=== PATIENT | male | born 1965 | race Caucasian/White ===

== ENCOUNTER 2017-01-30 16:25 | Inpatient (IN) | payer OTHER ==
[~2017-01-30] VITALS: Ht 175.3 cm; Wt 102.5 kg
[2017-01-30] MEDS ORDERED: IV NORMAL SALINE 1000ML BAG 1,000 ML IV SCH (16:44)
--- NOTE | 2017-01-30 16:51 | PHYS DOC ---
Adult General Chief Complaint Chief Complaint: FLANK PAIN HPI HPI Patient is a 52 year old [place] with the complaint of left flank and left-sided abdominal pain. He has a history of kidney stones in the past and this feels to him like a kidney stone. It's been bothering him intermittently for about 3 weeks, worse over the past day or 2. He's also noticed some difficulty with his urine stream. He's had kidney stones in the past, states he's had both a stent and lithotripsy in the past more than 5 years ago. He's had chills but no fever. No vomiting in the last 2 days. He has noticed a red discoloration to his urine. He has a history of diabetes for more than 10 years, he takes metformin daily and also 2 shots of insulin per day. Negative hypertension. Medical history also positive for "stress and depression", he takes Lipitor, lately he has been taking ibuprofen and tramadol for the pain. Review of Systems Review of Systems Constitutional: Denies fever, has had chills Eyes: Denies change in visual acuity, redness, or eye pain [] HENT: Denies nasal congestion or sore throat [] Respiratory: Denies cough or shortness of breath [] Cardiovascular: Denies chest pain GI: As in history of present illness : As in history of present illness Musculoskeletal: Denies back pain or joint pain [] Integument: Denies rash or skin lesions [] Neurologic: Denies headache, focal weakness or sensory changes [] Current Medications Current Medications Current Medications Medications (Trade) Dose Ordered Sig/Wili Start Time Stop Time Status Last Admin Dose Admin Sodium Chloride (Iv Sodium Chloride 0.9% 1000ml Bag) 1,000 ml @ 1,000 mls/hr Q1H 01/30/17 16:44 01/30/17 17:43 DC 01/30/17 17:05 1,000 MLS/HR Allergies Allergies Allergies Coded Allergies Type Severity Reaction Last Updated Verified cranberry Allergy Unknown 01/30/17 Yes Uncoded Allergies Type Severity Reaction Last Updated Verified hay Allergy Unknown 01/30/17 Physical Exam Physical Exam Constitutional: Well developed, well nourished, no acute distress, non-toxic appearance. Alert, talkative, mentating normally. HENT: Normocephalic, atraumatic, bilateral external ears normal, nose normal. [] Eyes: conjunctiva normal, no discharge. [] Neck: Normal range of motion, no stridor. [] Cardiovascular:Heart rate regular rhythm, no murmur [] Lungs & Thorax: Bilateral breath sounds clear to auscultation [] Abdomen: Bowel sounds normal, no bruit, soft, no mass, no pulsatile mass, nontender to palpation, nondistended. Skin: Warm, dry, no erythema, no rash. [] Back: No tenderness, no CVA tenderness. [] Extremities: No tenderness, no cyanosis, no clubbing, ROM intact, no edema. [] Neurologic: Alert and oriented X 3, normal motor function, normal sensory function, no focal deficits noted. [] Current Patient Data Vital Signs Vital Signs Date Time Temp Pulse Resp B/P Pulse Ox O2 Delivery O2 Flow Rate FiO2 01/30/17 17:00 70 18 123/79 98 Room Air 01/30/17 16:40 98.4 98.4 Lab Values Laboratory Tests Test 01/30/17 16:50 01/30/17 16:52 Glucose (Fingerstick) 136mg/dL (70-99) H White Blood Count 5.7x10^3/uL (4.0-11.0) Red Blood Count 4.17x10^6/uL (4.30-5.70) L Hemoglobin 13.0g/dL (13.0-17.5) Hematocrit 39.3% (39.0-53.0) Mean Corpuscular Volume 94fL (79-100) Mean Corpuscular Hemoglobin 31pg (25-35) Mean Corpuscular Hemoglobin Concent 33g/dL (31-37) Red Cell Distribution Width 14.6% (11.5-14.5) H Platelet Count 215x10^3/uL (140-400) Neutrophils (%) (Auto) 55% (31-73) Lymphocytes (%) (Auto) 29% (24-48) Monocytes (%) (Auto) 10% (0-9) H Eosinophils (%) (Auto) 5% (0-3) H Basophils (%) (Auto) 1% (0-3) Neutrophils # (Auto) 3.2x10^3uL (1.8-7.7) Lymphocytes # (Auto) 1.6x10^3/uL (1.0-4.8) Monocytes # (Auto) 0.6x10^3/uL (0.0-1.1) Eosinophils # (Auto) 0.3x10^3/uL (0.0-0.7) Basophils # (Auto) 0.1x10^3/uL (0.0-0.2) Urine Collection Type Unknown Urine Color Yellow Urine Clarity Clear Urine pH 6.0 Urine Specific [place] 1.020 Urine Protein Negativemg/dL (NEG-TRACE) Urine Glucose (UA) Negativemg/dL (NEG) Urine Ketones (Stick) Negativemg/dL (NEG) Urine Blood Small (NEG) Urine Nitrite Negative (NEG) Urine Bilirubin Negative (NEG) Urine Urobilinogen Dipstick 1.0mg/dL (0.2 mg/dL) Urine Leukocyte Esterase Small (NEG) Urine RBC 0/HPF (0-2) Urine WBC 11-20/HPF (0-4) Urine Squamous Epithelial Cells Few/LPF Urine Bacteria Few/HPF (0-FEW) Urine Mucus Slight/LPF Urine Sperm Present/HPF Sodium Level 142mmol/L (136-145) Potassium Level 4.6mmol/L (3.5-5.1) Chloride Level 106mmol/L (98-107) Carbon Dioxide Level 29mmol/L (21-32) Anion Gap 7 (6-14) Blood Urea Nitrogen 23mg/dL (8-26) Creatinine 1.7mg/dL (0.7-1.3) H Estimated GFR (Cockcroft-Gault) 42.2 BUN/Creatinine Ratio 14 (6-20) Glucose Level 133mg/dL (70-99) H Calcium Level 9.3mg/dL (8.5-10.1) Total Bilirubin 0.4mg/dL (0.2-1.0) Aspartate Amino Transferase (AST) 21U/L (15-37) Alanine Aminotransferase (ALT) 29U/L (16-63) Alkaline Phosphatase 64U/L (46-116) Total Protein 7.0g/dL (6.4-8.2) Albumin 3.8g/dL (3.4-5.0) Albumin/Globulin Ratio 1.2 (1.0-1.7) Laboratory Tests 01/30/17 16:52 Laboratory Tests 01/30/17 16:52 EKG EKG [] Radiology/Procedures Radiology/Procedures CT scan of the abdomen and pelvis read by the radiologist. There are obstructing stones in the right ureter. There does not appear to be an obstructing stone or ureteral stone on the left. [] Course & Med Decision Making Course & Med Decision Making Pertinent Labs and Imaging studies reviewed. (See chart for details) 52-year-old male with a history of kidney stones in the past presents with left flank pain intermittently for 3 weeks which reminds him of kidney stone pain. I discussed with the patient that we will get labs, CT scan, give him some IV fluids, he is agreeable to that plan. On presentation, he is in no distress whatsoever. He didn't feel that he is a little shaky and told him we will check his blood sugar. Dr. Turk, urology, came by to see the patient in the ED. CT scan showed 2 large kidney stones obstructing the right ureter area per Dr. Turk, also concern that these have been there a long time with some chronic changes on the CT. No ureteral stone was noted on the left, no hydro-on the left. Dr. Turk wants to admit the patient and plan to take him for stent tomorrow. Also his urinalysis is equivocal for UTI, he recommended a dose of Rocephin which I did start. Discussed the case with Dr. Martinez, hospitalist, who will admit the patient. I wrote bridge orders with a consult to Dr. Turk. The patient will be nothing by mouth after midnight for procedure tomorrow. [] Dragon Disclaimer Dragon Disclaimer This electronic medical record was generated, in whole or in part, using a voice recognition dictation system. Departure Departure Impression: Primary Impression: Renal colic Additional Impression: Hydronephrosis with urinary obstruction due to ureteral calculus Admitting Physician: Regina Martinez Condition: STABLE Problem Qualifiers JOSÉ MIGUEL KAN MD January 30, 2017 16:51
[2017-01-30 17:04] LABS: BASO # 0.1 x10^3/uL (0.0-0.2); BASO % 1 % (0-3); BILIRUBIN,URINE NEGATIVE (NEG); EOS % 5 % (0-3); GLUCOSE,URINE NEGATIVE (NEG); HEMATOCRIT 39.3 % (39.0-53.0); LYMPH # 1.6 x10^3/uL (1.0-4.8); LYMPH % 29 % (24-48); MEAN CORPUSCULAR HEMOGLOBIN 31 pg (25-35); MEAN CORPUSCULAR HGB CONC 33 g/dL (31-37); MEAN CORPUSCULAR VOLUME 94 fL (79-100); MONO % 10 % (0-9); NEUT % 55 % (31-73); NITRITE,URINE NEGATIVE (NEG); PLATELET COUNT 215 x10^3/uL (140-400); PROTEIN,URINE NEGATIVE (NEG-TRACE); RED BLOOD COUNT 4.17 x10^6/uL (4.30-5.70); RED CELL DISTRIBUTION WIDTH 14.6 % (11.5-14.5); WHITE BLOOD COUNT 5.7 x10^3/uL (4.0-11.0)
[2017-01-30 17:14] LABS: BACTERIA,URINE FEW /HPF (0-FEW); CALCIUM 9.3 mg/dL (8.5-10.1); CREATININE 1.7 mg/dL (0.7-1.3); GFR 42.2; POTASSIUM 4.6 mmol/L (3.5-5.1); RBC,URINE 0 /HPF (0-2); SPERM,URINE PRESENT /HPF; SQUAMOUS EPITHELIAL CELL,UR FEW /LPF
[2017-01-30 17:20] LABS: ALBUMIN 3.8 g/dL (3.4-5.0); ALBUMIN/GLOBULIN RATIO 1.2 (1.0-1.7); TOTAL BILIRUBIN 0.4 mg/dL (0.2-1.0)
--- NOTE | 2017-01-30 17:21 | PDOC ---
PROGRESS NOTES Subjective Subjective Left flank and abd pain Objective Objective Vital Signs Date Time Temp Pulse Resp B/P Pulse Ox O2 Delivery O2 Flow Rate FiO2 01/30/17 16:40 98.4 72 16 147/82 98 Room Air 98.4 Physical Exam Physical Exam Tender left flank and abd Plan Plan of Care Pt. with long history of stone disease CT abd and pelvis Proceed accordingly Comment Review of Relevant I have reviewed the following items patti (where applicable) has been applied. Labs Laboratory Tests Test 01/30/17 16:50 01/30/17 16:52 Glucose (Fingerstick) 136mg/dL (70-99) White Blood Count 5.7x10^3/uL (4.0-11.0) Red Blood Count 4.17x10^6/uL (4.30-5.70) Hemoglobin 13.0g/dL (13.0-17.5) Hematocrit 39.3% (39.0-53.0) Mean Corpuscular Volume 94fL (79-100) Mean Corpuscular Hemoglobin 31pg (25-35) Mean Corpuscular Hemoglobin Concent 33g/dL (31-37) Red Cell Distribution Width 14.6% (11.5-14.5) Platelet Count 215x10^3/uL (140-400) Neutrophils (%) (Auto) 55% (31-73) Lymphocytes (%) (Auto) 29% (24-48) Monocytes (%) (Auto) 10% (0-9) Eosinophils (%) (Auto) 5% (0-3) Basophils (%) (Auto) 1% (0-3) Neutrophils # (Auto) 3.2x10^3uL (1.8-7.7) Lymphocytes # (Auto) 1.6x10^3/uL (1.0-4.8) Monocytes # (Auto) 0.6x10^3/uL (0.0-1.1) Eosinophils # (Auto) 0.3x10^3/uL (0.0-0.7) Basophils # (Auto) 0.1x10^3/uL (0.0-0.2) Urine Collection Type Unknown Urine Color Yellow Urine Clarity Clear Urine pH 6.0 Urine Specific [place] 1.020 Urine Protein Negativemg/dL (NEG-TRACE) Urine Glucose (UA) Negativemg/dL (NEG) Urine Ketones (Stick) Negativemg/dL (NEG) Urine Blood Small (NEG) Urine Nitrite Negative (NEG) Urine Bilirubin Negative (NEG) Urine Urobilinogen Dipstick 1.0mg/dL (0.2 mg/dL) Urine Leukocyte Esterase Small (NEG) Urine RBC 0/HPF (0-2) Urine WBC 11-20/HPF (0-4) Urine Squamous Epithelial Cells Few/LPF Urine Bacteria Few/HPF (0-FEW) Urine Mucus Slight/LPF Urine Sperm Present/HPF Sodium Level 142mmol/L (136-145) Potassium Level 4.6mmol/L (3.5-5.1) Chloride Level 106mmol/L (98-107) Carbon Dioxide Level 29mmol/L (21-32) Anion Gap 7 (6-14) Blood Urea Nitrogen 23mg/dL (8-26) Creatinine 1.7mg/dL (0.7-1.3) Estimated GFR (Cockcroft-Gault) 42.2 BUN/Creatinine Ratio 14 (6-20) Glucose Level 133mg/dL (70-99) Calcium Level 9.3mg/dL (8.5-10.1) Laboratory Tests Test 01/30/17 16:50 01/30/17 16:52 Glucose (Fingerstick) 136mg/dL (70-99) White Blood Count 5.7x10^3/uL (4.0-11.0) Red Blood Count 4.17x10^6/uL (4.30-5.70) Hemoglobin 13.0g/dL (13.0-17.5) Hematocrit 39.3% (39.0-53.0) Mean Corpuscular Volume 94fL (79-100) Mean Corpuscular Hemoglobin 31pg (25-35) Mean Corpuscular Hemoglobin Concent 33g/dL (31-37) Red Cell Distribution Width 14.6% (11.5-14.5) Platelet Count 215x10^3/uL (140-400) Neutrophils (%) (Auto) 55% (31-73) Lymphocytes (%) (Auto) 29% (24-48) Monocytes (%) (Auto) 10% (0-9) Eosinophils (%) (Auto) 5% (0-3) Basophils (%) (Auto) 1% (0-3) Neutrophils # (Auto) 3.2x10^3uL (1.8-7.7) Lymphocytes # (Auto) 1.6x10^3/uL (1.0-4.8) Monocytes # (Auto) 0.6x10^3/uL (0.0-1.1) Eosinophils # (Auto) 0.3x10^3/uL (0.0-0.7) Basophils # (Auto) 0.1x10^3/uL (0.0-0.2) Urine Collection Type Unknown Urine Color Yellow Urine Clarity Clear Urine pH 6.0 Urine Specific [place] 1.020 Urine Protein Negativemg/dL (NEG-TRACE) Urine Glucose (UA) Negativemg/dL (NEG) Urine Ketones (Stick) Negativemg/dL (NEG) Urine Blood Small (NEG) Urine Nitrite Negative (NEG) Urine Bilirubin Negative (NEG) Urine Urobilinogen Dipstick 1.0mg/dL (0.2 mg/dL) Urine Leukocyte Esterase Small (NEG) Urine RBC 0/HPF (0-2) Urine WBC 11-20/HPF (0-4) Urine Squamous Epithelial Cells Few/LPF Urine Bacteria Few/HPF (0-FEW) Urine Mucus Slight/LPF Urine Sperm Present/HPF Sodium Level 142mmol/L (136-145) Potassium Level 4.6mmol/L (3.5-5.1) Chloride Level 106mmol/L (98-107) Carbon Dioxide Level 29mmol/L (21-32) Anion Gap 7 (6-14) Blood Urea Nitrogen 23mg/dL (8-26) Creatinine 1.7mg/dL (0.7-1.3) Estimated GFR (Cockcroft-Gault) 42.2 BUN/Creatinine Ratio 14 (6-20) Glucose Level 133mg/dL (70-99) Calcium Level 9.3mg/dL (8.5-10.1) Medications Current Medications Sodium Chloride (Iv Sodium Chloride 0.9% 1000ml Bag) 1,000 ml @ 1,000 mls/hr Q1H IV Last administered on 01/30/17t 17:05; Start 01/30/17 at 16:44; Stop at 17:43 Vitals/I & O Vital Sign - Last 24 Hours 01/30/17 16:40 Temp 98.4 98.4 Pulse 72 Resp 16 B/P 147/82 Pulse Ox 98 O2 Delivery Room Air MARIFER FLORENCE MD January 30, 2017 17:21
--- NOTE | 2017-01-30 18:17 | RAD ---
PROCEDURE CT study of the abdomen and pelvis without contrast HISTORY Worsening severe left flank pain for 2 weeks. TECHNIQUE Noncontrast helical CT scanning of the abdomen and pelvis was performed. Without contrast, the sensitivity to detect organ pathology and GI tract pathology is decreased. One or more of the following individualized dose reduction techniques were utilized for this study: 1. Automated exposure control 2. Adjustment of the mA and/or kV according to patient size 3. Use of iterative reconstruction technique COMPARISON None. FINDINGS The liver and spleen and pancreas are homogeneous in appearance on the noncontrast study. The gallbladder is surgically absent. No extrahepatic biliary ductal dilatation is seen. No adrenal mass is seen. There is severe hydronephrosis and proximal right hydroureter due to 2 stones within the right ureter. The more proximal stone is smaller in size measuring 5 millimeters and is located 6.5 centimeters distal to the UPJ. The larger stone is located another 2.5 centimeters distally within the mid right ureter and measures 16 millimeters in size. Nonobstructing stones of the left kidney are seen. Cyst of the right kidney is seen. No focal aneurysmal dilatation of the abdominal aorta is seen. No enlarged abdominal or pelvic lymphadenopathy is seen. Urinary bladder wall is smooth. There is indentation of the floor the urinary bladder due to enlarged prostate gland which measures 6 centimeters in greatest transverse dimension. The appendix is normal. No obstructive bowel pattern is seen. A small hiatal hernia is present. No free air or free fluid or mesenteric inflammatory change is seen. No lung base consolidation is seen. No osteolytic process is seen. IMPRESSION Severe hydronephrosis and hydroureter due to 2 right ureteral stones. Electronically signed by: Tanner Quiroz MD (January 30, 2017 18:14:20)
[2017-01-30 19:06] VITALS: BP 113/79
[2017-01-30] MEDS: fentaNYL PF VIAL 100 MCG/2 ML VIAL IV PRN ×2 (19:06→19:59)
[2017-01-30] MEDS ORDERED: ONDANSETRON PF 4 MG/2 ML VIAL. IV PRN (19:30)
[2017-01-30] MEDS: IV NORMAL SALINE 1000ML BAG 1,000 ML IV SCH (19:58)
[2017-01-30] MEDS ORDERED: diphenhydrAMINE HCL 25 MG CAPSULE PO PRN (20:15)
[2017-01-30] MEDS: HYDROcodone/APAP 5/325MG 1 TAB TABLET PO PRN (20:28)
--- NOTE | 2017-01-30 21:02 | PDOC1 ---
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 He has a long prior history of kidney stones. He reports maybe 14, but is unsure of what type, Pain in the left flank, was 9/10, now 6/10 after pain meds pain has been there for weeks, worse over last 2 days Past Medical History Cardiovascular: No pertinent hx Pulmonary: No pertinent hx GI: No pertinent hx Psych: Depression Musculoskeletal: low back pain Renal/: Other (stone) Endocrine: Diabetes Past Surgical History Past Surgical History: Other (lithotrypsy) Family History Family History: No Significant Social History Smoke: No ALCOHOL: none Drugs: None Current Problem List Problem List Problems Medical Problems: (1) Hydronephrosis with urinary obstruction due to ureteral calculus Status: Acute (2) Renal colic Status: Acute Problems: Current Medications Current Medications Current Medications Sodium Chloride 1,000 ml @ 1,000 mls/hr Q1H IV Last administered on 01/30/17 17:05; Start 01/30/17 at 16:44; Stop 01/30/17 at 17:43; Status DC Ceftriaxone Sodium (Rocephin 1gm Ivpb For Omni) 50 ml @ 100 mls/hr 1X ONCE IV Last administered on 01/30/17 19:03; Start 01/30/17 at 18:45; Stop 01/30/17 at 19:14; Status DC Fentanyl Citrate (Fentanyl 2ml Vial) 50 mcg PRN Q15MIN PRN IV PAIN GREATER THAN 3/10 Last administered on 01/30/17 19:59; Start 01/30/17 at 18:45; Stop 01/31 at 18:44 Ondansetron HCl (Zofran) 4 mg PRN Q8HRS PRN IV NAUSEA/VOMITING; Start 01/30/17 at 19:30; Stop 01/31/17 at 19:29 Fentanyl Citrate 50 mcg 50 mcg PRN Q2HR PRN IV PAIN; Start 01/30/17 at 19:30; Stop 01/31/17 at 19:29 Sodium Chloride (Iv Sodium Chloride 0.9% 1000ml Bag) 1,000 ml @ 100 mls/hr Q10H IV Last administered on 01/30/17 19:58; Start 01/30/17 at 19:26; Stop at 19:25 Zolpidem Tartrate (Ambien) 5 mg PRN QHS PRN PO INSOMNIA; Start 01/30/17 at 20:15 Diphenhydramine HCl (Benadryl) 25 mg PRN Q6HRS PRN PO ITCHING; Start 01/30/17 at 20:15 Acetaminophen/ Hydrocodone Bitart (Lortab 5/325) 1 tab PRN Q4HRS PRN PO PAIN Last administered on 01/30/17 20:28; Start 01/30/17 at 20:15 Allergies Allergies: Coded Allergies: cranberry (Verified Allergy, Unknown, 01/30/17) Uncoded Allergies: hay (Allergy, Unknown, 01/30/17) ROS General: No: Appetite, Chills, Fatigue, Malaise, Night Sweats, Other PSYCHOLOGICAL ROS: YES: Depression (better with meds), Sleep disturbances, No: Anxiety, Behavioral Disorder, Concentration difficultie, Decreased libido , Disorientation, Hallucinations, Hostility, Irritablity, Mood Swings, Obsessive thoughts, Other HEENT: No: Epistaxis, Heacaches, Hearing change, Nasal congestion, Nasal discharge, Oral lesions, Other, Sinus pain, Sneezing, Snoring, Sore Throat, Tinnitus, Vertigo, Visual Changes, Vocal changes Respiratory: No: Cough, Hemoptysis, Orthopnea, Other, Pleuritic Pain, SOB with excertion, Shortness of breath, Sputum Changes, Stridor, Tachypnea, Wheezing Cardiovascular: No Chest Pain, No Edema, No Lt Headedness, No Orthopnea, No Other, No Palpitations, No Paroxysmal Noc. Dyspnea Gastrointestinal: Yes Nausea, No Abdominal Pain, No Constipation, No Diarrhea, No Hematochezia, No Melena, No Other, No Vomiting Genitourinary: YES Flank Pain, YES Other, YES Pain, No , No , No , No , No , No , No , No Discharge, No Dysuria, No Frequency, No Hematuria, No Incontinence, No Retention, No Urgency Musculoskeletal: No Gait Disturbance, No Joint Stiffness, No Joint Swelling, No Muscle Pain, No Muscular Weakness, No Other, No Pain In:, No Swelling In: Neurological: No Behavorial Changes, No Bowel/Bladder ControlChng, No Confusion , No Dizziness, No Gait Disturbance, No Headaches, No Impaired Coord/balance, No Memory Loss, No Numbness/Tingling, No Other, No Seizures, No Speech Problems , No Tremors, No Visual Changes, No Weakness Skin: Yes Dry Skin Physical Exam General: Alert, mild distress HEENT: Atraumatic, PERRLA, EOMI Lungs: Clear to auscultation, Normal air movement Heart: RRR, no gallops, no murmurs Abdomen: Normal bowel sounds, Soft (tender left, ) Rectal Exam: not examined Extremities: No clubbing, No edema, Normal pulses Skin: No rashes, No significant lesion Neuro: Normal speech, Sensation intact Psych/Mental Status: Mental status NL, Mood NL Vitals Vitals Vital Signs Date Time Temp Pulse Resp B/P Pulse Ox O2 Delivery O2 Flow Rate FiO2 01/30/17 20:28 Room Air 01/30/17 19:06 98.2 70 20 113/79 98 98.2 Labs Labs Laboratory Tests Test 01/30/17 16:50 01/30/17 16:52 Glucose (Fingerstick) 136mg/dL (70-99) White Blood Count 5.7x10^3/uL (4.0-11.0) Red Blood Count 4.17x10^6/uL (4.30-5.70) Hemoglobin 13.0g/dL (13.0-17.5) Hematocrit 39.3% (39.0-53.0) Mean Corpuscular Volume 94fL (79-100) Mean Corpuscular Hemoglobin 31pg (25-35) Mean Corpuscular Hemoglobin Concent 33g/dL (31-37) Red Cell Distribution Width 14.6% (11.5-14.5) Platelet Count 215x10^3/uL (140-400) Neutrophils (%) (Auto) 55% (31-73) Lymphocytes (%) (Auto) 29% (24-48) Monocytes (%) (Auto) 10% (0-9) Eosinophils (%) (Auto) 5% (0-3) Basophils (%) (Auto) 1% (0-3) Neutrophils # (Auto) 3.2x10^3uL (1.8-7.7) Lymphocytes # (Auto) 1.6x10^3/uL (1.0-4.8) Monocytes # (Auto) 0.6x10^3/uL (0.0-1.1) Eosinophils # (Auto) 0.3x10^3/uL (0.0-0.7) Basophils # (Auto) 0.1x10^3/uL (0.0-0.2) Urine Collection Type Unknown Urine Color Yellow Urine Clarity Clear Urine pH 6.0 Urine Specific [place] 1.020 Urine Protein Negativemg/dL (NEG-TRACE) Urine Glucose (UA) Negativemg/dL (NEG) Urine Ketones (Stick) Negativemg/dL (NEG) Urine Blood Small (NEG) Urine Nitrite Negative (NEG) Urine Bilirubin Negative (NEG) Urine Urobilinogen Dipstick 1.0mg/dL (0.2 mg/dL) Urine Leukocyte Esterase Small (NEG) Urine RBC 0/HPF (0-2) Urine WBC 11-20/HPF (0-4) Urine Squamous Epithelial Cells Few/LPF Urine Bacteria Few/HPF (0-FEW) Urine Mucus Slight/LPF Urine Sperm Present/HPF Sodium Level 142mmol/L (136-145) Potassium Level 4.6mmol/L (3.5-5.1) Chloride Level 106mmol/L (98-107) Carbon Dioxide Level 29mmol/L (21-32) Anion Gap 7 (6-14) Blood Urea Nitrogen 23mg/dL (8-26) Creatinine 1.7mg/dL (0.7-1.3) Estimated GFR (Cockcroft-Gault) 42.2 BUN/Creatinine Ratio 14 (6-20) Glucose Level 133mg/dL (70-99) Calcium Level 9.3mg/dL (8.5-10.1) Total Bilirubin 0.4mg/dL (0.2-1.0) Aspartate Amino Transf (AST/SGOT) 21U/L (15-37) Alanine Aminotransferase (ALT/SGPT) 29U/L (16-63) Alkaline Phosphatase 64U/L (46-116) Total Protein 7.0g/dL (6.4-8.2) Albumin 3.8g/dL (3.4-5.0) Albumin/Globulin Ratio 1.2 (1.0-1.7) Laboratory Tests Test 01/30/17 16:50 01/30/17 16:52 Glucose (Fingerstick) 136mg/dL (70-99) White Blood Count 5.7x10^3/uL (4.0-11.0) Red Blood Count 4.17x10^6/uL (4.30-5.70) Hemoglobin 13.0g/dL (13.0-17.5) Hematocrit 39.3% (39.0-53.0) Mean Corpuscular Volume 94fL (79-100) Mean Corpuscular Hemoglobin 31pg (25-35) Mean Corpuscular Hemoglobin Concent 33g/dL (31-37) Red Cell Distribution Width 14.6% (11.5-14.5) Platelet Count 215x10^3/uL (140-400) Neutrophils (%) (Auto) 55% (31-73) Lymphocytes (%) (Auto) 29% (24-48) Monocytes (%) (Auto) 10% (0-9) Eosinophils (%) (Auto) 5% (0-3) Basophils (%) (Auto) 1% (0-3) Neutrophils # (Auto) 3.2x10^3uL (1.8-7.7) Lymphocytes # (Auto) 1.6x10^3/uL (1.0-4.8) Monocytes # (Auto) 0.6x10^3/uL (0.0-1.1) Eosinophils # (Auto) 0.3x10^3/uL (0.0-0.7) Basophils # (Auto) 0.1x10^3/uL (0.0-0.2) Urine Collection Type Unknown Urine Color Yellow Urine Clarity Clear Urine pH 6.0 Urine Specific [place] 1.020 Urine Protein Negativemg/dL (NEG-TRACE) Urine Glucose (UA) Negativemg/dL (NEG) Urine Ketones (Stick) Negativemg/dL (NEG) Urine Blood Small (NEG) Urine Nitrite Negative (NEG) Urine Bilirubin Negative (NEG) Urine Urobilinogen Dipstick 1.0mg/dL (0.2 mg/dL) Urine Leukocyte Esterase Small (NEG) Urine RBC 0/HPF (0-2) Urine WBC 11-20/HPF (0-4) Urine Squamous Epithelial Cells Few/LPF Urine Bacteria Few/HPF (0-FEW) Urine Mucus Slight/LPF Urine Sperm Present/HPF Sodium Level 142mmol/L (136-145) Potassium Level 4.6mmol/L (3.5-5.1) Chloride Level 106mmol/L (98-107) Carbon Dioxide Level 29mmol/L (21-32) Anion Gap 7 (6-14) Blood Urea Nitrogen 23mg/dL (8-26) Creatinine 1.7mg/dL (0.7-1.3) Estimated GFR (Cockcroft-Gault) 42.2 BUN/Creatinine Ratio 14 (6-20) Glucose Level 133mg/dL (70-99) Calcium Level 9.3mg/dL (8.5-10.1) Total Bilirubin 0.4mg/dL (0.2-1.0) Aspartate Amino Transf (AST/SGOT) 21U/L (15-37) Alanine Aminotransferase (ALT/SGPT) 29U/L (16-63) Alkaline Phosphatase 64U/L (46-116) Total Protein 7.0g/dL (6.4-8.2) Albumin 3.8g/dL (3.4-5.0) Albumin/Globulin Ratio 1.2 (1.0-1.7) VTE Prophylaxis Ordered VTE Prophylaxis Devices: Yes VTE Pharmacological Prophylaxi: No Assessment/Plan Assessment/Plan Renal colic, w/ hydronephrosis, obstructing stone hydroureter flank pain, percocet and fentanyl PRN obesity DM2, hold metformin for renal fxn acute renal failure, obstructive uropathy DURGA HARMON MD January 30, 2017 21:02
[2017-01-30] MEDS ORDERED: DEXTROSE 50% 25 GM / 50ML DISP.SYRIN. IV PRN (21:45)
[2017-01-30] MEDS: DOCUSATE SODIUM 100 MG CAPSULE. PO SCH (21:52)
[2017-01-30] MEDS: ZOLPIDEM 5 MG TABLET. PO PRN (21:52)
[2017-01-30] MEDS: INSULIN DETEMIR 300 UNITS/3 ML INSULN.PEN. SQ SCH (21:57)
[2017-01-30 23:30] VITALS: BP 100/78
[2017-01-31] VITALS (12 sets, daily range): BP systolic 109–140; BP diastolic 67–92
--- NOTE | 2017-01-31 01:55 | CONS ---
DATE OF CONSULTATION: 01/30/2017 The patient is currently in the ER, but may be admitted, possibly this will be the consult. CHIEF COMPLAINT: Left flank and abdominal pain. HISTORY OF PRESENT ILLNESS: The patient is a very pleasant 52-year-old white male with long history of stone disease, who has had about a [id number] of left flank and abdominal pain, also seen some possible red urine. PAST MEDICAL HISTORY: Significant for multiple stones. He has had passed multiple stones on his own, then had multiple operations and lithotripsies in the past in [place] and at . The patient also has a history of diabetes in the past. He has had prior cholecystectomy. MEDICATIONS: Metformin and medicine for depression. ALLERGIES: The patient has no known drug allergies, just allergy to ____ AND HAY. REVIEW OF SYSTEMS: Left flank and abdominal pain. Last lithotripsy was about 7 years ago, he states. PHYSICAL EXAMINATION: ABDOMEN: The patient with some tenderness in the left flank and left side of the abdomen. No right-sided abdominal tenderness right now, but he has had some on occasion. GENITOURINARY: Testes are descended bilaterally. Phallus within normal limits. RECTAL: Good sphincter tone. Prostate smooth, nontender, without nodules, overall size 15 grams. LABORATORY DATA: Urine shows 0 red cells, 11-20 white cells and few bacteria. Creatinine is 1.7, potassium 4.6. White count is 5.7, platelet count 215,000. The patient takes a baby aspirin a day also. The patient is currently afebrile 98.4, blood pressure is 147/82, pulse is 72. ASSESSMENT: Left flank and abdominal pain and a long history of renal stone disease. PLAN: The patient is going to be getting a CT abdomen and pelvis without contrast and then we will proceed accordingly. I certainly appreciate being allowed to participate in this patient's care. MARIFER FLORENCE MD DR: NICOLE/valerie JOB#: [id number] / [id number]
[2017-01-31] MEDS: IV NORMAL SALINE 1000ML BAG 1,000 ML IV SCH ×2 (05:26→15:26)
[2017-01-31] MEDS: fentaNYL PF VIAL 100 MCG/2 ML VIAL IV PRN ×2 (06:05→09:23)
[2017-01-31] MEDS: POLYETHYLENE GLYCOL 3350 17 GM PACKET. PO SCH (07:41)
[2017-01-31] MEDS: DOCUSATE SODIUM 100 MG CAPSULE. PO SCH (07:41)
[2017-01-31 07:48] LABS: ALBUMIN 3.1 g/dL (3.4-5.0); ALBUMIN/GLOBULIN RATIO 1.1 (1.0-1.7); CREATININE 1.6 mg/dL (0.7-1.3); GFR 45.3; POTASSIUM 4.1 mmol/L (3.5-5.1); TOTAL BILIRUBIN 0.2 mg/dL (0.2-1.0); TOTAL PROTEIN 5.9 g/dL (6.4-8.2)
[2017-01-31] MEDS: INSULIN ASPART 300 UNITS/3 ML INSULN.PEN SQ SCH ×3 (08:00→17:00)
[2017-01-31 08:06] LABS: BASO # 0.1 x10^3/uL (0.0-0.2); BASO % 1 % (0-3); EOS % 6 % (0-3); HEMATOCRIT 35.3 % (39.0-53.0); HEMOGLOBIN 11.8 g/dL (13.0-17.5); LYMPH # 1.9 x10^3/uL (1.0-4.8); LYMPH % 36 % (24-48); MEAN CORPUSCULAR HEMOGLOBIN 32 pg (25-35); MEAN CORPUSCULAR HGB CONC 34 g/dL (31-37); MEAN CORPUSCULAR VOLUME 94 fL (79-100); MONO % 10 % (0-9); NEUT % 47 % (31-73); PLATELET COUNT 183 x10^3/uL (140-400); RED BLOOD COUNT 3.75 x10^6/uL (4.30-5.70); RED CELL DISTRIBUTION WIDTH 14.2 % (11.5-14.5); WHITE BLOOD COUNT 5.2 x10^3/uL (4.0-11.0)
--- NOTE | 2017-01-31 09:05 | PDOC ---
PROGRESS NOTES Subjective Subjective Pt. with bilateral flank and abd pain Objective Objective Vital Signs Date Time Temp Pulse Resp B/P (MAP) Pulse Ox O2 Delivery O2 Flow Rate FiO2 01/31/17 07:15 97.6 60 18 120/79 (93) 97 Room Air 97.6 Intake and Output 01/31/17 07:00 Intake Total 1300 ml Balance 1300 ml Intake Oral 300 ml IV Total 1000 ml # Voids 3 Physical Exam Physical Exam Large obstruction right ureteral stone Plan Plan of Care I discussed with the pt. his situation and we discussed the options, alternatives, benefits, risks, and possible complications of watchful waiting vs. intervention with cystoscopy, bilateral retrograde pyelograms with possible bilateral ureteral stent placement. Pt. understands and wishes to proceed with operation. Will proceed accordingly. Problems Medical Problems: (1) Hydronephrosis with urinary obstruction due to ureteral calculus Status: Acute (2) Renal colic Status: Acute Comment Review of Relevant I have reviewed the following items patti (where applicable) has been applied. Labs Laboratory Tests Test 01/30/17 16:50 01/30/17 16:52 01/30/17 20:59 01/31/17 03:35 Glucose (Fingerstick) 136 mg/dL (70-99) 163 mg/dL (70-99) White Blood Count 5.7 x10^3/uL (4.0-11.0) 5.2 x10^3/uL (4.0-11.0) Red Blood Count 4.17 x10^6/uL (4.30-5.70) 3.75 x10^6/uL (4.30-5.70) Hemoglobin 13.0 g/dL (13.0-17.5) 11.8 g/dL (13.0-17.5) Hematocrit 39.3 % (39.0-53.0) 35.3 % (39.0-53.0) Mean Corpuscular Volume 94 fL (79-100) 94 fL (79-100) Mean Corpuscular Hemoglobin 31 pg (25-35) 32 pg (25-35) Mean Corpuscular Hemoglobin Concent 33 g/dL (31-37) 34 g/dL (31-37) Red Cell Distribution Width 14.6 % (11.5-14.5) 14.2 % (11.5-14.5) Platelet Count 215 x10^3/uL (140-400) 183 x10^3/uL (140-400) Neutrophils (%) (Auto) 55 % (31-73) 47 % (31-73) Lymphocytes (%) (Auto) 29 % (24-48) 36 % (24-48) Monocytes (%) (Auto) 10 % (0-9) 10 % (0-9) Eosinophils (%) (Auto) 5 % (0-3) 6 % (0-3) Basophils (%) (Auto) 1 % (0-3) 1 % (0-3) Neutrophils # (Auto) 3.2 x10^3uL (1.8-7.7) 2.5 x10^3uL (1.8-7.7) Lymphocytes # (Auto) 1.6 x10^3/uL (1.0-4.8) 1.9 x10^3/uL (1.0-4.8) Monocytes # (Auto) 0.6 x10^3/uL (0.0-1.1) 0.5 x10^3/uL (0.0-1.1) Eosinophils # (Auto) 0.3 x10^3/uL (0.0-0.7) 0.3 x10^3/uL (0.0-0.7) Basophils # (Auto) 0.1 x10^3/uL (0.0-0.2) 0.1 x10^3/uL (0.0-0.2) Urine Collection Type Unknown Urine Color Yellow Urine Clarity Clear Urine pH 6.0 Urine Specific [place] 1.020 Urine Protein Negative mg/dL (NEG-TRACE) Urine Glucose (UA) Negative mg/dL (NEG) Urine Ketones (Stick) Negative mg/dL (NEG) Urine Blood Small (NEG) Urine Nitrite Negative (NEG) Urine Bilirubin Negative (NEG) Urine Urobilinogen Dipstick 1.0 mg/dL (0.2 mg/dL) Urine Leukocyte Esterase Small (NEG) Urine RBC 0 /HPF (0-2) Urine WBC 11-20 /HPF (0-4) Urine Squamous Epithelial Cells Few /LPF Urine Bacteria Few /HPF (0-FEW) Urine Mucus Slight /LPF Urine Sperm Present /HPF Sodium Level 142 mmol/L (136-145) 142 mmol/L (136-145) Potassium Level 4.6 mmol/L (3.5-5.1) 4.1 mmol/L (3.5-5.1) Chloride Level 106 mmol/L (98-107) 109 mmol/L (98-107) Carbon Dioxide Level 29 mmol/L (21-32) 23 mmol/L (21-32) Anion Gap 7 (6-14) 10 (6-14) Blood Urea Nitrogen 23 mg/dL (8-26) 19 mg/dL (8-26) Creatinine 1.7 mg/dL (0.7-1.3) 1.6 mg/dL (0.7-1.3) Estimated GFR (Cockcroft-Gault) 42.2 45.3 BUN/Creatinine Ratio 14 (6-20) 12 (6-20) Glucose Level 133 mg/dL (70-99) 127 mg/dL (70-99) Calcium Level 9.3 mg/dL (8.5-10.1) 8.0 mg/dL (8.5-10.1) Total Bilirubin 0.4 mg/dL (0.2-1.0) 0.2 mg/dL (0.2-1.0) Aspartate Amino Transf (AST/SGOT) 21 U/L (15-37) 18 U/L (15-37) Alanine Aminotransferase (ALT/SGPT) 29 U/L (16-63) 26 U/L (16-63) Alkaline Phosphatase 64 U/L (46-116) 55 U/L (46-116) Total Protein 7.0 g/dL (6.4-8.2) 5.9 g/dL (6.4-8.2) Albumin 3.8 g/dL (3.4-5.0) 3.1 g/dL (3.4-5.0) Albumin/Globulin Ratio 1.2 (1.0-1.7) 1.1 (1.0-1.7) Test 01/31/17 07:56 Glucose (Fingerstick) 95 mg/dL (70-99) Laboratory Tests Test 01/30/17 16:50 01/30/17 16:52 01/30/17 20:59 01/31/17 03:35 Glucose (Fingerstick) 136 mg/dL (70-99) 163 mg/dL (70-99) White Blood Count 5.7 x10^3/uL (4.0-11.0) 5.2 x10^3/uL (4.0-11.0) Red Blood Count 4.17 x10^6/uL (4.30-5.70) 3.75 x10^6/uL (4.30-5.70) Hemoglobin 13.0 g/dL (13.0-17.5) 11.8 g/dL (13.0-17.5) Hematocrit 39.3 % (39.0-53.0) 35.3 % (39.0-53.0) Mean Corpuscular Volume 94 fL (79-100) 94 fL (79-100) Mean Corpuscular Hemoglobin 31 pg (25-35) 32 pg (25-35) Mean Corpuscular Hemoglobin Concent 33 g/dL (31-37) 34 g/dL (31-37) Red Cell Distribution Width 14.6 % (11.5-14.5) 14.2 % (11.5-14.5) Platelet Count 215 x10^3/uL (140-400) 183 x10^3/uL (140-400) Neutrophils (%) (Auto) 55 % (31-73) 47 % (31-73) Lymphocytes (%) (Auto) 29 % (24-48) 36 % (24-48) Monocytes (%) (Auto) 10 % (0-9) 10 % (0-9) Eosinophils (%) (Auto) 5 % (0-3) 6 % (0-3) Basophils (%) (Auto) 1 % (0-3) 1 % (0-3) Neutrophils # (Auto) 3.2 x10^3uL (1.8-7.7) 2.5 x10^3uL (1.8-7.7) Lymphocytes # (Auto) 1.6 x10^3/uL (1.0-4.8) 1.9 x10^3/uL (1.0-4.8) Monocytes # (Auto) 0.6 x10^3/uL (0.0-1.1) 0.5 x10^3/uL (0.0-1.1) Eosinophils # (Auto) 0.3 x10^3/uL (0.0-0.7) 0.3 x10^3/uL (0.0-0.7) Basophils # (Auto) 0.1 x10^3/uL (0.0-0.2) 0.1 x10^3/uL (0.0-0.2) Urine Collection Type Unknown Urine Color Yellow Urine Clarity Clear Urine pH 6.0 Urine Specific [place] 1.020 Urine Protein Negative mg/dL (NEG-TRACE) Urine Glucose (UA) Negative mg/dL (NEG) Urine Ketones (Stick) Negative mg/dL (NEG) Urine Blood Small (NEG) Urine Nitrite Negative (NEG) Urine Bilirubin Negative (NEG) Urine Urobilinogen Dipstick 1.0 mg/dL (0.2 mg/dL) Urine Leukocyte Esterase Small (NEG) Urine RBC 0 /HPF (0-2) Urine WBC 11-20 /HPF (0-4) Urine Squamous Epithelial Cells Few /LPF Urine Bacteria Few /HPF (0-FEW) Urine Mucus Slight /LPF Urine Sperm Present /HPF Sodium Level 142 mmol/L (136-145) 142 mmol/L (136-145) Potassium Level 4.6 mmol/L (3.5-5.1) 4.1 mmol/L (3.5-5.1) Chloride Level 106 mmol/L (98-107) 109 mmol/L (98-107) Carbon Dioxide Level 29 mmol/L (21-32) 23 mmol/L (21-32) Anion Gap 7 (6-14) 10 (6-14) Blood Urea Nitrogen 23 mg/dL (8-26) 19 mg/dL (8-26) Creatinine 1.7 mg/dL (0.7-1.3) 1.6 mg/dL (0.7-1.3) Estimated GFR (Cockcroft-Gault) 42.2 45.3 BUN/Creatinine Ratio 14 (6-20) 12 (6-20) Glucose Level 133 mg/dL (70-99) 127 mg/dL (70-99) Calcium Level 9.3 mg/dL (8.5-10.1) 8.0 mg/dL (8.5-10.1) Total Bilirubin 0.4 mg/dL (0.2-1.0) 0.2 mg/dL (0.2-1.0) Aspartate Amino Transf (AST/SGOT) 21 U/L (15-37) 18 U/L (15-37) Alanine Aminotransferase (ALT/SGPT) 29 U/L (16-63) 26 U/L (16-63) Alkaline Phosphatase 64 U/L (46-116) 55 U/L (46-116) Total Protein 7.0 g/dL (6.4-8.2) 5.9 g/dL (6.4-8.2) Albumin 3.8 g/dL (3.4-5.0) 3.1 g/dL (3.4-5.0) Albumin/Globulin Ratio 1.2 (1.0-1.7) 1.1 (1.0-1.7) Test 01/31/17 07:56 Glucose (Fingerstick) 95 mg/dL (70-99) Medications Current Medications Sodium Chloride 1,000 ml @ 1,000 mls/hr Q1H IV Last administered on 01/30/17 17:05; Start 01/30/17 at 16:44; Stop 01/30/17 at 17:43; Status DC Ceftriaxone Sodium 50 ml @ 100 mls/hr 1X ONCE IV Last administered on 19:03; Start 01/30/17 at 18:45; Stop 01/30/17 at 19:14; Status DC Fentanyl Citrate (Fentanyl 2ml Vial) 50 mcg PRN Q15MIN PRN IV PAIN GREATER THAN 3/10 Last administered on 01/30/17 19:59; Start 01/30/17 at 18:45; Stop 01/31 at 18:44 Ondansetron HCl (Zofran) 4 mg PRN Q8HRS PRN IV NAUSEA/VOMITING; Start 01/30/17 at 19:30; Stop 01/31/17 at 19:29 Fentanyl Citrate (Fentanyl 2ml Vial) 50 mcg PRN Q2HR PRN IV PAIN; Start at 19:30; Stop 01/31/17 at 19:29 Sodium Chloride 1,000 ml @ 100 mls/hr Q10H IV Last administered on 01/31/17 05 :26; Start 01/30/17 at 19:26; Stop 01/31/17 at 19:25 Zolpidem Tartrate (Ambien) 5 mg PRN QHS PRN PO INSOMNIA Last administered on 21:52; Start 01/30/17 at 20:15 Diphenhydramine HCl (Benadryl) 25 mg PRN Q6HRS PRN PO ITCHING; Start 01/30/17 at 20:15 Acetaminophen/ Hydrocodone Bitart (Lortab 5/325) 1 tab PRN Q4HRS PRN PO PAIN Last administered on 01/30/17 20:28; Start 01/30/17 at 20:15 Docusate Sodium (Colace) 100 mg DAILY PO Last administered on 01/30/17 21:52; Start 01/30/17 at 21:30 Polyethylene Glycol (miraLAX PACKET) 17 gm DAILY PO ; Start 01/31/17 at 09:00 Insulin Aspart (Novolog) 0-9 UNITS TIDWMEALS SQ ; Start 01/31/17 at 08:00 Dextrose (Dextrose 50%-Water Syringe) 12.5 gm PRN Q15MIN PRN IV SEE COMMENTS; Start 01/30/17 at 21:45 Ceftriaxone Sodium 1 gm/ Sodium Chloride 50 ml @ 100 mls/hr Q24H IV ; Start 01/30/17 at 22:00 Insulin Detemir (Levemir) 8 units QHS SQ Last administered on 01/30/17 21:57; Start 01/30/17 at 21:45 Vitals/I & O Vital Sign - Last 24 Hours 01/30/17 01/30/17 01/30/17 01/30/17 16:40 17:00 19:00 19:06 Temp 98.4 98.4 Pulse 72 70 72 Resp 16 18 16 20 B/P (MAP) 147/82 (103) 123/79 (94) 139/81 (100) Pulse Ox 98 98 98 97 O2 Delivery Room Air Room Air Room Air Room Air 01/30/17 01/30/17 01/30/17 01/31/17 19:06 20:28 23:30 02:48 Temp 98.2 97.7 97.8 98.2 97.7 97.8 Pulse 70 101 66 Resp 20 18 18 B/P (MAP) 113/79 (90) 100/78 (85) 109/67 (81) Pulse Ox 98 95 97 O2 Delivery Room Air Room Air Room Air Room Air 01/31/17 01/31/17 01/31/17 05:00 06:30 07:15 Temp 97.6 97.6 Pulse 60 Resp 18 B/P (MAP) 120/79 (93) Pulse Ox 97 O2 Delivery Room Air Room Air Room Air Intake and Output 01/30/17 01/30/17 01/31/17 15:00 23:00 07:00 Intake Total 1300 ml Balance 1300 ml MARIFER FLORENCE MD January 31, 2017 09:05
[2017-01-31] MEDS ORDERED: IV RINGERS,LACTATED 1000ML 1,000 ML IV SCH (11:10)
[2017-01-31] MEDS ORDERED: HYDROmorphone 2 MG/ML VIAL IV PRN (11:15)
[2017-01-31] MEDS ORDERED: LIDOCAINE 1% 1 ML SYRINGE. ID PRN (11:15)
[2017-01-31] MEDS ORDERED: ONDANSETRON PF 4 MG/2 ML VIAL. IV PRN (11:15)
[2017-01-31] MEDS ORDERED: MORPHINE SULFATE 2 MG/ML DISP.SYRIN. IV PRN (11:15)
[2017-01-31] MEDS ORDERED: fentaNYL PF VIAL 100 MCG/2 ML VIAL IV PRN ×2 (11:15)
[2017-01-31] MEDS ORDERED: PROCHLORPERAZINE 10 MG/2 ML VIAL. IV PRN (11:15)
--- NOTE | 2017-01-31 11:15 | PDOC ---
PROGRESS NOTES Chief Complaint Chief Complaint Renal colic, w/ right hydronephrosis, 2 right obstructing stone hydroureter obesity DM2 acute renal failure, obstructive uropathy from Custodial plan: fu with dr. Turk, will get cystoscopy today with right side ureteral stent on ceftriaxone ivf pain control no home meds seen on jyoti brian dc in 1-2ds History of Present Illness History of Present Illness left side flank pain, with no stone on CT right side mild flank pain with 2 stones obstructing cr high some nausea Vitals Vitals Vital Signs Date Time Temp Pulse Resp B/P (MAP) Pulse Ox O2 Delivery O2 Flow Rate FiO2 01/31/17 09:55 97 Room Air 01/31/17 07:15 97.6 60 18 120/79 (93) 97.6 Physical Exam General: Alert, mild distress Abdomen: Normal bowel sounds, Soft (tender left, ) Extremities: No clubbing, No edema, Normal pulses Skin: No rashes, No significant lesion Labs LABS Laboratory Tests Test 01/30/17 16:50 01/30/17 16:52 01/30/17 20:59 01/31/17 03:35 Glucose (Fingerstick) 136 mg/dL (70-99) 163 mg/dL (70-99) White Blood Count 5.7 x10^3/uL (4.0-11.0) 5.2 x10^3/uL (4.0-11.0) Red Blood Count 4.17 x10^6/uL (4.30-5.70) 3.75 x10^6/uL (4.30-5.70) Hemoglobin 13.0 g/dL (13.0-17.5) 11.8 g/dL (13.0-17.5) Hematocrit 39.3 % (39.0-53.0) 35.3 % (39.0-53.0) Mean Corpuscular Volume 94 fL (79-100) 94 fL (79-100) Mean Corpuscular Hemoglobin 31 pg (25-35) 32 pg (25-35) Mean Corpuscular Hemoglobin Concent 33 g/dL (31-37) 34 g/dL (31-37) Red Cell Distribution Width 14.6 % (11.5-14.5) 14.2 % (11.5-14.5) Platelet Count 215 x10^3/uL (140-400) 183 x10^3/uL (140-400) Neutrophils (%) (Auto) 55 % (31-73) 47 % (31-73) Lymphocytes (%) (Auto) 29 % (24-48) 36 % (24-48) Monocytes (%) (Auto) 10 % (0-9) 10 % (0-9) Eosinophils (%) (Auto) 5 % (0-3) 6 % (0-3) Basophils (%) (Auto) 1 % (0-3) 1 % (0-3) Neutrophils # (Auto) 3.2 x10^3uL (1.8-7.7) 2.5 x10^3uL (1.8-7.7) Lymphocytes # (Auto) 1.6 x10^3/uL (1.0-4.8) 1.9 x10^3/uL (1.0-4.8) Monocytes # (Auto) 0.6 x10^3/uL (0.0-1.1) 0.5 x10^3/uL (0.0-1.1) Eosinophils # (Auto) 0.3 x10^3/uL (0.0-0.7) 0.3 x10^3/uL (0.0-0.7) Basophils # (Auto) 0.1 x10^3/uL (0.0-0.2) 0.1 x10^3/uL (0.0-0.2) Urine Collection Type Unknown Urine Color Yellow Urine Clarity Clear Urine pH 6.0 Urine Specific [place] 1.020 Urine Protein Negative mg/dL (NEG-TRACE) Urine Glucose (UA) Negative mg/dL (NEG) Urine Ketones (Stick) Negative mg/dL (NEG) Urine Blood Small (NEG) Urine Nitrite Negative (NEG) Urine Bilirubin Negative (NEG) Urine Urobilinogen Dipstick 1.0 mg/dL (0.2 mg/dL) Urine Leukocyte Esterase Small (NEG) Urine RBC 0 /HPF (0-2) Urine WBC 11-20 /HPF (0-4) Urine Squamous Epithelial Cells Few /LPF Urine Bacteria Few /HPF (0-FEW) Urine Mucus Slight /LPF Urine Sperm Present /HPF Sodium Level 142 mmol/L (136-145) 142 mmol/L (136-145) Potassium Level 4.6 mmol/L (3.5-5.1) 4.1 mmol/L (3.5-5.1) Chloride Level 106 mmol/L (98-107) 109 mmol/L (98-107) Carbon Dioxide Level 29 mmol/L (21-32) 23 mmol/L (21-32) Anion Gap 7 (6-14) 10 (6-14) Blood Urea Nitrogen 23 mg/dL (8-26) 19 mg/dL (8-26) Creatinine 1.7 mg/dL (0.7-1.3) 1.6 mg/dL (0.7-1.3) Estimated GFR (Cockcroft-Gault) 42.2 45.3 BUN/Creatinine Ratio 14 (6-20) 12 (6-20) Glucose Level 133 mg/dL (70-99) 127 mg/dL (70-99) Calcium Level 9.3 mg/dL (8.5-10.1) 8.0 mg/dL (8.5-10.1) Total Bilirubin 0.4 mg/dL (0.2-1.0) 0.2 mg/dL (0.2-1.0) Aspartate Amino Transf (AST/SGOT) 21 U/L (15-37) 18 U/L (15-37) Alanine Aminotransferase (ALT/SGPT) 29 U/L (16-63) 26 U/L (16-63) Alkaline Phosphatase 64 U/L (46-116) 55 U/L (46-116) Total Protein 7.0 g/dL (6.4-8.2) 5.9 g/dL (6.4-8.2) Albumin 3.8 g/dL (3.4-5.0) 3.1 g/dL (3.4-5.0) Albumin/Globulin Ratio 1.2 (1.0-1.7) 1.1 (1.0-1.7) Test 01/31/17 07:56 Glucose (Fingerstick) 95 mg/dL (70-99) Review of Systems Review of Systems no fever, chills, sob or chest pain Assessment and Plan Assessmemt and Plan Problems Medical Problems: (1) Hydronephrosis with urinary obstruction due to ureteral calculus Status: Acute (2) Renal colic Status: Acute Problems: Comment Review of Relevant I have reviewed the following items patti (where applicable) has been applied. Labs Laboratory Tests Test 01/30/17 16:50 01/30/17 16:52 01/30/17 20:59 01/31/17 03:35 Glucose (Fingerstick) 136 mg/dL (70-99) 163 mg/dL (70-99) White Blood Count 5.7 x10^3/uL (4.0-11.0) 5.2 x10^3/uL (4.0-11.0) Red Blood Count 4.17 x10^6/uL (4.30-5.70) 3.75 x10^6/uL (4.30-5.70) Hemoglobin 13.0 g/dL (13.0-17.5) 11.8 g/dL (13.0-17.5) Hematocrit 39.3 % (39.0-53.0) 35.3 % (39.0-53.0) Mean Corpuscular Volume 94 fL (79-100) 94 fL (79-100) Mean Corpuscular Hemoglobin 31 pg (25-35) 32 pg (25-35) Mean Corpuscular Hemoglobin Concent 33 g/dL (31-37) 34 g/dL (31-37) Red Cell Distribution Width 14.6 % (11.5-14.5) 14.2 % (11.5-14.5) Platelet Count 215 x10^3/uL (140-400) 183 x10^3/uL (140-400) Neutrophils (%) (Auto) 55 % (31-73) 47 % (31-73) Lymphocytes (%) (Auto) 29 % (24-48) 36 % (24-48) Monocytes (%) (Auto) 10 % (0-9) 10 % (0-9) Eosinophils (%) (Auto) 5 % (0-3) 6 % (0-3) Basophils (%) (Auto) 1 % (0-3) 1 % (0-3) Neutrophils # (Auto) 3.2 x10^3uL (1.8-7.7) 2.5 x10^3uL (1.8-7.7) Lymphocytes # (Auto) 1.6 x10^3/uL (1.0-4.8) 1.9 x10^3/uL (1.0-4.8) Monocytes # (Auto) 0.6 x10^3/uL (0.0-1.1) 0.5 x10^3/uL (0.0-1.1) Eosinophils # (Auto) 0.3 x10^3/uL (0.0-0.7) 0.3 x10^3/uL (0.0-0.7) Basophils # (Auto) 0.1 x10^3/uL (0.0-0.2) 0.1 x10^3/uL (0.0-0.2) Urine Collection Type Unknown Urine Color Yellow Urine Clarity Clear Urine pH 6.0 Urine Specific [place] 1.020 Urine Protein Negative mg/dL (NEG-TRACE) Urine Glucose (UA) Negative mg/dL (NEG) Urine Ketones (Stick) Negative mg/dL (NEG) Urine Blood Small (NEG) Urine Nitrite Negative (NEG) Urine Bilirubin Negative (NEG) Urine Urobilinogen Dipstick 1.0 mg/dL (0.2 mg/dL) Urine Leukocyte Esterase Small (NEG) Urine RBC 0 /HPF (0-2) Urine WBC 11-20 /HPF (0-4) Urine Squamous Epithelial Cells Few /LPF Urine Bacteria Few /HPF (0-FEW) Urine Mucus Slight /LPF Urine Sperm Present /HPF Sodium Level 142 mmol/L (136-145) 142 mmol/L (136-145) Potassium Level 4.6 mmol/L (3.5-5.1) 4.1 mmol/L (3.5-5.1) Chloride Level 106 mmol/L (98-107) 109 mmol/L (98-107) Carbon Dioxide Level 29 mmol/L (21-32) 23 mmol/L (21-32) Anion Gap 7 (6-14) 10 (6-14) Blood Urea Nitrogen 23 mg/dL (8-26) 19 mg/dL (8-26) Creatinine 1.7 mg/dL (0.7-1.3) 1.6 mg/dL (0.7-1.3) Estimated GFR (Cockcroft-Gault) 42.2 45.3 BUN/Creatinine Ratio 14 (6-20) 12 (6-20) Glucose Level 133 mg/dL (70-99) 127 mg/dL (70-99) Calcium Level 9.3 mg/dL (8.5-10.1) 8.0 mg/dL (8.5-10.1) Total Bilirubin 0.4 mg/dL (0.2-1.0) 0.2 mg/dL (0.2-1.0) Aspartate Amino Transf (AST/SGOT) 21 U/L (15-37) 18 U/L (15-37) Alanine Aminotransferase (ALT/SGPT) 29 U/L (16-63) 26 U/L (16-63) Alkaline Phosphatase 64 U/L (46-116) 55 U/L (46-116) Total Protein 7.0 g/dL (6.4-8.2) 5.9 g/dL (6.4-8.2) Albumin 3.8 g/dL (3.4-5.0) 3.1 g/dL (3.4-5.0) Albumin/Globulin Ratio 1.2 (1.0-1.7) 1.1 (1.0-1.7) Test 01/31/17 07:56 Glucose (Fingerstick) 95 mg/dL (70-99) Laboratory Tests Test 01/30/17 16:50 01/30/17 16:52 01/30/17 20:59 01/31/17 03:35 Glucose (Fingerstick) 136 mg/dL (70-99) 163 mg/dL (70-99) White Blood Count 5.7 x10^3/uL (4.0-11.0) 5.2 x10^3/uL (4.0-11.0) Red Blood Count 4.17 x10^6/uL (4.30-5.70) 3.75 x10^6/uL (4.30-5.70) Hemoglobin 13.0 g/dL (13.0-17.5) 11.8 g/dL (13.0-17.5) Hematocrit 39.3 % (39.0-53.0) 35.3 % (39.0-53.0) Mean Corpuscular Volume 94 fL (79-100) 94 fL (79-100) Mean Corpuscular Hemoglobin 31 pg (25-35) 32 pg (25-35) Mean Corpuscular Hemoglobin Concent 33 g/dL (31-37) 34 g/dL (31-37) Red Cell Distribution Width 14.6 % (11.5-14.5) 14.2 % (11.5-14.5) Platelet Count 215 x10^3/uL (140-400) 183 x10^3/uL (140-400) Neutrophils (%) (Auto) 55 % (31-73) 47 % (31-73) Lymphocytes (%) (Auto) 29 % (24-48) 36 % (24-48) Monocytes (%) (Auto) 10 % (0-9) 10 % (0-9) Eosinophils (%) (Auto) 5 % (0-3) 6 % (0-3) Basophils (%) (Auto) 1 % (0-3) 1 % (0-3) Neutrophils # (Auto) 3.2 x10^3uL (1.8-7.7) 2.5 x10^3uL (1.8-7.7) Lymphocytes # (Auto) 1.6 x10^3/uL (1.0-4.8) 1.9 x10^3/uL (1.0-4.8) Monocytes # (Auto) 0.6 x10^3/uL (0.0-1.1) 0.5 x10^3/uL (0.0-1.1) Eosinophils # (Auto) 0.3 x10^3/uL (0.0-0.7) 0.3 x10^3/uL (0.0-0.7) Basophils # (Auto) 0.1 x10^3/uL (0.0-0.2) 0.1 x10^3/uL (0.0-0.2) Urine Collection Type Unknown Urine Color Yellow Urine Clarity Clear Urine pH 6.0 Urine Specific [place] 1.020 Urine Protein Negative mg/dL (NEG-TRACE) Urine Glucose (UA) Negative mg/dL (NEG) Urine Ketones (Stick) Negative mg/dL (NEG) Urine Blood Small (NEG) Urine Nitrite Negative (NEG) Urine Bilirubin Negative (NEG) Urine Urobilinogen Dipstick 1.0 mg/dL (0.2 mg/dL) Urine Leukocyte Esterase Small (NEG) Urine RBC 0 /HPF (0-2) Urine WBC 11-20 /HPF (0-4) Urine Squamous Epithelial Cells Few /LPF Urine Bacteria Few /HPF (0-FEW) Urine Mucus Slight /LPF Urine Sperm Present /HPF Sodium Level 142 mmol/L (136-145) 142 mmol/L (136-145) Potassium Level 4.6 mmol/L (3.5-5.1) 4.1 mmol/L (3.5-5.1) Chloride Level 106 mmol/L (98-107) 109 mmol/L (98-107) Carbon Dioxide Level 29 mmol/L (21-32) 23 mmol/L (21-32) Anion Gap 7 (6-14) 10 (6-14) Blood Urea Nitrogen 23 mg/dL (8-26) 19 mg/dL (8-26) Creatinine 1.7 mg/dL (0.7-1.3) 1.6 mg/dL (0.7-1.3) Estimated GFR (Cockcroft-Gault) 42.2 45.3 BUN/Creatinine Ratio 14 (6-20) 12 (6-20) Glucose Level 133 mg/dL (70-99) 127 mg/dL (70-99) Calcium Level 9.3 mg/dL (8.5-10.1) 8.0 mg/dL (8.5-10.1) Total Bilirubin 0.4 mg/dL (0.2-1.0) 0.2 mg/dL (0.2-1.0) Aspartate Amino Transf (AST/SGOT) 21 U/L (15-37) 18 U/L (15-37) Alanine Aminotransferase (ALT/SGPT) 29 U/L (16-63) 26 U/L (16-63) Alkaline Phosphatase 64 U/L (46-116) 55 U/L (46-116) Total Protein 7.0 g/dL (6.4-8.2) 5.9 g/dL (6.4-8.2) Albumin 3.8 g/dL (3.4-5.0) 3.1 g/dL (3.4-5.0) Albumin/Globulin Ratio 1.2 (1.0-1.7) 1.1 (1.0-1.7) Test 01/31/17 07:56 Glucose (Fingerstick) 95 mg/dL (70-99) Medications Current Medications Sodium Chloride 1,000 ml @ 1,000 mls/hr Q1H IV Last administered on 01/30/17 17:05; Start 01/30/17 at 16:44; Stop 01/30/17 at 17:43; Status DC Ceftriaxone Sodium 50 ml @ 100 mls/hr 1X ONCE IV Last administered on 19:03; Start 01/30/17 at 18:45; Stop 01/30/17 at 19:14; Status DC Fentanyl Citrate (Fentanyl 2ml Vial) 50 mcg PRN Q15MIN PRN IV PAIN GREATER THAN 3/10 Last administered on 01/30/17 19:59; Start 01/30/17 at 18:45; Stop 01/31 at 18:44 Ondansetron HCl (Zofran) 4 mg PRN Q8HRS PRN IV NAUSEA/VOMITING Last administered on 01/31/17 06:15; Start 01/30/17 at 19:30; Stop 01/31/17 at 19:29 Fentanyl Citrate (Fentanyl 2ml Vial) 50 mcg PRN Q2HR PRN IV PAIN Last administered on 01/31/17 06:05; Start 01/30/17 at 19:30; Stop 01/31/17 at 19:29 Sodium Chloride 1,000 ml @ 100 mls/hr Q10H IV Last administered on 01/31/17 05 :26; Start 01/30/17 at 19:26; Stop 01/31/17 at 19:25 Zolpidem Tartrate (Ambien) 5 mg PRN QHS PRN PO INSOMNIA Last administered on 21:52; Start 01/30/17 at 20:15 Diphenhydramine HCl (Benadryl) 25 mg PRN Q6HRS PRN PO ITCHING; Start 01/30/17 at 20:15 Acetaminophen/ Hydrocodone Bitart (Lortab 5/325) 1 tab PRN Q4HRS PRN PO PAIN Last administered on 01/30/17 20:28; Start 01/30/17 at 20:15 Docusate Sodium (Colace) 100 mg DAILY PO Last administered on 01/30/17 21:52; Start 01/30/17 at 21:30 Polyethylene Glycol (miraLAX PACKET) 17 gm DAILY PO ; Start 01/31/17 at 09:00 Insulin Aspart (Novolog) 0-9 UNITS TIDWMEALS SQ ; Start 01/31/17 at 08:00 Dextrose (Dextrose 50%-Water Syringe) 12.5 gm PRN Q15MIN PRN IV SEE COMMENTS; Start 01/30/17 at 21:45 Ceftriaxone Sodium 1 gm/ Sodium Chloride 50 ml @ 100 mls/hr Q24H IV ; Start 01/30/17 at 22:00 Insulin Detemir (Levemir) 8 units QHS SQ Last administered on 01/30/17t 21:57; Start 01/30/17 at 21:45 Vitals/I & O Vital Sign - Last 24 Hours 01/30/17 01/30/17 01/30/17 01/30/17 16:40 17:00 19:00 19:06 Temp 98.4 98.4 Pulse 72 70 72 Resp 16 18 16 20 B/P (MAP) 147/82 (103) 123/79 (94) 139/81 (100) Pulse Ox 98 98 98 97 O2 Delivery Room Air Room Air Room Air Room Air 01/30/17 01/30/17 01/30/17 01/31/17 19:06 20:28 23:30 02:48 Temp 98.2 97.7 97.8 98.2 97.7 97.8 Pulse 70 101 66 Resp 20 18 18 B/P (MAP) 113/79 (90) 100/78 (85) 109/67 (81) Pulse Ox 98 95 97 O2 Delivery Room Air Room Air Room Air Room Air 01/31/17 01/31/17 01/31/17 01/31/17 05:00 06:30 07:15 08:20 Temp 97.6 97.6 Pulse 60 Resp 18 B/P (MAP) 120/79 (93) Pulse Ox 97 O2 Delivery Room Air Room Air Room Air Room Air 01/31/17 01/31/17 09:23 09:55 Pulse Ox 97 O2 Delivery Room Air Room Air Intake and Output 01/30/17 01/30/17 01/31/17 15:00 23:00 07:00 Intake Total 1300 ml Balance 1300 ml JAY HUMPHREY MD January 31, 2017 11:15
[2017-01-31] MEDS ORDERED: LIDOCAINE 2% JELLY 6ML IN APPLICATOR. ONE (15:10)
[2017-01-31] MEDS ORDERED: IOHEXOL 300 MG/ML 50 ML VIAL. ONE (15:10)
[2017-01-31] MEDS ORDERED: FAMOTIDINE 20 MG/2 ML VIAL ONE (15:17)
[2017-01-31] MEDS ORDERED: DEXAMETHASONE SOD PHOS 20 MG/5 ML VIAL. ONE (15:17)
[2017-01-31] MEDS ORDERED: ONDANSETRON PF 4 MG/2 ML VIAL. ONE (15:18)
[2017-01-31] MEDS ORDERED: fentaNYL PF VIAL 100 MCG/2 ML VIAL ONE (15:18)
[2017-01-31] MEDS ORDERED: PROPOFOL 20 ML IV ONE (15:18)
[2017-01-31] MEDS ORDERED: MIDAZOLAM HCL/PF 2 MG/2 ML VIAL. ONE (15:18)
[2017-01-31] MEDS ORDERED: ePHEDrine PF IN SALINE 50 MG/5 ML DISP.SYRIN IV ONE (17:09)
--- NOTE | 2017-01-31 17:34 | PDOC4 ---
Operative Note Operative Note pre-op dx-right uretral stone with hydronephrosis procedure-cystoscopy, bilateral retrograde pyelograms, right ureteral stent placement surgeon-justin gabriels-general Pt. to PACU in stable condition Pt. will require right uretroscopy with laser lithotripsy and stent change in 2- 3 weeks under general anesthesia MARIFER FLORENCE MD January 31, 2017 17:34
--- NOTE | 2017-01-31 19:24 | OP ---
DATE OF SURGERY: 01/31/2017 OPERATION: Cystoscopy, bilateral retrograde pyelograms, right ureteral stent placement. SURGEON: Marifer Turk MD. ANESTHESIA: General. PREOPERATIVE DIAGNOSIS: Large right mid ureteral stone. INDICATIONS: The patient is a very pleasant 52-year-old white male with history of left flank pain, who was evaluated and found to have no ureteral stones on the left side; however, he had a 16 mm stone in the mid right ureter with marked hydroureteronephrosis above the level of stone and a smaller stone above the main large stone. The patient also has some nonobstructing stone in the left kidney. I discussed with the patient the options, alternatives, benefits, risks and possible complications of cystoscopy, bilateral retrograde pyelograms and possible bilateral ureteral stent placement. The patient understands this and does wish to proceed with the operation. DESCRIPTION OF PROCEDURE: After obtaining informed consent, the patient was taken to operating room. After an excellent general anesthetic, the patient was placed in a dorsolithotomy position. Groin was prepped and draped in sterile fashion. The patient was preloaded with IV antibiotics. Panendoscopy and cystoscopy were then performed with the 30 and 70 degree lenses and the 21-Vietnamese cystoscope sheath. 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 External sphincter appeared intact. Prostatic urethra showed some moderate bilobar enlargement. Bladder was entered and inspected. Both ureteral orifices were identified and found to be grossly patent. The patient noted to have some small ____ stone sediment in the bladder which was irrigated out. The patient noted to have some mild trabeculation. No bladder tumors were identified. Following this, fluoroscopy showed the radiopacity in the area of the right mid ureter consistent with the patient's stone. The stone was actually in the distal portion of the right proximal ureter. A right retrograde pyelogram was performed. Mid and distal ureter appeared within normal limits and then there was the obvious large filling defect consistent with the patient's large stone with dilation of the ureter and renal pelvis and calices above that level. Following this, floppy-tipped ZIPwire was passed up the right ureteral orifice up the right ureter passed the stone to the right kidney and following this, a 4.8 x 28 double-J stent was then passed up the ZIPwire, placing one curl in the left kidney upper pole harsh and the other curl in the bladder and the ZIPwire removed. Stent position was checked by fluoroscopy and direct vision, found to be in good position appeared to be good hydronephrotic drip after initial placement of the ZIPwire and the Pollack catheter. Following this, left retrograde pyelogram was performed. The patient was noted to have some areas of relative narrowing in the mid distal and proximal ureter from prior stones and prior stone manipulations however, no filling defects were identified in the left ureter and the renal pelvis and calices were not dilated and the left collecting system drained out promptly under real time fluoroscopy. Therefore, no stent was placed. Following this, the procedure was terminated. Bladder was then drained, cystoscope withdrawn from the patient. The patient tolerated the procedure very well, was taken to recovery room in stable condition. Plan will be to have the patient return in approximately 2-3 weeks for a followup right ureteroscopy and possible holmium laser lithotripsy and right ureteral stent change. MARIFER TURK MD DR: NICOLE/valerie JOB#: [id number] / [id number]
[2017-01-31] MEDS: HYDROcodone/APAP 5/325MG 1 TAB TABLET PO PRN (20:34)
[2017-01-31] MEDS: NYSTATIN/TRIAMCIN TOPICAL CREAM 15GM TUBE. TP PRN (20:38)
[2017-01-31] MEDS: INSULIN DETEMIR 300 UNITS/3 ML INSULN.PEN. SQ SCH (20:38)
[2017-02-01] MEDS: HYDROcodone/APAP 5/325MG 1 TAB TABLET PO PRN ×5 (00:21→21:32)
[2017-02-01 03:25] VITALS: BP 120/69
[2017-02-01 04:13] LABS: BASO % 1 % (0-3); EOS % 0 % (0-3); HEMATOCRIT 37.9 % (39.0-53.0); HEMOGLOBIN 12.5 g/dL (13.0-17.5); LYMPH # 0.5 x10^3/uL (1.0-4.8); LYMPH % 8 % (24-48); MEAN CORPUSCULAR HEMOGLOBIN 31 pg (25-35); MEAN CORPUSCULAR HGB CONC 33 g/dL (31-37); MEAN CORPUSCULAR VOLUME 93 fL (79-100); MONO % 4 % (0-9); NEUT % 88 % (31-73); PLATELET COUNT 212 x10^3/uL (140-400); RED BLOOD COUNT 4.07 x10^6/uL (4.30-5.70); RED CELL DISTRIBUTION WIDTH 14.6 % (11.5-14.5); WHITE BLOOD COUNT 6.9 x10^3/uL (4.0-11.0)
[2017-02-01 04:17] LABS: CALCIUM 8.5 mg/dL (8.5-10.1); CREATININE 1.9 mg/dL (0.7-1.3); GFR 37.1; POTASSIUM 4.7 mmol/L (3.5-5.1)
[2017-02-01] MEDS: DOCUSATE SODIUM 100 MG CAPSULE. PO SCH (06:18)
[2017-02-01] MEDS: POLYETHYLENE GLYCOL 3350 17 GM PACKET. PO SCH (06:18)
[2017-02-01 07:00] VITALS: BP 116/68
[2017-02-01] MEDS: INSULIN ASPART 300 UNITS/3 ML INSULN.PEN SQ SCH ×3 (08:24→17:44)
--- NOTE | 2017-02-01 08:55 | PDOC ---
PROGRESS NOTES Subjective Subjective Pt. feeling good Objective Objective Vital Signs Date Time Temp Pulse Resp B/P (MAP) Pulse Ox O2 Delivery O2 Flow Rate FiO2 02/01/17 07:43 Room Air 02/01/17 07:00 97.9 70 18 116/68 (84) 93 97.9 01/31/17 17:30 10 Intake and Output 02/01/17 07:00 Intake Total 920 ml Output Total 1250 ml Balance -330 ml Intake Oral 240 ml IV Total 680 ml Output Urine Total 1250 ml # Voids 1 Physical Exam Physical Exam right ureteral stent in place Plan Plan of Care renal scan today nephrology consult plan for right ureteroscopy and laser lithotripsy on February 20 as outpt. under general anes. Problems Medical Problems: (1) Hydronephrosis with urinary obstruction due to ureteral calculus Status: Acute (2) Renal colic Status: Acute Comment Review of Relevant I have reviewed the following items patti (where applicable) has been applied. Labs Laboratory Tests Test 01/30/17 16:50 01/30/17 16:52 01/30/17 20:59 01/31/17 03:35 Glucose (Fingerstick) 136 mg/dL (70-99) 163 mg/dL (70-99) White Blood Count 5.7 x10^3/uL (4.0-11.0) 5.2 x10^3/uL (4.0-11.0) Red Blood Count 4.17 x10^6/uL (4.30-5.70) 3.75 x10^6/uL (4.30-5.70) Hemoglobin 13.0 g/dL (13.0-17.5) 11.8 g/dL (13.0-17.5) Hematocrit 39.3 % (39.0-53.0) 35.3 % (39.0-53.0) Mean Corpuscular Volume 94 fL (79-100) 94 fL (79-100) Mean Corpuscular Hemoglobin 31 pg (25-35) 32 pg (25-35) Mean Corpuscular Hemoglobin Concent 33 g/dL (31-37) 34 g/dL (31-37) Red Cell Distribution Width 14.6 % (11.5-14.5) 14.2 % (11.5-14.5) Platelet Count 215 x10^3/uL (140-400) 183 x10^3/uL (140-400) Neutrophils (%) (Auto) 55 % (31-73) 47 % (31-73) Lymphocytes (%) (Auto) 29 % (24-48) 36 % (24-48) Monocytes (%) (Auto) 10 % (0-9) 10 % (0-9) Eosinophils (%) (Auto) 5 % (0-3) 6 % (0-3) Basophils (%) (Auto) 1 % (0-3) 1 % (0-3) Neutrophils # (Auto) 3.2 x10^3uL (1.8-7.7) 2.5 x10^3uL (1.8-7.7) Lymphocytes # (Auto) 1.6 x10^3/uL (1.0-4.8) 1.9 x10^3/uL (1.0-4.8) Monocytes # (Auto) 0.6 x10^3/uL (0.0-1.1) 0.5 x10^3/uL (0.0-1.1) Eosinophils # (Auto) 0.3 x10^3/uL (0.0-0.7) 0.3 x10^3/uL (0.0-0.7) Basophils # (Auto) 0.1 x10^3/uL (0.0-0.2) 0.1 x10^3/uL (0.0-0.2) Urine Collection Type Unknown Urine Color Yellow Urine Clarity Clear Urine pH 6.0 Urine Specific [place] 1.020 Urine Protein Negative mg/dL (NEG-TRACE) Urine Glucose (UA) Negative mg/dL (NEG) Urine Ketones (Stick) Negative mg/dL (NEG) Urine Blood Small (NEG) Urine Nitrite Negative (NEG) Urine Bilirubin Negative (NEG) Urine Urobilinogen Dipstick 1.0 mg/dL (0.2 mg/dL) Urine Leukocyte Esterase Small (NEG) Urine RBC 0 /HPF (0-2) Urine WBC 11-20 /HPF (0-4) Urine Squamous Epithelial Cells Few /LPF Urine Bacteria Few /HPF (0-FEW) Urine Mucus Slight /LPF Urine Sperm Present /HPF Sodium Level 142 mmol/L (136-145) 142 mmol/L (136-145) Potassium Level 4.6 mmol/L (3.5-5.1) 4.1 mmol/L (3.5-5.1) Chloride Level 106 mmol/L (98-107) 109 mmol/L (98-107) Carbon Dioxide Level 29 mmol/L (21-32) 23 mmol/L (21-32) Anion Gap 7 (6-14) 10 (6-14) Blood Urea Nitrogen 23 mg/dL (8-26) 19 mg/dL (8-26) Creatinine 1.7 mg/dL (0.7-1.3) 1.6 mg/dL (0.7-1.3) Estimated GFR (Cockcroft-Gault) 42.2 45.3 BUN/Creatinine Ratio 14 (6-20) 12 (6-20) Glucose Level 133 mg/dL (70-99) 127 mg/dL (70-99) Calcium Level 9.3 mg/dL (8.5-10.1) 8.0 mg/dL (8.5-10.1) Total Bilirubin 0.4 mg/dL (0.2-1.0) 0.2 mg/dL (0.2-1.0) Aspartate Amino Transf (AST/SGOT) 21 U/L (15-37) 18 U/L (15-37) Alanine Aminotransferase (ALT/SGPT) 29 U/L (16-63) 26 U/L (16-63) Alkaline Phosphatase 64 U/L (46-116) 55 U/L (46-116) Total Protein 7.0 g/dL (6.4-8.2) 5.9 g/dL (6.4-8.2) Albumin 3.8 g/dL (3.4-5.0) 3.1 g/dL (3.4-5.0) Albumin/Globulin Ratio 1.2 (1.0-1.7) 1.1 (1.0-1.7) Test 01/31/17 07:56 01/31/17 11:08 01/31/17 15:44 01/31/17 17:34 Glucose (Fingerstick) 95 mg/dL (70-99) 95 mg/dL (70-99) 93 mg/dL (70-99) 96 mg/dL (70-99) Test 01/31/17 20:34 01/31/17 20:58 02/01/17 03:09 02/01/17 07:19 Glucose (Fingerstick) 285 mg/dL (70-99) 252 mg/dL (70-99) 260 mg/dL (70-99) White Blood Count 6.9 x10^3/uL (4.0-11.0) Red Blood Count 4.07 x10^6/uL (4.30-5.70) Hemoglobin 12.5 g/dL (13.0-17.5) Hematocrit 37.9 % (39.0-53.0) Mean Corpuscular Volume 93 fL (79-100) Mean Corpuscular Hemoglobin 31 pg (25-35) Mean Corpuscular Hemoglobin Concent 33 g/dL (31-37) Red Cell Distribution Width 14.6 % (11.5-14.5) Platelet Count 212 x10^3/uL (140-400) Neutrophils (%) (Auto) 88 % (31-73) Lymphocytes (%) (Auto) 8 % (24-48) Monocytes (%) (Auto) 4 % (0-9) Eosinophils (%) (Auto) 0 % (0-3) Basophils (%) (Auto) 1 % (0-3) Neutrophils # (Auto) 6.0 x10^3uL (1.8-7.7) Lymphocytes # (Auto) 0.5 x10^3/uL (1.0-4.8) Monocytes # (Auto) 0.3 x10^3/uL (0.0-1.1) Eosinophils # (Auto) 0.0 x10^3/uL (0.0-0.7) Basophils # (Auto) 0.0 x10^3/uL (0.0-0.2) Sodium Level 140 mmol/L (136-145) Potassium Level 4.7 mmol/L (3.5-5.1) Chloride Level 105 mmol/L (98-107) Carbon Dioxide Level 24 mmol/L (21-32) Anion Gap 11 (6-14) Blood Urea Nitrogen 16 mg/dL (8-26) Creatinine 1.9 mg/dL (0.7-1.3) Estimated GFR (Cockcroft-Gault) 37.1 Glucose Level 308 mg/dL (70-99) Calcium Level 8.5 mg/dL (8.5-10.1) Laboratory Tests Test 01/31/17 11:08 01/31/17 15:44 01/31/17 17:34 01/31/17 20:34 Glucose (Fingerstick) 95 mg/dL (70-99) 93 mg/dL (70-99) 96 mg/dL (70-99) 285 mg/dL (70-99) Test 01/31/17 20:58 02/01/17 03:09 02/01/17 07:19 Glucose (Fingerstick) 252 mg/dL (70-99) 260 mg/dL (70-99) White Blood Count 6.9 x10^3/uL (4.0-11.0) Red Blood Count 4.07 x10^6/uL (4.30-5.70) Hemoglobin 12.5 g/dL (13.0-17.5) Hematocrit 37.9 % (39.0-53.0) Mean Corpuscular Volume 93 fL (79-100) Mean Corpuscular Hemoglobin 31 pg (25-35) Mean Corpuscular Hemoglobin Concent 33 g/dL (31-37) Red Cell Distribution Width 14.6 % (11.5-14.5) Platelet Count 212 x10^3/uL (140-400) Neutrophils (%) (Auto) 88 % (31-73) Lymphocytes (%) (Auto) 8 % (24-48) Monocytes (%) (Auto) 4 % (0-9) Eosinophils (%) (Auto) 0 % (0-3) Basophils (%) (Auto) 1 % (0-3) Neutrophils # (Auto) 6.0 x10^3uL (1.8-7.7) Lymphocytes # (Auto) 0.5 x10^3/uL (1.0-4.8) Monocytes # (Auto) 0.3 x10^3/uL (0.0-1.1) Eosinophils # (Auto) 0.0 x10^3/uL (0.0-0.7) Basophils # (Auto) 0.0 x10^3/uL (0.0-0.2) Sodium Level 140 mmol/L (136-145) Potassium Level 4.7 mmol/L (3.5-5.1) Chloride Level 105 mmol/L (98-107) Carbon Dioxide Level 24 mmol/L (21-32) Anion Gap 11 (6-14) Blood Urea Nitrogen 16 mg/dL (8-26) Creatinine 1.9 mg/dL (0.7-1.3) Estimated GFR (Cockcroft-Gault) 37.1 Glucose Level 308 mg/dL (70-99) Calcium Level 8.5 mg/dL (8.5-10.1) Medications Current Medications Sodium Chloride 1,000 ml @ 1,000 mls/hr Q1H IV Last administered on 01/30/17 17:05; Start 01/30/17 at 16:44; Stop 01/30/17 at 17:43; Status DC Ceftriaxone Sodium 50 ml @ 100 mls/hr 1X ONCE IV Last administered on 19:03; Start 01/30/17 at 18:45; Stop 01/30/17 at 19:14; Status DC Fentanyl Citrate (Fentanyl 2ml Vial) 50 mcg PRN Q15MIN PRN IV PAIN GREATER THAN 3/10 Last administered on 01/30/17 19:59; Start 01/30/17 at 18:45; Stop 01/31 at 18:44; Status DC Ondansetron HCl (Zofran) 4 mg PRN Q8HRS PRN IV NAUSEA/VOMITING Last administered on 01/31/17 06:15; Start 01/30/17 at 19:30; Stop 01/31/17 at 19:29; Status DC Fentanyl Citrate (Fentanyl 2ml Vial) 50 mcg PRN Q2HR PRN IV PAIN Last administered on 01/31/17 06:05; Start 01/30/17 at 19:30; Stop 01/31/17 at 19:29; Status DC Sodium Chloride 1,000 ml @ 100 mls/hr Q10H IV Last administered on 01/31/17 05 :26; Start 01/30/17 at 19:26; Stop 01/31/17 at 19:25; Status DC Zolpidem Tartrate (Ambien) 5 mg PRN QHS PRN PO INSOMNIA Last administered on 21:52; Start 01/30/17 at 20:15 Diphenhydramine HCl (Benadryl) 25 mg PRN Q6HRS PRN PO ITCHING; Start 01/30/17 at 20:15 Acetaminophen/ Hydrocodone Bitart (Lortab 5/325) 1 tab PRN Q4HRS PRN PO PAIN Last administered on 02/01/17 06:19; Start 01/30/17 at 20:15 Docusate Sodium (Colace) 100 mg DAILY PO Last administered on 02/01/17 06:18; Start 01/30/17 at 21:30 Polyethylene Glycol (miraLAX PACKET) 17 gm DAILY PO Last administered on 06:18; Start 01/31/17 at 09:00 Insulin Aspart (Novolog) 0-9 UNITS TIDWMEALS SQ Last administered on 02/01/17 08:24; Start 01/31/17 at 08:00 Dextrose (Dextrose 50%-Water Syringe) 12.5 gm PRN Q15MIN PRN IV SEE COMMENTS; Start 01/30/17 at 21:45 Ceftriaxone Sodium 1 gm/ Sodium Chloride 50 ml @ 100 mls/hr Q24H IV Last administered on 01/31/17 16:42; Start 01/30/17 at 22:00 Insulin Detemir (Levemir) 8 units QHS SQ Last administered on 01/31/17 20:38; Start 01/30/17 at 21:45 Ondansetron HCl (Zofran) 4 mg PRN Q6HRS PRN IV NAUSEA/VOMITING; Start 01/31/17 at 11:15; Stop 01/31/17 at 18:00; Status DC Fentanyl Citrate (Fentanyl 2ml Vial) 25 mcg PRN Q5MIN PRN IV MILD PAIN; Start 01/31/17 at 11:15; Stop 01/31/17 at 18:00; Status DC Fentanyl Citrate (Fentanyl 2ml Vial) 50 mcg PRN Q5MIN PRN IV MODERATE PAIN; Start 01/31/17 at 11:15; Stop 01/31/17 at 18:00; Status DC Morphine Sulfate 1 mg PRN Q10MIN PRN IV SEVERE PAIN; Start 01/31/17 at 11:15; Stop 02/01/17 at 11:14 Lidocaine HCl 2 ml PRN 1X PRN ID PRIOR TO IV START; Start 01/31/17 at 11:15; Stop 01/31/17 at 18:00; Status DC Hydromorphone HCl (Dilaudid) 0.5 mg PRN Q10MIN PRN IV SEV PAIN, Second choice; Start 01/31/17 at 11:15; Stop 01/31/17 at 18:00; Status DC Prochlorperazine Edisylate (Compazine) 5 mg PACU PRN PRN IV NAUSEA, MRX1; Start 01/31/17 at 11:15; Stop 01/31/17 at 18:00; Status DC Lidocaine HCl (Glydo (Lidocaine) Jelly) 6 jessi STK-MED ONCE .ROUTE Last administered on 01/31/17 17:17; Start 01/31/17 at 15:10; Stop 01/31/17 at 15:11; Status DC Iohexol (Omnipaque 300 Mg/ml) 50 ml STK-MED ONCE .ROUTE Last administered on 17:04; Start 01/31/17 at 15:10; Stop 01/31/17 at 15:11; Status DC Lidocaine HCl (Glydo (Lidocaine) Jelly) 6 jessi STK-MED ONCE .ROUTE Last administered on 01/31/17 17:17; Start 01/31/17 at 15:10; Stop 01/31/17 at 15:11; Status DC Famotidine (Pepcid) 20 mg STK-MED ONCE .ROUTE ; Start 01/31/17 at 15:17; Stop 01/31/17 at 15:18; Status DC Dexamethasone Sodium Phosphate (Decadron) 20 mg STK-MED ONCE .ROUTE ; Start 01/31 at 15:17; Stop 01/31/17 at 15:18; Status DC Propofol 20 ml @ As Directed STK-MED ONCE IV ; Start 01/31/17 at 15:18; Stop 01/31 at 15:19; Status DC Ondansetron HCl (Zofran) 4 mg STK-MED ONCE .ROUTE ; Start 01/31/17 at 15:18; Stop 01/31/17 at 15:19; Status DC Midazolam HCl (Versed) 2 mg STK-MED ONCE .ROUTE ; Start 01/31/17 at 15:18; Stop 01/31/17 at 15:19; Status DC Fentanyl Citrate (Fentanyl 2ml Vial) 100 mcg STK-MED ONCE .ROUTE ; Start at 15:18; Stop 01/31/17 at 15:19; Status DC Ceftriaxone Sodium 50 ml @ As Directed STK-MED ONCE IV ; Start 01/31/17 at 16:37 ; Stop 01/31/17 at 16:38; Status DC Ephedrine Sulfate 50 mg STK-MED ONCE IV ; Start 01/31/17 at 17:09; Stop 01/31/17 at 17:10; Status DC Nystatin/ Triamcinolone Acetonide (Mycolog Ii) 1 jessi BID PRN TP ITCHING Last administered on 01/31/17t 20:38; Start 01/31/17 at 20:30 Vitals/I & O Vital Sign - Last 24 Hours 01/31/17 01/31/17 01/31/17 01/31/17 09:23 09:55 11:15 15:04 Temp 97.7 98.6 97.7 98.6 Pulse 66 68 Resp 18 20 B/P (MAP) 116/73 (87) 140/83 (102) Pulse Ox 97 96 97 O2 Delivery Room Air Room Air Room Air Room Air 01/31/17 01/31/17 01/31/17 01/31/17 15:29 17:30 17:30 17:45 Temp 97.4 100.0 97.4 100.0 Pulse 65 75 91 Resp 10 13 13 B/P (MAP) 145/78 137/67 115/63 Pulse Ox 98 100 96 O2 Delivery Room Air Mask Simple Mask Room Air O2 Flow Rate 10 10 01/31/17 01/31/17 01/31/17 01/31/17 18:00 18:30 18:45 19:00 Temp 98.6 97.0 98.6 97.0 Pulse 85 86 80 100 Resp 16 18 B/P (MAP) 109/56 130/84 (99) 135/80 (98) 127/92 (104) Pulse Ox 95 96 95 O2 Delivery Room Air Room Air Room Air 01/31/17 01/31/17 01/31/17 01/31/17 19:15 19:45 20:15 20:15 Pulse 89 96 98 B/P (MAP) 127/75 (92) 125/84 (98) 117/75 (89) Pulse Ox 96 95 96 O2 Delivery Room Air Room Air Room Air 01/31/17 01/31/17 01/31/17 02/01/17 20:34 21:15 22:15 00:21 Pulse 95 91 B/P (MAP) 127/70 (89) 118/78 (91) Pulse Ox 96 O2 Delivery Room Air Room Air Room Air 02/01/17 02/01/17 02/01/17 02/01/17 03:25 06:19 07:00 07:43 Temp 97.9 97.9 97.9 97.9 Pulse 79 70 Resp 18 18 B/P (MAP) 120/69 (86) 116/68 (84) Pulse Ox 91 93 O2 Delivery Room Air Room Air Room Air Room Air Intake and Output 01/31/17 01/31/17 02/01/17 15:00 23:00 07:00 Intake Total 920 ml Output Total 250 ml 1000 ml Balance 670 ml -1000 ml MARIFER FLORENCE MD February 01, 2017 08:55
[2017-02-01] MEDS ORDERED: DOCU-27 PO (09:07)
[2017-02-01] MEDS ORDERED: SULF1TAB24 PO (09:07)
[2017-02-01] MEDS ORDERED: TAMS0.4C97 PO (09:07)
[2017-02-01] MEDS ORDERED: ACET325T9 PO (09:07)
[2017-02-01] MEDS ORDERED: TRAM-29 PO (09:07)
[2017-02-01] MEDS ORDERED: PHENOL ORAL SPRAY 177ML BOTTLE. PO PRN (09:15)
[2017-02-01] MEDS ORDERED: MAGNESIUM HYDROXIDE 2,400 MG/30 ML ORAL.SUSP. PO ONE (09:30)
[2017-02-01] MEDS ORDERED: FUROSEMIDE 40 MG/4 ML VIAL. IVP ONE (10:30)
[2017-02-01 11:00] VITALS: BP 119/70
--- NOTE | 2017-02-01 11:32 | PDOC2 ---
CONSULT Date of Consult Date of Consult DATE: 02/01/17 TIME: 11:32 Reason for Consult Reason for Consult: GAGAN Referring Physician Referring Physician: Dr Turk Identification/Chief Complaint Chief Complaint rt flank pain with Kidney stones: s/ p cystoscopy, bilateral retrograde pyelograms, right ureteral stent placement Problems: Source Source: Chart review, Patient History of Present Illness Reason for Visit: as dictated Past Medical History Cardiovascular: No pertinent hx Pulmonary: No pertinent hx GI: No pertinent hx Psych: Depression Musculoskeletal: low back pain Renal/: Other (stone) Endocrine: Diabetes Past Surgical History Past Surgical History: Other (lithotrypsy) Family History Family History: No Significant Social History No ALCOHOL: none Drugs: None Current Problem List Problem List Problems Medical Problems: (1) Hydronephrosis with urinary obstruction due to ureteral calculus Status: Acute (2) Renal colic Status: Acute Current Medications Current Medications Current Medications Sodium Chloride 1,000 ml @ 1,000 mls/hr Q1H IV Last administered on 01/30/17 17:05; Admin Dose 1,000 MLS/HR; Start 01/30/17 at 16:44; Stop 01/30/17 at 17:43; Status DC Ceftriaxone Sodium 50 ml @ 100 mls/hr 1X ONCE IV Last administered on 19:03; Admin Dose 100 MLS/HR; Start 01/30/17 at 18:45; Stop 01/30/17 at 19:14 ; Status DC Fentanyl Citrate (Fentanyl 2ml Vial) 50 mcg PRN Q15MIN PRN IV PAIN GREATER THAN 3/10 Last administered on 01/30/17 19:59; Admin Dose 50 MCG; Start 01/30/17 at 18:45; Stop 01/31/17 at 18:44; Status DC Ondansetron HCl (Zofran) 4 mg PRN Q8HRS PRN IV NAUSEA/VOMITING Last administered on 01/31/17 06:15; Admin Dose 4 MG; Start 01/30/17 at 19:30; Stop at 19:29; Status DC Fentanyl Citrate (Fentanyl 2ml Vial) 50 mcg PRN Q2HR PRN IV PAIN Last administered on 01/31/17 06:05; Admin Dose 50 MCG; Start 01/30/17 at 19:30; Stop 01/31/17 at 19:29; Status DC Sodium Chloride 1,000 ml @ 100 mls/hr Q10H IV Last administered on 01/31/17 05 :26; Admin Dose 100 MLS/HR; Start 01/30/17 at 19:26; Stop 01/31/17 at 19:25; Status DC Zolpidem Tartrate (Ambien) 5 mg PRN QHS PRN PO INSOMNIA Last administered on 21:52; Admin Dose 5 MG; Start 01/30/17 at 20:15 Diphenhydramine HCl (Benadryl) 25 mg PRN Q6HRS PRN PO ITCHING; Start 01/30/17 at 20:15 Acetaminophen/ Hydrocodone Bitart (Lortab 5/325) 1 tab PRN Q4HRS PRN PO PAIN Last administered on 02/01/17 06:19; Admin Dose 1 TAB; Start 01/30/17 at 20:15 Docusate Sodium (Colace) 100 mg DAILY PO Last administered on 02/01/17 06:18; Admin Dose 100 MG; Start 01/30/17 at 21:30 Polyethylene Glycol (miraLAX PACKET) 17 gm DAILY PO Last administered on 06:18; Admin Dose 17 GM; Start 01/31/17 at 09:00 Insulin Aspart (Novolog) 0-9 UNITS TIDWMEALS SQ Last administered on 02/01/17 08:24; Admin Dose 7 UNITS; Start 01/31/17 at 08:00 Dextrose (Dextrose 50%-Water Syringe) 12.5 gm PRN Q15MIN PRN IV SEE COMMENTS; Start 01/30/17 at 21:45 Ceftriaxone Sodium 1 gm/ Sodium Chloride 50 ml @ 100 mls/hr Q24H IV Last administered on 01/31/17 16:42; Admin Dose 100 MLS/HR; Start 01/30/17 at 22:00 Insulin Detemir (Levemir) 8 units QHS SQ Last administered on 01/31/17 20:38; Admin Dose 8 UNITS; Start 01/30/17 at 21:45; Stop 02/01/17 at 08:54; Status DC Ondansetron HCl (Zofran) 4 mg PRN Q6HRS PRN IV NAUSEA/VOMITING; Start 01/31/17 at 11:15; Stop 01/31/17 at 18:00; Status DC Fentanyl Citrate (Fentanyl 2ml Vial) 25 mcg PRN Q5MIN PRN IV MILD PAIN; Start 01/31/17 at 11:15; Stop 01/31/17 at 18:00; Status DC Fentanyl Citrate (Fentanyl 2ml Vial) 50 mcg PRN Q5MIN PRN IV MODERATE PAIN; Start 01/31/17 at 11:15; Stop 01/31/17 at 18:00; Status DC Morphine Sulfate 1 mg PRN Q10MIN PRN IV SEVERE PAIN; Start 01/31/17 at 11:15; Stop 02/01/17 at 11:14; Status DC Lidocaine HCl 2 ml PRN 1X PRN ID PRIOR TO IV START; Start 01/31/17 at 11:15; Stop 01/31/17 at 18:00; Status DC Hydromorphone HCl (Dilaudid) 0.5 mg PRN Q10MIN PRN IV SEV PAIN, Second choice; Start 01/31/17 at 11:15; Stop 01/31/17 at 18:00; Status DC Prochlorperazine Edisylate (Compazine) 5 mg PACU PRN PRN IV NAUSEA, MRX1; Start 01/31/17 at 11:15; Stop 01/31/17 at 18:00; Status DC Lidocaine HCl (Glydo (Lidocaine) Jelly) 6 jessi STK-MED ONCE .ROUTE Last administered on 01/31/17 17:17; Admin Dose 6 JESSI; Start 01/31/17 at 15:10; Stop 01/31/17 at 15:11; Status DC Iohexol (Omnipaque 300 Mg/ml) 50 ml STK-MED ONCE .ROUTE Last administered on 17:04; Admin Dose 20 ML; Start 01/31/17 at 15:10; Stop 01/31/17 at 15:11; Status DC Lidocaine HCl (Glydo (Lidocaine) Jelly) 6 jessi STK-MED ONCE .ROUTE Last administered on 01/31/17 17:17; Admin Dose 6 JESSI; Start 01/31/17 at 15:10; Stop 01/31/17 at 15:11; Status DC Famotidine (Pepcid) 20 mg STK-MED ONCE .ROUTE ; Start 01/31/17 at 15:17; Stop 01/31/17 at 15:18; Status DC Dexamethasone Sodium Phosphate (Decadron) 20 mg STK-MED ONCE .ROUTE ; Start 01/31 at 15:17; Stop 01/31/17 at 15:18; Status DC Propofol 20 ml @ As Directed STK-MED ONCE IV ; Start 01/31/17 at 15:18; Stop 01/31 at 15:19; Status DC Ondansetron HCl (Zofran) 4 mg STK-MED ONCE .ROUTE ; Start 01/31/17 at 15:18; Stop 01/31/17 at 15:19; Status DC Midazolam HCl (Versed) 2 mg STK-MED ONCE .ROUTE ; Start 01/31/17 at 15:18; Stop 01/31/17 at 15:19; Status DC Fentanyl Citrate (Fentanyl 2ml Vial) 100 mcg STK-MED ONCE .ROUTE ; Start at 15:18; Stop 01/31/17 at 15:19; Status DC Ceftriaxone Sodium 50 ml @ As Directed STK-MED ONCE IV ; Start 01/31/17 at 16:37 ; Stop 01/31/17 at 16:38; Status DC Ephedrine Sulfate 50 mg STK-MED ONCE IV ; Start 01/31/17 at 17:09; Stop 01/31/17 at 17:10; Status DC Nystatin/ Triamcinolone Acetonide (Mycolog Ii) 1 jessi BID PRN TP ITCHING Last administered on 01/31/17t 20:38; Admin Dose 1 JESSI; Start 01/31/17 at 20:30 Insulin Detemir (Levemir) 12 units QHS SQ ; Start 02/01/17 at 21:00 Throat Lozenges (Chloraseptic) 1 spray PRN Q2HR PRN PO SORE THROAT; Start at 09:15 Magnesium Hydroxide (Milk Of Magnesia) 2,400 mg 1X ONCE PO ; Start 02/01/17 at 09:30; Stop 02/01/17 at 09:31; Status DC Furosemide (Lasix) 40 mg 1X ONCE IVP ; Start 02/01/17 at 10:30; Stop 02/01/17 at 10:31; Status DC Active Scripts Active Tylenol (Acetaminophen) 325 Mg Tablet 2 Tab PO QID PRN Ultram (Tramadol Hcl) 50 Mg Tablet 1 Tab PO Q6HRS PRN Flomax (Tamsulosin Hcl) 0.4 Mg Cap.er.24h 1 Cap PO DAILY Colace (Docusate Sodium) 100 Mg Capsule 100 Mg PO DAILY Allergies Allergies: Coded Allergies: cranberry (Verified Allergy, Unknown, 01/30/17) Uncoded Allergies: hay (Allergy, Unknown, 01/30/17) ROS Review of System as in HPI otherwise WNL Physical Exam Physical Exam General Appearance: Awake Alert Oriented x 3 In no Distress Eyes: VIsion Unchanged Conjunctiva Normal EN: No EN Drainage Mucous Memb. moist Neck: no JVD no JVP Supple no Thyromegaly CVS: S1 S2 ? Murmur No Gallop No Rub no Edema Resp: no Rales no Rhonchi no Acc. Muscle use GI: BS +ve NO Bruit Non Tender Non Distended - obese : min CVA tenderness; no Suprapubic Tenderness SKIN: no Rashes Breast Exam deferred Mu.Sk: Adequate ROM no Muscle Atrophy Heme: Unable to palpate Obvious LAD no Splenomegaly NEURO: Good Strength and Tone Cranial Nerves II - XII grossly intact Psych: no Depressed n Active hallucination Vital Signs Vital Signs Date Time Temp Pulse Resp B/P (MAP) Pulse Ox O2 Delivery O2 Flow Rate FiO2 02/01/17 11:00 97.7 66 18 119/70 (86) 93 Room Air 97.7 01/31/17 17:30 10 Assessment & Plan GAGAN - suspect due to Obst. Uropathy and NSAIDs (ATN cannot be ruled out) - now s/p cystoscopy, bilateral retrograde pyelograms, right ureteral stent placement reval in am. Hydronephrosis on CT - anticipate resolution after cystoscopy, bilateral retrograde pyelograms, right ureteral stent placement Vold peltion - IVF as ordered Nephrolithiasis - URO Plan noted HTN: Current BP meds reviewed. See orders for changes. Discussed Plan of Care; No NSAIDs at D/c Labs Labs Laboratory Tests Test 01/30/17 16:50 01/30/17 16:52 01/30/17 20:59 01/31/17 03:35 Glucose (Fingerstick) 136 mg/dL (70-99) 163 mg/dL (70-99) White Blood Count 5.7 x10^3/uL (4.0-11.0) 5.2 x10^3/uL (4.0-11.0) Red Blood Count 4.17 x10^6/uL (4.30-5.70) 3.75 x10^6/uL (4.30-5.70) Hemoglobin 13.0 g/dL (13.0-17.5) 11.8 g/dL (13.0-17.5) Hematocrit 39.3 % (39.0-53.0) 35.3 % (39.0-53.0) Mean Corpuscular Volume 94 fL (79-100) 94 fL (79-100) Mean Corpuscular Hemoglobin 31 pg (25-35) 32 pg (25-35) Mean Corpuscular Hemoglobin Concent 33 g/dL (31-37) 34 g/dL (31-37) Red Cell Distribution Width 14.6 % (11.5-14.5) 14.2 % (11.5-14.5) Platelet Count 215 x10^3/uL (140-400) 183 x10^3/uL (140-400) Neutrophils (%) (Auto) 55 % (31-73) 47 % (31-73) Lymphocytes (%) (Auto) 29 % (24-48) 36 % (24-48) Monocytes (%) (Auto) 10 % (0-9) 10 % (0-9) Eosinophils (%) (Auto) 5 % (0-3) 6 % (0-3) Basophils (%) (Auto) 1 % (0-3) 1 % (0-3) Neutrophils # (Auto) 3.2 x10^3uL (1.8-7.7) 2.5 x10^3uL (1.8-7.7) Lymphocytes # (Auto) 1.6 x10^3/uL (1.0-4.8) 1.9 x10^3/uL (1.0-4.8) Monocytes # (Auto) 0.6 x10^3/uL (0.0-1.1) 0.5 x10^3/uL (0.0-1.1) Eosinophils # (Auto) 0.3 x10^3/uL (0.0-0.7) 0.3 x10^3/uL (0.0-0.7) Basophils # (Auto) 0.1 x10^3/uL (0.0-0.2) 0.1 x10^3/uL (0.0-0.2) Urine Collection Type Unknown Urine Color Yellow Urine Clarity Clear Urine pH 6.0 Urine Specific [place] 1.020 Urine Protein Negative mg/dL (NEG-TRACE) Urine Glucose (UA) Negative mg/dL (NEG) Urine Ketones (Stick) Negative mg/dL (NEG) Urine Blood Small (NEG) Urine Nitrite Negative (NEG) Urine Bilirubin Negative (NEG) Urine Urobilinogen Dipstick 1.0 mg/dL (0.2 mg/dL) Urine Leukocyte Esterase Small (NEG) Urine RBC 0 /HPF (0-2) Urine WBC 11-20 /HPF (0-4) Urine Squamous Epithelial Cells Few /LPF Urine Bacteria Few /HPF (0-FEW) Urine Mucus Slight /LPF Urine Sperm Present /HPF Sodium Level 142 mmol/L (136-145) 142 mmol/L (136-145) Potassium Level 4.6 mmol/L (3.5-5.1) 4.1 mmol/L (3.5-5.1) Chloride Level 106 mmol/L (98-107) 109 mmol/L (98-107) Carbon Dioxide Level 29 mmol/L (21-32) 23 mmol/L (21-32) Anion Gap 7 (6-14) 10 (6-14) Blood Urea Nitrogen 23 mg/dL (8-26) 19 mg/dL (8-26) Creatinine 1.7 mg/dL (0.7-1.3) 1.6 mg/dL (0.7-1.3) Estimated GFR (Cockcroft-Gault) 42.2 45.3 BUN/Creatinine Ratio 14 (6-20) 12 (6-20) Glucose Level 133 mg/dL (70-99) 127 mg/dL (70-99) Calcium Level 9.3 mg/dL (8.5-10.1) 8.0 mg/dL (8.5-10.1) Total Bilirubin 0.4 mg/dL (0.2-1.0) 0.2 mg/dL (0.2-1.0) Aspartate Amino Transf (AST/SGOT) 21 U/L (15-37) 18 U/L (15-37) Alanine Aminotransferase (ALT/SGPT) 29 U/L (16-63) 26 U/L (16-63) Alkaline Phosphatase 64 U/L (46-116) 55 U/L (46-116) Total Protein 7.0 g/dL (6.4-8.2) 5.9 g/dL (6.4-8.2) Albumin 3.8 g/dL (3.4-5.0) 3.1 g/dL (3.4-5.0) Albumin/Globulin Ratio 1.2 (1.0-1.7) 1.1 (1.0-1.7) Test 01/31/17 07:56 01/31/17 11:08 01/31/17 15:44 01/31/17 17:34 Glucose (Fingerstick) 95 mg/dL (70-99) 95 mg/dL (70-99) 93 mg/dL (70-99) 96 mg/dL (70-99) Test 01/31/17 20:34 01/31/17 20:58 02/01/17 03:09 02/01/17 07:19 Glucose (Fingerstick) 285 mg/dL (70-99) 252 mg/dL (70-99) 260 mg/dL (70-99) White Blood Count 6.9 x10^3/uL (4.0-11.0) Red Blood Count 4.07 x10^6/uL (4.30-5.70) Hemoglobin 12.5 g/dL (13.0-17.5) Hematocrit 37.9 % (39.0-53.0) Mean Corpuscular Volume 93 fL (79-100) Mean Corpuscular Hemoglobin 31 pg (25-35) Mean Corpuscular Hemoglobin Concent 33 g/dL (31-37) Red Cell Distribution Width 14.6 % (11.5-14.5) Platelet Count 212 x10^3/uL (140-400) Neutrophils (%) (Auto) 88 % (31-73) Lymphocytes (%) (Auto) 8 % (24-48) Monocytes (%) (Auto) 4 % (0-9) Eosinophils (%) (Auto) 0 % (0-3) Basophils (%) (Auto) 1 % (0-3) Neutrophils # (Auto) 6.0 x10^3uL (1.8-7.7) Lymphocytes # (Auto) 0.5 x10^3/uL (1.0-4.8) Monocytes # (Auto) 0.3 x10^3/uL (0.0-1.1) Eosinophils # (Auto) 0.0 x10^3/uL (0.0-0.7) Basophils # (Auto) 0.0 x10^3/uL (0.0-0.2) Sodium Level 140 mmol/L (136-145) Potassium Level 4.7 mmol/L (3.5-5.1) Chloride Level 105 mmol/L (98-107) Carbon Dioxide Level 24 mmol/L (21-32) Anion Gap 11 (6-14) Blood Urea Nitrogen 16 mg/dL (8-26) Creatinine 1.9 mg/dL (0.7-1.3) Estimated GFR (Cockcroft-Gault) 37.1 Glucose Level 308 mg/dL (70-99) Calcium Level 8.5 mg/dL (8.5-10.1) Laboratory Tests Test 01/31/17 15:44 01/31/17 17:34 01/31/17 20:34 01/31/17 20:58 Glucose (Fingerstick) 93 mg/dL (70-99) 96 mg/dL (70-99) 285 mg/dL (70-99) 252 mg/dL (70-99) Test 02/01/17 03:09 02/01/17 07:19 White Blood Count 6.9 x10^3/uL (4.0-11.0) Red Blood Count 4.07 x10^6/uL (4.30-5.70) Hemoglobin 12.5 g/dL (13.0-17.5) Hematocrit 37.9 % (39.0-53.0) Mean Corpuscular Volume 93 fL (79-100) Mean Corpuscular Hemoglobin 31 pg (25-35) Mean Corpuscular Hemoglobin Concent 33 g/dL (31-37) Red Cell Distribution Width 14.6 % (11.5-14.5) Platelet Count 212 x10^3/uL (140-400) Neutrophils (%) (Auto) 88 % (31-73) Lymphocytes (%) (Auto) 8 % (24-48) Monocytes (%) (Auto) 4 % (0-9) Eosinophils (%) (Auto) 0 % (0-3) Basophils (%) (Auto) 1 % (0-3) Neutrophils # (Auto) 6.0 x10^3uL (1.8-7.7) Lymphocytes # (Auto) 0.5 x10^3/uL (1.0-4.8) Monocytes # (Auto) 0.3 x10^3/uL (0.0-1.1) Eosinophils # (Auto) 0.0 x10^3/uL (0.0-0.7) Basophils # (Auto) 0.0 x10^3/uL (0.0-0.2) Sodium Level 140 mmol/L (136-145) Potassium Level 4.7 mmol/L (3.5-5.1) Chloride Level 105 mmol/L (98-107) Carbon Dioxide Level 24 mmol/L (21-32) Anion Gap 11 (6-14) Blood Urea Nitrogen 16 mg/dL (8-26) Creatinine 1.9 mg/dL (0.7-1.3) Estimated GFR (Cockcroft-Gault) 37.1 Glucose Level 308 mg/dL (70-99) Calcium Level 8.5 mg/dL (8.5-10.1) Glucose (Fingerstick) 260 mg/dL (70-99) Images Images CT: Severe hydronephrosis and hydroureter due to 2 right ureteral stones. Nuc MEd scan: Imaging of the kidneys was performed following IV injection of 10 mCi of technetium 99 in MAG3. 40 mg of Lasix was also administered IV, 15 minutes into the study. The dynamic flow study demonstrates prompt perfusion of both kidneys. There is delayed uptake of activity in the right kidney compared to the left. There is increasing activity centrally in the right kidney throughout the exam compatible with proximal ureteral obstruction. The CT study from 01/30/2017 demonstrated an obstructing ureteral calculus with moderate associated hydronephrosis on the right. On the left there is prompt uptake of the radionuclide by the kidney with peak cortical activity occurring at 3 minutes. The time to half washout of activity from the left kidney is 16 minutes, which is mildly delayed. There is mild parenchymal retention on the left on the final images. IMPRESSION: 1. Right-sided ureteral obstruction and hydronephrosis. 2. Mild parenchymal retention of the left compatible with nonspecific medical renal disease. CARMEL ROSE MD February 01, 2017 11:32
[2017-02-01] MEDS: NYSTATIN/TRIAMCIN TOPICAL CREAM 15GM TUBE. TP PRN (12:15)
--- NOTE | 2017-02-01 12:56 | RAD ---
Radionuclide renal scan with Lasix, 02/01/2017: History: Elevated serum creatinine level, renal stones Imaging of the kidneys was performed following IV injection of 10 mCi of technetium 99 in MAG3. 40 mg of Lasix was also administered IV, 15 minutes into the study. The dynamic flow study demonstrates prompt perfusion of both kidneys. There is delayed uptake of activity in the right kidney compared to the left. There is increasing activity centrally in the right kidney throughout the exam compatible with proximal ureteral obstruction. The CT study from 01/30/2017 demonstrated an obstructing ureteral calculus with moderate associated hydronephrosis on the right. On the left there is prompt uptake of the radionuclide by the kidney with peak cortical activity occurring at 3 minutes. The time to half washout of activity from the left kidney is 16 minutes, which is mildly delayed. There is mild parenchymal retention on the left on the final images. IMPRESSION: 1. Right-sided ureteral obstruction and hydronephrosis. 2. Mild parenchymal retention of the left compatible with nonspecific medical renal disease.
[2017-02-01 15:00] VITALS: BP 128/86
--- NOTE | 2017-02-01 15:58 | PDOC ---
PROGRESS NOTES Chief Complaint Chief Complaint Renal colic, w/ right hydronephrosis, 2 right obstructing stone hydroureter obesity DM2 acute renal failure, obstructive uropathy from [facility] History of Present Illness History of Present Illness left side flank pain, with no stone on CT better, right side mild flank pain - HAD 2 stones obstructing cr high nausea improved fu with dr. Turk, s/p cystoscopy DC Vitals Vitals Vital Signs Date Time Temp Pulse Resp B/P (MAP) Pulse Ox O2 Delivery O2 Flow Rate FiO2 02/01/17 15:00 97.9 78 18 128/86 (100) 95 Room Air 97.9 01/31/17 17:30 10 Physical Exam General: Alert, Cooperative, No acute distress Abdomen: Normal bowel sounds, Soft (tender left, ) Extremities: No clubbing, No edema, Normal pulses Skin: No rashes, No significant lesion Labs LABS Laboratory Tests Test 01/31/17 17:34 01/31/17 20:34 01/31/17 20:58 02/01/17 03:09 Glucose (Fingerstick) 96 mg/dL (70-99) 285 mg/dL (70-99) 252 mg/dL (70-99) White Blood Count 6.9 x10^3/uL (4.0-11.0) Red Blood Count 4.07 x10^6/uL (4.30-5.70) Hemoglobin 12.5 g/dL (13.0-17.5) Hematocrit 37.9 % (39.0-53.0) Mean Corpuscular Volume 93 fL (79-100) Mean Corpuscular Hemoglobin 31 pg (25-35) Mean Corpuscular Hemoglobin Concent 33 g/dL (31-37) Red Cell Distribution Width 14.6 % (11.5-14.5) Platelet Count 212 x10^3/uL (140-400) Neutrophils (%) (Auto) 88 % (31-73) Lymphocytes (%) (Auto) 8 % (24-48) Monocytes (%) (Auto) 4 % (0-9) Eosinophils (%) (Auto) 0 % (0-3) Basophils (%) (Auto) 1 % (0-3) Neutrophils # (Auto) 6.0 x10^3uL (1.8-7.7) Lymphocytes # (Auto) 0.5 x10^3/uL (1.0-4.8) Monocytes # (Auto) 0.3 x10^3/uL (0.0-1.1) Eosinophils # (Auto) 0.0 x10^3/uL (0.0-0.7) Basophils # (Auto) 0.0 x10^3/uL (0.0-0.2) Sodium Level 140 mmol/L (136-145) Potassium Level 4.7 mmol/L (3.5-5.1) Chloride Level 105 mmol/L (98-107) Carbon Dioxide Level 24 mmol/L (21-32) Anion Gap 11 (6-14) Blood Urea Nitrogen 16 mg/dL (8-26) Creatinine 1.9 mg/dL (0.7-1.3) Estimated GFR (Cockcroft-Gault) 37.1 Glucose Level 308 mg/dL (70-99) Calcium Level 8.5 mg/dL (8.5-10.1) Test 02/01/17 07:19 02/01/17 12:06 Glucose (Fingerstick) 260 mg/dL (70-99) 203 mg/dL (70-99) Assessment and Plan Assessmemt and Plan Problems Medical Problems: (1) Hydronephrosis with urinary obstruction due to ureteral calculus Status: Acute (2) Renal colic Status: Acute Problems: Comment Review of Relevant I have reviewed the following items patti (where applicable) has been applied. Labs Laboratory Tests Test 01/30/17 16:50 01/30/17 16:52 01/30/17 20:59 01/31/17 03:35 Glucose (Fingerstick) 136 mg/dL (70-99) 163 mg/dL (70-99) White Blood Count 5.7 x10^3/uL (4.0-11.0) 5.2 x10^3/uL (4.0-11.0) Red Blood Count 4.17 x10^6/uL (4.30-5.70) 3.75 x10^6/uL (4.30-5.70) Hemoglobin 13.0 g/dL (13.0-17.5) 11.8 g/dL (13.0-17.5) Hematocrit 39.3 % (39.0-53.0) 35.3 % (39.0-53.0) Mean Corpuscular Volume 94 fL (79-100) 94 fL (79-100) Mean Corpuscular Hemoglobin 31 pg (25-35) 32 pg (25-35) Mean Corpuscular Hemoglobin Concent 33 g/dL (31-37) 34 g/dL (31-37) Red Cell Distribution Width 14.6 % (11.5-14.5) 14.2 % (11.5-14.5) Platelet Count 215 x10^3/uL (140-400) 183 x10^3/uL (140-400) Neutrophils (%) (Auto) 55 % (31-73) 47 % (31-73) Lymphocytes (%) (Auto) 29 % (24-48) 36 % (24-48) Monocytes (%) (Auto) 10 % (0-9) 10 % (0-9) Eosinophils (%) (Auto) 5 % (0-3) 6 % (0-3) Basophils (%) (Auto) 1 % (0-3) 1 % (0-3) Neutrophils # (Auto) 3.2 x10^3uL (1.8-7.7) 2.5 x10^3uL (1.8-7.7) Lymphocytes # (Auto) 1.6 x10^3/uL (1.0-4.8) 1.9 x10^3/uL (1.0-4.8) Monocytes # (Auto) 0.6 x10^3/uL (0.0-1.1) 0.5 x10^3/uL (0.0-1.1) Eosinophils # (Auto) 0.3 x10^3/uL (0.0-0.7) 0.3 x10^3/uL (0.0-0.7) Basophils # (Auto) 0.1 x10^3/uL (0.0-0.2) 0.1 x10^3/uL (0.0-0.2) Urine Collection Type Unknown Urine Color Yellow Urine Clarity Clear Urine pH 6.0 Urine Specific Mazon 1.020 Urine Protein Negative mg/dL (NEG-TRACE) Urine Glucose (UA) Negative mg/dL (NEG) Urine Ketones (Stick) Negative mg/dL (NEG) Urine Blood Small (NEG) Urine Nitrite Negative (NEG) Urine Bilirubin Negative (NEG) Urine Urobilinogen Dipstick 1.0 mg/dL (0.2 mg/dL) Urine Leukocyte Esterase Small (NEG) Urine RBC 0 /HPF (0-2) Urine WBC 11-20 /HPF (0-4) Urine Squamous Epithelial Cells Few /LPF Urine Bacteria Few /HPF (0-FEW) Urine Mucus Slight /LPF Urine Sperm Present /HPF Sodium Level 142 mmol/L (136-145) 142 mmol/L (136-145) Potassium Level 4.6 mmol/L (3.5-5.1) 4.1 mmol/L (3.5-5.1) Chloride Level 106 mmol/L (98-107) 109 mmol/L (98-107) Carbon Dioxide Level 29 mmol/L (21-32) 23 mmol/L (21-32) Anion Gap 7 (6-14) 10 (6-14) Blood Urea Nitrogen 23 mg/dL (8-26) 19 mg/dL (8-26) Creatinine 1.7 mg/dL (0.7-1.3) 1.6 mg/dL (0.7-1.3) Estimated GFR (Cockcroft-Gault) 42.2 45.3 BUN/Creatinine Ratio 14 (6-20) 12 (6-20) Glucose Level 133 mg/dL (70-99) 127 mg/dL (70-99) Calcium Level 9.3 mg/dL (8.5-10.1) 8.0 mg/dL (8.5-10.1) Total Bilirubin 0.4 mg/dL (0.2-1.0) 0.2 mg/dL (0.2-1.0) Aspartate Amino Transf (AST/SGOT) 21 U/L (15-37) 18 U/L (15-37) Alanine Aminotransferase (ALT/SGPT) 29 U/L (16-63) 26 U/L (16-63) Alkaline Phosphatase 64 U/L (46-116) 55 U/L (46-116) Total Protein 7.0 g/dL (6.4-8.2) 5.9 g/dL (6.4-8.2) Albumin 3.8 g/dL (3.4-5.0) 3.1 g/dL (3.4-5.0) Albumin/Globulin Ratio 1.2 (1.0-1.7) 1.1 (1.0-1.7) Test 01/31/17 07:56 01/31/17 11:08 01/31/17 15:44 01/31/17 17:34 Glucose (Fingerstick) 95 mg/dL (70-99) 95 mg/dL (70-99) 93 mg/dL (70-99) 96 mg/dL (70-99) Test 01/31/17 20:34 01/31/17 20:58 02/01/17 03:09 02/01/17 07:19 Glucose (Fingerstick) 285 mg/dL (70-99) 252 mg/dL (70-99) 260 mg/dL (70-99) White Blood Count 6.9 x10^3/uL (4.0-11.0) Red Blood Count 4.07 x10^6/uL (4.30-5.70) Hemoglobin 12.5 g/dL (13.0-17.5) Hematocrit 37.9 % (39.0-53.0) Mean Corpuscular Volume 93 fL (79-100) Mean Corpuscular Hemoglobin 31 pg (25-35) Mean Corpuscular Hemoglobin Concent 33 g/dL (31-37) Red Cell Distribution Width 14.6 % (11.5-14.5) Platelet Count 212 x10^3/uL (140-400) Neutrophils (%) (Auto) 88 % (31-73) Lymphocytes (%) (Auto) 8 % (24-48) Monocytes (%) (Auto) 4 % (0-9) Eosinophils (%) (Auto) 0 % (0-3) Basophils (%) (Auto) 1 % (0-3) Neutrophils # (Auto) 6.0 x10^3uL (1.8-7.7) Lymphocytes # (Auto) 0.5 x10^3/uL (1.0-4.8) Monocytes # (Auto) 0.3 x10^3/uL (0.0-1.1) Eosinophils # (Auto) 0.0 x10^3/uL (0.0-0.7) Basophils # (Auto) 0.0 x10^3/uL (0.0-0.2) Sodium Level 140 mmol/L (136-145) Potassium Level 4.7 mmol/L (3.5-5.1) Chloride Level 105 mmol/L (98-107) Carbon Dioxide Level 24 mmol/L (21-32) Anion Gap 11 (6-14) Blood Urea Nitrogen 16 mg/dL (8-26) Creatinine 1.9 mg/dL (0.7-1.3) Estimated GFR (Cockcroft-Gault) 37.1 Glucose Level 308 mg/dL (70-99) Calcium Level 8.5 mg/dL (8.5-10.1) Test 02/01/17 12:06 Glucose (Fingerstick) 203 mg/dL (70-99) Laboratory Tests Test 01/31/17 17:34 01/31/17 20:34 01/31/17 20:58 02/01/17 03:09 Glucose (Fingerstick) 96 mg/dL (70-99) 285 mg/dL (70-99) 252 mg/dL (70-99) White Blood Count 6.9 x10^3/uL (4.0-11.0) Red Blood Count 4.07 x10^6/uL (4.30-5.70) Hemoglobin 12.5 g/dL (13.0-17.5) Hematocrit 37.9 % (39.0-53.0) Mean Corpuscular Volume 93 fL (79-100) Mean Corpuscular Hemoglobin 31 pg (25-35) Mean Corpuscular Hemoglobin Concent 33 g/dL (31-37) Red Cell Distribution Width 14.6 % (11.5-14.5) Platelet Count 212 x10^3/uL (140-400) Neutrophils (%) (Auto) 88 % (31-73) Lymphocytes (%) (Auto) 8 % (24-48) Monocytes (%) (Auto) 4 % (0-9) Eosinophils (%) (Auto) 0 % (0-3) Basophils (%) (Auto) 1 % (0-3) Neutrophils # (Auto) 6.0 x10^3uL (1.8-7.7) Lymphocytes # (Auto) 0.5 x10^3/uL (1.0-4.8) Monocytes # (Auto) 0.3 x10^3/uL (0.0-1.1) Eosinophils # (Auto) 0.0 x10^3/uL (0.0-0.7) Basophils # (Auto) 0.0 x10^3/uL (0.0-0.2) Sodium Level 140 mmol/L (136-145) Potassium Level 4.7 mmol/L (3.5-5.1) Chloride Level 105 mmol/L (98-107) Carbon Dioxide Level 24 mmol/L (21-32) Anion Gap 11 (6-14) Blood Urea Nitrogen 16 mg/dL (8-26) Creatinine 1.9 mg/dL (0.7-1.3) Estimated GFR (Cockcroft-Gault) 37.1 Glucose Level 308 mg/dL (70-99) Calcium Level 8.5 mg/dL (8.5-10.1) Test 02/01/17 07:19 02/01/17 12:06 Glucose (Fingerstick) 260 mg/dL (70-99) 203 mg/dL (70-99) Medications Current Medications Sodium Chloride 1,000 ml @ 1,000 mls/hr Q1H IV Last administered on 01/30/17 17:05; Start 01/30/17 at 16:44; Stop 01/30/17 at 17:43; Status DC Ceftriaxone Sodium 50 ml @ 100 mls/hr 1X ONCE IV Last administered on 19:03; Start 01/30/17 at 18:45; Stop 01/30/17 at 19:14; Status DC Fentanyl Citrate (Fentanyl 2ml Vial) 50 mcg PRN Q15MIN PRN IV PAIN GREATER THAN 3/10 Last administered on 01/30/17 19:59; Start 01/30/17 at 18:45; Stop 01/31 at 18:44; Status DC Ondansetron HCl (Zofran) 4 mg PRN Q8HRS PRN IV NAUSEA/VOMITING Last administered on 01/31/17 06:15; Start 01/30/17 at 19:30; Stop 01/31/17 at 19:29; Status DC Fentanyl Citrate (Fentanyl 2ml Vial) 50 mcg PRN Q2HR PRN IV PAIN Last administered on 01/31/17 06:05; Start 01/30/17 at 19:30; Stop 01/31/17 at 19:29; Status DC Sodium Chloride 1,000 ml @ 100 mls/hr Q10H IV Last administered on 01/31/17 05 :26; Start 01/30/17 at 19:26; Stop 01/31/17 at 19:25; Status DC Zolpidem Tartrate (Ambien) 5 mg PRN QHS PRN PO INSOMNIA Last administered on 21:52; Start 01/30/17 at 20:15 Diphenhydramine HCl (Benadryl) 25 mg PRN Q6HRS PRN PO ITCHING; Start 01/30/17 at 20:15 Acetaminophen/ Hydrocodone Bitart (Lortab 5/325) 1 tab PRN Q4HRS PRN PO PAIN Last administered on 02/01/17 12:15; Start 01/30/17 at 20:15 Docusate Sodium (Colace) 100 mg DAILY PO Last administered on 02/01/17 06:18; Start 01/30/17 at 21:30 Polyethylene Glycol (miraLAX PACKET) 17 gm DAILY PO Last administered on 06:18; Start 01/31/17 at 09:00 Insulin Aspart (Novolog) 0-9 UNITS TIDWMEALS SQ Last administered on 02/01/17 12:35; Start 01/31/17 at 08:00 Dextrose (Dextrose 50%-Water Syringe) 12.5 gm PRN Q15MIN PRN IV SEE COMMENTS; Start 01/30/17 at 21:45 Ceftriaxone Sodium 1 gm/ Sodium Chloride 50 ml @ 100 mls/hr Q24H IV Last administered on 01/31/17 16:42; Start 01/30/17 at 22:00 Insulin Detemir (Levemir) 8 units QHS SQ Last administered on 01/31/17 20:38; Start 01/30/17 at 21:45; Stop 02/01/17 at 08:54; Status DC Ondansetron HCl (Zofran) 4 mg PRN Q6HRS PRN IV NAUSEA/VOMITING; Start 01/31/17 at 11:15; Stop 01/31/17 at 18:00; Status DC Fentanyl Citrate (Fentanyl 2ml Vial) 25 mcg PRN Q5MIN PRN IV MILD PAIN; Start 01/31/17 at 11:15; Stop 01/31/17 at 18:00; Status DC Fentanyl Citrate (Fentanyl 2ml Vial) 50 mcg PRN Q5MIN PRN IV MODERATE PAIN; Start 01/31/17 at 11:15; Stop 01/31/17 at 18:00; Status DC Morphine Sulfate 1 mg PRN Q10MIN PRN IV SEVERE PAIN; Start 01/31/17 at 11:15; Stop 02/01/17 at 11:14; Status DC Lidocaine HCl 2 ml PRN 1X PRN ID PRIOR TO IV START; Start 01/31/17 at 11:15; Stop 01/31/17 at 18:00; Status DC Hydromorphone HCl (Dilaudid) 0.5 mg PRN Q10MIN PRN IV SEV PAIN, Second choice; Start 01/31/17 at 11:15; Stop 01/31/17 at 18:00; Status DC Prochlorperazine Edisylate (Compazine) 5 mg PACU PRN PRN IV NAUSEA, MRX1; Start 01/31/17 at 11:15; Stop 01/31/17 at 18:00; Status DC Lidocaine HCl (Glydo (Lidocaine) Jelly) 6 jessi STK-MED ONCE .ROUTE Last administered on 01/31/17 17:17; Start 01/31/17 at 15:10; Stop 01/31/17 at 15:11; Status DC Iohexol (Omnipaque 300 Mg/ml) 50 ml STK-MED ONCE .ROUTE Last administered on 17:04; Start 01/31/17 at 15:10; Stop 01/31/17 at 15:11; Status DC Lidocaine HCl (Glydo (Lidocaine) Jelly) 6 jessi STK-MED ONCE .ROUTE Last administered on 01/31/17 17:17; Start 01/31/17 at 15:10; Stop 01/31/17 at 15:11; Status DC Famotidine (Pepcid) 20 mg STK-MED ONCE .ROUTE ; Start 01/31/17 at 15:17; Stop 01/31/17 at 15:18; Status DC Dexamethasone Sodium Phosphate (Decadron) 20 mg STK-MED ONCE .ROUTE ; Start 01/31 at 15:17; Stop 01/31/17 at 15:18; Status DC Propofol 20 ml @ As Directed STK-MED ONCE IV ; Start 01/31/17 at 15:18; Stop 01/31 at 15:19; Status DC Ondansetron HCl (Zofran) 4 mg STK-MED ONCE .ROUTE ; Start 01/31/17 at 15:18; Stop 01/31/17 at 15:19; Status DC Midazolam HCl (Versed) 2 mg STK-MED ONCE .ROUTE ; Start 01/31/17 at 15:18; Stop 01/31/17 at 15:19; Status DC Fentanyl Citrate (Fentanyl 2ml Vial) 100 mcg STK-MED ONCE .ROUTE ; Start at 15:18; Stop 01/31/17 at 15:19; Status DC Ceftriaxone Sodium 50 ml @ As Directed STK-MED ONCE IV ; Start 01/31/17 at 16:37 ; Stop 01/31/17 at 16:38; Status DC Ephedrine Sulfate 50 mg STK-MED ONCE IV ; Start 01/31/17 at 17:09; Stop 01/31/17 at 17:10; Status DC Nystatin/ Triamcinolone Acetonide (Mycolog Ii) 1 jessi BID PRN TP ITCHING Last administered on 02/01/17 12:15; Start 01/31/17 at 20:30 Insulin Detemir (Levemir) 12 units QHS SQ ; Start 02/01/17 at 21:00 Throat Lozenges (Chloraseptic) 1 spray PRN Q2HR PRN PO SORE THROAT Last administered on 02/01/17 12:16; Start 02/01/17 at 09:15 Magnesium Hydroxide (Milk Of Magnesia) 2,400 mg 1X ONCE PO Last administered on 02/01/17 12:14; Start 02/01/17 at 09:30; Stop 02/01/17 at 09:31; Status DC Furosemide (Lasix) 40 mg 1X ONCE IVP Last administered on 02/01/17 12:15; Start 02/01/17 at 10:30; Stop 02/01/17 at 10:31; Status DC Sodium Chloride 1,000 ml @ 100 mls/hr Q10H IV ; Start 02/01/17 at 14:00 Active Scripts Active Tylenol (Acetaminophen) 325 Mg Tablet 2 Tab PO QID PRN Ultram (Tramadol Hcl) 50 Mg Tablet 1 Tab PO Q6HRS PRN Flomax (Tamsulosin Hcl) 0.4 Mg Cap.er.24h 1 Cap PO DAILY Colace (Docusate Sodium) 100 Mg Capsule 100 Mg PO DAILY Vitals/I & O Vital Sign - Last 24 Hours 01/31/17 01/31/17 01/31/17 01/31/17 17:30 17:30 17:45 18:00 Temp 100.0 98.6 100.0 98.6 Pulse 75 91 85 Resp 13 13 16 B/P (MAP) 137/67 115/63 109/56 Pulse Ox 100 96 95 O2 Delivery Mask Simple Mask Room Air Room Air O2 Flow Rate 10 10 01/31/17 01/31/17 01/31/17 01/31/17 18:30 18:45 19:00 19:15 Temp 97.0 97.0 Pulse 86 80 100 89 Resp 18 B/P (MAP) 130/84 (99) 135/80 (98) 127/92 (104) 127/75 (92) Pulse Ox 96 95 96 O2 Delivery Room Air Room Air Room Air 01/31/17 01/31/17 01/31/17 01/31/17 19:45 20:15 20:15 20:34 Pulse 96 98 B/P (MAP) 125/84 (98) 117/75 (89) Pulse Ox 95 96 O2 Delivery Room Air Room Air Room Air 01/31/17 01/31/17 02/01/17 02/01/17 21:15 22:15 00:21 03:25 Temp 97.9 97.9 Pulse 95 91 79 Resp 18 B/P (MAP) 127/70 (89) 118/78 (91) 120/69 (86) Pulse Ox 96 91 O2 Delivery Room Air Room Air Room Air 02/01/17 02/01/17 02/01/17 02/01/17 06:19 07:00 08:15 11:00 Temp 97.9 97.7 97.9 97.7 Pulse 70 66 Resp 18 18 B/P (MAP) 116/68 (84) 119/70 (86) Pulse Ox 93 93 O2 Delivery Room Air Room Air Room Air Room Air 02/01/17 02/01/17 02/01/17 12:15 13:20 15:00 Temp 97.9 97.9 Pulse 78 Resp 18 B/P (MAP) 128/86 (100) Pulse Ox 93 95 O2 Delivery Room Air Room Air Room Air Intake and Output 01/31/17 01/31/17 02/01/17 15:00 23:00 07:00 Intake Total 920 ml Output Total 250 ml 1000 ml Balance 670 ml -1000 ml DURGA HARMON MD February 01, 2017 15:58
[2017-02-01] MEDS: IV NORMAL SALINE 1000ML BAG 1,000 ML IV SCH (17:36)
[2017-02-01 19:04] VITALS: BP 117/77
[2017-02-01] MEDS: ZOLPIDEM 5 MG TABLET. PO PRN (21:32)
[2017-02-01] MEDS: INSULIN DETEMIR 300 UNITS/3 ML INSULN.PEN. SQ SCH (21:36)
[2017-02-01 23:03] VITALS: BP 110/69
[2017-02-02 03:01] VITALS: BP 112/77
--- NOTE | 2017-02-02 04:15 | CONS ---
DATE OF CONSULTATION: PRIMARY PHYSICIAN: Dr. Martinez and Dr. Turk. REASON FOR CONSULTATION: Acute renal failure. HISTORY OF PRESENT ILLNESS: The patient is a 52-year-old inmate at [facility]. He presented to the ER complaining of left-sided flank pain; however, on the CT scan he was found to have right-sided kidney stones with obstruction. He has been taking ibuprofen 3 times a day for the last week or so. He is not aware of known underlying renal insufficiency. He is now status post ureteral stenting by Dr. Turk. He has undergone a renal scan, which shows a right-sided ureteral obstruction and hydronephrosis, mild parenchymal retention of the left compatible with nonspecific medical renal disease. For rest of details, see electronic records. CARMEL ROSE MD DR: JEFF/valerie JOB#: [id number] / [id number]
[2017-02-02 07:00] VITALS: BP 119/84
[2017-02-02] MEDS: INSULIN ASPART 300 UNITS/3 ML INSULN.PEN SQ SCH ×2 (08:00→11:40)
[2017-02-02] MEDS: DOCUSATE SODIUM 100 MG CAPSULE. PO SCH (08:32)
[2017-02-02] MEDS: HYDROcodone/APAP 5/325MG 1 TAB TABLET PO PRN (08:33)
[2017-02-02] MEDS: POLYETHYLENE GLYCOL 3350 17 GM PACKET. PO SCH (08:33)
[2017-02-02] MEDS: INSULIN DETEMIR 300 UNITS/3 ML INSULN.PEN. SQ SCH (08:39)
[2017-02-02] MEDS: IV NORMAL SALINE 1000ML BAG 1,000 ML IV SCH ×2 (10:00)
[2017-02-02 10:23] LABS: CALCIUM 8.2 mg/dL (8.5-10.1); CREATININE 1.7 mg/dL (0.7-1.3); GFR 42.2; POTASSIUM 4.3 mmol/L (3.5-5.1)
[2017-02-02 11:00] VITALS: BP 112/74
--- NOTE | 2017-02-02 11:19 | PDOC ---
SUBJECTIVE ROS GAGAN SOing better, not much flank pain, min hematuria OBJECTIVE Vital Signs Vital Signs Date Time Temp Pulse Resp B/P (MAP) Pulse Ox O2 Delivery O2 Flow Rate FiO2 02/02/17 09:36 16 Room Air 02/02/17 07:00 98.1 68 119/84 (96) 95 98.1 I & 0 Intake and Output 02/02/17 07:00 Intake Total 3936 ml Output Total 500 ml Balance 3436 ml Intake Oral 560 ml IV Total 3376 ml Output Urine Total 500 ml # Voids 13 PHYSICAL EXAM Physical Exam General Appearance: Awake Alert Oriented x 3 In no Distress Eyes: VIsion Unchanged Conjunctiva Normal EN: No EN Drainage Mucous Memb. moist Neck: no JVD no JVP Supple no Thyromegaly CVS: S1 S2 ? Murmur No Gallop No Rub no Edema Resp: no Rales no Rhonchi no Acc. Muscle use GI: BS +ve NO Bruit Non Tender Non Distended - obese : min CVA tenderness; no Suprapubic Tenderness Assessment & Plan GAGAN - suspect due to Obst. Uropathy and NSAIDs (ATN cannot be ruled out) - now s/p cystoscopy, bilateral retrograde pyelograms, right ureteral stent placement reval in am. Creat is betterw ith IVf and UO is good per RN Hydronephrosis on CT - anticipate resolution after cystoscopy, bilateral retrograde pyelograms, right ureteral stent placement Vold peltion - encourage PO Nephrolithiasis - URO Plan noted HTN: Current BP meds reviewed. See orders for changes. OK to Dc/ from renal standpoint - no NSAIDs at D/c COMMENT/RELEVANT DATA Meds Current Medications Medications (Trade) Dose Ordered Sig/Wili Start Time Stop Time Status Last Admin Dose Admin Acetaminophen/ Hydrocodone Bitart (Lortab 5/325) 1 tab PRN Q4HRS PRN 01/30/17 20:15 02/02/17 08:33 1 TAB Ceftriaxone Sodium 1 gm/ Sodium Chloride 50 ml @ 100 mls/hr Q24H 01/30/17 22:00 02/01/17 21:32 100 MLS/HR Ceftriaxone Sodium 50 ml @ As Directed STK-MED ONCE 01/31/17 16:37 01/31/17 16:38 DC Dexamethasone Sodium Phosphate (Decadron) 20 mg STK-MED ONCE 5/4/17 15:17 01/31/17 15:18 DC Dextrose (Dextrose 50%-Water Syringe) 12.5 gm PRN Q15MIN PRN 01/30/17 21:45 Diphenhydramine HCl (Benadryl) 25 mg PRN Q6HRS PRN 01/30/17 20:15 Docusate Sodium (Colace) 100 mg DAILY 01/30/17 21:30 02/02/17 08:32 100 MG Ephedrine Sulfate 50 mg STK-MED ONCE 01/31/17 17:09 01/31/17 17:10 DC Famotidine (Pepcid) 20 mg STK-MED ONCE 01/31/17 15:17 01/31/17 15:18 DC Fentanyl Citrate (Fentanyl 2ml Vial) 100 mcg STK-MED ONCE 01/31/17 15:18 01/31/17 15:19 DC Furosemide (Lasix) 40 mg 1X ONCE 02/01/17 10:30 02/01/17 10:31 DC 02/01/17 12:15 40 MG Hydromorphone HCl (Dilaudid) 0.5 mg PRN Q10MIN PRN 01/31/17 11:15 01/31/17 18:00 DC Insulin Aspart (Novolog) 0-9 UNITS TIDWMEALS 01/31/17 08:00 02/01/17 17:44 5 UNITS Insulin Detemir (Levemir) 12 units QHS 02/01/17 21:00 02/02/17 08:39 12 UNITS Iohexol (Omnipaque 300 Mg/ml) 50 ml STK-MED ONCE 01/31/17 15:10 01/31/17 15:11 DC 01/31/17 17:04 20 ML Lidocaine HCl (Glydo (Lidocaine) Jelly) 6 jessi STK-MED ONCE 01/31/17 15:10 01/31/17 15:11 DC 01/31/17 17:17 6 JESSI Magnesium Hydroxide (Milk Of Magnesia) 2,400 mg 1X ONCE 02/01/17 09:30 02/01/17 09:31 DC 02/01/17 12:14 2,400 MG Midazolam HCl (Versed) 2 mg STK-MED ONCE 01/31/17 15:18 01/31/17 15:19 DC Morphine Sulfate 1 mg PRN Q10MIN PRN 01/31/17 11:15 02/01/17 11:14 DC Nystatin/ Triamcinolone Acetonide (Mycolog Ii) 1 jessi BID PRN 01/31/17 20:30 02/01/17 12:15 1 JESSI Ondansetron HCl (Zofran) 4 mg STK-MED ONCE 01/31/17 15:18 01/31/17 15:19 DC Polyethylene Glycol (miraLAX PACKET) 17 gm DAILY 01/31/17 09:00 02/02/17 08:33 17 GM Prochlorperazine Edisylate (Compazine) 5 mg PACU PRN PRN 01/31/17 11:15 01/31/17 18:00 DC Propofol 20 ml @ As Directed STK-MED ONCE 01/31/17 15:18 01/31/17 15:19 DC Sodium Chloride 1,000 ml @ 100 mls/hr Q10H 02/01/17 14:00 02/02/17 00:00 100 MLS/HR Throat Lozenges (Chloraseptic) 1 spray PRN Q2HR PRN 02/01/17 09:15 02/01/17 12:16 1 SPRAY Zolpidem Tartrate (Ambien) 5 mg PRN QHS PRN 01/30/17 20:15 02/01/17 21:32 5 MG Lab Laboratory Tests Test 02/01/17 12:06 02/01/17 16:55 02/01/17 20:38 02/02/17 07:40 Glucose (Fingerstick) 203 mg/dL (70-99) 208 mg/dL (70-99) 248 mg/dL (70-99) 110 mg/dL (70-99) Test 02/02/17 09:30 Sodium Level 139 mmol/L (136-145) Potassium Level 4.3 mmol/L (3.5-5.1) Chloride Level 104 mmol/L (98-107) Carbon Dioxide Level 29 mmol/L (21-32) Anion Gap 6 (6-14) Blood Urea Nitrogen 21 mg/dL (8-26) Creatinine 1.7 mg/dL (0.7-1.3) Estimated GFR (Cockcroft-Gault) 42.2 Glucose Level 256 mg/dL (70-99) Calcium Level 8.2 mg/dL (8.5-10.1) CARMEL ROSE MD February 02, 2017 11:19
--- NOTE | 2017-02-02 12:26 | PDOC3 ---
Discharge Summary Visit Information Date of Admission: January 30, 2017 Date of Discharge: February 02, 2017 Admitting Diagnosis: flank pain Final Diagnosis Renal colic, w/ right hydronephrosis, 2 right obstructing stone hydroureter obesity DM2 acute renal failure, obstructive uropathy CKD 3 from [facility] Medical Problems: (1) Hydronephrosis with urinary obstruction due to ureteral calculus Status: Acute (2) Renal colic Status: Acute Brief Hospital Course Allergies Allergies Coded Allergies Type Severity Reaction Last Updated Verified cranberry Allergy Unknown 01/30/17 Yes Uncoded Allergies Type Severity Reaction Last Updated Verified hay Allergy Unknown 01/30/17 Vital Signs Vital Signs Date Time Temp Pulse Resp B/P (MAP) Pulse Ox O2 Delivery O2 Flow Rate FiO2 02/02/17 11:00 97.9 67 18 112/74 (87) 96 Room Air 97.9 Lab Results Laboratory Tests Test 01/31/17 15:44 01/31/17 17:34 01/31/17 20:34 01/31/17 20:58 Glucose (Fingerstick) 93 mg/dL (70-99) 96 mg/dL (70-99) 285 mg/dL (70-99) 252 mg/dL (70-99) Test 02/01/17 03:09 02/01/17 07:19 02/01/17 12:06 02/01/17 16:55 White Blood Count 6.9 x10^3/uL (4.0-11.0) Red Blood Count 4.07 x10^6/uL (4.30-5.70) Hemoglobin 12.5 g/dL (13.0-17.5) Hematocrit 37.9 % (39.0-53.0) Mean Corpuscular Volume 93 fL (79-100) Mean Corpuscular Hemoglobin 31 pg (25-35) Mean Corpuscular Hemoglobin Concent 33 g/dL (31-37) Red Cell Distribution Width 14.6 % (11.5-14.5) Platelet Count 212 x10^3/uL (140-400) Neutrophils (%) (Auto) 88 % (31-73) Lymphocytes (%) (Auto) 8 % (24-48) Monocytes (%) (Auto) 4 % (0-9) Eosinophils (%) (Auto) 0 % (0-3) Basophils (%) (Auto) 1 % (0-3) Neutrophils # (Auto) 6.0 x10^3uL (1.8-7.7) Lymphocytes # (Auto) 0.5 x10^3/uL (1.0-4.8) Monocytes # (Auto) 0.3 x10^3/uL (0.0-1.1) Eosinophils # (Auto) 0.0 x10^3/uL (0.0-0.7) Basophils # (Auto) 0.0 x10^3/uL (0.0-0.2) Sodium Level 140 mmol/L (136-145) Potassium Level 4.7 mmol/L (3.5-5.1) Chloride Level 105 mmol/L (98-107) Carbon Dioxide Level 24 mmol/L (21-32) Anion Gap 11 (6-14) Blood Urea Nitrogen 16 mg/dL (8-26) Creatinine 1.9 mg/dL (0.7-1.3) Estimated GFR (Cockcroft-Gault) 37.1 Glucose Level 308 mg/dL (70-99) Calcium Level 8.5 mg/dL (8.5-10.1) Glucose (Fingerstick) 260 mg/dL (70-99) 203 mg/dL (70-99) 208 mg/dL (70-99) Test 02/01/17 20:38 02/02/17 07:40 02/02/17 09:30 02/02/17 11:16 Glucose (Fingerstick) 248 mg/dL (70-99) 110 mg/dL (70-99) 218 mg/dL (70-99) Sodium Level 139 mmol/L (136-145) Potassium Level 4.3 mmol/L (3.5-5.1) Chloride Level 104 mmol/L (98-107) Carbon Dioxide Level 29 mmol/L (21-32) Anion Gap 6 (6-14) Blood Urea Nitrogen 21 mg/dL (8-26) Creatinine 1.7 mg/dL (0.7-1.3) Estimated GFR (Cockcroft-Gault) 42.2 Glucose Level 256 mg/dL (70-99) Calcium Level 8.2 mg/dL (8.5-10.1) Laboratory Tests Test 02/01/17 16:55 02/01/17 20:38 02/02/17 07:40 02/02/17 09:30 Glucose (Fingerstick) 208 mg/dL (70-99) 248 mg/dL (70-99) 110 mg/dL (70-99) Sodium Level 139 mmol/L (136-145) Potassium Level 4.3 mmol/L (3.5-5.1) Chloride Level 104 mmol/L (98-107) Carbon Dioxide Level 29 mmol/L (21-32) Anion Gap 6 (6-14) Blood Urea Nitrogen 21 mg/dL (8-26) Creatinine 1.7 mg/dL (0.7-1.3) Estimated GFR (Cockcroft-Gault) 42.2 Glucose Level 256 mg/dL (70-99) Calcium Level 8.2 mg/dL (8.5-10.1) Test 02/02/17 11:16 Glucose (Fingerstick) 218 mg/dL (70-99) Brief Hospital Course Mr. Walker is a 52 old mult prior hx stone, presneted with acutely worse pain , pain over days to Left side flank pain, better : s/ p cystoscopy, bilateral retrograde pyelograms, right ureteral stent placement , better right side mild flank pain - HAD 2 stones obstructing cr high, renal consulted, stable, DC to [facility] Discharge Information Condition at Discharge: Improved Follow Up: Weeks Disposition/Orders: Other (to [facility]) Scheduled Docusate Sodium (Colace), 100 MG PO DAILY Sulfamethoxazole/Trimethoprim (Bactrim Ds Tablet), 1 TAB PO BID Tamsulosin Hcl (Flomax), 1 CAP PO DAILY Scheduled PRN Acetaminophen (Tylenol), 2 TAB PO QID PRN for PAIN Tramadol Hcl (Ultram), 1 TAB PO Q6HRS PRN for PAIN Patient Instructions Patient Instructions time > 30min post op renal scan NM IMPRESSION: 1. Right-sided ureteral obstruction and hydronephrosis. 2. Mild parenchymal retention of the left compatible with nonspecific medical renal disease. DURGA HARMON MD February 02, 2017 12:26
--- NOTE | 2017-02-05 14:12 | PREOP HP ---
DATE OF SERVICE: 02/20/2017 CHIEF COMPLAINT: Right ureteral stone. HISTORY OF PRESENT ILLNESS: The patient is a very pleasant 52-year-old white male with history of right ureteral stone, status post right ureteral stent placement. The patient is now in for definitive therapy of his right ureteral stone with a right ureteroscopy and laser lithotripsy and right ureteral stent change. PAST MEDICAL HISTORY: Significant for multiple stones. He has had prior operations on the stones at [place] in , in the past. He has had also history of diabetes, prior cholecystectomy. MEDICATIONS: He is on metformin and also medicine for depression. ALLERGIES: THE PATIENT WITH NO KNOWN DRUG ALLERGIES. REVIEW OF SYSTEMS: Just some mild discomfort from his right ureteral stent and stone. PHYSICAL EXAMINATION: GENERAL: The patient is well-developed, well-nourished white male, in no acute distress. HEENT: Normocephalic, atraumatic. NECK: Supple. CHEST: Clear to auscultation. CARDIOVASCULAR: Regular rate and rhythm. ABDOMEN: Soft with some mild tenderness in the right side from the stent and stone. EXTREMITIES: Without clubbing, cyanosis, or edema. NEUROLOGIC: Grossly intact. ASSESSMENT: The patient with 60-mm stone in right mid ureter with marked hydroureteronephrosis, status post stent placement. The patient has a renal scan which shows approximately 30% function in the right kidney and 70% function of the left kidney. PLAN: I have discussed with the patient the options, alternatives, benefits, risks and possible complications of right ureteroscopy with holmium laser lithotripsy and right ureteral stent change. He understands this and does wish to proceed with operation. We will therefore proceed accordingly. MARIFER FLORENCE MD DR: NICOLE/valerie JOB#: [id number] / [id number]
== END 2017-02-02 13:37 | DRG 683 ==
LOC: ER 16:25 → EEVIPCON 16:25 → 4 NORTH 18:30
PROVIDERS: ADMIT Internal Medicine; ATTEND Internal Medicine
PROC: 0T768DZ Dilation of Right Ureter with Intraluminal Device, Via Natural or Artificial Opening Endoscopic (ICD-10-PCS; 2017-01-31)
PROC: BT141ZZ Fluoroscopy of Kidneys, Ureters and Bladder using Low Osmolar Contrast (ICD-10-PCS; principal; 2017-01-31 16:00)
DX: N17.9 Acute kidney failure, unspecified (principal); N13.4 Hydroureter; N13.2 Hydronephrosis with renal and ureteral calculous obstruction; E11.22 Type 2 diabetes mellitus with diabetic chronic kidney disease; E66.9 Obesity, unspecified; N18.3 Chronic kidney disease, stage 3 (moderate); Z79.4 Long term (current) use of insulin; Z87.442 Personal history of urinary calculi; Z90.49 Acquired absence of other specified parts of digestive tract; Z68.33 Body mass index [BMI] 33.0-33.9, adult; Z91.018 Allergy to other foods; Z91.09 Other allergy status, other than to drugs and biological substances
CPT/HCPCS: 36415; 74176; 74420; 78708; 80048; 80053; 81001; 82962; 85027; 87086; 87641; 96361; 96374; 96375; A9562; C1769; C2617; J0690; J0696; J1100; J1815; J1940; J2250; J2405; J2704; J3010; J7030; J7120; Q9967; S0028; 99285-25

== ENCOUNTER 2017-02-08 15:03 | Emergency (ER) | payer OTHER ==
[~2017-02-08] VITALS: Ht 175.3 cm; Wt 102.5 kg
[~2017-02-08 15:03] MED LIST: ACET325T9 PO; DOCU-27 PO; SULF1TAB24 PO; TAMS0.4C97 PO; TRAM-29 PO
[2017-02-08] MEDS ORDERED: KETOROLAC TROMETHAMINE 30 MG/ML INJ. IV ONE (15:30)
[2017-02-08 15:31] LABS: BILIRUBIN,URINE NEGATIVE (NEG); GLUCOSE,URINE 500 mg/dL (NEG); NITRITE,URINE NEGATIVE (NEG); PROTEIN,URINE 100 mg/dL (NEG-TRACE)
[2017-02-08 15:32] LABS: BACTERIA,URINE 0 /HPF (0-FEW); RBC,URINE TNTC /HPF (0-2)
[2017-02-08 15:48] LABS: BASO # 0.1 x10^3/uL (0.0-0.2); BASO % 1 % (0-3); EOS % 2 % (0-3); HEMOGLOBIN 13.7 g/dL (13.0-17.5); LYMPH # 2.1 x10^3/uL (1.0-4.8); LYMPH % 20 % (24-48); MEAN CORPUSCULAR HEMOGLOBIN 31 pg (25-35); MEAN CORPUSCULAR HGB CONC 34 g/dL (31-37); MEAN CORPUSCULAR VOLUME 91 fL (79-100); MONO % 10 % (0-9); NEUT % 66 % (31-73); PLATELET COUNT 279 x10^3/uL (140-400); RED BLOOD COUNT 4.38 x10^6/uL (4.30-5.70); RED CELL DISTRIBUTION WIDTH 14.2 % (11.5-14.5); WHITE BLOOD COUNT 10.1 x10^3/uL (4.0-11.0)
--- NOTE | 2017-02-08 15:48 | PHYS DOC ---
Past Medical History Past Medical History: Depression, Diabetes-Type II, High Cholesterol, Kidney Stone Past Surgical History: Cholecystectomy, Other Additional Past Surgical Histo: lithotrypsy, ureteral stent placement Alcohol Use: None Drug Use: None Adult General Chief Complaint Chief Complaint: FLANK PAIN HPI HPI Patient is a 52 year old male presenting to the emergency department for evaluation of worsening right flank pain of the past several days. Per patient he had a 16 mm stone on the right side that required stenting last week with Dr. Turk. They were planning to leave the stent until the of this month. Patient said that they were then going to do lithotripsy. Patient says that his urine is darker than usual. Review of Systems Review of Systems Constitutional: Denies fever or chills [] Eyes: Denies change in visual acuity, redness, or eye pain [] HENT: Denies nasal congestion or sore throat [] Respiratory: Denies cough or shortness of breath [] Cardiovascular: No additional information not addressed in HPI [] GI: Denies abdominal pain, nausea, vomiting, bloody stools or diarrhea [] : Denies dysuria or hematuria [] Musculoskeletal: + back pain. No joint pain [] Integument: Denies rash or skin lesions [] Neurologic: Denies headache, focal weakness or sensory changes [ Current Medications Current Medications Current Medications Medications (Trade) Dose Ordered Sig/Wili Start Time Stop Time Status Last Admin Dose Admin Ketorolac Tromethamine (Toradol) 30 mg 1X ONCE 02/08/17 15:30 02/08/17 15:31 DC 02/08/17 15:40 30 MG Sodium Chloride 1,000 ml @ 1,000 mls/hr 1X ONCE 02/08/17 16:00 02/08/17 16:59 02/08/17 15:40 1,000 MLS/HR Allergies Allergies Allergies Coded Allergies Type Severity Reaction Last Updated Verified cranberry Allergy Unknown 01/30/17 Yes Uncoded Allergies Type Severity Reaction Last Updated Verified hay Allergy Unknown 01/30/17 Physical Exam Physical Exam Constitutional: Well developed, well nourished, no acute distress, non-toxic appearance. [] HENT: Normocephalic, atraumatic, bilateral external ears normal, oropharynx moist, no oral exudates, nose normal. [] Eyes: PERRLA, EOMI, conjunctiva normal, no discharge. [] Neck: Normal range of motion, no tenderness, supple, no stridor. [] Cardiovascular:Heart rate regular rhythm, no murmur [] Lungs & Thorax: Bilateral breath sounds clear to auscultation [] Abdomen: Bowel sounds normal, soft, no tenderness, no masses, no pulsatile masses. [] Skin: Warm, dry, no erythema, no rash. [] Back: + R CVA tenderness. [] Extremities: No tenderness, no cyanosis, no clubbing, ROM intact, no edema. [] Neurologic: Alert and oriented X 3, normal motor function, normal sensory function, no focal deficits noted. [] Current Patient Data Vital Signs Vital Signs Date Time Temp Pulse Resp B/P (MAP) Pulse Ox O2 Delivery O2 Flow Rate FiO2 02/08/17 15:10 99.1 99 16 155/88 (110) 97 Room Air 99.1 Lab Values Laboratory Tests Test 02/08/17 15:15 02/08/17 15:35 Urine Collection Type Unknown Urine Color Red Urine Clarity Cloudy Urine pH 6.0 Urine Specific Uriah 1.020 Urine Protein 100 mg/dL (NEG-TRACE) Urine Glucose (UA) 500 mg/dL (NEG) Urine Ketones (Stick) Trace mg/dL (NEG) Urine Blood Large (NEG) Urine Nitrite Negative (NEG) Urine Bilirubin Negative (NEG) Urine Urobilinogen Dipstick 1.0 mg/dL (0.2 mg/dL) Urine Leukocyte Esterase Moderate (NEG) Urine RBC Tntc /HPF (0-2) Urine WBC 5-10 /HPF (0-4) Urine Bacteria 0 /HPF (0-FEW) Urine Mucus Slight /LPF White Blood Count 10.1 x10^3/uL (4.0-11.0) Red Blood Count 4.38 x10^6/uL (4.30-5.70) Hemoglobin 13.7 g/dL (13.0-17.5) Hematocrit 40.0 % (39.0-53.0) Mean Corpuscular Volume 91 fL (79-100) Mean Corpuscular Hemoglobin 31 pg (25-35) Mean Corpuscular Hemoglobin Concent 34 g/dL (31-37) Red Cell Distribution Width 14.2 % (11.5-14.5) Platelet Count 279 x10^3/uL (140-400) Neutrophils (%) (Auto) 66 % (31-73) Lymphocytes (%) (Auto) 20 % (24-48) L Monocytes (%) (Auto) 10 % (0-9) H Eosinophils (%) (Auto) 2 % (0-3) Basophils (%) (Auto) 1 % (0-3) Neutrophils # (Auto) 6.7 x10^3uL (1.8-7.7) Lymphocytes # (Auto) 2.1 x10^3/uL (1.0-4.8) Monocytes # (Auto) 1.0 x10^3/uL (0.0-1.1) Eosinophils # (Auto) 0.2 x10^3/uL (0.0-0.7) Basophils # (Auto) 0.1 x10^3/uL (0.0-0.2) Sodium Level 135 mmol/L (136-145) L Potassium Level 4.5 mmol/L (3.5-5.1) Chloride Level 101 mmol/L (98-107) Carbon Dioxide Level 24 mmol/L (21-32) Anion Gap 10 (6-14) Blood Urea Nitrogen 30 mg/dL (8-26) H Creatinine 2.0 mg/dL (0.7-1.3) H Estimated GFR (Cockcroft-Gault) 35.0 BUN/Creatinine Ratio 15 (6-20) Glucose Level 190 mg/dL (70-99) H Calcium Level 9.3 mg/dL (8.5-10.1) Total Bilirubin 0.4 mg/dL (0.2-1.0) Aspartate Amino Transferase (AST) 15 U/L (15-37) Alanine Aminotransferase (ALT) 25 U/L (16-63) Alkaline Phosphatase 83 U/L (46-116) Total Protein 7.7 g/dL (6.4-8.2) Albumin 4.0 g/dL (3.4-5.0) Albumin/Globulin Ratio 1.1 (1.0-1.7) Laboratory Tests 02/08/17 15:35 Laboratory Tests 02/08/17 15:35 EKG EKG [] Radiology/Procedures Radiology/Procedures Exam performed: CT abdomen pelvis without contrast. History: Ureteral stent for one week, hematuria today. Date of service: 02/08/17. Comparison: CT abdomen pelvis from 01/30/17. Technique: Contiguous helical acquisitions are obtained through the abdomen and pelvis without IV contrast. Sagittal and coronal reformatted images are obtained and reviewed. Findings: Right nephroureteral stent. The proximal end is in the right renal pelvis and the distal end is in the urinary bladder. There is 2 right mid ureteric calculi without interval change in position since previous study. The degree of hydronephrosis appears improved. There is a approximately 3 mm nonobstructing calculus in the right inferior renal pole. Several nonobstructing left renal calculi are seen. The lung bases are clear. The visualized heart is normal. Lack of IV contrast limits evaluation of abdominal viscera, however the liver, spleen, pancreas appear normal. Cholecystectomy. Both adrenal glands and bilateral kidneys are symmetric. Right renal cyst. The aorta is normal in caliber. No retroperitoneal or mesenteric lymphadenopathy. Small and large bowel loops are nondilated and unremarkable. Scattered stool throughout the colon. Appendix is normal. The urinary bladder is decompressed. Prostate mildly. Seminal vesicles and rectum appear normal. Interrogation of bone windows demonstrates no bony abnormalities. Impression: 1. Interval decrease in the right hydronephrosis status post nephroureteral stent placement. 2. 2 right mid ureteric calculi are redemonstrated without interval change. 3. Nonobstructing bilateral renal calculi and right renal cyst PQRS Compliance Statement: One or more of the following individualized dose reduction techniques were utilized for this examination: 1. Automated exposure control 2. Adjustment of the mA and/or kV according to patient size 3. Use of iterative reconstruction technique DICTATED and SIGNED BY: SARAY OLIVA MD DATE: 02/08/17 9673 Course & Med Decision Making Course & Med Decision Making Get labs CT treat pain and then reassess. Stent is in good position and labs and urine mostly unremarkable. Hydronephrosis is improved per the CT. He does have slightly worsening renal insufficiency and he says that they do not give him enough water to drink is able to give him a small Styrofoam cup with meals and he wishes that he could drink more water. I will write instructions that he needs to drink more water and will refill his tramadol prescription. Patient says that he has been walking lots of stairs and he thinks that is what caused him to have the blood in his urine as his stent may have shifted. I tried getting a hold of a urologist here however Dr. Kirkland and Dr. Turk are both out of town and there is no urologist available for consultation at this hospital. I do not think there is any emergent procedure or testing that needs to be done so he'll be discharged with instructions to follow with his urologist as an outpatient next week. Patient aware and agreeable with plan and verbalized understanding of the above instructions. Dragon Disclaimer Dragon Disclaimer This electronic medical record was generated, in whole or in part, using a voice recognition dictation system. Departure Departure Impression: Primary Impression: Hematuria Additional Impression: Ureteral stone Disposition: HOME, SELF-CARE Condition: GOOD Referrals: HARMEET KIRKLAND DO Patient Instructions: Diet for Kidney Stones Additional Instructions: Make sure that you're drinking at least 8-4 glasses of water daily and he can drink more if needed. Take the tramadol for pain and follow with urologist Dr. Turk early next week to ensure improvement. Scripts Tramadol Hcl (TRAMADOL HCL) 50 Mg Tablet 1 TAB PO PRN Q6HRS, #30 TAB Prov: JOSE ANTONIO ALEXANDER DO 02/08/17 Problem Qualifiers JOSE ANTONIO ALEXANDER DO February 08, 2017 15:48
[2017-02-08] MEDS ORDERED: IV NORMAL SALINE 1000ML BAG 1,000 ML IV ONE (16:00)
[2017-02-08 16:07] LABS: CALCIUM 9.3 mg/dL (8.5-10.1); POTASSIUM 4.5 mmol/L (3.5-5.1)
[2017-02-08 16:13] LABS: ALBUMIN/GLOBULIN RATIO 1.1 (1.0-1.7); TOTAL BILIRUBIN 0.4 mg/dL (0.2-1.0); TOTAL PROTEIN 7.7 g/dL (6.4-8.2)
--- NOTE | 2017-02-08 16:14 | RAD ---
Exam performed: CT abdomen pelvis without contrast. History: Ureteral stent for one week, hematuria today. Date of service: 02/08/17. Comparison: CT abdomen pelvis from 01/30/17. Technique: Contiguous helical acquisitions are obtained through the abdomen and pelvis without IV contrast. Sagittal and coronal reformatted images are obtained and reviewed. Findings: Right nephroureteral stent. The proximal end is in the right renal pelvis and the distal end is in the urinary bladder. There is 2 right mid ureteric calculi without interval change in position since previous study. The degree of hydronephrosis appears improved. There is a approximately 3 mm nonobstructing calculus in the right inferior renal pole. Several nonobstructing left renal calculi are seen. The lung bases are clear. The visualized heart is normal. Lack of IV contrast limits evaluation of abdominal viscera, however the liver, spleen, pancreas appear normal. Cholecystectomy. Both adrenal glands and bilateral kidneys are symmetric. Right renal cyst. The aorta is normal in caliber. No retroperitoneal or mesenteric lymphadenopathy. Small and large bowel loops are nondilated and unremarkable. Scattered stool throughout the colon. Appendix is normal. The urinary bladder is decompressed. Prostate mildly. Seminal vesicles and rectum appear normal. Interrogation of bone windows demonstrates no bony abnormalities. Impression: 1. Interval decrease in the right hydronephrosis status post nephroureteral stent placement. 2. 2 right mid ureteric calculi are redemonstrated without interval change. 3. Nonobstructing bilateral renal calculi and right renal cyst PQRS Compliance Statement: One or more of the following individualized dose reduction techniques were utilized for this examination: 1. Automated exposure control 2. Adjustment of the mA and/or kV according to patient size 3. Use of iterative reconstruction technique
[2017-02-08] MEDS ORDERED: TRAM50TA PO (16:40)
[2017-02-08 17:00] VITALS: BP 133/86
== END 2017-02-08 17:09 | disposition home or self-care (01) ==
LOC: EEVIPCON 15:03 → ER 16:13
DX: N13.2 Hydronephrosis with renal and ureteral calculous obstruction (principal); R31.9 Hematuria, unspecified; E11.9 Type 2 diabetes mellitus without complications; E78.00 Pure hypercholesterolemia, unspecified; F32.9 Major depressive disorder, single episode, unspecified; N13.30 Unspecified hydronephrosis; Z87.442 Personal history of urinary calculi; Z90.49 Acquired absence of other specified parts of digestive tract; Z91.018 Allergy to other foods
CPT/HCPCS: 36415; 74176; 80053; 81001; 85027; 87086; 96361; 96374; 99285; J1885; J7030

== ENCOUNTER 2017-02-18 07:05 | Day surgery (SDC) | payer OTHER ==
--- NOTE | 2017-02-17 12:18 | PREOP HP ---
DATE OF SERVICE: 02/18/2017 CHIEF COMPLAINT: Right ureteral stone. HISTORY OF PRESENT ILLNESS: The patient is a very pleasant 52-year-old white male with history of right ureteral stone, status post right ureteral stent placement. The patient is now in for definitive therapy of his right ureteral stone with a right ureteroscopy and laser lithotripsy and right ureteral stent change. PAST MEDICAL HISTORY: Significant for multiple stones. He has had prior operations on the stones at [place] in , in the past. He has had also history of diabetes, prior cholecystectomy. MEDICATIONS: He is on metformin and also medicine for depression. ALLERGIES: THE PATIENT WITH NO KNOWN DRUG ALLERGIES. REVIEW OF SYSTEMS: Just some mild discomfort from his right ureteral stent and stone. PHYSICAL EXAMINATION: GENERAL: The patient is well-developed, well-nourished white male, in no acute distress. HEENT: Normocephalic, atraumatic. NECK: Supple. CHEST: Clear to auscultation. CARDIOVASCULAR: Regular rate and rhythm. ABDOMEN: Soft with some mild tenderness in the right side from the stent and stone. EXTREMITIES: Without clubbing, cyanosis, or edema. NEUROLOGIC: Grossly intact. ASSESSMENT: The patient with 60-mm stone in right mid ureter with marked hydroureteronephrosis, status post stent placement. The patient has a renal scan which shows approximately 30% function in the right kidney and 70% function of the left kidney. PLAN: I have discussed with the patient the options, alternatives, benefits, risks and possible complications of right ureteroscopy with holmium laser lithotripsy and right ureteral stent change. He understands this and does wish to proceed with operation. We will therefore proceed accordingly. MARIFER FLORENCE MD DR: NICOLE/valerie JOB#: [id number] / [id number]
[~2017-02-18 07:05] MED LIST changes: +HYDROmorphone 2 MG/ML VIAL IV PRN; +IV RINGERS,LACTATED 1000ML 1,000 ML IV SCH; +LIDOCAINE 1% 1 ML SYRINGE. ID PRN; +MORPHINE SULFATE 2 MG/ML DISP.SYRIN. IV PRN; +ONDANSETRON PF 4 MG/2 ML VIAL. IV PRN; +PROCHLORPERAZINE 10 MG/2 ML VIAL. IV PRN; +TRAM50TA PO; +fentaNYL PF VIAL 100 MCG/2 ML VIAL IV PRN
[2017-02-18] MEDS ORDERED: LISI-338 PO (07:27)
[2017-02-18] MEDS ORDERED: HUM100VI SQ (07:27)
[2017-02-18] MEDS ORDERED: INSU100V5 IJ (07:27)
[2017-02-18] MEDS ORDERED: ASPI-482 PO (07:27)
[2017-02-18] MEDS ORDERED: SERT100T PO (07:27)
[2017-02-18] MEDS ORDERED: ATOR20TA58 PO (07:27)
[2017-02-18] MEDS ORDERED: LIDOCAINE 2% JELLY 6ML IN APPLICATOR. ONE (07:31)
[2017-02-18] MEDS ORDERED: IOHEXOL 300 MG/ML 50 ML VIAL. ONE (07:31)
[2017-02-18] MEDS ORDERED: PROPOFOL 20 ML IV ONE (08:34)
[2017-02-18] MEDS ORDERED: LIDOCAINE 2% PF Vial for OR 5 ML VIAL. ONE (08:34)
[2017-02-18] MEDS ORDERED: DEXAMETHASONE SOD PHOS 20 MG/5 ML VIAL. ONE (08:35)
[2017-02-18] MEDS ORDERED: ONDANSETRON PF 4 MG/2 ML VIAL. ONE (08:35)
[2017-02-18] MEDS ORDERED: fentaNYL PF VIAL 100 MCG/2 ML VIAL ONE (08:54)
[2017-02-18] MEDS ORDERED: ePHEDrine PF IN SALINE 50 MG/5 ML DISP.SYRIN IV ONE ×2 (09:26→09:46)
[2017-02-18] MEDS ORDERED: SEVOFLURANE 61 TO 120 MINUTES. IH ONE (10:58)
--- NOTE | 2017-02-18 11:30 | DISCH ---
DISCHARGE INSTRUCTIONS Condition on Discharge Condition on Discharge: Stable Activity After Discharge Activity Instructions for Disc: Activity as tolerated Diet after Discharge Diet after Discharge: Regular Contacting the DR. after DC Call your doctor for: If your condition worsens Follow-Up Follow up with: Plan to F/U on 03/25/17 for repeat uretroscopy MARIFER FLORENCE MD February 18, 2017 11:30
--- NOTE | 2017-02-18 11:33 | PDOC4 ---
Operative Note Operative Note pre-op dx-right ureteral stones procedure-right ureteroscopy with laser lithotripsy and stent change surgeon-justin gabriels-general Pt. to PACU in stable condition Plan to return for retreatment of residual right ureteral stones with right ureteroscopy and laser lithotripsy on 03/25/17 MARIFER FLORENCE MD February 18, 2017 11:33
[2017-02-18] MEDS ORDERED: CIPR250T30 PO (11:49)
[2017-02-18] MEDS ORDERED: CIPR500T94 PO (11:49)
[2017-02-18] MEDS ORDERED: HYDR-971 PO (11:49)
[2017-02-18 12:23] VITALS: BP 129/63
--- NOTE | 2017-02-18 16:18 | OP ---
DATE OF SURGERY: 02/18/2017 OPERATION: Right ureteroscopy with holmium laser lithotripsy and right ureteral stent change. SURGEON: Marifer Turk M.D. ANESTHESIA: General. PREOPERATIVE DIAGNOSIS: Right ureteral calculi. HISTORY OF PRESENT ILLNESS: The patient is a very pleasant 52-year-old white male with history of stone disease, who presented with abdominal pain, found to have a large right ureteral calculi with hydronephrosis and decreased renal function in the right side. The patient had initial cystoscopy, right retrograde pyelogram, and right ureteral stent placement. The patient is now in for definitive treatment of his right ureteral calculi. I have discussed with the patient the options, alternatives, benefits, risks and possible complications of right ureteroscopy, possible holmium laser lithotripsy and right ureteral stent change. He understands this and does wish to proceed with the operation. DESCRIPTION OF PROCEDURE: After obtaining informed consent, the patient was taken to the operating room. After an excellent general anesthetic, the patient was placed in a dorsal lithotomy position. Groin was prepped and draped in sterile fashion. The patient was preloaded with IV antibiotics. Panendoscopy and cystoscopy were then performed with the 30-degree lens and the 21-Samoan cystoscope. Penile urethra was found to be grossly normal. External sphincter appeared intact. Prostatic urethra showed moderate bilobar enlargement. Bladder was entered and inspected. The patient was noted to have distal curl of the right ureteral stent protruding from the right ureteral orifice. The patient has had a minimal amount of stent reaction in the bladder. Following this, a floppy tipped ZIPwire was then passed up the right ureter alongside the right ureteral stent pass the level of the stone in the proximal ureter up to the right kidney. Following this, the wire was left in as a safety wire. Following this, the right double-J stent was indwelling, double-J stent was then grasped with the grasping forceps removed from the patient without difficulty. Following this, bladder was then drained and the cystoscope withdrawn from the patient. Following this, the thin semirigid ureteroscope was then passed per urethra up alongside the ZIPwire up the right ureter into the right proximal ureter up to the level of the stone. Stone was encountered and found to be brownish in color. Stone size on CT scan initially had measured 16 mm. The patient's renal scan after placement of the ureteral stent showed 32% function from the right kidney, 68% function from the left kidney. Following this, the stone was then treated with holmium laser at 200 micron fiber at a power setting of 0.5 and 10. Stone was fragmented into 1-4 mm fragments. The patient was noted to have moderate amount of inflammation around where the stone had been in the ureter and most likely the stone had been in position for quite sometime. After the fragmentation, the ureter was inspected and found to be intact. Retrograde pyelogram showed the collecting system to be intact. At this point, because of the very large size of the stone in the amount of time took to fragment the stone into 1-4 mm fragments, it was decided to end the procedure at this point and therefore the thin rigid ureteroscope was then removed from the patient and the cystoscope then replaced and then a new 6 x 26 double-J stent then passed up the ZIPwire, placing one curl in the right kidney and another curl in the bladder and the ZIPwire was removed. Stent position was checked by fluoroscopy and direct vision, found to be in good position. Following this, bladder was then drained and the cystoscope withdrawn from the patient. The patient tolerated the procedure very well, was taken to recovery room in stable condition. The plan will be to bring the patient back for a followup right ureteroscopy and possible retreatment of any remaining significant stone fragments in the right collecting system in one month. MARIFER TURK MD DR: NICOLE/valerie JOB#: [id number] / [id number]
== END 2017-02-18 12:45 | disposition home or self-care (01) ==
LOC: SURG 07:05
PROVIDERS: ATTEND Urology
DX: N13.2 Hydronephrosis with renal and ureteral calculous obstruction (principal); E78.00 Pure hypercholesterolemia, unspecified; I10 Essential (primary) hypertension; K21.9 Gastro-esophageal reflux disease without esophagitis; E11.9 Type 2 diabetes mellitus without complications; F32.9 Major depressive disorder, single episode, unspecified; Z90.49 Acquired absence of other specified parts of digestive tract; Z87.442 Personal history of urinary calculi
CPT/HCPCS: 52356; 74420; 82947; J0690; J1100; J1956; J2405; J2704; J3010; Q9967; C1769; C2617; J7120

== ENCOUNTER 2017-03-25 08:06 | Day surgery (SDC) | payer OTHER ==
--- NOTE | 2017-03-24 08:48 | HP ---
ADMIT DATE: 03/25/2017 Procedure on 03/25/2017. The operation will be right ureteroscopy, repeat ureteroscopy. This will be his H and P. CHIEF COMPLAINT: Right ureteral calculi. HISTORY OF PRESENT ILLNESS: The patient is a very pleasant 52-year-old white male with history of very large right proximal ureteral calculi. The patient had undergone previous stenting followed by a right ureteroscopy and laser lithotripsy. The patient now with ____ for followup right ureteroscopy and laser lithotripsy of the remaining significant fragments of the right ureteral calculi. PAST MEDICAL HISTORY: Significant for kidney stone disease, diabetes, low back pain and depression. PAST SURGICAL HISTORY: Lithotripsy in the past. MEDICATIONS: Medicine for his diabetes and depression. ALLERGIES: THE PATIENT WITH ALLERGY TO CRANBERRY AND HAY. REVIEW OF SYSTEMS: The patient with some occasional right-sided stent pain. PHYSICAL EXAMINATION: GENERAL: The patient is well-developed, well-nourished white male in no acute distress. HEENT: Normocephalic, atraumatic. NECK: Supple. CHEST: Clear to auscultation. CARDIOVASCULAR: Regular rate and rhythm. ABDOMEN: Soft. EXTREMITIES: Without clubbing, cyanosis or edema. NEUROLOGIC: Grossly intact. ASSESSMENT: History of large right ureteral calculi, status post stenting followed by lithotripsy. PLAN: I discussed with the patient the options, alternatives, benefits, risks and possible complications of repeat right ureteroscopy with repeat laser lithotripsy if indicated and possible right ureteral stent change. The patient understands this and does wish to proceed ahead with operation; therefore proceed accordingly. MARIFER FLORENCE MD DR: NICOLE/valerie JOB#: [id number] / [id number]
[~2017-03-25] VITALS: Ht 175.3 cm; Wt 90.3 kg
[~2017-03-25 08:06] MED LIST changes: +ASPI-482 PO; +ATOR20TA58 PO; +CIPR250T30 PO; +CIPR500T94 PO; +DOCU-109 PO; -DOCU-27 PO; +HUM100VI SQ; +HYDR-971 PO; +INSU100V5 IJ; +LISI-338 PO; +SERT100T PO; -TRAM-29 PO; +TRAM-48 PO
[2017-03-25] MEDS ORDERED: DEXAMETHASONE SOD PHOS 20 MG/5 ML VIAL. ONE (09:23)
[2017-03-25] MEDS ORDERED: LIDOCAINE 2% PF Vial for OR 5 ML VIAL. ONE (09:23)
[2017-03-25] MEDS ORDERED: PROPOFOL 20 ML IV ONE (09:23)
[2017-03-25] MEDS ORDERED: ONDANSETRON PF 4 MG/2 ML VIAL. ONE (09:23)
[2017-03-25] MEDS ORDERED: LIDOCAINE 2% JELLY 6ML IN APPLICATOR. ONE (09:47)
[2017-03-25] MEDS ORDERED: IOHEXOL 300 MG/ML 50 ML VIAL. ONE (09:47)
[2017-03-25 10:23] LABS: BASO # 0.1 x10^3/uL (0.0-0.2); BASO % 1 % (0-3); EOS % 5 % (0-3); HEMATOCRIT 38.4 % (39.0-53.0); HEMOGLOBIN 12.7 g/dL (13.0-17.5); LYMPH # 2.1 x10^3/uL (1.0-4.8); LYMPH % 33 % (24-48); MEAN CORPUSCULAR HEMOGLOBIN 31 pg (25-35); MEAN CORPUSCULAR HGB CONC 33 g/dL (31-37); MEAN CORPUSCULAR VOLUME 95 fL (79-100); MONO % 9 % (0-9); NEUT % 52 % (31-73); PLATELET COUNT 145 x10^3/uL (140-400); RED BLOOD COUNT 4.05 x10^6/uL (4.30-5.70); RED CELL DISTRIBUTION WIDTH 14.5 % (11.5-14.5); WHITE BLOOD COUNT 6.3 x10^3/uL (4.0-11.0)
[2017-03-25 10:34] LABS: CALCIUM 8.6 mg/dL (8.5-10.1); CREATININE 1.5 mg/dL (0.7-1.3); GFR 48.8; POTASSIUM 3.9 mmol/L (3.5-5.1)
[2017-03-25] MEDS ORDERED: fentaNYL PF VIAL 100 MCG/2 ML VIAL ONE (10:50)
[2017-03-25] MEDS ORDERED: SEVOFLURANE 61 TO 120 MINUTES. IH ONE (10:53)
[2017-03-25] MEDS ORDERED: IV RINGERS,LACTATED 1000ML 1,000 ML IV SCH (11:21)
[2017-03-25] MEDS ORDERED: MORPHINE SULFATE 4 MG/ML DISP.SYRIN. IV PRN (11:30)
[2017-03-25] MEDS ORDERED: HYDROmorphone 2 MG/ML VIAL IV PRN (11:30)
[2017-03-25] MEDS ORDERED: MIDAZOLAM HCL/PF 2 MG/2 ML VIAL. IV PRN ×2 (11:30)
[2017-03-25] MEDS ORDERED: fentaNYL PF VIAL 100 MCG/2 ML VIAL IV PRN ×3 (11:30)
[2017-03-25] MEDS ORDERED: PROCHLORPERAZINE 10 MG/2 ML VIAL. IV PRN (11:30)
[2017-03-25] MEDS ORDERED: LIDOCAINE 1% 1 ML SYRINGE. ID PRN (11:30)
[2017-03-25] MEDS ORDERED: diphenhydrAMINE 50 MG/ML VIAL IV PRN (11:30)
[2017-03-25] MEDS ORDERED: MEPERIDINE PF 25 MG/ML VIAL. IV PRN (11:30)
--- NOTE | 2017-03-25 11:41 | DISCH ---
DISCHARGE INSTRUCTIONS Condition on Discharge Condition on Discharge: Stable Activity After Discharge Activity Instructions for Disc: Activity as tolerated Diet after Discharge Diet after Discharge: Regular Contacting the DR. after DC Call your doctor for: If your condition worsens Follow-Up Follow up with: Follow up with Dr. Shafer or Dr. Florentino at urology in next 2-4 weeks MARIFER FLORENCE MD Mar 25, 2017 11:40
--- NOTE | 2017-03-25 11:45 | PDOC4 ---
Operative Note Operative Note pre-op dx-right ureteral stones procedure-right ureterocscopy with laser lithotripsy and ureteral stent change Surgeon-[facility]-general Pt. to PACU in stable condition Pt. will require 1 further ureteropyleoscopy with laser lithotripsy at in the next month at with Dr. Shafer or MARIFER Clark MD Mar 25, 2017 11:45
[2017-03-25] MEDS ORDERED: HYDR-971 PO (11:53)
[2017-03-25] MEDS ORDERED: CEPH-264 PO (11:54)
[2017-03-25] MEDS ORDERED: HYDROcodone/APAP 5/325MG 1 TAB TABLET PO ONE (12:00)
[2017-03-25 12:45] VITALS: BP 115/70
--- NOTE | 2017-03-25 13:31 | HP ---
ADMIT DATE: 03/25/2017 CHIEF COMPLAINT: Right ureteral stones. HISTORY OF PRESENT ILLNESS: The patient is a very pleasant 52-year-old white male with history of stone disease. He had a large right proximal ureteral stone and had undergone stenting followed by right ureteroscopy and laser lithotripsy and stent change. On 02/18/2017, the patient still had significant stone fragments, and therefore, stent was replaced and the patient now in for followup right ureteroscopy, possible laser lithotripsy and possible right ureteral stent change. PAST MEDICAL HISTORY: Significant for multiple stones. He has had prior operations for stones at [place] and in the past. He also has history of diabetes and prior cholecystectomy. MEDICATIONS: On metformin and also medication for depression. ALLERGIES: He has no known drug allergies. REVIEW OF SYSTEMS: The patient just with some discomfort from his right ureteral stent. PHYSICAL EXAMINATION: GENERAL: The patient is well-developed, well-nourished white male in no acute distress. HEENT: Normocephalic and atraumatic. NECK: Supple. CHEST: Clear to auscultation. CARDIOVASCULAR: Regular rate and rhythm. ABDOMEN: Soft with some mild tenderness in the right side in the right flank. EXTREMITIES: Without clubbing, cyanosis or edema. NEUROLOGIC: Grossly intact. ASSESSMENT: The patient with residual right ureteral stones and a right ureteral stent. PLAN: I discussed with the patient the options, alternatives, benefits, risks and possible complications of cystoscopy, right ureteroscopy, possible laser lithotripsy and possible right ureteral stent change. He understands this and does wish to proceed ahead with operation. We will therefore proceed accordingly. MARIFER FLORENCE MD DR: NICOLE/valerie JOB#: [id number] / [id number]
--- NOTE | 2017-03-26 00:35 | OP ---
DATE OF SURGERY: 03/25/2017 OPERATION: Right ureteroscopy with laser lithotripsy and right ureteral stent change. SURGEON: Marifer Turk MD. ANESTHESIA: General. PREOPERATIVE DIAGNOSIS: Right ureteral calculi. POSTOPERATIVE DIAGNOSIS: Right ureteral calculi. INDICATIONS: The patient is a very pleasant 52-year-old white male with history of large right ureteral calculi obstructing the right kidney status post stent placement and right ureteroscopy and laser lithotripsy, back in for repeat laser lithotripsy of 3 medium large right ureteral calculi. I have discussed with the patient the options, alternatives, benefits, risks and possible complications of cystoscopy, right ureteroscopy and laser lithotripsy and possible stent change. He understands this and does wish to proceed with the operation. DESCRIPTION OF PROCEDURE: After obtaining informed consent, the patient was taken to operating room. After an excellent general anesthetic, the patient was placed in a dorsolithotomy position. Groin was prepped and draped in sterile fashion. The patient was preloaded with IV antibiotics. Following this, panendoscopy and cystoscopy was then performed with the 30 and 70-degree lens and the 21-Greek cystoscope sheath. Penile urethra was found to be within normal limits. External sphincter appeared intact. Prostatic urethra showed some moderate bilobar enlargement. Bladder was entered and inspected. Distal curl of the ureteral stent could be seen protruding from the right ureteral orifice. Remainder of the bladder wall just showed a mild amount of stent reaction. Following this, floppy tipped ZIPwire was then passed up the right ureter alongside the stent and passed the obvious large stone fragments in the right ureter up to the right kidney and then once the ZIPwire was in place, a safety wire was secured in position and the distal curl of stent was grasped with grasping forceps and the stent removed from the patient. Following this, bladder was then drained, cystoscope withdrawn from the patient. Following this, the thin rigid ureteroscope was then passed per urethra up alongside the ZIPwire up the right ureter to the large stone fragments in the right proximal ureter, the stone fragments measured approximately 4-6 mm in size and they were treated with holmium laser fiber at a power setting of 0.5 and 10. The stones were fragmented into multiple 1-4 mm fragments and has been treated the stone fragments flushed back up into the right kidney itself. All the significant stone fragments were removed from the right ureter as they flushed back to the kidney. The ureter appeared intact by direct vision and fluoroscopy. After all the significant ureteral stone fragments had been treated and displaced, at this point, decided to replace a new right double-J stent as the patient had significant edema where the stone fragments had been in position. Following this, the rigid ureteroscope was removed from the patient. Cystoscope then replaced and then a new 6 x 26 double-J stent then passed up the ZIPwire, placing one curl in the right kidney and another curl in the bladder and the ZIPwire removed. Stent position was checked by fluoroscopy and direct vision, found to be in good position. The patient does have some still chronic right-sided hydronephrosis and has also had a renal scan, which shows the function to be 70% on the left and 30% on the right. Following this, bladder was then drained. The cystoscope was withdrawn from the patient. The patient tolerated the procedure very well, was taken to recovery room in stable condition. Plan will be to have the patient follow up with Dr. Florentino or Dr. Shafer at Urology here in the next month for one final ureteral pyeloscopy with laser lithotripsy as necessary and removal of as much of the stone burden from the right kidney as feasible. MARIFER TURK MD DR: NICOLE/valerie JOB#: [id number] / [id number]
== END 2017-03-25 13:03 | disposition home or self-care (01) ==
LOC: SURG 08:06
PROVIDERS: ATTEND Urology
DX: N20.1 Calculus of ureter (principal); Z86.69 Personal history of other diseases of the nervous system and sense organs; E78.00 Pure hypercholesterolemia, unspecified; I10 Essential (primary) hypertension; Z90.49 Acquired absence of other specified parts of digestive tract; K21.9 Gastro-esophageal reflux disease without esophagitis; Z87.442 Personal history of urinary calculi; Z86.39 Personal history of other endocrine, nutritional and metabolic disease; F41.9 Anxiety disorder, unspecified; F32.9 Major depressive disorder, single episode, unspecified; E11.9 Type 2 diabetes mellitus without complications; Z91.018 Allergy to other foods
CPT/HCPCS: 36415; 52356; 76000; 80048; 82962; 85027; C1769; C2617; J0690; J1100; J2405; J2704; J3010; Q9967

== ENCOUNTER 2018-11-20 19:37 | Inpatient (IN) | payer OTHER ==
[~2018-11-20] VITALS: Ht 175.3 cm; Wt 107.5 kg
[~2018-11-20 19:37] MED LIST changes: +CEPH-264 PO; +HYDR-3164 PO; -HYDR-971 PO; -HYDROmorphone 2 MG/ML VIAL IV PRN; -IV RINGERS,LACTATED 1000ML 1,000 ML IV SCH; -LIDOCAINE 1% 1 ML SYRINGE. ID PRN; -MORPHINE SULFATE 2 MG/ML DISP.SYRIN. IV PRN; -ONDANSETRON PF 4 MG/2 ML VIAL. IV PRN; -PROCHLORPERAZINE 10 MG/2 ML VIAL. IV PRN; -fentaNYL PF VIAL 100 MCG/2 ML VIAL IV PRN
[2018-11-20] MEDS ORDERED: IV NORMAL SALINE 1000ML BAG 1,000 ML IV ONE ×3 (20:00→20:45)
[2018-11-20 20:06] LABS: BASO # 0.1 x10^3/uL (0.0-0.2); BASO % 0 % (0-3); EOS % 0 % (0-3); HEMATOCRIT 31.9 % (39.0-53.0); HEMOGLOBIN 10.5 g/dL (13.0-17.5); LYMPH # 0.4 x10^3/uL (1.0-4.8); LYMPH % 2 % (24-48); MEAN CORPUSCULAR HEMOGLOBIN 31 pg (25-35); MEAN CORPUSCULAR HGB CONC 33 g/dL (31-37); MEAN CORPUSCULAR VOLUME 94 fL (79-100); MONO # 0.6 x10^3/uL (0.0-1.1); MONO % 3 % (0-9); NEUT # 20.2 x10^3uL (1.8-7.7); NEUT % 95 % (31-73); PLATELET COUNT 219 x10^3/uL (140-400); RED BLOOD COUNT 3.41 x10^6/uL (4.30-5.70); RED CELL DISTRIBUTION WIDTH 14.2 % (11.5-14.5); WHITE BLOOD COUNT 21.4 x10^3/uL (4.0-11.0)
[2018-11-20 20:15] LABS: CALCIUM 7.7 mg/dL (8.5-10.1); CREATININE 4.8 mg/dL (0.7-1.3); GFR 12.7; POTASSIUM 5.1 mmol/L (3.5-5.1)
[2018-11-20] MEDS ORDERED: ONDANSETRON PF 4 MG/2 ML VIAL. IV ONE (20:15)
[2018-11-20] MEDS ORDERED: PIPERACILLIN/TAZOBACTAM 4.5 GM in IV NORMAL SALINE 100ML 100 ML IV ONE (20:15)
[2018-11-20] MEDS ORDERED: fentaNYL PF VIAL 100 MCG/2 ML VIAL IV ONE ×3 (20:15→22:30)
[2018-11-20 20:21] LABS: ALBUMIN 2.8 g/dL (3.4-5.0); ALBUMIN/GLOBULIN RATIO 0.8 (1.0-1.7); TOTAL BILIRUBIN 0.8 mg/dL (0.2-1.0); TOTAL PROTEIN 6.3 g/dL (6.4-8.2)
[2018-11-20 20:29] LABS: CREATINE KINASE 32 U/L (39-308)
--- NOTE | 2018-11-20 21:00 | RAD ---
PQRS Compliance Statement: One or more of the following individualized dose reduction techniques were utilized for this examination: 1. Automated exposure control 2. Adjustment of the mA and/or kV according to patient size 3. Use of iterative reconstruction technique CT chest, abdomen and pelvis without contrast November 20, 2018 INDICATION: Hypotension, shortness of air and chest tightness. Left flank pain. COMPARISON: CT abdomen/pelvis February 08, 2017 TECHNIQUE: Multiple axial CT images of the chest, abdomen and pelvis were obtained without intravenous contrast. Coronal and sagittal reformats are provided. FINDINGS: CHEST: The thyroid gland is normal in appearance. Heart size is borderline enlarged. There is a small to moderate-sized hiatal hernia. There are no pathologically enlarged axillary, mediastinal or hilar lymph nodes. Trace pericardial fluid is present. Bilateral lower lobe airspace consolidation may represent subsegmental atelectasis versus infiltrates. There are no pleural effusions. No pulmonary vascular congestion or pneumothorax. Abdomen/pelvis: Evaluation of the solid abdominal viscera is limited by lack of intravenous contrast. Liver, spleen, bilateral adrenal glands and pancreas are normal in appearance. Gallbladder is surgically absent. The abdominal aorta is normal in course and caliber. There are no pathologically enlarged lymph nodes in the abdomen and pelvis. There is no abdominal free fluid. There is no free intraperitoneal air. Small and large bowel are normal in caliber. There is no evidence for bowel obstruction. There are no pericolonic inflammatory changes. A normal, nondilated appendix is visualized without adjacent inflammatory changes. There is a 7 mm calculus in the mid left ureter. There is an additional 3 mm calculus immediately superior to this with associated moderate left hydroureteronephrosis. There is associated perinephric and periureteral fat stranding. There is a 3 mm nonobstructing calculus in the superior pole the left kidney. There is a 4 mm nonobstructing calculus in the midpole the left kidney. There is a 2 mm nonobstructing calculus in the midpole the left kidney. 3 cm simple cyst is identified in the superior pole the right kidney. No right-sided hydronephrosis. Urinary bladder is decompressed around a Hair catheter. Prostate and seminal vesicles are present. There is subcutaneous gas along the left lateral abdomen which is of indeterminate etiology. Additional areas of subcutaneous gas are noted along the right flank. No suspicious osseous abnormality is identified. IMPRESSION: 1. Bibasilar airspace consolidation may reflect subsegmental atelectasis versus infiltrates. 2. There is a 7 mm calculus in the mid left ureter at the level of the left L5 transverse process. Slightly superiorly there is an additional 3 mm nonobstructing calculus. There is moderate left hydroureteronephrosis with periureteral and perinephric fat stranding. Correlate with urinalysis to assess for superimposed infection. 3. There is subcutaneous emphysema within the bilateral flanks which is of indeterminate etiology. Correlate with any iatrogenic injections or puncture wounds. Electronically signed by: Brook Martinez MD (11/20/2018 8:57 PM) [facility]
--- NOTE | 2018-11-20 21:08 | PHYS DOC ---
Past Medical History Past Medical History: Depression, Diabetes-Type II, High Cholesterol, Kidney Stone Past Surgical History: Cholecystectomy Additional Past Surgical Histo: lithotripsy, ureteral stent placement, Da Jacoby prostatectomy Additional Information: Nonsmoker Alcohol Use: None Drug Use: None Adult General Chief Complaint Chief Complaint: ABDOMINAL PAIN HPI HPI 53 y/o male presents via EMS from [facility] with 3 day history of generalized weakness, malaise, and LLQ/left flank pain. Reports associated nausea without vomiting. Patient with history of recent da Jacoby robotic surgery for prostatectomy at on 10/31/18. Reports has had indwelling Adrian catheter since the procedure. Patient had been placed in correctional facilities "[facility]" yesterday and had noted patient's blood pressure started to trend downward despite giving IVF boluses. Patient also noted per correctional facility records to have a positive UA for infection. Patient reports his adrian catheter was changed at the facility this AM. Patient was transferred to ED for concern for possible sepsis. No documentation of antibiotic therapy initiation and patient does not recall taking antibiotics prior to arrival. Denies chest pain or SOA. Reports some cough. Denies leg swelling or calf tenderness. Review of Systems Review of Systems Constitutional: Reports subjective fever or chills [] Eyes: Denies change in visual acuity, redness, or eye pain [] HENT: Denies nasal congestion or sore throat [] Respiratory: Reports cough; denies shortness of breath [] Cardiovascular: Denies chest pain; reports palpitations GI: Reports left sided abdominal pain and nausea; denies vomiting or constipation : Denies dysuria or hematuria [] Musculoskeletal: Reports left sided flank pain or joint pain [] Integument: Denies rash or skin lesions [] Neurologic: Denies headache, focal weakness or sensory changes [] Complete systems were reviewed and found to be within normal limits, except as documented in this note. Current Medications Current Medications Current Medications Medications (Trade) Dose Ordered Sig/Wili Start Time Stop Time Status Last Admin Dose Admin Fentanyl Citrate (Fentanyl 2ml Vial) 50 mcg 1X ONCE 11/20/18 20:15 11/20/18 20:16 DC 11/20/18 20:13 50 MCG Ondansetron HCl (Zofran) 4 mg 1X ONCE 11/20/18 20:15 11/20/18 20:16 DC 11/20/18 20:13 4 MG Piperacillin Sod/ Tazobactam Sod 4.5 gm/Sodium Chloride 100 ml @ 200 mls/hr 1X ONCE 11/20/18 20:15 11/20/18 20:44 DC 11/20/18 20:13 200 MLS/HR Sodium Chloride 1,000 ml @ 1,000 mls/hr 1X ONCE 11/20/18 20:45 11/20/18 21:44 DC 11/20/18 20:47 1,000 MLS/HR Allergies Allergies Allergies Coded Allergies Type Severity Reaction Last Updated Verified cranberry Allergy Intermediate 03/25/17 Yes Uncoded Allergies Type Severity Reaction Last Updated Verified hay Allergy Unknown 01/30/17 Physical Exam Physical Exam Constitutional: Well developed, well nourished, uncomfortable, ill appearing HENT: Normocephalic, atraumatic, oropharynx moist Eyes: EOMI, conjunctiva normal, no discharge. [] Neck: Normal range of motion, no tenderness, supple, no meningeal signs Cardiovascular: Tachycardia, normal rhythm Lungs & Thorax: Bilateral breath sounds clear to auscultation, no wheezes/rales /rhonchi, slightly decreased at bases bilaterally Abdomen: Soft, no tenderness Skin: Warm, dry, no erythema, no rash, healing anterior abdominal wall incisions noted, no erythema or induration noted, appear well healing Back: No midline tenderness, left CVA tenderness. [] Extremities: No tenderness, ROM intact, no edema. [] Neurologic: Alert and oriented X 3, normal motor function, normal sensory function, no focal deficits noted. [] Psychologic: Affect normal, judgement normal, mood normal. [] Current Patient Data Vital Signs Vital Signs Date Time Temp Pulse Resp B/P (MAP) Pulse Ox O2 Delivery O2 Flow Rate FiO2 11/20/18 20:45 112 20 83/54 (64) 99 Nasal Cannula 2.0 11/20/18 19:39 97.6 97.6 Lab Values Laboratory Tests Test 11/20/18 19:50 White Blood Count 21.4 x10^3/uL (4.0-11.0) H Red Blood Count 3.41 x10^6/uL (4.30-5.70) L Hemoglobin 10.5 g/dL (13.0-17.5) L Hematocrit 31.9 % (39.0-53.0) L Mean Corpuscular Volume 94 fL (79-100) Mean Corpuscular Hemoglobin 31 pg (25-35) Mean Corpuscular Hemoglobin Concent 33 g/dL (31-37) Red Cell Distribution Width 14.2 % (11.5-14.5) Platelet Count 219 x10^3/uL (140-400) Neutrophils (%) (Auto) 95 % (31-73) H Lymphocytes (%) (Auto) 2 % (24-48) L Monocytes (%) (Auto) 3 % (0-9) Eosinophils (%) (Auto) 0 % (0-3) Basophils (%) (Auto) 0 % (0-3) Neutrophils # (Auto) 20.2 x10^3uL (1.8-7.7) H Lymphocytes # (Auto) 0.4 x10^3/uL (1.0-4.8) L Monocytes # (Auto) 0.6 x10^3/uL (0.0-1.1) Eosinophils # (Auto) 0.0 x10^3/uL (0.0-0.7) Basophils # (Auto) 0.1 x10^3/uL (0.0-0.2) Segmented Neutrophils % 75 % (35-66) H Band Neutrophils % 23 % (0-9) H Lymphocytes % 2 % (24-48) L Dohle Bodies Present Platelet Estimate Adequate (ADEQUATE) Prothrombin Time 17.0 SEC (11.7-14.0) H Prothrombin Time INR 1.4 (0.8-1.1) H PTT 35 SEC (24-38) Sodium Level 135 mmol/L (136-145) L Potassium Level 5.1 mmol/L (3.5-5.1) Chloride Level 98 mmol/L (98-107) Carbon Dioxide Level 21 mmol/L (21-32) Anion Gap 16 (6-14) H Blood Urea Nitrogen 49 mg/dL (8-26) H Creatinine 4.8 mg/dL (0.7-1.3) H Estimated GFR (Cockcroft-Gault) 12.7 BUN/Creatinine Ratio 10 (6-20) Glucose Level 139 mg/dL (70-99) H Lactic Acid Level 4.3 mmol/L (0.4-2.0) *H Calcium Level 7.7 mg/dL (8.5-10.1) L Magnesium Level 1.0 mg/dL (1.8-2.4) L Total Bilirubin 0.8 mg/dL (0.2-1.0) Aspartate Amino Transferase (AST) 12 U/L (15-37) L Alanine Aminotransferase (ALT) 14 U/L (16-63) L Alkaline Phosphatase 64 U/L (46-116) Creatine Kinase 32 U/L (39-308) L Creatine Kinase MB (Mass) 0.8 ng/mL (0.0-3.6) Creatine Kinase MB Relative Index % (0-4) Total Protein 6.3 g/dL (6.4-8.2) L Albumin 2.8 g/dL (3.4-5.0) L Albumin/Globulin Ratio 0.8 (1.0-1.7) L Laboratory Tests 11/20/18 19:50 Laboratory Tests 11/20/18 19:50 EKG EKG @ 19:48 sinus tachycardia with HR of 111 bpm QRS: 84 ms QT/QTc: 300/ 411 ms Radiology/Procedures Radiology/Procedures PROCEDURE: CT CHEST ABDOMEN PELVIS WO PQRS Compliance Statement: One or more of the following individualized dose reduction techniques were utilized for this examination: 1. Automated exposure control 2. Adjustment of the mA and/or kV according to patient size 3. Use of iterative reconstruction technique CT chest, abdomen and pelvis without contrast November 20, 2018 INDICATION: Hypotension, shortness of air and chest tightness. Left flank pain. COMPARISON: CT abdomen/pelvis February 08, 2017 TECHNIQUE: Multiple axial CT images of the chest, abdomen and pelvis were obtained without intravenous contrast. Coronal and sagittal reformats are provided. FINDINGS: CHEST: The thyroid gland is normal in appearance. Heart size is borderline enlarged. There is a small to moderate-sized hiatal hernia. There are no pathologically enlarged axillary, mediastinal or hilar lymph nodes. Trace pericardial fluid is present. Bilateral lower lobe airspace consolidation may represent subsegmental atelectasis versus infiltrates. There are no pleural effusions. No pulmonary vascular congestion or pneumothorax. Abdomen/pelvis: Evaluation of the solid abdominal viscera is limited by lack of intravenous contrast. Liver, spleen, bilateral adrenal glands and pancreas are normal in appearance. Gallbladder is surgically absent. The abdominal aorta is normal in course and caliber. There are no pathologically enlarged lymph nodes in the abdomen and pelvis. There is no abdominal free fluid. There is no free intraperitoneal air. Small and large bowel are normal in caliber. There is no evidence for bowel obstruction. There are no pericolonic inflammatory changes. A normal, nondilated appendix is visualized without adjacent inflammatory changes. There is a 7 mm calculus in the mid left ureter. There is an additional 3 mm calculus immediately superior to this with associated moderate left hydroureteronephrosis. There is associated perinephric and periureteral fat stranding. There is a 3 mm nonobstructing calculus in the superior pole the left kidney. There is a 4 mm nonobstructing calculus in the midpole the left kidney. There is a 2 mm nonobstructing calculus in the midpole the left kidney. 3 cm simple cyst is identified in the superior pole the right kidney. No right-sided hydronephrosis. Urinary bladder is decompressed around a Adrian catheter. Prostate and seminal vesicles are present. There is subcutaneous gas along the left lateral abdomen which is of indeterminate etiology. Additional areas of subcutaneous gas are noted along the right flank. No suspicious osseous abnormality is identified. IMPRESSION: 1. Bibasilar airspace consolidation may reflect subsegmental atelectasis versus infiltrates. 2. There is a 7 mm calculus in the mid left ureter at the level of the left L5 transverse process. Slightly superiorly there is an additional 3 mm nonobstructing calculus. There is moderate left hydroureteronephrosis with periureteral and perinephric fat stranding. Correlate with urinalysis to assess for superimposed infection. 3. There is subcutaneous emphysema within the bilateral flanks which is of indeterminate etiology. Correlate with any iatrogenic injections or puncture wounds. Electronically signed by: Brook Martinez MD (11/20/2018 8:57 PM) [facility] AP CXR s/p central line placement: (preliminary interpretation by ED physician) Successful RIJ central line placement terminating in SVC. NO pneumothorax. Course & Med Decision Making Course & Med Decision Making Pertinent Labs and Imaging studies reviewed. (See chart for details) Patient presents via EMS with concern for possible sepsis. Hx of recent prostatectomy with subsequent indwelling adrian cath. Correctional facility records note patient's blood pressure steadily falling despite adequate IVF hydration and UA the signs of infection. Patient reports facility changed adrian cath this AM. Patient met SIRS critiera. Empiric antibiotics given. Labs obtained and posted to chart. Sepsis bolus of 30mls/kg provided. WBC elevated with elevated BUN/Creat from prior labs per [employer]. Lactic acid > 4. CT chest/abd/pelvis with findings consistent for obstructing 7mm calculi to left mid ureter. Patient continued to be hypotensive despite IVF bolusing. Pressors initiated with Levophed. RIJ central line (SVCO2) placed. CXR confirmed appropriate placement. Patient requiring admission for further evaluation and treatment. Discussed with Dr. Martinez (hospitalist) who is in agreement with ICU admission. Discussed case with Dr. Swift (urology) who plans for nephrostomy tube placement in AM. Discussed findings and plan with patient, who acknowledges understanding and agreement. Dragon Disclaimer Dragon Disclaimer This electronic medical record was generated, in whole or in part, using a voice recognition dictation system. Departure Departure Impression: Primary Impression: Septic shock Additional Impressions: Hydronephrosis with urinary obstruction due to ureteral calculus Acute on chronic renal failure Disposition: ADMITTED INPATIENT Admitting Physician: Regina Martinez Condition: CRITICAL Referrals: UNKNOWN PCP NAME (PCP) Critical Care Time Critical care time was 60 minutes which includes time at bedside, spent in discussion of patient's care with specialists and/or family members, with interpretation of laboratory and/or radiological studies and is exclusive of procedures. Central Line Central Line : Central Line Lumen: triple (SVCO2) Central Line Procedure: sterile drapes applied, sterile dressing applied Central Line Postion: internal jugular (R) Anesthesia: Lidocaine cc's of anesthesia: 3 Complications: none Central Line Post Position: sutured, good blood return, position confirmed w / CXR Progress Written consent obtained. Procedure performed by ED physician with assistance of Za Alves MS3. Time out performed. Chloraprep. Sterile conditions maintained. Bedside ultrasound guidance utilized. Successful placement of SVCO2 central line to RIJ at 14cm with Seldinger technique. No complications. Patient tolerated procedure well. Sterile dressing applied. CXR confirmed correct placement without pneumothorax. Problem Qualifiers Additional Impressions: Acute on chronic renal failure Acute renal failure type: unspecified Chronic kidney disease stage: unspecified stage Qualified Codes: N17.9 - Acute kidney failure, unspecified; N18.9 - Chronic kidney disease, unspecified SIMIN MORENO DO Nov 20, 2018 21:08
[2018-11-20] MEDS ORDERED: DEXTROSE 50% 25 GM / 50ML DISP.SYRIN. IV PRN (21:15)
[2018-11-20] MEDS ORDERED: ONDANSETRON PF 4 MG/2 ML VIAL. IV PRN (21:15)
[2018-11-20] MEDS ORDERED: ACETAMINOPHEN 325 MG TABLET. PO PRN (21:15)
[2018-11-20 21:33] LABS: % BANDS 23 % (0-9); % LYMPHS 2 % (24-48); % SEGS 75 % (35-66); PLT ESTIMATE ADEQUATE (ADEQUATE)
[2018-11-20] MEDS ORDERED: VANCOMYCIN 2 GM in IV NORMAL SALINE 500ML BAG 500 ML IV ONE (22:00)
[2018-11-20] MEDS ORDERED: LIDOCAINE 2%/EPI 1:100,000 20 ML VIAL. IJ ONE (22:15)
[2018-11-20] MEDS: fentaNYL PF VIAL 100 MCG/2 ML VIAL IV PRN (22:30)
[2018-11-20] MEDS ORDERED: MAGNESIUM SULFATE 2GM 50 ML IV ONE (23:15)
[2018-11-20] MEDS ORDERED: NOREPINEPHRIN 8MG/250ML PREMIX 250 ML IV ONE (23:30)
[2018-11-21] VITALS (47 sets, daily range): BP systolic 65–144; BP diastolic 36–79
[2018-11-21] MEDS: fentaNYL PF VIAL 100 MCG/2 ML VIAL IV PRN ×2 (01:04→03:06)
--- NOTE | 2018-11-21 01:30 | NUR ---
Patient arrived to ICU from ED via gurney accompanied by ED RN and guard from [facility]. Attached to ICU monitors. Patient A&Ox4, ST on monitor, 2L NC, adrian in place, PIVx2 patent and CL patent, levophed currently running at 6 mcg. Patient complaining of pain 05/09. Patient oriented to unit routines, call light, bed controls, tv controls, activity (BR), and diet (NPO). Patient given swabs for dry mouth. Will continue to monitor.
[2018-11-21] MEDS ORDERED: LORA10TA3 PO (02:12)
[2018-11-21] MEDS ORDERED: INSU100V11 IJ (02:12)
[2018-11-21] MEDS ORDERED: METF10007 PO (02:12)
[2018-11-21] MEDS ORDERED: OXYB5TAB7 PO (02:12)
[2018-11-21] MEDS ORDERED: ACET325T9 PO (02:12)
[2018-11-21] MEDS ORDERED: ONDA4TAB11 PO (02:12)
[2018-11-21] MEDS ORDERED: HUM100VI5 SQ ×2 (02:12)
[2018-11-21] MEDS ORDERED: METH85CR17 TP (02:12)
[2018-11-21] MEDS ORDERED: HYOS0.1278 SL (02:12)
[2018-11-21] MEDS ORDERED: NORT50CA PO (02:12)
[2018-11-21] MEDS ORDERED: LACT10PA3 PO (02:12)
[2018-11-21] MEDS ORDERED: ACETAMINOPHEN 650 MG SUPP.RECT. PR PRN (04:45)
[2018-11-21] MEDS ORDERED: PIP/TAZO PER PHARMACY MC PRN (04:45)
[2018-11-21] MEDS ORDERED: IV NORMAL SALINE 1000ML BAG 1,000 ML IV SCH (04:45)
[2018-11-21] MEDS ORDERED: IV NORMAL SALINE 1000ML BAG 1,000 ML IV ONE ×2 (04:45→05:30)
--- NOTE | 2018-11-21 04:49 | NUR ---
Patient maxed out on Levophed and pressures still low, U/O low--bladder scan showed 56 cc, HR still elevated, temp up to 103.1. Critical lactic of 5.7 called by lab at 0408. Dr. Juan blankenship, page returned at [id number]. Updated on patient condition and vital signs. Orders received to give 2 L NS bolus, start NS at 150 cc/hr, start vasopressin if needed, consult ID and critical care, give Zosyn per pharmacy and Meropenem 500 mg IV Q6H, give morphine 4 mg Q4H, and can give rectal Tylenol 650 mg Q6H for temperature. Will continue to monitor.
[2018-11-21] MEDS ORDERED: MEROPENEM 500 MG in IV NORMAL SALINE 50ML 50 ML IV SCH (05:00)
--- NOTE | 2018-11-21 05:00 | NUR ---
Multiple reassessments not completed by ED RN. Marked as "not done" by this RN.
--- NOTE | 2018-11-21 05:20 | PDOC1 ---
History and Physical Date of Admission Date of Admission DATE: 11/21/18 TIME: 05:19 Source Source: Chart review, Patient History of Present Illness History of Present Illness patient transferred to ER here urgently for low blood pressure and acute abd pain Patient had recent surgery at for prostate hypertrophy, he reports his prostate was removed, but sounds like TURP, he has known kidney stones, and reports that his Urologist at was aware of stones last week, but they were stable, not acute and sounds like reported in the kidney Last HS, he went to [facility] with acute abd pain and flank pain, 8/10 pain, "this is a kidney stone" "i have had a lot of kidney stones and they all feel like this " sepsis in ER, fluid and broad abx given, I came in to see patient this AM at 0510 when lactate went up, and BP dropping despite levaphed, Past Medical History Cardiovascular: No pertinent hx Pulmonary: No pertinent hx GI: No pertinent hx Psych: Depression Musculoskeletal: low back pain Renal/: Other Endocrine: Diabetes Past Surgical History Past Surgical History: Other Family History Family History: No Significant Social History Smoke: No ALCOHOL: none Drugs: None Current Problem List Problem List Problems Medical Problems: (1) Renal colic Status: Acute Current Medications Current Medications Current Medications Sodium Chloride 1,000 ml @ 1,000 mls/hr 1X ONCE IV Last administered on at 20:10; Start 11/20/18 at 20:00; Stop 11/20/18 at 20:59; Status DC Sodium Chloride 1,000 ml @ 1,000 mls/hr 1X ONCE IV Last administered on at 20:10; Start 11/20/18 at 20:00; Stop 11/20/18 at 20:59; Status DC Piperacillin Sod/ Tazobactam Sod 4.5 gm/Sodium Chloride 100 ml @ 200 mls/hr 1X ONCE IV Last administered on 11/20/18at 20:13; Start 11/20/18 at 20:15; Stop 11/20/18 at 20:44; Status DC Fentanyl Citrate (Fentanyl 2ml Vial) 50 mcg 1X ONCE IV Last administered on at 20:13; Start 11/20/18 at 20:15; Stop 11/20/18 at 20:16; Status DC Ondansetron HCl (Zofran) 4 mg 1X ONCE IV Last administered on 11/20/18at 20:13 ; Start 11/20/18 at 20:15; Stop 11/20/18 at 20:16; Status DC Sodium Chloride 1,000 ml @ 1,000 mls/hr 1X ONCE IV Last administered on at 20:47; Start 11/20/18 at 20:45; Stop 11/20/18 at 21:44; Status DC Ondansetron HCl (Zofran) 4 mg PRN Q8HRS PRN IV NAUSEA/VOMITING Last administered on 11/20/18at 21:35; Start 11/20/18 at 21:15; Stop 11/21/18 at 21:14 Fentanyl Citrate (Fentanyl 2ml Vial) 50 mcg PRN Q2HR PRN IV PAIN Last administered on 11/21/18at 03:06; Start 11/20/18 at 21:15 Acetaminophen (Tylenol) 650 mg PRN Q4HRS PRN PO FEVER; Start 11/20/18 at 21:15 ; Stop 11/21/18 at 21:14 Insulin Human Lispro (HumaLOG) 0-5 UNITS TIDWMEALS SQ ; Start 11/21/18 at 08:00 Dextrose (Dextrose 50%-Water Syringe) 12.5 gm PRN Q15MIN PRN IV SEE COMMENTS; Start 11/20/18 at 21:15 Vancomycin HCl 2 gm/Sodium Chloride 500 ml @ 250 mls/hr 1X ONCE IV Last administered on 11/20/18at 22:22; Start 11/20/18 at 22:00; Stop 11/20/18 at 23:59 ; Status DC Fentanyl Citrate (Fentanyl 2ml Vial) 75 mcg 1X ONCE IV Last administered on at 21:35; Start 11/20/18 at 21:45; Stop 11/20/18 at 21:46; Status DC Lidocaine/ Epinephrine (LIDOCAINE 2%-EPI 1:100,000 multi-dose) 20 ml 1X ONCE IJ Last administered on 11/20/18at 22:31; Start 11/20/18 at 22:15; Stop at 22:16; Status DC Fentanyl Citrate (Fentanyl 2ml Vial) 75 mcg 1X ONCE IV ; Start 11/20/18 at 22: 30; Stop 11/20/18 at 22:31; Status DC Magnesium Sulfate 50 ml @ 25 mls/hr 1X ONCE IV Last administered on 11/21/18at 01:05; Start 11/20/18 at 23:15; Stop 11/21/18 at 01:14; Status DC Norepinephrine Bitartrate 250 ml @ 0 mls/hr 1X ONCE IV Last administered on at 23:35; Start 11/20/18 at 23:30; Stop 11/20/18 at 23:31; Status DC Sodium Chloride 1,000 ml @ 150 mls/hr Q6H40M IV ; Start 11/21/18 at 04:45 Sodium Chloride 1,000 ml @ 1,000 mls/hr 1X ONCE IV Last administered on at 05:04; Start 11/21/18 at 04:45; Stop 11/21/18 at 05:44 Sodium Chloride 1,000 ml @ 1,000 mls/hr 1X ONCE IV ; Start 11/21/18 at 05:30; Stop 11/21/18 at 06:29 Vasopressin 40 unit/Dextrose 102 ml @ 6 mls/hr CONT PRN IV SEE I/O RECORD; Start 11/21/18 at 05:00 Acetaminophen (Tylenol Supp) 650 mg PRN Q6HRS PRN AK MILD PAIN / TEMP Last administered on 11/21/18at 05:04; Start 11/21/18 at 04:45 Piperacillin Sod/ Tazobactam Sod (Zosyn Per Pharmacy) 1 each PRN DAILY PRN MC SEE COMMENTS; Start 11/21/18 at 04:45 Meropenem 500 mg/ Sodium Chloride 50 ml @ 100 mls/hr Q12H IV Last administered on 11/21/18at 05:10; Start 11/21/18 at 05:00 Morphine Sulfate (Morphine Sulfate) 4 mg PRN Q4HRS PRN IV PAIN; Start 11/21/18 at 04:45 Piperacillin Sod/ Tazobactam Sod 2.25 gm/Sodium Chloride 50 ml @ 100 mls/hr Q6HRS IV ; Start 11/21/18 at 06:00 Active Scripts Active Reported Novolin 70-30 100 Unit/Ml Vial (Hum Insulin Nph/Reg Insulin Hm) 100 Unit/1 Ml Vial 7 Unit SQ QHS Novolin 70-30 100 Unit/Ml Vial (Hum Insulin Nph/Reg Insulin Hm) 100 Unit/1 Ml Vial 15 Unit SQ DAILY Novolin R (Insulin Regular, Human) 100 Unit/1 Ml Vial 100 Unit IJ QIDACHS Oxybutynin Chloride 5 Mg Tablet 5 Mg PO TID Ondansetron Hcl 4 Mg Tablet 1 Tab PO PRN Q6HRS Tylenol (Acetaminophen) 325 Mg Tablet 2 Tab PO HS Nortriptyline Hcl 50 Mg Capsule 50 Mg PO HS Metformin Hcl 1,000 Mg Tablet 1,000 Mg PO BIDWMEALS Lactulose 10 Gm Packet 10 Gm PO DAILY Hyoscyamine Sulfate 0.125 Mg Tab.subl 0.125 Mg SL Q4HRS PRN Loratadine 10 Mg Tablet 1 Tab PO DAILY Pain Relieving 1%-15% Cream (Methyl Salicylate/Menthol) 85 Gm Cream..g. 85 Gm TP TID PRN PRN [place] 5-325 Tablet (Acetaminophen/Hydrocodone Bitart) 1 Each Tablet 2 Tab PO Q4HRS LAST DOSE GIVEN: DATE: TIME: Zoloft (Sertraline Hcl) 100 Mg Tablet 100 Mg PO DAILY Lisinopril 5 Mg Tablet 2.5 Mg PO DAILY Atorvastatin Calcium 20 Mg Tablet 40 Mg PO DAILY Allergies Allergies: Coded Allergies: cranberry (Verified Allergy, Intermediate, 03/25/17) ciprofloxacin (Verified Allergy, Unknown, 11/21/18) Uncoded Allergies: hay (Allergy, Unknown, 01/30/17) ROS General: YES: Fatigue, Malaise; No: Chills, Night Sweats, Appetite, Other PSYCHOLOGICAL ROS: YES: Sleep disturbances; No: Anxiety, Behavioral Disorder, Concentration difficultie, Decreased libido , Depression, Disorientation, Hallucinations, Hostility, Irritablity, Mood Swings, Other Eyes: No Blurry vision, No Decreased vision, No Double vision, No Dry eyes, No Excessive tearing, No Eye Pain, No Itchy Eyes, No Loss of vision, No Photophobia , No Scotomata, No Uses contacts, No Uses glasses, No Other HEENT: No: Heacaches, Visual Changes, Hearing change, Nasal congestion, Nasal discharge, Oral lesions, Sinus pain, Sore Throat, Epistaxis, Sneezing, Snoring, Tinnitus, Vertigo, Vocal changes, Other Respiratory: No: Cough, Hemoptysis, Orthopnea, Pleuritic Pain, Shortness of breath, SOB with excertion, Sputum Changes, Stridor, Tachypnea, Wheezing, Other Cardiovascular: No Chest Pain, No Palpitations, No Orthopnea, No Paroxysmal Noc. Dyspnea, No Edema, No Lt Headedness, No Other Gastrointestinal: Yes Nausea, Yes Abdominal Pain Genitourinary: YES Dysuria, YES Urgency, YES Pain, YES Flank Pain, YES Other; No Frequency, No Incontinence, No Hematuria, No Retention, No Discharge, No , No , No , No , No , No , No Musculoskeletal: Yes Joint Stiffness; No Gait Disturbance, No Joint Pain, No Joint Swelling, No Muscle Pain, No Muscular Weakness, No Pain In:, No Swelling In:, No Other Neurological: No Behavorial Changes, No Bowel/Bladder ControlChng, No Confusion , No Headaches, No Impaired Coord/balance, No Memory Loss, No Numbness/Tingling , No Seizures, No Speech Problems, No Tremors, No Visual Changes, No Weakness, No Other Skin: Yes Dry Skin Physical Exam General: Alert, Oriented X3, No acute distress HEENT: Atraumatic, PERRLA, EOMI, Mucous membr. moist/pink Lungs: Normal air movement Heart: S1S2, no gallops, no murmurs Abdomen: Normal bowel sounds, Soft Extremities: No clubbing, No edema, Normal pulses Skin: No rashes, No significant lesion Neuro: Normal speech, Normal tone, Sensation intact, Cranial nerves 3-12 NL Psych/Mental Status: Mood NL Vitals Vitals Vital Signs Date Time Temp Pulse Resp B/P (MAP) Pulse Ox O2 Delivery O2 Flow Rate FiO2 11/21/18 04:15 142 70/38 (49) 11/21/18 04:00 Nasal Cannula 2.0 11/21/18 04:00 103.1 34 95 103.1 Labs Labs Laboratory Tests Test 11/20/18 19:50 11/21/18 02:55 11/21/18 02:59 White Blood Count 21.4 x10^3/uL (4.0-11.0) Red Blood Count 3.41 x10^6/uL (4.30-5.70) Hemoglobin 10.5 g/dL (13.0-17.5) Hematocrit 31.9 % (39.0-53.0) Mean Corpuscular Volume 94 fL (79-100) Mean Corpuscular Hemoglobin 31 pg (25-35) Mean Corpuscular Hemoglobin Concent 33 g/dL (31-37) Red Cell Distribution Width 14.2 % (11.5-14.5) Platelet Count 219 x10^3/uL (140-400) Neutrophils (%) (Auto) 95 % (31-73) Lymphocytes (%) (Auto) 2 % (24-48) Monocytes (%) (Auto) 3 % (0-9) Eosinophils (%) (Auto) 0 % (0-3) Basophils (%) (Auto) 0 % (0-3) Neutrophils # (Auto) 20.2 x10^3uL (1.8-7.7) Lymphocytes # (Auto) 0.4 x10^3/uL (1.0-4.8) Monocytes # (Auto) 0.6 x10^3/uL (0.0-1.1) Eosinophils # (Auto) 0.0 x10^3/uL (0.0-0.7) Basophils # (Auto) 0.1 x10^3/uL (0.0-0.2) Segmented Neutrophils % 75 % (35-66) Band Neutrophils % 23 % (0-9) Lymphocytes % 2 % (24-48) Dohle Bodies Present Platelet Estimate Adequate (ADEQUATE) Prothrombin Time 17.0 SEC (11.7-14.0) Prothromb Time International Ratio 1.4 (0.8-1.1) Activated Partial Thromboplast Time 35 SEC (24-38) Sodium Level 135 mmol/L (136-145) Potassium Level 5.1 mmol/L (3.5-5.1) Chloride Level 98 mmol/L (98-107) Carbon Dioxide Level 21 mmol/L (21-32) Anion Gap 16 (6-14) Blood Urea Nitrogen 49 mg/dL (8-26) Creatinine 4.8 mg/dL (0.7-1.3) Estimated GFR (Cockcroft-Gault) 12.7 BUN/Creatinine Ratio 10 (6-20) Glucose Level 139 mg/dL (70-99) Lactic Acid Level 4.3 mmol/L (0.4-2.0) 5.7 mmol/L (0.4-2.0) Calcium Level 7.7 mg/dL (8.5-10.1) Magnesium Level 1.0 mg/dL (1.8-2.4) Total Bilirubin 0.8 mg/dL (0.2-1.0) Aspartate Amino Transf (AST/SGOT) 12 U/L (15-37) Alanine Aminotransferase (ALT/SGPT) 14 U/L (16-63) Alkaline Phosphatase 64 U/L (46-116) Creatine Kinase 32 U/L (39-308) Creatine Kinase MB (Mass) 0.8 ng/mL (0.0-3.6) Creatine Kinase MB Relative Index % (0-4) Total Protein 6.3 g/dL (6.4-8.2) Albumin 2.8 g/dL (3.4-5.0) Albumin/Globulin Ratio 0.8 (1.0-1.7) Troponin I Quantitative 0.021 ng/mL (0.000-0.055) Glucose (Fingerstick) 106 mg/dL (70-99) Laboratory Tests Test 11/20/18 19:50 11/21/18 02:55 11/21/18 02:59 White Blood Count 21.4 x10^3/uL (4.0-11.0) Red Blood Count 3.41 x10^6/uL (4.30-5.70) Hemoglobin 10.5 g/dL (13.0-17.5) Hematocrit 31.9 % (39.0-53.0) Mean Corpuscular Volume 94 fL (79-100) Mean Corpuscular Hemoglobin 31 pg (25-35) Mean Corpuscular Hemoglobin Concent 33 g/dL (31-37) Red Cell Distribution Width 14.2 % (11.5-14.5) Platelet Count 219 x10^3/uL (140-400) Neutrophils (%) (Auto) 95 % (31-73) Lymphocytes (%) (Auto) 2 % (24-48) Monocytes (%) (Auto) 3 % (0-9) Eosinophils (%) (Auto) 0 % (0-3) Basophils (%) (Auto) 0 % (0-3) Neutrophils # (Auto) 20.2 x10^3uL (1.8-7.7) Lymphocytes # (Auto) 0.4 x10^3/uL (1.0-4.8) Monocytes # (Auto) 0.6 x10^3/uL (0.0-1.1) Eosinophils # (Auto) 0.0 x10^3/uL (0.0-0.7) Basophils # (Auto) 0.1 x10^3/uL (0.0-0.2) Segmented Neutrophils % 75 % (35-66) Band Neutrophils % 23 % (0-9) Lymphocytes % 2 % (24-48) Dohle Bodies Present Platelet Estimate Adequate (ADEQUATE) Prothrombin Time 17.0 SEC (11.7-14.0) Prothromb Time International Ratio 1.4 (0.8-1.1) Activated Partial Thromboplast Time 35 SEC (24-38) Sodium Level 135 mmol/L (136-145) Potassium Level 5.1 mmol/L (3.5-5.1) Chloride Level 98 mmol/L (98-107) Carbon Dioxide Level 21 mmol/L (21-32) Anion Gap 16 (6-14) Blood Urea Nitrogen 49 mg/dL (8-26) Creatinine 4.8 mg/dL (0.7-1.3) Estimated GFR (Cockcroft-Gault) 12.7 BUN/Creatinine Ratio 10 (6-20) Glucose Level 139 mg/dL (70-99) Lactic Acid Level 4.3 mmol/L (0.4-2.0) 5.7 mmol/L (0.4-2.0) Calcium Level 7.7 mg/dL (8.5-10.1) Magnesium Level 1.0 mg/dL (1.8-2.4) Total Bilirubin 0.8 mg/dL (0.2-1.0) Aspartate Amino Transf (AST/SGOT) 12 U/L (15-37) Alanine Aminotransferase (ALT/SGPT) 14 U/L (16-63) Alkaline Phosphatase 64 U/L (46-116) Creatine Kinase 32 U/L (39-308) Creatine Kinase MB (Mass) 0.8 ng/mL (0.0-3.6) Creatine Kinase MB Relative Index % (0-4) Total Protein 6.3 g/dL (6.4-8.2) Albumin 2.8 g/dL (3.4-5.0) Albumin/Globulin Ratio 0.8 (1.0-1.7) Troponin I Quantitative 0.021 ng/mL (0.000-0.055) Glucose (Fingerstick) 106 mg/dL (70-99) VTE Prophylaxis Ordered VTE Prophylaxis Devices: Yes VTE Pharmacological Prophylaxi: No Assessment/Plan Assessment/Plan sepsis severe sepsis with shock, ICU admit, vanc and zosyn givenin the ER, will change to Merrem and zosyn obesity, BMI 33 recent TURP 7mm obstructive renal stone, renal colic, obstructive uropathy causing acute renal failure, may need Perc nephrostomy critical care> 30 min, consult CC and ID, and renal admit to ICU DM2, depression, incarcerated minimum security, no guard present DURGA HARMON MD Nov 21, 2018 05:20
[2018-11-21] MEDS: MORPHINE SULFATE 4 MG/ML VIAL. IV PRN ×2 (05:21→20:47)
[2018-11-21] MEDS ORDERED: SALIVA STIMULANT AGENT 44ML SPRAY BOTTLE. PO PRN (05:30)
[2018-11-21] MEDS ORDERED: MAGNESIUM SULFATE 4GM 100 ML IV ONE ×2 (05:30→09:00)
[2018-11-21] MEDS ORDERED: BENZOCAINE/MENTHOL LOZENGE. PO PRN ×2 (05:30→19:45)
[2018-11-21] MEDS ORDERED: PIPERACILLIN/TAZOBACTAM 2.25 GM in IV NORMAL SALINE 50ML 50 ML IV SCH (06:00)
[2018-11-21 06:17] LABS: BASO # 0.1 x10^3/uL (0.0-0.2); BASO % 0 % (0-3); EOS # 0.1 x10^3/uL (0.0-0.7); EOS % 1 % (0-3); HEMATOCRIT 27.7 % (39.0-53.0); HEMOGLOBIN 9.1 g/dL (13.0-17.5); LYMPH # 0.2 x10^3/uL (1.0-4.8); LYMPH % 1 % (24-48); MEAN CORPUSCULAR HEMOGLOBIN 31 pg (25-35); MEAN CORPUSCULAR HGB CONC 33 g/dL (31-37); MEAN CORPUSCULAR VOLUME 95 fL (79-100); MONO # 0.8 x10^3/uL (0.0-1.1); MONO % 4 % (0-9); NEUT # 19.7 x10^3uL (1.8-7.7); NEUT % 94 % (31-73); PLATELET COUNT 163 x10^3/uL (140-400); RED BLOOD COUNT 2.91 x10^6/uL (4.30-5.70); RED CELL DISTRIBUTION WIDTH 14.9 % (11.5-14.5)
[2018-11-21 06:26] LABS: ALBUMIN 2.2 g/dL (3.4-5.0); ALBUMIN/GLOBULIN RATIO 0.9 (1.0-1.7); CALCIUM 6.9 mg/dL (8.5-10.1); CREATININE 5.1 mg/dL (0.7-1.3); GFR 11.8; POTASSIUM 4.1 mmol/L (3.5-5.1); TOTAL BILIRUBIN 0.5 mg/dL (0.2-1.0); TOTAL PROTEIN 4.7 g/dL (6.4-8.2)
[2018-11-21] MEDS: NOREPINEPHRIN 8MG/250ML PREMIX 250 ML IV PRN ×2 (07:03→13:54)
[2018-11-21] MEDS: VASOPRESSIN 40 UNIT in IV DEXTROSE 5% 100ML 100 ML IV PRN ×2 (07:04→20:45)
[2018-11-21 07:09] LABS: BILIRUBIN,URINE SMALL (NEG); CLARITY,URINE CLOUDY; NITRITE,URINE NEGATIVE (NEG); PH,URINE 5.5; PROTEIN,URINE 100 mg/dL (NEG-TRACE)
[2018-11-21 07:18] LABS: COLOR,URINE YELLOW
[2018-11-21 07:19] LABS: BACTERIA,URINE MANY /HPF (0-FEW); SQUAMOUS EPITHELIAL CELL,UR OCC /LPF; WBC,URINE >40 /HPF (0-4)
--- NOTE | 2018-11-21 07:22 | PDOC ---
Infectious Disease Note Vital Sign Vital Signs Vital Signs Date Time Temp Pulse Resp B/P (MAP) Pulse Ox O2 Delivery O2 Flow Rate FiO2 11/21/18 06:00 134 33 98/45 (62) 98 Nasal Cannula 4.0 11/21/18 05:00 100.9 100.9 Labs Lab Laboratory Tests Test 11/20/18 19:50 11/21/18 02:55 11/21/18 02:59 11/21/18 06:00 White Blood Count 21.4 x10^3/uL (4.0-11.0) 21.0 x10^3/uL (4.0-11.0) Red Blood Count 3.41 x10^6/uL (4.30-5.70) 2.91 x10^6/uL (4.30-5.70) Hemoglobin 10.5 g/dL (13.0-17.5) 9.1 g/dL (13.0-17.5) Hematocrit 31.9 % (39.0-53.0) 27.7 % (39.0-53.0) Mean Corpuscular Volume 94 fL (79-100) 95 fL (79-100) Mean Corpuscular Hemoglobin 31 pg (25-35) 31 pg (25-35) Mean Corpuscular Hemoglobin Concent 33 g/dL (31-37) 33 g/dL (31-37) Red Cell Distribution Width 14.2 % (11.5-14.5) 14.9 % (11.5-14.5) Platelet Count 219 x10^3/uL (140-400) 163 x10^3/uL (140-400) Neutrophils (%) (Auto) 95 % (31-73) 94 % (31-73) Lymphocytes (%) (Auto) 2 % (24-48) 1 % (24-48) Monocytes (%) (Auto) 3 % (0-9) 4 % (0-9) Eosinophils (%) (Auto) 0 % (0-3) 1 % (0-3) Basophils (%) (Auto) 0 % (0-3) 0 % (0-3) Neutrophils # (Auto) 20.2 x10^3uL (1.8-7.7) 19.7 x10^3uL (1.8-7.7) Lymphocytes # (Auto) 0.4 x10^3/uL (1.0-4.8) 0.2 x10^3/uL (1.0-4.8) Monocytes # (Auto) 0.6 x10^3/uL (0.0-1.1) 0.8 x10^3/uL (0.0-1.1) Eosinophils # (Auto) 0.0 x10^3/uL (0.0-0.7) 0.1 x10^3/uL (0.0-0.7) Basophils # (Auto) 0.1 x10^3/uL (0.0-0.2) 0.1 x10^3/uL (0.0-0.2) Segmented Neutrophils % 75 % (35-66) Band Neutrophils % 23 % (0-9) Lymphocytes % 2 % (24-48) Dohle Bodies Present Platelet Estimate Adequate (ADEQUATE) Prothrombin Time 17.0 SEC (11.7-14.0) Prothromb Time International Ratio 1.4 (0.8-1.1) Activated Partial Thromboplast Time 35 SEC (24-38) Sodium Level 135 mmol/L (136-145) 138 mmol/L (136-145) Potassium Level 5.1 mmol/L (3.5-5.1) 4.1 mmol/L (3.5-5.1) Chloride Level 98 mmol/L (98-107) 106 mmol/L (98-107) Carbon Dioxide Level 21 mmol/L (21-32) 12 mmol/L (21-32) Anion Gap 16 (6-14) 20 (6-14) Blood Urea Nitrogen 49 mg/dL (8-26) 51 mg/dL (8-26) Creatinine 4.8 mg/dL (0.7-1.3) 5.1 mg/dL (0.7-1.3) Estimated GFR (Cockcroft-Gault) 12.7 11.8 BUN/Creatinine Ratio 10 (6-20) 10 (6-20) Glucose Level 139 mg/dL (70-99) 138 mg/dL (70-99) Lactic Acid Level 4.3 mmol/L (0.4-2.0) 5.7 mmol/L (0.4-2.0) Calcium Level 7.7 mg/dL (8.5-10.1) 6.9 mg/dL (8.5-10.1) Magnesium Level 1.0 mg/dL (1.8-2.4) Total Bilirubin 0.8 mg/dL (0.2-1.0) 0.5 mg/dL (0.2-1.0) Aspartate Amino Transf (AST/SGOT) 12 U/L (15-37) 18 U/L (15-37) Alanine Aminotransferase (ALT/SGPT) 14 U/L (16-63) 13 U/L (16-63) Alkaline Phosphatase 64 U/L (46-116) 112 U/L (46-116) Creatine Kinase 32 U/L (39-308) Creatine Kinase MB (Mass) 0.8 ng/mL (0.0-3.6) Creatine Kinase MB Relative Index % (0-4) Total Protein 6.3 g/dL (6.4-8.2) 4.7 g/dL (6.4-8.2) Albumin 2.8 g/dL (3.4-5.0) 2.2 g/dL (3.4-5.0) Albumin/Globulin Ratio 0.8 (1.0-1.7) 0.9 (1.0-1.7) Troponin I Quantitative 0.021 ng/mL (0.000-0.055) 0.058 ng/mL (0.000-0.055) Glucose (Fingerstick) 106 mg/dL (70-99) Objective Assessment Sepsis - POA Maximized on Levophed and now on some Vasopressin Obstructive Uropathy SubQ emphysema on CT ? sub q injections GAGAN Cipro allergy - ? reaction Plan Plan of Care D/c Zosyn Cont Meropenem but q 24 F/u labs and cults Await procedure F/u ? sub Q emphysema 35 mins CC time Critically ill Thank you # [id number] DRAKE VILLEGAS MD Nov 21, 2018 07:22
[2018-11-21] MEDS ORDERED: DEXTROSE 50% 25 GM / 50ML DISP.SYRIN. IV PRN (07:30)
[2018-11-21] MEDS ORDERED: ONDANSETRON ODT 4 MG TAB.RAPDIS. PO PRN (07:45)
--- NOTE | 2018-11-21 07:46 | RAD ---
Portable chest, 11/21/2018: HISTORY: Check line placement A right jugular central venous catheter extends into the superior vena cava. The heart size is within normal limits in size. The azygos shadow is mildly prominent. The pulmonary vascularity is normal. There are mild streaky bibasilar opacities. The upper lung garcia are clear. There is no evidence of pleural fluid or pneumothorax. IMPRESSION: 1. The right jugular central venous catheter extends into the superior vena cava. 2. Mild streaky bibasilar atelectasis/infiltrate. Electronically signed by: Lizandro Ramos MD (11/21/2018 7:43 AM) [facility]
[2018-11-21] MEDS ORDERED: INSULIN LISPRO 300 UNITS/3 ML INSULN.PEN. SQ SCH (08:00)
[2018-11-21] MEDS ORDERED: HYDROcodone/APAP 5/325MG 1 TAB TABLET PO SCH (08:00)
[2018-11-21] MEDS: INSULIN LISPRO 300 UNITS/3 ML INSULN.PEN. SQ SCH ×6 (08:00→17:36)
[2018-11-21] MEDS: SERTRALINE 50 MG TABLET. PO SCH (08:02)
[2018-11-21] MEDS: OXYBUTYNIN CHLORIDE 5 MG TABLET PO SCH ×3 (08:02→20:44)
[2018-11-21] MEDS: CETIRIZINE HCL 10 MG TABLET. PO SCH (08:03)
[2018-11-21] MEDS: HYDROmorphone 2 MG/ML VIAL IV PRN (08:15)
--- NOTE | 2018-11-21 08:54 | PDOC2 ---
HARMEETKIANA Ruth SET UP OPERATOR TOOL 11/21/18 0854: UROLOGY CONSULT Date of Consult Date of Consult DATE: 11/21/18 TIME: 08:42 Identification/Chief Complaint Chief Complaint Kidney stones on the left side Source Source: Caregiver, Patient History of Present Illness Reason for Visit: Patient is a 53 year old male who was admitted overnight for sepsis after a 3 day history of flank pain, generalized weakness, nausea and vomiting, and malaise. He had a da Jacoby robotic surgery for prostatectomy for prostate cancer at on 10/31/18. Reports has had indwelling Hair catheter since the procedure. They did try to remove the Hair at one point, but this was unsuccessful. He has had kidney stones before. He has had them at least three times and the Urologist who usually manages these is Dr. Henna hays at . Past Medical History Cardiovascular: No pertinent hx Pulmonary: No pertinent hx GI: No pertinent hx Psych: Depression Musculoskeletal: low back pain Renal/: Other Endocrine: Diabetes Past Surgical History Past Surgical History: Other Family History Family History: No Significant Social History No ALCOHOL: none Drugs: None Current Problem List Problems: (1) Hydronephrosis with urinary obstruction due to ureteral calculus Current Medications Current Medications Current Medications Acetaminophen (Tylenol Supp) 650 mg PRN Q6HRS PRN [place] MILD PAIN / TEMP Last administered on 11/21/18at 05:04; Start 11/21/18 at 04:45 Acetaminophen (Tylenol) 650 mg PRN Q4HRS PRN PO FEVER; Start 11/20/18 at 21:15 ; Stop 11/21/18 at 21:14 Acetaminophen/ Hydrocodone Bitart (Lortab 5/325) 2 tab PRN Q4HRS PRN PO PAIN; Start 11/21/18 at 08:00 Acetaminophen/ Hydrocodone Bitart (Lortab 5/325) 2 tab Q4HRS PO ; Start at 08:00; Stop 11/21/18 at 08:00; Status DC Cetirizine HCl (ZyrTEC) 10 mg DAILY PO ; Start 11/21/18 at 09:00 Dextrose (Dextrose 50%-Water Syringe) 12.5 gm PRN Q15MIN PRN IV SEE COMMENTS; Start 11/20/18 at 21:15; Stop 11/21/18 at 07:45; Status DC Dextrose (Dextrose 50%-Water Syringe) 12.5 gm PRN Q15MIN PRN IV SEE COMMENTS; Start 11/21/18 at 07:30 Fentanyl Citrate (Fentanyl 2ml Vial) 50 mcg 1X ONCE IV Last administered on at 20:13; Start 11/20/18 at 20:15; Stop 11/20/18 at 20:16; Status DC Fentanyl Citrate (Fentanyl 2ml Vial) 50 mcg PRN Q2HR PRN IV PAIN Last administered on 11/21/18at 03:06; Start 11/20/18 at 21:15 Fentanyl Citrate (Fentanyl 2ml Vial) 75 mcg 1X ONCE IV Last administered on at 21:35; Start 11/20/18 at 21:45; Stop 11/20/18 at 21:46; Status DC Fentanyl Citrate (Fentanyl 2ml Vial) 75 mcg 1X ONCE IV ; Start 11/20/18 at 22: 30; Stop 11/20/18 at 22:31; Status DC Hydromorphone HCl (Dilaudid) 1 mg PRN Q3HRS PRN IV PAIN Last administered on at 08:15; Start 11/21/18 at 08:00 Insulin Glargine (Lantus) 12 units QHS SQ ; Start 11/21/18 at 21:00 Insulin Human Lispro (HumaLOG) 0-5 UNITS TIDWMEALS SQ ; Start 11/21/18 at 08:00 ; Stop 11/21/18 at 08:00; Status DC Insulin Human Lispro (HumaLOG) 0-9 UNITS TIDWMEALS SQ ; Start 11/21/18 at 08:00 Insulin Human Lispro (HumaLOG) 10 units TIDWMEALS SQ ; Start 11/21/18 at 08:00 Lidocaine/ Epinephrine (LIDOCAINE 2%-EPI 1:100,000 multi-dose) 20 ml 1X ONCE IJ Last administered on 11/20/18at 22:31; Start 11/20/18 at 22:15; Stop at 22:16; Status DC Magnesium Sulfate 50 ml @ 25 mls/hr 1X ONCE IV Last administered on 11/21/18at 01:05; Start 11/20/18 at 23:15; Stop 11/21/18 at 01:14; Status DC Magnesium Sulfate/ Dextrose 100 ml @ 25 mls/hr 1X ONCE IV Last administered on 11/21/18at 05:42; Start 11/21/18 at 05:30; Stop 11/21/18 at 09:29 Magnesium Sulfate/ Dextrose 100 ml @ 25 mls/hr 1X ONCE IV ; Start 11/21/18 at 09:00; Stop 11/21/18 at 12:59; Status Cancel Meropenem 500 mg/ Sodium Chloride 50 ml @ 100 mls/hr Q12H IV Last administered on 11/21/18at 05:10; Start 11/21/18 at 05:00; Stop 11/21/18 at 07:10 ; Status DC Meropenem 500 mg/ Sodium Chloride 50 ml @ 100 mls/hr Q24H IV ; Start 11/22/18 at 05:00 Morphine Sulfate (Morphine Sulfate) 4 mg PRN Q4HRS PRN IV PAIN Last administered on 11/21/18at 05:21; Start 11/21/18 at 04:45 Norepinephrine Bitartrate 250 ml @ 1.875 mls/ hr CONT PRN IV SEE I/O RECORD Last administered on 11/21/18at 07:03; Start 11/21/18 at 06:45 Norepinephrine Bitartrate 250 ml @ 0 mls/hr 1X ONCE IV Last administered on at 23:35; Start 11/20/18 at 23:30; Stop 11/20/18 at 23:31; Status DC Ondansetron HCl (Zofran Odt) 4 mg PRN Q6HRS PRN PO NAUSEA/VOMITING; Start 11/21 at 07:45 Ondansetron HCl (Zofran) 4 mg 1X ONCE IV Last administered on 11/20/18at 20:13 ; Start 11/20/18 at 20:15; Stop 11/20/18 at 20:16; Status DC Ondansetron HCl (Zofran) 4 mg PRN Q8HRS PRN IV NAUSEA/VOMITING Last administered on 11/20/18at 21:35; Start 11/20/18 at 21:15; Stop 11/21/18 at 21:14 Oxybutynin Chloride (Ditropan) 5 mg TID PO ; Start 11/21/18 at 09:00 Piperacillin Sod/ Tazobactam Sod (Zosyn Per Pharmacy) 1 each PRN DAILY PRN [facility] SEE COMMENTS; Start 11/21/18 at 04:45; Stop 11/21/18 at 07:10; Status DC Piperacillin Sod/ Tazobactam Sod 2.25 gm/Sodium Chloride 50 ml @ 100 mls/hr Q6HRS IV Last administered on 11/21/18at 05:42; Start 11/21/18 at 06:00; Stop at 07:10; Status DC Piperacillin Sod/ Tazobactam Sod 4.5 gm/Sodium Chloride 100 ml @ 200 mls/hr 1X ONCE IV Last administered on 11/20/18at 20:13; Start 11/20/18 at 20:15; Stop 11/20/18 at 20:44; Status DC Saliva Substitute (Biotene Moisturizing Mouth) 2 spray PRN Q15MIN PRN PO DRY MOUTH; Start 11/21/18 at 05:30 Sertraline HCl (Zoloft) 100 mg DAILY PO ; Start 11/21/18 at 09:00 Sodium Chloride 1,000 ml @ 150 mls/hr Q6H40M IV Last administered on at 07:11; Start 11/21/18 at 04:45 Sodium Chloride 1,000 ml @ 1,000 mls/hr 1X ONCE IV Last administered on at 20:10; Start 11/20/18 at 20:00; Stop 11/20/18 at 20:59; Status DC Sodium Chloride 1,000 ml @ 1,000 mls/hr 1X ONCE IV Last administered on at 20:10; Start 11/20/18 at 20:00; Stop 11/20/18 at 20:59; Status DC Sodium Chloride 1,000 ml @ 1,000 mls/hr 1X ONCE IV Last administered on at 20:47; Start 11/20/18 at 20:45; Stop 11/20/18 at 21:44; Status DC Sodium Chloride 1,000 ml @ 1,000 mls/hr 1X ONCE IV Last administered on at 05:04; Start 11/21/18 at 04:45; Stop 11/21/18 at 05:44; Status DC Sodium Chloride 1,000 ml @ 1,000 mls/hr 1X ONCE IV Last administered on at 06:11; Start 11/21/18 at 05:30; Stop 11/21/18 at 06:29; Status DC Throat Lozenges (Cepacol Sore Throat Lozenge) 1 corina PRN Q2HRS PRN PO SORE THROAT; Start 11/21/18 at 05:30 Vancomycin HCl 2 gm/Sodium Chloride 500 ml @ 250 mls/hr 1X ONCE IV Last administered on 11/20/18at 22:22; Start 11/20/18 at 22:00; Stop 11/20/18 at 23:59 ; Status DC Vasopressin 40 unit/Dextrose 102 ml @ 6 mls/hr CONT PRN IV SEE I/O RECORD Last administered on 11/21/18at 07:04; Start 11/21/18 at 05:00 Allergies Allergies: Coded Allergies: cranberry (Verified Allergy, Intermediate, 03/25/17) ciprofloxacin (Verified Allergy, Unknown, 11/21/18) Uncoded Allergies: hay (Allergy, Unknown, 01/30/17) ROS Review Of Systems: CONSTITUTIONAL: + fevers EYES: No recent changes SKIN: No rash or itching CARDIOVASCULAR: No chest pain, syncope, palpitations, or edema RESPIRATORY: No SOB or cough GASTROINTESTINAL: No nausea, vomiting or abdominal pain NEUROLOGICAL: No headaches or weakness ENDOCRINE: No cold or heat intolerance GENITOURINARY: + Kidney stones, + recent prostatectomy MUSCULOSKELETAL: No back pain or joint pain LYMPHATICS: No enlarged lymph nodes PSYCHIATRIC: No anxiety or depression Physical Exam Physical Exam: General: Pleasant, no acute distress, well groomed Eyes: conjunctiva anicteric, eyes full range of motion ENT: moist oral mucosa, normal dentition Neck: Trachea midline, no masses Respiratory: unlabored breathing, not using accessory muscles, Back: + flank pain on the left, non tender on the right Abdomen: + left lower abd pain, non tender all other areas. Skin: no rashes or skin lesions on visualized skin Psych: normal mood, affect. Alert and oriented x 3. Vitals VITALS Vital Signs Date Time Temp Pulse Resp B/P (MAP) Pulse Ox O2 Delivery O2 Flow Rate FiO2 11/21/18 08:15 Nasal Cannula 4.0 11/21/18 06:00 134 33 98/45 (62) 98 11/21/18 05:00 100.9 100.9 Labs Labs Laboratory Tests Test 11/20/18 19:50 11/21/18 02:55 11/21/18 02:59 11/21/18 06:00 White Blood Count 21.4 x10^3/uL (4.0-11.0) 21.0 x10^3/uL (4.0-11.0) Red Blood Count 3.41 x10^6/uL (4.30-5.70) 2.91 x10^6/uL (4.30-5.70) Hemoglobin 10.5 g/dL (13.0-17.5) 9.1 g/dL (13.0-17.5) Hematocrit 31.9 % (39.0-53.0) 27.7 % (39.0-53.0) Mean Corpuscular Volume 94 fL (79-100) 95 fL (79-100) Mean Corpuscular Hemoglobin 31 pg (25-35) 31 pg (25-35) Mean Corpuscular Hemoglobin Concent 33 g/dL (31-37) 33 g/dL (31-37) Red Cell Distribution Width 14.2 % (11.5-14.5) 14.9 % (11.5-14.5) Platelet Count 219 x10^3/uL (140-400) 163 x10^3/uL (140-400) Neutrophils (%) (Auto) 95 % (31-73) 94 % (31-73) Lymphocytes (%) (Auto) 2 % (24-48) 1 % (24-48) Monocytes (%) (Auto) 3 % (0-9) 4 % (0-9) Eosinophils (%) (Auto) 0 % (0-3) 1 % (0-3) Basophils (%) (Auto) 0 % (0-3) 0 % (0-3) Neutrophils # (Auto) 20.2 x10^3uL (1.8-7.7) 19.7 x10^3uL (1.8-7.7) Lymphocytes # (Auto) 0.4 x10^3/uL (1.0-4.8) 0.2 x10^3/uL (1.0-4.8) Monocytes # (Auto) 0.6 x10^3/uL (0.0-1.1) 0.8 x10^3/uL (0.0-1.1) Eosinophils # (Auto) 0.0 x10^3/uL (0.0-0.7) 0.1 x10^3/uL (0.0-0.7) Basophils # (Auto) 0.1 x10^3/uL (0.0-0.2) 0.1 x10^3/uL (0.0-0.2) Segmented Neutrophils % 75 % (35-66) Band Neutrophils % 23 % (0-9) Lymphocytes % 2 % (24-48) Dohle Bodies Present Platelet Estimate Adequate (ADEQUATE) Prothrombin Time 17.0 SEC (11.7-14.0) Prothromb Time International Ratio 1.4 (0.8-1.1) Activated Partial Thromboplast Time 35 SEC (24-38) Sodium Level 135 mmol/L (136-145) 138 mmol/L (136-145) Potassium Level 5.1 mmol/L (3.5-5.1) 4.1 mmol/L (3.5-5.1) Chloride Level 98 mmol/L (98-107) 106 mmol/L (98-107) Carbon Dioxide Level 21 mmol/L (21-32) 12 mmol/L (21-32) Anion Gap 16 (6-14) 20 (6-14) Blood Urea Nitrogen 49 mg/dL (8-26) 51 mg/dL (8-26) Creatinine 4.8 mg/dL (0.7-1.3) 5.1 mg/dL (0.7-1.3) Estimated GFR (Cockcroft-Gault) 12.7 11.8 BUN/Creatinine Ratio 10 (6-20) 10 (6-20) Glucose Level 139 mg/dL (70-99) 138 mg/dL (70-99) Lactic Acid Level 4.3 mmol/L (0.4-2.0) 5.7 mmol/L (0.4-2.0) Calcium Level 7.7 mg/dL (8.5-10.1) 6.9 mg/dL (8.5-10.1) Magnesium Level 1.0 mg/dL (1.8-2.4) 1.4 mg/dL (1.8-2.4) Total Bilirubin 0.8 mg/dL (0.2-1.0) 0.5 mg/dL (0.2-1.0) Aspartate Amino Transf (AST/SGOT) 12 U/L (15-37) 18 U/L (15-37) Alanine Aminotransferase (ALT/SGPT) 14 U/L (16-63) 13 U/L (16-63) Alkaline Phosphatase 64 U/L (46-116) 112 U/L (46-116) Creatine Kinase 32 U/L (39-308) Creatine Kinase MB (Mass) 0.8 ng/mL (0.0-3.6) Creatine Kinase MB Relative Index % (0-4) Total Protein 6.3 g/dL (6.4-8.2) 4.7 g/dL (6.4-8.2) Albumin 2.8 g/dL (3.4-5.0) 2.2 g/dL (3.4-5.0) Albumin/Globulin Ratio 0.8 (1.0-1.7) 0.9 (1.0-1.7) Troponin I Quantitative 0.021 ng/mL (0.000-0.055) 0.058 ng/mL (0.000-0.055) Glucose (Fingerstick) 106 mg/dL (70-99) Test 11/21/18 06:15 11/21/18 07:38 Urine Collection Type Unknown Urine Color Yellow Urine Clarity Cloudy Urine pH 5.5 Urine Specific [place] 1.020 Urine Protein 100 mg/dL (NEG-TRACE) Urine Glucose (UA) Negative mg/dL (NEG) Urine Ketones (Stick) Trace mg/dL (NEG) Urine Blood Large (NEG) Urine Nitrite Negative (NEG) Urine Bilirubin Small (NEG) Urine Urobilinogen Dipstick 1.0 mg/dL (0.2 mg/dL) Urine Leukocyte Esterase Large (NEG) Urine RBC 11-20 /HPF (0-2) Urine WBC >40 /HPF (0-4) Urine Squamous Epithelial Cells Occ /LPF Urine Bacteria Many /HPF (0-FEW) Lactic Acid Level 5.7 mmol/L (0.4-2.0) Laboratory Tests Test 11/20/18 19:50 11/21/18 02:55 11/21/18 02:59 11/21/18 06:00 White Blood Count 21.4 x10^3/uL (4.0-11.0) 21.0 x10^3/uL (4.0-11.0) Red Blood Count 3.41 x10^6/uL (4.30-5.70) 2.91 x10^6/uL (4.30-5.70) Hemoglobin 10.5 g/dL (13.0-17.5) 9.1 g/dL (13.0-17.5) Hematocrit 31.9 % (39.0-53.0) 27.7 % (39.0-53.0) Mean Corpuscular Volume 94 fL (79-100) 95 fL (79-100) Mean Corpuscular Hemoglobin 31 pg (25-35) 31 pg (25-35) Mean Corpuscular Hemoglobin Concent 33 g/dL (31-37) 33 g/dL (31-37) Red Cell Distribution Width 14.2 % (11.5-14.5) 14.9 % (11.5-14.5) Platelet Count 219 x10^3/uL (140-400) 163 x10^3/uL (140-400) Neutrophils (%) (Auto) 95 % (31-73) 94 % (31-73) Lymphocytes (%) (Auto) 2 % (24-48) 1 % (24-48) Monocytes (%) (Auto) 3 % (0-9) 4 % (0-9) Eosinophils (%) (Auto) 0 % (0-3) 1 % (0-3) Basophils (%) (Auto) 0 % (0-3) 0 % (0-3) Neutrophils # (Auto) 20.2 x10^3uL (1.8-7.7) 19.7 x10^3uL (1.8-7.7) Lymphocytes # (Auto) 0.4 x10^3/uL (1.0-4.8) 0.2 x10^3/uL (1.0-4.8) Monocytes # (Auto) 0.6 x10^3/uL (0.0-1.1) 0.8 x10^3/uL (0.0-1.1) Eosinophils # (Auto) 0.0 x10^3/uL (0.0-0.7) 0.1 x10^3/uL (0.0-0.7) Basophils # (Auto) 0.1 x10^3/uL (0.0-0.2) 0.1 x10^3/uL (0.0-0.2) Segmented Neutrophils % 75 % (35-66) Band Neutrophils % 23 % (0-9) Lymphocytes % 2 % (24-48) Dohle Bodies Present Platelet Estimate Adequate (ADEQUATE) Prothrombin Time 17.0 SEC (11.7-14.0) Prothromb Time International Ratio 1.4 (0.8-1.1) Activated Partial Thromboplast Time 35 SEC (24-38) Sodium Level 135 mmol/L (136-145) 138 mmol/L (136-145) Potassium Level 5.1 mmol/L (3.5-5.1) 4.1 mmol/L (3.5-5.1) Chloride Level 98 mmol/L (98-107) 106 mmol/L (98-107) Carbon Dioxide Level 21 mmol/L (21-32) 12 mmol/L (21-32) Anion Gap 16 (6-14) 20 (6-14) Blood Urea Nitrogen 49 mg/dL (8-26) 51 mg/dL (8-26) Creatinine 4.8 mg/dL (0.7-1.3) 5.1 mg/dL (0.7-1.3) Estimated GFR (Cockcroft-Gault) 12.7 11.8 BUN/Creatinine Ratio 10 (6-20) 10 (6-20) Glucose Level 139 mg/dL (70-99) 138 mg/dL (70-99) Lactic Acid Level 4.3 mmol/L (0.4-2.0) 5.7 mmol/L (0.4-2.0) Calcium Level 7.7 mg/dL (8.5-10.1) 6.9 mg/dL (8.5-10.1) Magnesium Level 1.0 mg/dL (1.8-2.4) 1.4 mg/dL (1.8-2.4) Total Bilirubin 0.8 mg/dL (0.2-1.0) 0.5 mg/dL (0.2-1.0) Aspartate Amino Transf (AST/SGOT) 12 U/L (15-37) 18 U/L (15-37) Alanine Aminotransferase (ALT/SGPT) 14 U/L (16-63) 13 U/L (16-63) Alkaline Phosphatase 64 U/L (46-116) 112 U/L (46-116) Creatine Kinase 32 U/L (39-308) Creatine Kinase MB (Mass) 0.8 ng/mL (0.0-3.6) Creatine Kinase MB Relative Index % (0-4) Total Protein 6.3 g/dL (6.4-8.2) 4.7 g/dL (6.4-8.2) Albumin 2.8 g/dL (3.4-5.0) 2.2 g/dL (3.4-5.0) Albumin/Globulin Ratio 0.8 (1.0-1.7) 0.9 (1.0-1.7) Troponin I Quantitative 0.021 ng/mL (0.000-0.055) 0.058 ng/mL (0.000-0.055) Glucose (Fingerstick) 106 mg/dL (70-99) Test 11/21/18 06:15 11/21/18 07:38 Urine Collection Type Unknown Urine Color Yellow Urine Clarity Cloudy Urine pH 5.5 Urine Specific [place] 1.020 Urine Protein 100 mg/dL (NEG-TRACE) Urine Glucose (UA) Negative mg/dL (NEG) Urine Ketones (Stick) Trace mg/dL (NEG) Urine Blood Large (NEG) Urine Nitrite Negative (NEG) Urine Bilirubin Small (NEG) Urine Urobilinogen Dipstick 1.0 mg/dL (0.2 mg/dL) Urine Leukocyte Esterase Large (NEG) Urine RBC 11-20 /HPF (0-2) Urine WBC >40 /HPF (0-4) Urine Squamous Epithelial Cells Occ /LPF Urine Bacteria Many /HPF (0-FEW) Lactic Acid Level 5.7 mmol/L (0.4-2.0) Images Images IMPRESSION: 1. Bibasilar airspace consolidation may reflect subsegmental atelectasis versus infiltrates. 2. There is a 7 mm calculus in the mid left ureter at the level of the left L5 transverse process. Slightly superiorly there is an additional 3 mm nonobstructing calculus. There is moderate left hydroureteronephrosis with periureteral and perinephric fat stranding. Correlate with urinalysis to assess for superimposed infection. 3. There is subcutaneous emphysema within the bilateral flanks which is of indeterminate etiology. Correlate with any iatrogenic injections or puncture wounds. Assessment/Plan Assessment/Plan We cannot place a stent in patient due to recent prostatectomy at . Therefore , patient will proceed for nephrostomy tube placement on the left side today to provide maximum drainage. Nursing staff to maintain Hair Catheter; do not remove unless directed by Dr. Mai, who will round on patient over the weekend Will call Dr. Aguillon at to inform him that patient is septic and receiving treatment at [facility]. Goal is to get patient stable, recovered from sepsis and then back to for further treatment. LISA MAI MD 11/21/18 1410: UROLOGY CONSULT Assessment/Plan Assessment/Plan 7mm left mid ureter stone uti. hx cap s/p ralp. s/p left NT placement today by IR. abx for [address] a/p in 10days. OP stone management with Urology for continuity of care. call w?. KIANA GA APRN Nov 21, 2018 08:54 LISA MAI MD Nov 21, 2018 14:10
--- NOTE | 2018-11-21 10:23 | EKG ---
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
--- NOTE | 2018-11-21 10:40 | PDOC2 ---
CONSULT Date of Consult Date of Consult DATE: 11/21/18 TIME: 10:11 Reason for Consult Reason for Consult: GAGAN on CKD Identification/Chief Complaint Chief Complaint none currently Source Source: Chart review, Patient History of Present Illness Reason for Visit: Pt is 53 yo CM who is an inmate transferred to ER urgently for low blood pressure and acute abd pain. He reports he had TURP at on 10/31/2018 for prostate hypertrophy . He reports he has known Hx of kidney stones, sees Urologist at . He states he knows he has CKD thinks its stage 3 and sees Renal at Currently he denies any pian, No N/V/D. He is on 2 Pressors, was Oliguric, improved UOp since started on Vasopressin as per RN Past Medical History Cardiovascular: No pertinent hx Pulmonary: No pertinent hx GI: No pertinent hx Psych: Depression Musculoskeletal: low back pain Renal/: Other Endocrine: Diabetes Past Surgical History Past Surgical History: Other Family History Family History: No Significant Social History No ALCOHOL: none Drugs: None Current Problem List Problem List Problems Medical Problems: (1) Acute on chronic renal failure Status: Acute (2) Hydronephrosis with urinary obstruction due to ureteral calculus Status: Acute (3) Renal colic Status: Acute Current Medications Current Medications Current Medications Sodium Chloride 1,000 ml @ 1,000 mls/hr 1X ONCE IV Last administered on at 20:10; Start 11/20/18 at 20:00; Stop 11/20/18 at 20:59; Status DC Sodium Chloride 1,000 ml @ 1,000 mls/hr 1X ONCE IV Last administered on at 20:10; Start 11/20/18 at 20:00; Stop 11/20/18 at 20:59; Status DC Piperacillin Sod/ Tazobactam Sod 4.5 gm/Sodium Chloride 100 ml @ 200 mls/hr 1X ONCE IV Last administered on 11/20/18at 20:13; Start 11/20/18 at 20:15; Stop 11/20/18 at 20:44; Status DC Fentanyl Citrate (Fentanyl 2ml Vial) 50 mcg 1X ONCE IV Last administered on at 20:13; Start 11/20/18 at 20:15; Stop 11/20/18 at 20:16; Status DC Ondansetron HCl (Zofran) 4 mg 1X ONCE IV Last administered on 11/20/18at 20:13 ; Start 11/20/18 at 20:15; Stop 11/20/18 at 20:16; Status DC Sodium Chloride 1,000 ml @ 1,000 mls/hr 1X ONCE IV Last administered on at 20:47; Start 11/20/18 at 20:45; Stop 11/20/18 at 21:44; Status DC Ondansetron HCl (Zofran) 4 mg PRN Q8HRS PRN IV NAUSEA/VOMITING Last administered on 11/20/18at 21:35; Start 11/20/18 at 21:15; Stop 11/21/18 at 21:14 Fentanyl Citrate (Fentanyl 2ml Vial) 50 mcg PRN Q2HR PRN IV PAIN Last administered on 11/21/18at 03:06; Start 11/20/18 at 21:15 Acetaminophen (Tylenol) 650 mg PRN Q4HRS PRN PO FEVER; Start 11/20/18 at 21:15 ; Stop 11/21/18 at 21:14 Insulin Human Lispro (HumaLOG) 0-5 UNITS TIDWMEALS SQ ; Start 11/21/18 at 08:00 ; Stop 11/21/18 at 08:00; Status DC Dextrose (Dextrose 50%-Water Syringe) 12.5 gm PRN Q15MIN PRN IV SEE COMMENTS; Start 11/20/18 at 21:15; Stop 11/21/18 at 07:45; Status DC Vancomycin HCl 2 gm/Sodium Chloride 500 ml @ 250 mls/hr 1X ONCE IV Last administered on 11/20/18at 22:22; Start 11/20/18 at 22:00; Stop 11/20/18 at 23:59 ; Status DC Fentanyl Citrate (Fentanyl 2ml Vial) 75 mcg 1X ONCE IV Last administered on at 21:35; Start 11/20/18 at 21:45; Stop 11/20/18 at 21:46; Status DC Lidocaine/ Epinephrine (LIDOCAINE 2%-EPI 1:100,000 multi-dose) 20 ml 1X ONCE IJ Last administered on 11/20/18at 22:31; Start 11/20/18 at 22:15; Stop at 22:16; Status DC Fentanyl Citrate (Fentanyl 2ml Vial) 75 mcg 1X ONCE IV ; Start 11/20/18 at 22: 30; Stop 11/20/18 at 22:31; Status DC Magnesium Sulfate 50 ml @ 25 mls/hr 1X ONCE IV Last administered on 11/21/18at 01:05; Start 11/20/18 at 23:15; Stop 11/21/18 at 01:14; Status DC Norepinephrine Bitartrate 250 ml @ 0 mls/hr 1X ONCE IV Last administered on at 23:35; Start 11/20/18 at 23:30; Stop 11/20/18 at 23:31; Status DC Sodium Chloride 1,000 ml @ 150 mls/hr Q6H40M IV Last administered on at 07:11; Start 11/21/18 at 04:45 Sodium Chloride 1,000 ml @ 1,000 mls/hr 1X ONCE IV Last administered on at 05:04; Start 11/21/18 at 04:45; Stop 11/21/18 at 05:44; Status DC Sodium Chloride 1,000 ml @ 1,000 mls/hr 1X ONCE IV Last administered on at 06:11; Start 11/21/18 at 05:30; Stop 11/21/18 at 06:29; Status DC Vasopressin 40 unit/Dextrose 102 ml @ 6 mls/hr CONT PRN IV SEE I/O RECORD Last administered on 11/21/18at 07:04; Start 11/21/18 at 05:00 Acetaminophen (Tylenol Supp) 650 mg PRN Q6HRS PRN CA MILD PAIN / TEMP Last administered on 11/21/18at 05:04; Start 11/21/18 at 04:45 Piperacillin Sod/ Tazobactam Sod (Zosyn Per Pharmacy) 1 each PRN DAILY PRN MC SEE COMMENTS; Start 11/21/18 at 04:45; Stop 11/21/18 at 07:10; Status DC Meropenem 500 mg/ Sodium Chloride 50 ml @ 100 mls/hr Q12H IV Last administered on 11/21/18at 05:10; Start 11/21/18 at 05:00; Stop 11/21/18 at 07:10 ; Status DC Morphine Sulfate (Morphine Sulfate) 4 mg PRN Q4HRS PRN IV PAIN Last administered on 11/21/18at 05:21; Start 11/21/18 at 04:45 Piperacillin Sod/ Tazobactam Sod 2.25 gm/Sodium Chloride 50 ml @ 100 mls/hr Q6HRS IV Last administered on 11/21/18at 05:42; Start 11/21/18 at 06:00; Stop at 07:10; Status DC Magnesium Sulfate/ Dextrose 100 ml @ 25 mls/hr 1X ONCE IV Last administered on 11/21/18at 05:42; Start 11/21/18 at 05:30; Stop 11/21/18 at 09:29; Status DC Throat Lozenges (Cepacol Sore Throat Lozenge) 1 corina PRN Q2HRS PRN PO SORE THROAT; Start 11/21/18 at 05:30 Saliva Substitute (Biotene Moisturizing Mouth) 2 spray PRN Q15MIN PRN PO DRY MOUTH; Start 11/21/18 at 05:30 Norepinephrine Bitartrate 250 ml @ 1.875 mls/ hr CONT PRN IV SEE I/O RECORD Last administered on 11/21/18at 07:03; Start 11/21/18 at 06:45 Meropenem 500 mg/ Sodium Chloride 50 ml @ 100 mls/hr Q24H IV ; Start 11/22/18 at 05:00 Acetaminophen/ Hydrocodone Bitart (Lortab 5/325) 2 tab Q4HRS PO ; Start at 08:00; Stop 11/21/18 at 08:00; Status DC Oxybutynin Chloride (Ditropan) 5 mg TID PO ; Start 11/21/18 at 09:00 Cetirizine HCl (ZyrTEC) 10 mg DAILY PO ; Start 11/21/18 at 09:00 Ondansetron HCl (Zofran Odt) 4 mg PRN Q6HRS PRN PO NAUSEA/VOMITING; Start 11/21 at 07:45 Sertraline HCl (Zoloft) 100 mg DAILY PO ; Start 11/21/18 at 09:00 Insulin Human Lispro (HumaLOG) 0-9 UNITS TIDWMEALS SQ ; Start 11/21/18 at 08:00 Dextrose (Dextrose 50%-Water Syringe) 12.5 gm PRN Q15MIN PRN IV SEE COMMENTS; Start 11/21/18 at 07:30 Insulin Glargine (Lantus) 12 units QHS SQ ; Start 11/21/18 at 21:00 Insulin Human Lispro (HumaLOG) 10 units TIDWMEALS SQ ; Start 11/21/18 at 08:00 Magnesium Sulfate/ Dextrose 100 ml @ 25 mls/hr 1X ONCE IV ; Start 11/21/18 at 09:00; Stop 11/21/18 at 12:59; Status Cancel Acetaminophen/ Hydrocodone Bitart (Lortab 5/325) 2 tab PRN Q4HRS PRN PO PAIN; Start 11/21/18 at 08:00 Hydromorphone HCl (Dilaudid) 1 mg PRN Q3HRS PRN IV PAIN Last administered on at 08:15; Start 11/21/18 at 08:00 Active Scripts Active Reported Novolin 70-30 100 Unit/Ml Vial (Hum Insulin Nph/Reg Insulin Hm) 100 Unit/1 Ml Vial 7 Unit SQ QHS Novolin 70-30 100 Unit/Ml Vial (Hum Insulin Nph/Reg Insulin Hm) 100 Unit/1 Ml Vial 15 Unit SQ DAILY Novolin R (Insulin Regular, Human) 100 Unit/1 Ml Vial 100 Unit IJ QIDACHS Oxybutynin Chloride 5 Mg Tablet 5 Mg PO TID Ondansetron Hcl 4 Mg Tablet 1 Tab PO PRN Q6HRS Tylenol (Acetaminophen) 325 Mg Tablet 2 Tab PO HS Nortriptyline Hcl 50 Mg Capsule 50 Mg PO HS Metformin Hcl 1,000 Mg Tablet 1,000 Mg PO BIDWMEALS Lactulose 10 Gm Packet 10 Gm PO DAILY Hyoscyamine Sulfate 0.125 Mg Tab.subl 0.125 Mg SL Q4HRS PRN Loratadine 10 Mg Tablet 1 Tab PO DAILY Pain Relieving 1%-15% Cream (Methyl Salicylate/Menthol) 85 Gm Cream..g. 85 Gm TP TID PRN PRN [place] 5-325 Tablet (Acetaminophen/Hydrocodone Bitart) 1 Each Tablet 2 Tab PO Q4HRS LAST DOSE GIVEN: DATE: TIME: Zoloft (Sertraline Hcl) 100 Mg Tablet 100 Mg PO DAILY Lisinopril 5 Mg Tablet 2.5 Mg PO DAILY Atorvastatin Calcium 20 Mg Tablet 40 Mg PO DAILY Allergies Allergies: Coded Allergies: cranberry (Verified Allergy, Intermediate, 03/25/17) ciprofloxacin (Verified Allergy, Unknown, 11/21/18) Uncoded Allergies: hay (Allergy, Unknown, 01/30/17) ROS Review of System As per HPI, rest negative Physical Exam Physical Exam General: Alert, Oriented X3, No acute distress HEENT: Mucous membr. moist/pink Neck Supple Lungs: CTA bilat, Non labored Heart: S1S2, no gallops, no murmurs Abdomen: NT, Soft Extremities: No edema Skin: No rashes Neuro: Grossly normal - Hair +, No SP or CVA tenderness Vital Signs Vital Signs Date Time Temp Pulse Resp B/P (MAP) Pulse Ox O2 Delivery O2 Flow Rate FiO2 11/21/18 10:00 112 18 114/57 (76) 99 Nasal Cannula 4.0 11/21/18 08:00 97.5 97.5 Assessment & Plan GAGAN- - Obstructive uropathy, Sepsis Improving UOP , No Urgent indication for HD Monitor Closely, anticipate improvement post nephrostomy Sepsis- On Abx UTI/Pyelonephritis ID Following Acidosis- IV Bicarb Nephrolithiasis- moderate left hydroureteronephrosis with periureteral and perinephric fat stranding As per Urology Nephrostomy tube placement today Hypotension- sepsis On pressors CKD 3- Baseline Cr as per [facility] records 1.5-1.7 in 2017 DM - On insulin Discussed with Pt, RN and Pulmonary Labs Labs Laboratory Tests Test 11/20/18 19:50 11/21/18 02:55 11/21/18 02:59 11/21/18 06:00 White Blood Count 21.4 x10^3/uL (4.0-11.0) 21.0 x10^3/uL (4.0-11.0) Red Blood Count 3.41 x10^6/uL (4.30-5.70) 2.91 x10^6/uL (4.30-5.70) Hemoglobin 10.5 g/dL (13.0-17.5) 9.1 g/dL (13.0-17.5) Hematocrit 31.9 % (39.0-53.0) 27.7 % (39.0-53.0) Mean Corpuscular Volume 94 fL (79-100) 95 fL (79-100) Mean Corpuscular Hemoglobin 31 pg (25-35) 31 pg (25-35) Mean Corpuscular Hemoglobin Concent 33 g/dL (31-37) 33 g/dL (31-37) Red Cell Distribution Width 14.2 % (11.5-14.5) 14.9 % (11.5-14.5) Platelet Count 219 x10^3/uL (140-400) 163 x10^3/uL (140-400) Neutrophils (%) (Auto) 95 % (31-73) 94 % (31-73) Lymphocytes (%) (Auto) 2 % (24-48) 1 % (24-48) Monocytes (%) (Auto) 3 % (0-9) 4 % (0-9) Eosinophils (%) (Auto) 0 % (0-3) 1 % (0-3) Basophils (%) (Auto) 0 % (0-3) 0 % (0-3) Neutrophils # (Auto) 20.2 x10^3uL (1.8-7.7) 19.7 x10^3uL (1.8-7.7) Lymphocytes # (Auto) 0.4 x10^3/uL (1.0-4.8) 0.2 x10^3/uL (1.0-4.8) Monocytes # (Auto) 0.6 x10^3/uL (0.0-1.1) 0.8 x10^3/uL (0.0-1.1) Eosinophils # (Auto) 0.0 x10^3/uL (0.0-0.7) 0.1 x10^3/uL (0.0-0.7) Basophils # (Auto) 0.1 x10^3/uL (0.0-0.2) 0.1 x10^3/uL (0.0-0.2) Segmented Neutrophils % 75 % (35-66) Band Neutrophils % 23 % (0-9) Lymphocytes % 2 % (24-48) Dohle Bodies Present Platelet Estimate Adequate (ADEQUATE) Prothrombin Time 17.0 SEC (11.7-14.0) Prothromb Time International Ratio 1.4 (0.8-1.1) Activated Partial Thromboplast Time 35 SEC (24-38) Sodium Level 135 mmol/L (136-145) 138 mmol/L (136-145) Potassium Level 5.1 mmol/L (3.5-5.1) 4.1 mmol/L (3.5-5.1) Chloride Level 98 mmol/L (98-107) 106 mmol/L (98-107) Carbon Dioxide Level 21 mmol/L (21-32) 12 mmol/L (21-32) Anion Gap 16 (6-14) 20 (6-14) Blood Urea Nitrogen 49 mg/dL (8-26) 51 mg/dL (8-26) Creatinine 4.8 mg/dL (0.7-1.3) 5.1 mg/dL (0.7-1.3) Estimated GFR (Cockcroft-Gault) 12.7 11.8 BUN/Creatinine Ratio 10 (6-20) 10 (6-20) Glucose Level 139 mg/dL (70-99) 138 mg/dL (70-99) Lactic Acid Level 4.3 mmol/L (0.4-2.0) 5.7 mmol/L (0.4-2.0) Calcium Level 7.7 mg/dL (8.5-10.1) 6.9 mg/dL (8.5-10.1) Magnesium Level 1.0 mg/dL (1.8-2.4) 1.4 mg/dL (1.8-2.4) Total Bilirubin 0.8 mg/dL (0.2-1.0) 0.5 mg/dL (0.2-1.0) Aspartate Amino Transf (AST/SGOT) 12 U/L (15-37) 18 U/L (15-37) Alanine Aminotransferase (ALT/SGPT) 14 U/L (16-63) 13 U/L (16-63) Alkaline Phosphatase 64 U/L (46-116) 112 U/L (46-116) Creatine Kinase 32 U/L (39-308) Creatine Kinase MB (Mass) 0.8 ng/mL (0.0-3.6) Creatine Kinase MB Relative Index % (0-4) Total Protein 6.3 g/dL (6.4-8.2) 4.7 g/dL (6.4-8.2) Albumin 2.8 g/dL (3.4-5.0) 2.2 g/dL (3.4-5.0) Albumin/Globulin Ratio 0.8 (1.0-1.7) 0.9 (1.0-1.7) Troponin I Quantitative 0.021 ng/mL (0.000-0.055) 0.058 ng/mL (0.000-0.055) Glucose (Fingerstick) 106 mg/dL (70-99) Test 11/21/18 06:15 11/21/18 07:38 Urine Collection Type Unknown Urine Color Yellow Urine Clarity Cloudy Urine pH 5.5 Urine Specific [place] 1.020 Urine Protein 100 mg/dL (NEG-TRACE) Urine Glucose (UA) Negative mg/dL (NEG) Urine Ketones (Stick) Trace mg/dL (NEG) Urine Blood Large (NEG) Urine Nitrite Negative (NEG) Urine Bilirubin Small (NEG) Urine Urobilinogen Dipstick 1.0 mg/dL (0.2 mg/dL) Urine Leukocyte Esterase Large (NEG) Urine RBC 11-20 /HPF (0-2) Urine WBC >40 /HPF (0-4) Urine Squamous Epithelial Cells Occ /LPF Urine Bacteria Many /HPF (0-FEW) Lactic Acid Level 5.7 mmol/L (0.4-2.0) Laboratory Tests Test 11/20/18 19:50 11/21/18 02:55 11/21/18 02:59 11/21/18 06:00 White Blood Count 21.4 x10^3/uL (4.0-11.0) 21.0 x10^3/uL (4.0-11.0) Red Blood Count 3.41 x10^6/uL (4.30-5.70) 2.91 x10^6/uL (4.30-5.70) Hemoglobin 10.5 g/dL (13.0-17.5) 9.1 g/dL (13.0-17.5) Hematocrit 31.9 % (39.0-53.0) 27.7 % (39.0-53.0) Mean Corpuscular Volume 94 fL (79-100) 95 fL (79-100) Mean Corpuscular Hemoglobin 31 pg (25-35) 31 pg (25-35) Mean Corpuscular Hemoglobin Concent 33 g/dL (31-37) 33 g/dL (31-37) Red Cell Distribution Width 14.2 % (11.5-14.5) 14.9 % (11.5-14.5) Platelet Count 219 x10^3/uL (140-400) 163 x10^3/uL (140-400) Neutrophils (%) (Auto) 95 % (31-73) 94 % (31-73) Lymphocytes (%) (Auto) 2 % (24-48) 1 % (24-48) Monocytes (%) (Auto) 3 % (0-9) 4 % (0-9) Eosinophils (%) (Auto) 0 % (0-3) 1 % (0-3) Basophils (%) (Auto) 0 % (0-3) 0 % (0-3) Neutrophils # (Auto) 20.2 x10^3uL (1.8-7.7) 19.7 x10^3uL (1.8-7.7) Lymphocytes # (Auto) 0.4 x10^3/uL (1.0-4.8) 0.2 x10^3/uL (1.0-4.8) Monocytes # (Auto) 0.6 x10^3/uL (0.0-1.1) 0.8 x10^3/uL (0.0-1.1) Eosinophils # (Auto) 0.0 x10^3/uL (0.0-0.7) 0.1 x10^3/uL (0.0-0.7) Basophils # (Auto) 0.1 x10^3/uL (0.0-0.2) 0.1 x10^3/uL (0.0-0.2) Segmented Neutrophils % 75 % (35-66) Band Neutrophils % 23 % (0-9) Lymphocytes % 2 % (24-48) Dohle Bodies Present Platelet Estimate Adequate (ADEQUATE) Prothrombin Time 17.0 SEC (11.7-14.0) Prothromb Time International Ratio 1.4 (0.8-1.1) Activated Partial Thromboplast Time 35 SEC (24-38) Sodium Level 135 mmol/L (136-145) 138 mmol/L (136-145) Potassium Level 5.1 mmol/L (3.5-5.1) 4.1 mmol/L (3.5-5.1) Chloride Level 98 mmol/L (98-107) 106 mmol/L (98-107) Carbon Dioxide Level 21 mmol/L (21-32) 12 mmol/L (21-32) Anion Gap 16 (6-14) 20 (6-14) Blood Urea Nitrogen 49 mg/dL (8-26) 51 mg/dL (8-26) Creatinine 4.8 mg/dL (0.7-1.3) 5.1 mg/dL (0.7-1.3) Estimated GFR (Cockcroft-Gault) 12.7 11.8 BUN/Creatinine Ratio 10 (6-20) 10 (6-20) Glucose Level 139 mg/dL (70-99) 138 mg/dL (70-99) Lactic Acid Level 4.3 mmol/L (0.4-2.0) 5.7 mmol/L (0.4-2.0) Calcium Level 7.7 mg/dL (8.5-10.1) 6.9 mg/dL (8.5-10.1) Magnesium Level 1.0 mg/dL (1.8-2.4) 1.4 mg/dL (1.8-2.4) Total Bilirubin 0.8 mg/dL (0.2-1.0) 0.5 mg/dL (0.2-1.0) Aspartate Amino Transf (AST/SGOT) 12 U/L (15-37) 18 U/L (15-37) Alanine Aminotransferase (ALT/SGPT) 14 U/L (16-63) 13 U/L (16-63) Alkaline Phosphatase 64 U/L (46-116) 112 U/L (46-116) Creatine Kinase 32 U/L (39-308) Creatine Kinase MB (Mass) 0.8 ng/mL (0.0-3.6) Creatine Kinase MB Relative Index % (0-4) Total Protein 6.3 g/dL (6.4-8.2) 4.7 g/dL (6.4-8.2) Albumin 2.8 g/dL (3.4-5.0) 2.2 g/dL (3.4-5.0) Albumin/Globulin Ratio 0.8 (1.0-1.7) 0.9 (1.0-1.7) Troponin I Quantitative 0.021 ng/mL (0.000-0.055) 0.058 ng/mL (0.000-0.055) Glucose (Fingerstick) 106 mg/dL (70-99) Test 11/21/18 06:15 11/21/18 07:38 Urine Collection Type Unknown Urine Color Yellow Urine Clarity Cloudy Urine pH 5.5 Urine Specific [place] 1.020 Urine Protein 100 mg/dL (NEG-TRACE) Urine Glucose (UA) Negative mg/dL (NEG) Urine Ketones (Stick) Trace mg/dL (NEG) Urine Blood Large (NEG) Urine Nitrite Negative (NEG) Urine Bilirubin Small (NEG) Urine Urobilinogen Dipstick 1.0 mg/dL (0.2 mg/dL) Urine Leukocyte Esterase Large (NEG) Urine RBC 11-20 /HPF (0-2) Urine WBC >40 /HPF (0-4) Urine Squamous Epithelial Cells Occ /LPF Urine Bacteria Many /HPF (0-FEW) Lactic Acid Level 5.7 mmol/L (0.4-2.0) Review All relevant outside records, renal labs, imaging studies, telemetry/EKG's were reviewed. Images Images CT scan abd/Pelvis wo contrast-- 1. Bibasilar airspace consolidation may reflect subsegmental atelectasis versus infiltrates. 2. There is a 7 mm calculus in the mid left ureter at the level of the left L5 transverse process. Slightly superiorly there is an additional 3 mm nonobstructing calculus. There is moderate left hydroureteronephrosis with periureteral and perinephric fat stranding. Correlate with urinalysis to assess for superimposed infection. 3. There is subcutaneous emphysema within the bilateral flanks which is of indeterminate etiology. Correlate with any iatrogenic injections or puncture wounds. CxR-- 1. The right jugular central venous catheter extends into the superior vena cava. 2. Mild streaky bibasilar atelectasis/infiltrate. LASHAUN PAK MD Nov 21, 2018 10:40
[2018-11-21] MEDS ORDERED: MIDAZOLAM HCL/PF 2 MG/2 ML VIAL. ONE (10:50)
[2018-11-21] MEDS ORDERED: fentaNYL PF VIAL 100 MCG/2 ML VIAL ONE (10:50)
--- NOTE | 2018-11-21 11:09 | CONS ---
DATE OF CONSULTATION: ATTENDING PHYSICIAN: Dr. Martinez. REASON FOR CONSULTATION: Septic shock. HISTORY OF PRESENT ILLNESS: The patient is a 53-year-old who had recent prostatectomy done at . This was at the beginning of October. The patient was brought into the hospital after he was noted to be having acute abdominal pain with decreased urine output. He has not eaten food for the last 3 days. He was noted to have low blood pressure. The patient underwent imaging study including a CT chest, abdomen and pelvis, which I have reviewed the CT chest. The patient was found to have bibasilar atelectasis. He has a 7 mm calculus in the mid left ureter. He has moderate left hydronephrosis. There is also periureteral and perinephric fat stranding. He has some subcutaneous emphysema within the bilateral flanks. His urinalysis was highly consistent with infection. He is currently in septic shock, requiring 2 pressors, Levophed and vasopressin. He is currently being hydrated, Urology has seen the patient and they are planning on doing nephrostomy later today. The patient denies any shortness of breath. He has no significant history of tobacco use. No chest pain, no cough. He did have a fever on admission. T-max is 103.1. He has been started on broad-spectrum antibiotic, meropenem and I have been asked to see him for further evaluation. PAST MEDICAL HISTORY: Significant for history of recent prostatectomy. No significant history of tobacco use. History of depression, type 2 diabetes, dyslipidemia, and renal stones. PAST SURGICAL HISTORY: Cholecystectomy, lithotripsy, ureteral stent placement and prostatectomy. ALLERGIES: CIPRO, CRANBERRY and HAY. MEDICATIONS: All reviewed, as listed in the [facility]AD. SOCIAL HISTORY: Nonsmoker. REVIEW OF SYSTEMS: Twelve-point system obtained. Pertinent positives discussed in my history of present illness, otherwise noncontributory. All systems that were negative were reviewed as well. PHYSICAL EXAMINATION: VITAL SIGNS: His blood pressure latest is in the one teens, on pressors. T-max of 103. Pulse ox is 99% on 4 liters. NECK: Supple. LUNGS: Clear. CARDIOVASCULAR: Regular rate. ABDOMEN: Soft, mildly tender left quadrant. EXTREMITIES: With no pitting edema. LABORATORY DATA: Reviewed. White cell count 21.4, hemoglobin 9.1 and platelets are 163. BUN and creatinine 51 and 5.1 today. Lactic acid 5.7. IMPRESSION: 1. Acute hypoxic respiratory failure secondary to septic shock. 2. Septic shock related to urinary tract infection. 3. Recent prostatectomy and now comes in with suspected perinephric abscess/ UTI He has left ureteral stone and has left hydronephrosis. 4. No significant history of tobacco use. 5. Lactic acidosis secondary to septic shock. 6. Moderate protein-calorie malnutrition. 7. Acute renal failure, likely postobstructive. RECOMMENDATIONS: 1. Wean pressors post fluid challenge 2. Continue with broad-spectrum antibiotic. 3. Follow urine cultures. 4. Follow Urology's recommendations to relieve the obstruction. He is planning to have nephrostomy tube on the left side today. 5. Continue aggressive hydration. His urine output has picked up. 6. P.r.n. bronchodilators. 7. DVT prophylaxis with lovenox post surgical intervention 8. Discussed with Nephrology, Dr. Gr. discuss with RN and RT. We will follow along with you. Critical care time 39 minutes. AYAH LEMUS MD DR: NELDA/valerie JOB#: [id number] / [id number] ANYA
[2018-11-21] MEDS: SODIUM BICARBONATE VIAL 150 MEQ in IV DEXTROSE 5% 1,000 ML IV SCH ×2 (11:20→20:44)
[2018-11-21] MEDS ORDERED: IOHEXOL 300 MG/ML 100ML VIAL. ONE (11:56)
[2018-11-21] MEDS ORDERED: LIDOCAINE WITH 8.4% SOD BICARB 3 ML DISP.SYRIN. ONE ×3 (11:56→12:29)
[2018-11-21] MEDS ORDERED: MIDAZOLAM HCL/PF 2 MG/2 ML VIAL. IV ONE (12:45)
[2018-11-21] MEDS ORDERED: IOHEXOL 300 MG/ML 100ML VIAL. IART ONE (12:45)
[2018-11-21] MEDS ORDERED: LIDOCAINE WITH 8.4% SOD BICARB 3 ML DISP.SYRIN. IJ ONE (12:45)
[2018-11-21] MEDS ORDERED: fentaNYL PF VIAL 100 MCG/2 ML VIAL IV ONE (12:45)
--- NOTE | 2018-11-21 13:06 | PDOC ---
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 10F nephrostomy tube was placed. Once this gentleman is recovered from signs and symptoms of infection and hematuria through the nephrostomy tube , a trial of tube clamping can be performed to assess adequacy of [place] ureteral patency. CT abdomen/Pelvis at that time to evaluate for residual calculus should also be performed. STEPHON HOWARD MD Nov 21, 2018 13:06
--- NOTE | 2018-11-21 14:32 | RAD ---
Procedure: Left percutaneous nephrostogram and percutaneous nephrostotube placement Clinical Indication: 53-year-old male with obstructive ureteral calculus resulting in hydronephrosis and urosepsis. Sedation: Conscious sedation was administered with a total intraprocedural [id number] time of 46 minutes. The patient was monitored by a qualified independent observer throughout the time of sedation. Please refer to the medical record for exact doses of medications utilized to achieve moderate sedation. Antibiotics: Elements antibiotic Exposure: Kerma-Area Product: 43 Gycm2 Sterility: All elements of maximal sterile barrier technique including the use of a cap, mask, sterile gown, sterile gloves, large sterile sheet, appropriate hand hygiene, and 2% chlorhexidine for cutaneous antisepsis (or acceptable alternative antiseptic per current guidelines) were followed for this procedure. If ultrasound guidance was utilized, sterile ultrasound techniques were followed including use of a sterile probe cover. Consent: The procedure was explained in its entirety to the patient or the patients designated home furnishings sales representative by a member of the treatment team, including a discussion of the risks, benefits and commonly accepted alternatives to the procedure, as well as the expected consequences of no therapy whatsoever. Discussion of the risks included, but was not limited to, those that are most frequent and those that are rare but possibly severe or life-threatening, as well as the possibility of unforeseen complications. Technique and Findings: Following informed consent, the patient was prepped and draped in usual sterile fashion. 1% lidocaine was used to achieve local anesthesia over the left flank. A small dermatotomy was made. Under fluoroscopic guidance, a 22-gauge Chiba needle was advanced into the left renal pelvis. Contrast nephrostogram was performed. This demonstrated improvement in the degree of hydronephrosis relative to the prior CT of the abdomen and pelvis, with only mild hydronephrosis now noted. There is a gross of contrast through the ureter into the urinary bladder. Notably however, there is a persistent severe circumferential short segment stenosis of the mid ureter and there are 2 subtle mobile intraluminal filling defects residing just cephalad to the stricture, felt to represent patient's ureteral calculi which were previously obstructing. Consequently, given this patient's urosepsis in the high likelihood of recurrent obstruction, the decision was made to proceed with nephrostomy tubes placement despite the improved appearance of hydronephrosis. Air nephrostogram was then performed to identify a posterior inferior pole calyx. A second 22-gauge Chiba needle was advanced into the calyx, and exchanged over wire for an AccuStick sheath. This was subsequently exchanged for 10 Czech multipurpose catheter which was positioned with the pigtail within the renal pelvis, flushed, sutured to the skin, and placed to bag drainage. Complications: No immediate Impression: 1. Improved hydronephrosis relative to the patient's CT scan from 11/20/2018. The previously seen impacting stones appear to be free floating just above the severe circumferential midureteral stricture. 2. Percutaneous nephrostomy tube placement as described. Recommend bag drainage of this tube for the time being. Once the patient is clinically free of signs or symptoms of infection and hematuria through nephrostomy tube, consider further evaluation with CT scan of the abdomen and pelvis to evaluate for residual stone fragments as well as trial capping of the nephrostomy tube to assess sufficiency of ute ureteral outflow.
--- NOTE | 2018-11-21 18:45 | CONS ---
DATE OF CONSULTATION: 11/21/2018 INFECTIOUS DISEASE CONSULTATION PATIENT'S ROOM: ICU 4. REQUESTING PHYSICIAN: Dr. Martinez. REASON FOR CONSULTATION: Sepsis. HISTORY OF PRESENT ILLNESS: The patient is a 53-year-old gentleman currently incarcerated, who on 10/31/2018 underwent a prostatectomy. At that time, he was noted to have some kidney stones; however, they were not causing any complications. He has had a history of previous obstructive uropathy and needing stents approximately last time was 2 years ago. Prior to that, he had been going to [facility] for this. He states about 4 days ago began to have left-sided flank discomfort, knew that he was getting a kidney stone based on previous experience. He did develop nausea, he has decreased appetite, increased pain. He has no dry heaves. He has some chills. Denies any passing of blood or change in urinary color or odor. He was brought to [facility] on 11/20/2018. White count was 21.4 and creatinine was 4.8, the previous one on 03/25/2017 was 1.5. Lactic acid was 4.3. Temperature initially was 97.6; however, blood pressure was 71/40 on arrival, it did drop down into the 60s systolically. He has had temperatures as high as 103.1. He is now maximized on Levophed and vasopressin, which have been added. He was given doses of vancomycin, Zosyn, meropenem. He underwent a CT scan of the abdomen and pelvis, showed there was a 7-mm calculus in the mid left ureter at the level of the left L5 transverse process, moderate left hydroureteronephrosis with a periorbital and perinephric fat stranding. He has also had some subcutaneous emphysema within the bilateral flanks, which is of indeterminate etiology. Currently, the patient is seen upright in bed. He is awaiting his procedure and lactic acid has increased to 5.7. Creatinine is increased to 5.1. White blood cell count stayed stable at 21. Currently, denies any gross sinus issues, sore throat. No rashes, no trauma. PAST MEDICAL HISTORY: Positive for nephrolithiasis, is a recurrent; history of back pain; morbid obesity; depression and diabetes. PAST SURGICAL HISTORY: Positive for lithotripsy as well as the above-mentioned prostatectomy. REVIEW OF SYSTEMS: Otherwise negative. ALLERGIES: Listed as CIPRO, is uncertain what happened when he takes this; CRANBERRY and HAY are also listed. SOCIAL HISTORY: He is incarcerated. Denies any tobacco, alcohol or substance abuse. FAMILY HISTORY: Positive for kidney stones. CURRENT MEDICATIONS: Include Meropenem 500 mg q. 12 hours. He is on Levophed. He is on vasopressin. He is on Zosyn. He is on vancomycin, insulin and Zofran. Other meds are available and reviewed in the chart. PHYSICAL EXAMINATION: VITAL SIGNS: T-max has been 103.1, currently is 100.9; pulse 134; respirations 33, blood pressure 98/45 on pressors; satting 98% on 4 liters, down from 6. CONSTITUTIONAL: He is cooperative. He is in no acute distress. He is obese. He appears comfortable currently in the bed. HEENT: Pupils are equal and reactive. Normal conjunctivae. Oral cavity, pharynx is clear. NECK: Supple, no JVD. LUNGS: Decreased in the bases. HEART: S1 and S2. ABDOMEN: Morbidly obese, soft. He has some mild left flank tenderness. No guarding, no rebound. GENITOURINARY: Hair in place. EXTREMITIES: Without clubbing or cyanosis. No gross edema. SKIN: Without generalized signs of rash. IV: Right IJ without signs of complications and has peripheral IVs as well. NEUROLOGIC: He is nonfocal and appropriate. PSYCHIATRIC: Affect is appropriate. LABORATORY AND DIAGNOSTIC DATA: White count 21, hemoglobin 9.1, platelets of 163, neutrophils 94, lymphs are 1, creatinine 5.1 and glucose 138. Most recent lactic 5.7, AST 18 and ALT 13. There is no urinalysis collected as of yet. There are no cultures yet. CT abdomen and pelvis reviewed. IMPRESSION: 1. Sepsis, present on admission, currently maximized on Levophed and now on some vasopressin as well. 2. Obstructive uropathy. 3. Subcutaneous emphysema on CT, questionable, subcutaneous injections. 4. Acute kidney injury. 5. Cipro allergy, questionable reaction. RECOMMENDATIONS: We will discontinue the Zosyn. Given his multiple kidney stones and likely infections we will continue the meropenem, but given his acute renal failure, we will adjust his meropenem to q. 24 hours. He did receive a dose of vancomycin that will last until 11/22/2018. We are awaiting this procedure. We will follow up labs and cultures. Urology as well as Renal has been consulted. Thank you for allowing me to see and participate in the patient's care. Should you have further concerns or questions, please do not hesitate to contact me. DRAKE VILLEGAS MD DR: BENITA/valerie JOB#: [id number] / [id number]
[2018-11-21] MEDS: HYDROcodone/APAP 5/325MG 1 TAB TABLET PO PRN (19:24)
[2018-11-21] MEDS: INSULIN GLARGINE 300 UNITS/3 ML INSULN.PEN. SQ SCH (20:54)
[2018-11-22] VITALS (26 sets, daily range): BP systolic 88–115; BP diastolic 51–69
[2018-11-22] MEDS: HYDROcodone/APAP 5/325MG 1 TAB TABLET PO PRN ×3 (02:20→21:15)
[2018-11-22] MEDS: NOREPINEPHRIN 8MG/250ML PREMIX 250 ML IV PRN (04:21)
[2018-11-22] MEDS: MEROPENEM 500 MG in IV NORMAL SALINE 50ML 50 ML IV SCH (04:21)
[2018-11-22] MEDS: SODIUM BICARBONATE VIAL 150 MEQ in IV DEXTROSE 5% 1,000 ML IV SCH (04:21)
--- NOTE | 2018-11-22 06:18 | PDOC ---
PULMONARY PROGRESS NOTES Subjective on levo and vaso, on 02 4 lpm, has sob, cough, pain all over. Vitals Vital Signs Date Time Temp Pulse Resp B/P (MAP) Pulse Ox O2 Delivery O2 Flow Rate FiO2 11/22/18 05:00 97 29 111/64 (80) 95 Nasal Cannula 4.0 11/22/18 04:00 98.7 98.7 Comments ros as mentioned as above other sys otherwise neg ROS: No Nausea General: Alert HEENT: Other (nc at perrl nose throat clear neck no lad, no thyromegaly) Lungs: Crackles Cardiovascular: S1, S2 Abdomen: Soft, Non-tender Neuro Exam: Alert Extremities: Other (edems) Skin: Warm Labs Laboratory Tests Test 11/20/18 19:50 11/21/18 01:25 11/21/18 02:55 11/21/18 02:59 White Blood Count 21.4 x10^3/uL (4.0-11.0) Red Blood Count 3.41 x10^6/uL (4.30-5.70) Hemoglobin 10.5 g/dL (13.0-17.5) Hematocrit 31.9 % (39.0-53.0) Mean Corpuscular Volume 94 fL (79-100) Mean Corpuscular Hemoglobin 31 pg (25-35) Mean Corpuscular Hemoglobin Concent 33 g/dL (31-37) Red Cell Distribution Width 14.2 % (11.5-14.5) Platelet Count 219 x10^3/uL (140-400) Neutrophils (%) (Auto) 95 % (31-73) Lymphocytes (%) (Auto) 2 % (24-48) Monocytes (%) (Auto) 3 % (0-9) Eosinophils (%) (Auto) 0 % (0-3) Basophils (%) (Auto) 0 % (0-3) Neutrophils # (Auto) 20.2 x10^3uL (1.8-7.7) Lymphocytes # (Auto) 0.4 x10^3/uL (1.0-4.8) Monocytes # (Auto) 0.6 x10^3/uL (0.0-1.1) Eosinophils # (Auto) 0.0 x10^3/uL (0.0-0.7) Basophils # (Auto) 0.1 x10^3/uL (0.0-0.2) Segmented Neutrophils % 75 % (35-66) Band Neutrophils % 23 % (0-9) Lymphocytes % 2 % (24-48) Dohle Bodies Present Platelet Estimate Adequate (ADEQUATE) Prothrombin Time 17.0 SEC (11.7-14.0) Prothromb Time International Ratio 1.4 (0.8-1.1) Activated Partial Thromboplast Time 35 SEC (24-38) Sodium Level 135 mmol/L (136-145) Potassium Level 5.1 mmol/L (3.5-5.1) Chloride Level 98 mmol/L (98-107) Carbon Dioxide Level 21 mmol/L (21-32) Anion Gap 16 (6-14) Blood Urea Nitrogen 49 mg/dL (8-26) Creatinine 4.8 mg/dL (0.7-1.3) Estimated GFR (Cockcroft-Gault) 12.7 BUN/Creatinine Ratio 10 (6-20) Glucose Level 139 mg/dL (70-99) Lactic Acid Level 4.3 mmol/L (0.4-2.0) 5.7 mmol/L (0.4-2.0) Calcium Level 7.7 mg/dL (8.5-10.1) Magnesium Level 1.0 mg/dL (1.8-2.4) Total Bilirubin 0.8 mg/dL (0.2-1.0) Aspartate Amino Transf (AST/SGOT) 12 U/L (15-37) Alanine Aminotransferase (ALT/SGPT) 14 U/L (16-63) Alkaline Phosphatase 64 U/L (46-116) Creatine Kinase 32 U/L (39-308) Creatine Kinase MB (Mass) 0.8 ng/mL (0.0-3.6) Creatine Kinase MB Relative Index % (0-4) Total Protein 6.3 g/dL (6.4-8.2) Albumin 2.8 g/dL (3.4-5.0) Albumin/Globulin Ratio 0.8 (1.0-1.7) Nasal Screen MRSA (PCR) Negative (Negative) Troponin I Quantitative 0.021 ng/mL (0.000-0.055) Glucose (Fingerstick) 106 mg/dL (70-99) Test 2/22/19 06:00 11/21/18 06:15 11/21/18 07:38 11/21/18 13:25 White Blood Count 21.0 x10^3/uL (4.0-11.0) Red Blood Count 2.91 x10^6/uL (4.30-5.70) Hemoglobin 9.1 g/dL (13.0-17.5) Hematocrit 27.7 % (39.0-53.0) Mean Corpuscular Volume 95 fL (79-100) Mean Corpuscular Hemoglobin 31 pg (25-35) Mean Corpuscular Hemoglobin Concent 33 g/dL (31-37) Red Cell Distribution Width 14.9 % (11.5-14.5) Platelet Count 163 x10^3/uL (140-400) Neutrophils (%) (Auto) 94 % (31-73) Lymphocytes (%) (Auto) 1 % (24-48) Monocytes (%) (Auto) 4 % (0-9) Eosinophils (%) (Auto) 1 % (0-3) Basophils (%) (Auto) 0 % (0-3) Neutrophils # (Auto) 19.7 x10^3uL (1.8-7.7) Lymphocytes # (Auto) 0.2 x10^3/uL (1.0-4.8) Monocytes # (Auto) 0.8 x10^3/uL (0.0-1.1) Eosinophils # (Auto) 0.1 x10^3/uL (0.0-0.7) Basophils # (Auto) 0.1 x10^3/uL (0.0-0.2) Sodium Level 138 mmol/L (136-145) Potassium Level 4.1 mmol/L (3.5-5.1) Chloride Level 106 mmol/L (98-107) Carbon Dioxide Level 12 mmol/L (21-32) Anion Gap 20 (6-14) Blood Urea Nitrogen 51 mg/dL (8-26) Creatinine 5.1 mg/dL (0.7-1.3) Estimated GFR (Cockcroft-Gault) 11.8 BUN/Creatinine Ratio 10 (6-20) Glucose Level 138 mg/dL (70-99) Calcium Level 6.9 mg/dL (8.5-10.1) Magnesium Level 1.4 mg/dL (1.8-2.4) Total Bilirubin 0.5 mg/dL (0.2-1.0) Aspartate Amino Transf (AST/SGOT) 18 U/L (15-37) Alanine Aminotransferase (ALT/SGPT) 13 U/L (16-63) Alkaline Phosphatase 112 U/L (46-116) Troponin I Quantitative 0.058 ng/mL (0.000-0.055) Total Protein 4.7 g/dL (6.4-8.2) Albumin 2.2 g/dL (3.4-5.0) Albumin/Globulin Ratio 0.9 (1.0-1.7) Urine Collection Type Unknown Urine Color Yellow Urine Clarity Cloudy Urine pH 5.5 Urine Specific [place] 1.020 Urine Protein 100 mg/dL (NEG-TRACE) Urine Glucose (UA) Negative mg/dL (NEG) Urine Ketones (Stick) Trace mg/dL (NEG) Urine Blood Large (NEG) Urine Nitrite Negative (NEG) Urine Bilirubin Small (NEG) Urine Urobilinogen Dipstick 1.0 mg/dL (0.2 mg/dL) Urine Leukocyte Esterase Large (NEG) Urine RBC 11-20 /HPF (0-2) Urine WBC >40 /HPF (0-4) Urine Squamous Epithelial Cells Occ /LPF Urine Bacteria Many /HPF (0-FEW) Lactic Acid Level 5.7 mmol/L (0.4-2.0) Glucose (Fingerstick) 281 mg/dL (70-99) Test 11/21/18 17:34 11/21/18 20:49 Glucose (Fingerstick) 300 mg/dL (70-99) 362 mg/dL (70-99) Laboratory Tests Test 11/21/18 07:38 11/21/18 13:25 11/21/18 17:34 11/21/18 20:49 Lactic Acid Level 5.7 mmol/L (0.4-2.0) Glucose (Fingerstick) 281 mg/dL (70-99) 300 mg/dL (70-99) 362 mg/dL (70-99) Medications Active Scripts Medications Dose Route/Sig Max Daily Dose Days Date Category Dose Instructions Novolin 70-30 100 Unit/Ml Vial (Hum Insulin Nph/Reg Insulin Hm) 100 Unit/1 Ml Vial 7 Unit SQ QHS 11/21/18 Reported Novolin 70-30 100 Unit/Ml Vial (Hum Insulin Nph/Reg Insulin Hm) 100 Unit/1 Ml Vial 15 Unit SQ DAILY 11/21/18 Reported Novolin R (Insulin Regular, Human) 100 Unit/1 Ml Vial 100 Unit IJ QIDACHS 11/21/18 Reported Oxybutynin Chloride 5 Mg Tablet 5 Mg PO TID 11/21/18 Reported Ondansetron Hcl 4 Mg Tablet 1 Tab PO PRN Q6HRS 11/21/18 Reported Tylenol (Acetaminophen) 325 Mg Tablet 2 Tab PO HS 11/21/18 Reported Nortriptyline Hcl 50 Mg Capsule 50 Mg PO HS 11/21/18 Reported Metformin Hcl 1,000 Mg Tablet 1,000 Mg PO BIDWMEALS 11/21/18 Reported Lactulose 10 Gm Packet 10 Gm PO DAILY 11/21/18 Reported Hyoscyamine Sulfate 0.125 Mg Tab.subl 0.125 Mg SL Q4HRS PRN 11/21/18 Reported Loratadine 10 Mg Tablet 1 Tab PO DAILY 11/21/18 Reported Pain Relieving 1%-15% Cream (Methyl Salicylate/Menthol) 85 Gm Cream..g. 85 Gm TP TID PRN PRN 11/21/18 Reported Bracey 5-325 Tablet (Acetaminophen/Hydrocodone Bitart) 1 Each Tablet 2 Tab PO Q4HRS 03/25/17 Reported LAST DOSE GIVEN: DATE: TIME: Zoloft (Sertraline Hcl) 100 Mg Tablet 100 Mg PO DAILY 02/18/17 Reported Lisinopril 5 Mg Tablet 2.5 Mg PO DAILY 02/18/17 Reported Atorvastatin Calcium 20 Mg Tablet 40 Mg PO DAILY 02/18/17 Reported Comments cxr, basilar atelectasis infilt Impression . IMPRESSION: 1. Acute hypoxic respiratory failure secondary to septic shock. 2. Septic shock related to urinary tract infection. 3. Recent prostatectomy and now comes in with suspected perinephric abscess/ UTI He has left ureteral stone and has left hydronephrosis. 4. No significant history of tobacco use. 5. Lactic acidosis secondary to septic shock. 6. Moderate protein-calorie malnutrition. 7. Acute renal failure, likely postobstructive. Plan . RECOMMENDATIONS: 1. pressors to keep map >65 2. Continue with broad-spectrum antibiotic, per id. 3. Follow cultures. 4. Follow Urology's recommendations to relieve the obstruction. s/p nephrostomy tube on the left side. 5. Continue aggressive hydration. monitor urine out put 6. P.r.n. bronchodilators. 7. start DVT, GI prophylaxis with hep sq, and protonix 8. discussed with RN and RT, pt. LINWOOD LORENZO MD Nov 22, 2018 06:18
[2018-11-22] MEDS ORDERED: ALTEPLASE 1MG SYRINGE. INT CAT ONE (06:30)
[2018-11-22 06:54] LABS: BASO % 0 % (0-3); EOS # 0.1 x10^3/uL (0.0-0.7); EOS % 0 % (0-3); HEMATOCRIT 25.9 % (39.0-53.0); HEMOGLOBIN 8.7 g/dL (13.0-17.5); LYMPH # 0.5 x10^3/uL (1.0-4.8); LYMPH % 2 % (24-48); MEAN CORPUSCULAR HEMOGLOBIN 31 pg (25-35); MEAN CORPUSCULAR HGB CONC 34 g/dL (31-37); MEAN CORPUSCULAR VOLUME 93 fL (79-100); MONO # 0.6 x10^3/uL (0.0-1.1); MONO % 3 % (0-9); NEUT # 19.3 x10^3uL (1.8-7.7); NEUT % 94 % (31-73); PLATELET COUNT 106 x10^3/uL (140-400); RED BLOOD COUNT 2.78 x10^6/uL (4.30-5.70); RED CELL DISTRIBUTION WIDTH 14.6 % (11.5-14.5); WHITE BLOOD COUNT 20.4 x10^3/uL (4.0-11.0)
[2018-11-22 06:58] LABS: CALCIUM 6.7 mg/dL (8.5-10.1); CREATININE 5.2 mg/dL (0.7-1.3); GFR 11.6; POTASSIUM 4.8 mmol/L (3.5-5.1)
[2018-11-22] MEDS: CETIRIZINE HCL 10 MG TABLET. PO SCH (08:33)
[2018-11-22] MEDS: SERTRALINE 50 MG TABLET. PO SCH (08:33)
[2018-11-22] MEDS: OXYBUTYNIN CHLORIDE 5 MG TABLET PO SCH ×3 (08:34→21:07)
[2018-11-22] MEDS: INSULIN LISPRO 300 UNITS/3 ML INSULN.PEN. SQ SCH ×6 (08:35→17:00)
[2018-11-22] MEDS: HEPARIN for SUB-Q USE 5,000 UNIT/ML VIAL. SQ SCH ×2 (08:37→21:10)
[2018-11-22] MEDS: PANTOPRAZOLE 40 MG TABLET.DR. PO SCH (08:38)
--- NOTE | 2018-11-22 08:45 | PDOC ---
Infectious Disease Note Subjective Subjective c/o all body aches Denies F/C/S/N/V/D Hypotensive - still on pressors, levo 4 mcg & vasopressin 4L O2 Bicarb gtt ROS ROS per HPI otherwise neg Vital Sign Vital Signs Vital Signs Date Time Temp Pulse Resp B/P (MAP) Pulse Ox O2 Delivery O2 Flow Rate FiO2 11/22/18 07:00 95 22 104/58 (73) 95 Nasal Cannula 4.0 11/22/18 04:00 98.7 98.7 Physical Exam PHYSICAL EXAM GENERAL: Resting quietly HEENT: Pupils are equal and reactive. Normal conjunctivae. Oral cavity, pharynx is clear. NECK: Supple, no JVD. LUNGS: Decreased in the bases. HEART: S1 and S2. regular ABDOMEN: Morbidly obese, soft. mild left flank tenderness. No guarding, no rebound. GENITOURINARY: Hair in place, hematuria. Let PNT EXTREMITIES: Without clubbing or cyanosis. No gross edema. SKIN: Without generalized signs of rash. NEUROLOGIC: Arouses to name, responds appropriately RIJ without signs of complications Labs Lab Laboratory Tests Test 11/21/18 13:25 11/21/18 17:34 11/21/18 20:49 11/22/18 06:30 Glucose (Fingerstick) 281 mg/dL (70-99) 300 mg/dL (70-99) 362 mg/dL (70-99) White Blood Count 20.4 x10^3/uL (4.0-11.0) Red Blood Count 2.78 x10^6/uL (4.30-5.70) Hemoglobin 8.7 g/dL (13.0-17.5) Hematocrit 25.9 % (39.0-53.0) Mean Corpuscular Volume 93 fL (79-100) Mean Corpuscular Hemoglobin 31 pg (25-35) Mean Corpuscular Hemoglobin Concent 34 g/dL (31-37) Red Cell Distribution Width 14.6 % (11.5-14.5) Platelet Count 106 x10^3/uL (140-400) Neutrophils (%) (Auto) 94 % (31-73) Lymphocytes (%) (Auto) 2 % (24-48) Monocytes (%) (Auto) 3 % (0-9) Eosinophils (%) (Auto) 0 % (0-3) Basophils (%) (Auto) 0 % (0-3) Neutrophils # (Auto) 19.3 x10^3uL (1.8-7.7) Lymphocytes # (Auto) 0.5 x10^3/uL (1.0-4.8) Monocytes # (Auto) 0.6 x10^3/uL (0.0-1.1) Eosinophils # (Auto) 0.1 x10^3/uL (0.0-0.7) Basophils # (Auto) 0.0 x10^3/uL (0.0-0.2) Sodium Level 134 mmol/L (136-145) Potassium Level 4.8 mmol/L (3.5-5.1) Chloride Level 100 mmol/L (98-107) Carbon Dioxide Level 21 mmol/L (21-32) Anion Gap 13 (6-14) Blood Urea Nitrogen 68 mg/dL (8-26) Creatinine 5.2 mg/dL (0.7-1.3) Estimated GFR (Cockcroft-Gault) 11.6 Glucose Level 350 mg/dL (70-99) Calcium Level 6.7 mg/dL (8.5-10.1) Micro 11/20. BLOOD CULTURE Final GRAM NEGATIVE RODS, IN 3 OF 4 BOTTLES, 2 SETS DRAWN. CALLED TO ELISEO TRENT RN IN ICU AT 8:40 ON 11/21/18 DW MT SENT TO [facility] FOR FURTHER WORKUP. AMMENDED REPORT: GRAM NEGATIVE RODS, NOW IN 4 OF 4 BOTTLES, Objective Assessment Sepsis, present on admission, pressor support GNR 11/20- less pressors now Lactic acidosis Obstructive uropathy, s/p percutaneous nephrostomy tube placement on 11/21. Subcutaneous emphysema on CT, questionable, subcutaneous injections. Acute kidney injury.- mild increase Cipro allergy, questionable reaction. S/p Recent Prostatectomy Plan Plan of Care Cont Meropenem, renal dosing Q 24hr Await GNR ID/susceptibilities Monitor labs/temp F/u ? sub Q emphysema Repeat BC Critically ill D/w RN Attending Co-Sign Attending Co-Sign The patient was seen and interviewed as well as examined at the bedside. The chart was reviewed. The case was discussed. Agree with the plan of care. RASHAUN KIMBLE APRN Nov 22, 2018 08:45 DRAKE VILLEGAS MD Nov 22, 2018 12:58
--- NOTE | 2018-11-22 09:10 | PDOC ---
Progress Note Subjective Subjective no acute events, s/p left NT. Pressors weaning off. GH in NT and adrian improving. ROS ROS No nausea No vomiting No pain No rash Vital Sign Vital Signs Vital Signs Date Time Temp Pulse Resp B/P (MAP) Pulse Ox O2 Delivery O2 Flow Rate FiO2 11/22/18 08:34 26 95 Nasal Cannula 4.0 11/22/18 07:00 95 104/58 (73) 11/22/18 04:00 98.7 98.7 Physical Exam PHYSICAL EXAM GENERAL: Resting quietly HEART: S1 and S2. regular ABDOMEN: No guarding, no rebound. GENITOURINARY: Adrian in place, hematuria. Left NT EXTREMITIES: Without clubbing or cyanosis. No gross edema. SKIN: Without generalized signs of rash. NEUROLOGIC: Arouses to name, responds appropriately Labs Lab Laboratory Tests Test 11/21/18 13:25 11/21/18 17:34 11/21/18 20:49 11/22/18 06:30 Glucose (Fingerstick) 281 mg/dL (70-99) 300 mg/dL (70-99) 362 mg/dL (70-99) White Blood Count 20.4 x10^3/uL (4.0-11.0) Red Blood Count 2.78 x10^6/uL (4.30-5.70) Hemoglobin 8.7 g/dL (13.0-17.5) Hematocrit 25.9 % (39.0-53.0) Mean Corpuscular Volume 93 fL (79-100) Mean Corpuscular Hemoglobin 31 pg (25-35) Mean Corpuscular Hemoglobin Concent 34 g/dL (31-37) Red Cell Distribution Width 14.6 % (11.5-14.5) Platelet Count 106 x10^3/uL (140-400) Neutrophils (%) (Auto) 94 % (31-73) Lymphocytes (%) (Auto) 2 % (24-48) Monocytes (%) (Auto) 3 % (0-9) Eosinophils (%) (Auto) 0 % (0-3) Basophils (%) (Auto) 0 % (0-3) Neutrophils # (Auto) 19.3 x10^3uL (1.8-7.7) Lymphocytes # (Auto) 0.5 x10^3/uL (1.0-4.8) Monocytes # (Auto) 0.6 x10^3/uL (0.0-1.1) Eosinophils # (Auto) 0.1 x10^3/uL (0.0-0.7) Basophils # (Auto) 0.0 x10^3/uL (0.0-0.2) Sodium Level 134 mmol/L (136-145) Potassium Level 4.8 mmol/L (3.5-5.1) Chloride Level 100 mmol/L (98-107) Carbon Dioxide Level 21 mmol/L (21-32) Anion Gap 13 (6-14) Blood Urea Nitrogen 68 mg/dL (8-26) Creatinine 5.2 mg/dL (0.7-1.3) Estimated GFR (Cockcroft-Gault) 11.6 Glucose Level 350 mg/dL (70-99) Calcium Level 6.7 mg/dL (8.5-10.1) Objective Assessment gnr bacteremia. left 7mm ureter stone Plan Plan of Care iv abx. wean off pressor max urinary drainage with adrian, NT. Will follow intermittently. LISA ARAUZ MD Nov 22, 2018 09:10
--- NOTE | 2018-11-22 12:53 | PDOC ---
SUBJECTIVE ROS Asked to see for acute renal failure Patient continues to have dark discoloration to his minimal urine output from both kidneys. Remains on pressors currently CVS: no Orthopnea, no CP RESP: Animal subjective SOB, ? OWUSU patient not ambulated GI: min Nausea, no Vomiting; positive anorexia : no Dysuria, no Urgency - Hair in place, left nephrostomy tube OBJECTIVE Vital Signs Vital Signs Date Time Temp Pulse Resp B/P (MAP) Pulse Ox O2 Delivery O2 Flow Rate FiO2 11/22/18 12:00 Nasal Cannula 4.0 11/22/18 12:00 96 24 102/61 (75) 92 11/22/18 08:00 97.9 97.9 I & 0 Intake and Output 11/22/18 06:59 Intake Total 7051.47 ml Output Total 1007 ml Balance 6044.47 ml Intake Oral 1500 ml IV Total 5551.47 ml Output Urine Total 947 ml Drainage Total 60 ml PHYSICAL EXAM Physical Exam GEN: Awake, Oriented x 2-3 , In no visible distress EYES: Vision Unchanged, Conjunctiva Normal EN: No EN Drainage, Mucous Membranes dryish NECK: no JVD, no JVP, Supple, no Thyromegaly CVS: S1S2, no Murmur, No Gallop, No Rub,no Edema RESP: no Rales, no Rhonchi,no Acc. Muscle Use GI: BS hypoactive, NO Bruit, Non Tender, Non Distended : Lt CVA tenderness, no Suprapubic Tenderness DIAGNOSIS/ASSESSMENT Assessment & Plan Acute kidney injury: Suspect ATN. Urine output remains marginal despite significant positive fluid balance. We'll stop IV fluids and reevaluate. Discussed with patient that he may need to start dialysis in the next 24-48 hours if kidney function does not improve Mild subjective shortness of breath: Fluid balance is positive we'll stop IV fluids hereafter since metabolic acidosis is corrected Metabolic acidosis: Now corrected with bicarbonate. Gap has closed. Recheck lactate Severe hypocalcemia: No recent albumin levels we'll check albumin. He may need replacement with IV calcium. Check CPK Hypomagnesemia: Recheck today and correct if needed this may be contributing to hypocalcemia also. Suspected pyelonephritis: At about exposure ID Sepsis: Septic shock: Patient remains on pressors currently Perinephric emphysema: Unclear etiology. Discussed with Dr. Andrews. We will defer to urology to ascertain etiology of the same. Not sure if it changes management plan in light of recent instrumentation (prostate surgery at ) COMMENT/RELEVANT DATA Meds Current Medications Medications (Trade) Dose Ordered Sig/Wili Start Time Stop Time Status Last Admin Dose Admin Acetaminophen (Tylenol Supp) 650 mg PRN Q6HRS PRN 11/21/18 04:45 11/21/18 05:04 650 MG Acetaminophen (Tylenol) 650 mg PRN Q4HRS PRN 11/20/18 21:15 11/21/18 21:14 DC Acetaminophen/ Hydrocodone Bitart (Lortab 5/325) 2 tab PRN Q4HRS PRN 11/21/18 08:00 11/22/18 08:34 2 TAB Alteplase, Recombinant (Cathflo For Central Catheter Clearance) 1 mg 1X ONCE 11/22/18 06:30 11/22/18 06:31 DC 11/22/18 06:25 1 MG Cefazolin Sodium 50 ml @ 100 mls/hr 1X ONCE 11/21/18 11:15 11/21/18 11:44 DC 11/21/18 11:15 100 MLS/HR Cetirizine HCl (ZyrTEC) 10 mg DAILY 11/21/18 09:00 11/22/18 08:33 10 MG Dextrose (Dextrose 50%-Water Syringe) 12.5 gm PRN Q15MIN PRN 11/21/18 07:30 Fentanyl Citrate (Fentanyl 2ml Vial) 100 mcg 1X ONCE 11/21/18 12:45 11/21/18 12:51 DC 11/21/18 12:45 100 MCG Heparin Sodium (Porcine) (Heparin Sodium) 5,000 unit Q12HR 11/22/18 09:00 11/22/18 08:37 5,000 UNIT Heparin Sodium/ Sodium Chloride (HEPARIN for ARTERIAL LINE FLUSH) 1,000 unit 1X ONCE 11/21/18 12:45 11/21/18 12:51 DC Hydromorphone HCl (Dilaudid) 1 mg PRN Q3HRS PRN 11/21/18 08:00 11/21/18 08:15 1 MG Insulin Glargine (Lantus) 12 units QHS 11/21/18 21:00 11/21/18 20:54 12 UNITS Insulin Human Lispro (HumaLOG) 10 units TIDWMEALS 11/21/18 08:00 11/22/18 08:38 10 UNITS Iohexol (Omnipaque 300 Mg/ml) 40 ml 1X ONCE 11/21/18 12:45 11/21/18 12:51 DC 11/21/18 12:45 40 ML Lidocaine/ Epinephrine (LIDOCAINE 2%-EPI 1:100,000 multi-dose) 20 ml 1X ONCE 11/20/18 22:15 11/20/18 22:16 DC 11/20/18 22:31 20 ML Lidocaine/Sodium Bicarbonate (Buffered Lidocaine 1%) 13 ml 1X ONCE 11/21/18 12:45 11/21/18 12:51 DC 11/21/18 12:45 13 ML Magnesium Sulfate 50 ml @ 25 mls/hr 1X ONCE 11/20/18 23:15 11/21/18 01:14 DC 11/21/18 01:05 25 MLS/HR Magnesium Sulfate/ Dextrose 100 ml @ 25 mls/hr 1X ONCE 11/21/18 09:00 11/21/18 12:59 Cancel Meropenem 500 mg/ Sodium Chloride 50 ml @ 100 mls/hr Q24H 11/22/18 05:00 11/22/18 04:21 100 MLS/HR Midazolam HCl (Versed) 2 mg 1X ONCE 11/21/18 12:45 11/21/18 12:51 DC 11/21/18 12:45 2 MG Morphine Sulfate (Morphine Sulfate) 4 mg PRN Q4HRS PRN 11/21/18 04:45 11/21/18 20:47 4 MG Norepinephrine Bitartrate 250 ml @ 1.875 mls/ hr CONT PRN 11/21/18 06:45 11/22/18 04:21 9.375 MLS/HR Ondansetron HCl (Zofran Odt) 4 mg PRN Q6HRS PRN 11/21/18 07:45 Ondansetron HCl (Zofran) 4 mg PRN Q8HRS PRN 11/20/18 21:15 11/21/18 21:14 DC 11/20/18 21:35 4 MG Oxybutynin Chloride (Ditropan) 5 mg TID 11/21/18 09:00 11/22/18 08:34 5 MG Pantoprazole Sodium (Protonix) 40 mg DAILYAC 11/22/18 07:45 11/22/18 08:38 40 MG Piperacillin Sod/ Tazobactam Sod (Zosyn Per Pharmacy) 1 each PRN DAILY PRN 11/21/18 04:45 11/21/18 07:10 DC Piperacillin Sod/ Tazobactam Sod 2.25 gm/Sodium Chloride 50 ml @ 100 mls/hr Q6HRS 11/21/18 06:00 11/21/18 07:10 DC 11/21/18 05:42 100 MLS/HR Piperacillin Sod/ Tazobactam Sod 4.5 gm/Sodium Chloride 100 ml @ 200 mls/hr 1X ONCE 11/20/18 20:15 11/20/18 20:44 DC 11/20/18 20:13 200 MLS/HR Saliva Substitute (Biotene Moisturizing Mouth) 2 spray PRN Q15MIN PRN 11/21/18 05:30 Sertraline HCl (Zoloft) 100 mg DAILY 11/21/18 09:00 11/22/18 08:33 100 MG Sodium Bicarbonate 150 meq/Dextrose 1,150 ml @ 125 mls/hr Q9H12M 11/21/18 11:00 11/22/18 04:21 125 MLS/HR Sodium Chloride 1,000 ml @ 1,000 mls/hr 1X ONCE 11/21/18 05:30 11/21/18 06:29 DC 11/21/18 06:11 1,000 MLS/HR Throat Lozenges (Cepacol Sore Throat Lozenge) 1 corina PRN Q2HRS PRN 11/21/18 19:45 11/21/18 19:45 DC Vancomycin HCl 2 gm/Sodium Chloride 500 ml @ 250 mls/hr 1X ONCE 11/20/18 22:00 11/20/18 23:59 DC 11/20/18 22:22 250 MLS/HR Vasopressin 40 unit/Dextrose 102 ml @ 6 mls/hr CONT PRN 11/21/18 05:00 11/21/18 20:45 6 MLS/HR Lab Laboratory Tests Test 11/21/18 13:25 11/21/18 17:34 11/21/18 20:49 11/22/18 06:30 Glucose (Fingerstick) 281 mg/dL (70-99) 300 mg/dL (70-99) 362 mg/dL (70-99) White Blood Count 20.4 x10^3/uL (4.0-11.0) Red Blood Count 2.78 x10^6/uL (4.30-5.70) Hemoglobin 8.7 g/dL (13.0-17.5) Hematocrit 25.9 % (39.0-53.0) Mean Corpuscular Volume 93 fL (79-100) Mean Corpuscular Hemoglobin 31 pg (25-35) Mean Corpuscular Hemoglobin Concent 34 g/dL (31-37) Red Cell Distribution Width 14.6 % (11.5-14.5) Platelet Count 106 x10^3/uL (140-400) Neutrophils (%) (Auto) 94 % (31-73) Lymphocytes (%) (Auto) 2 % (24-48) Monocytes (%) (Auto) 3 % (0-9) Eosinophils (%) (Auto) 0 % (0-3) Basophils (%) (Auto) 0 % (0-3) Neutrophils # (Auto) 19.3 x10^3uL (1.8-7.7) Lymphocytes # (Auto) 0.5 x10^3/uL (1.0-4.8) Monocytes # (Auto) 0.6 x10^3/uL (0.0-1.1) Eosinophils # (Auto) 0.1 x10^3/uL (0.0-0.7) Basophils # (Auto) 0.0 x10^3/uL (0.0-0.2) Sodium Level 134 mmol/L (136-145) Potassium Level 4.8 mmol/L (3.5-5.1) Chloride Level 100 mmol/L (98-107) Carbon Dioxide Level 21 mmol/L (21-32) Anion Gap 13 (6-14) Blood Urea Nitrogen 68 mg/dL (8-26) Creatinine 5.2 mg/dL (0.7-1.3) Estimated GFR (Cockcroft-Gault) 11.6 Glucose Level 350 mg/dL (70-99) Calcium Level 6.7 mg/dL (8.5-10.1) Results All relevant outside records, renal labs, imaging studies, telemetry/EKG's were reviewed. CARMEL ROSE MDb 23, 2019 12:53
[2018-11-22] MEDS ORDERED: MAGNESIUM SULFATE 2GM 50 ML IV PRN (13:00)
[2018-11-22] MEDS: VASOPRESSIN 40 UNIT in IV DEXTROSE 5% 100ML 100 ML IV PRN (14:28)
--- NOTE | 2018-11-22 15:03 | PDOC ---
PROGRESS NOTES Chief Complaint Chief Complaint septic shock secondary to obstructive uropathy Status post TURP in an outside facility obesity, BMI 33 7mm obstructive renal stone, renal colic, obstructive uropathy causing acute renal failure, in need Perc nephrostomy History ofDM2, depression, Patient is incarcerated [facility] as per report Plan: Continue pressor support Patient will have nephrostomy today Supportive measures in the ICU broa dspectru antibioitcs try to erick off pressors History of Present Illness History of Present Illness Patient critically stable at the present time. The patient denies any chest pain or palpitations no shortness of breath he is complaining of flank pain fever and chills reported overnight. Patient continues to be on 2 pressors further recommendations based on the clinical course appreciated consulted recommendation Vitals Vitals Vital Signs Date Time Temp Pulse Resp B/P (MAP) Pulse Ox O2 Delivery O2 Flow Rate FiO2 11/22/18 14:00 95 26 97/66 (76) 94 Nasal Cannula 4.0 11/22/18 08:00 97.9 97.9 Physical Exam Physical Exam GENERAL: Resting quietly HEART: S1 and S2. regular ABDOMEN: No guarding, no rebound. GENITOURINARY: Hair in place, hematuria. Left NT EXTREMITIES: Without clubbing or cyanosis. No gross edema. SKIN: Without generalized signs of rash. NEUROLOGIC: Arouses to name, responds appropriately General: Alert, Oriented X3, No acute distress Lungs: Crackles Abdomen: Normal bowel sounds, Soft Extremities: No clubbing, No edema, Normal pulses Skin: No rashes, No significant lesion Labs LABS Laboratory Tests Test 11/21/18 17:34 11/21/18 20:49 11/22/18 06:30 11/22/18 13:15 Glucose (Fingerstick) 300 mg/dL (70-99) 362 mg/dL (70-99) White Blood Count 20.4 x10^3/uL (4.0-11.0) Red Blood Count 2.78 x10^6/uL (4.30-5.70) Hemoglobin 8.7 g/dL (13.0-17.5) Hematocrit 25.9 % (39.0-53.0) Mean Corpuscular Volume 93 fL (79-100) Mean Corpuscular Hemoglobin 31 pg (25-35) Mean Corpuscular Hemoglobin Concent 34 g/dL (31-37) Red Cell Distribution Width 14.6 % (11.5-14.5) Platelet Count 106 x10^3/uL (140-400) Neutrophils (%) (Auto) 94 % (31-73) Lymphocytes (%) (Auto) 2 % (24-48) Monocytes (%) (Auto) 3 % (0-9) Eosinophils (%) (Auto) 0 % (0-3) Basophils (%) (Auto) 0 % (0-3) Neutrophils # (Auto) 19.3 x10^3uL (1.8-7.7) Lymphocytes # (Auto) 0.5 x10^3/uL (1.0-4.8) Monocytes # (Auto) 0.6 x10^3/uL (0.0-1.1) Eosinophils # (Auto) 0.1 x10^3/uL (0.0-0.7) Basophils # (Auto) 0.0 x10^3/uL (0.0-0.2) Sodium Level 134 mmol/L (136-145) Potassium Level 4.8 mmol/L (3.5-5.1) Chloride Level 100 mmol/L (98-107) Carbon Dioxide Level 21 mmol/L (21-32) Anion Gap 13 (6-14) Blood Urea Nitrogen 68 mg/dL (8-26) Creatinine 5.2 mg/dL (0.7-1.3) Estimated GFR (Cockcroft-Gault) 11.6 Glucose Level 350 mg/dL (70-99) Calcium Level 6.7 mg/dL (8.5-10.1) Lactic Acid Level 2.9 mmol/L (0.4-2.0) Magnesium Level 2.3 mg/dL (1.8-2.4) Albumin 1.8 g/dL (3.4-5.0) Test 11/22/18 14:32 Glucose (Fingerstick) 280 mg/dL (70-99) Assessment and Plan Assessmemt and Plan Problems Medical Problems: (1) Acute on chronic renal failure Status: Acute (2) Hydronephrosis with urinary obstruction due to ureteral calculus Status: Acute (3) Renal colic Status: Acute Comment Review of Relevant I have reviewed the following items patti (where applicable) has been applied. Labs Laboratory Tests Test 11/20/18 19:50 11/21/18 01:25 11/21/18 02:55 11/21/18 02:59 White Blood Count 21.4 x10^3/uL (4.0-11.0) Red Blood Count 3.41 x10^6/uL (4.30-5.70) Hemoglobin 10.5 g/dL (13.0-17.5) Hematocrit 31.9 % (39.0-53.0) Mean Corpuscular Volume 94 fL (79-100) Mean Corpuscular Hemoglobin 31 pg (25-35) Mean Corpuscular Hemoglobin Concent 33 g/dL (31-37) Red Cell Distribution Width 14.2 % (11.5-14.5) Platelet Count 219 x10^3/uL (140-400) Neutrophils (%) (Auto) 95 % (31-73) Lymphocytes (%) (Auto) 2 % (24-48) Monocytes (%) (Auto) 3 % (0-9) Eosinophils (%) (Auto) 0 % (0-3) Basophils (%) (Auto) 0 % (0-3) Neutrophils # (Auto) 20.2 x10^3uL (1.8-7.7) Lymphocytes # (Auto) 0.4 x10^3/uL (1.0-4.8) Monocytes # (Auto) 0.6 x10^3/uL (0.0-1.1) Eosinophils # (Auto) 0.0 x10^3/uL (0.0-0.7) Basophils # (Auto) 0.1 x10^3/uL (0.0-0.2) Segmented Neutrophils % 75 % (35-66) Band Neutrophils % 23 % (0-9) Lymphocytes % 2 % (24-48) Dohle Bodies Present Platelet Estimate Adequate (ADEQUATE) Prothrombin Time 17.0 SEC (11.7-14.0) Prothromb Time International Ratio 1.4 (0.8-1.1) Activated Partial Thromboplast Time 35 SEC (24-38) Sodium Level 135 mmol/L (136-145) Potassium Level 5.1 mmol/L (3.5-5.1) Chloride Level 98 mmol/L (98-107) Carbon Dioxide Level 21 mmol/L (21-32) Anion Gap 16 (6-14) Blood Urea Nitrogen 49 mg/dL (8-26) Creatinine 4.8 mg/dL (0.7-1.3) Estimated GFR (Cockcroft-Gault) 12.7 BUN/Creatinine Ratio 10 (6-20) Glucose Level 139 mg/dL (70-99) Lactic Acid Level 4.3 mmol/L (0.4-2.0) 5.7 mmol/L (0.4-2.0) Calcium Level 7.7 mg/dL (8.5-10.1) Magnesium Level 1.0 mg/dL (1.8-2.4) Total Bilirubin 0.8 mg/dL (0.2-1.0) Aspartate Amino Transf (AST/SGOT) 12 U/L (15-37) Alanine Aminotransferase (ALT/SGPT) 14 U/L (16-63) Alkaline Phosphatase 64 U/L (46-116) Creatine Kinase 32 U/L (39-308) Creatine Kinase MB (Mass) 0.8 ng/mL (0.0-3.6) Creatine Kinase MB Relative Index % (0-4) Total Protein 6.3 g/dL (6.4-8.2) Albumin 2.8 g/dL (3.4-5.0) Albumin/Globulin Ratio 0.8 (1.0-1.7) Nasal Screen MRSA (PCR) Negative (Negative) Troponin I Quantitative 0.021 ng/mL (0.000-0.055) Glucose (Fingerstick) 106 mg/dL (70-99) Test 11/21/18 06:00 11/21/18 06:15 11/21/18 07:38 11/21/18 13:25 White Blood Count 21.0 x10^3/uL (4.0-11.0) Red Blood Count 2.91 x10^6/uL (4.30-5.70) Hemoglobin 9.1 g/dL (13.0-17.5) Hematocrit 27.7 % (39.0-53.0) Mean Corpuscular Volume 95 fL (79-100) Mean Corpuscular Hemoglobin 31 pg (25-35) Mean Corpuscular Hemoglobin Concent 33 g/dL (31-37) Red Cell Distribution Width 14.9 % (11.5-14.5) Platelet Count 163 x10^3/uL (140-400) Neutrophils (%) (Auto) 94 % (31-73) Lymphocytes (%) (Auto) 1 % (24-48) Monocytes (%) (Auto) 4 % (0-9) Eosinophils (%) (Auto) 1 % (0-3) Basophils (%) (Auto) 0 % (0-3) Neutrophils # (Auto) 19.7 x10^3uL (1.8-7.7) Lymphocytes # (Auto) 0.2 x10^3/uL (1.0-4.8) Monocytes # (Auto) 0.8 x10^3/uL (0.0-1.1) Eosinophils # (Auto) 0.1 x10^3/uL (0.0-0.7) Basophils # (Auto) 0.1 x10^3/uL (0.0-0.2) Sodium Level 138 mmol/L (136-145) Potassium Level 4.1 mmol/L (3.5-5.1) Chloride Level 106 mmol/L (98-107) Carbon Dioxide Level 12 mmol/L (21-32) Anion Gap 20 (6-14) Blood Urea Nitrogen 51 mg/dL (8-26) Creatinine 5.1 mg/dL (0.7-1.3) Estimated GFR (Cockcroft-Gault) 11.8 BUN/Creatinine Ratio 10 (6-20) Glucose Level 138 mg/dL (70-99) Calcium Level 6.9 mg/dL (8.5-10.1) Magnesium Level 1.4 mg/dL (1.8-2.4) Total Bilirubin 0.5 mg/dL (0.2-1.0) Aspartate Amino Transf (AST/SGOT) 18 U/L (15-37) Alanine Aminotransferase (ALT/SGPT) 13 U/L (16-63) Alkaline Phosphatase 112 U/L (46-116) Troponin I Quantitative 0.058 ng/mL (0.000-0.055) Total Protein 4.7 g/dL (6.4-8.2) Albumin 2.2 g/dL (3.4-5.0) Albumin/Globulin Ratio 0.9 (1.0-1.7) Urine Collection Type Unknown Urine Color Yellow Urine Clarity Cloudy Urine pH 5.5 Urine Specific [place] 1.020 Urine Protein 100 mg/dL (NEG-TRACE) Urine Glucose (UA) Negative mg/dL (NEG) Urine Ketones (Stick) Trace mg/dL (NEG) Urine Blood Large (NEG) Urine Nitrite Negative (NEG) Urine Bilirubin Small (NEG) Urine Urobilinogen Dipstick 1.0 mg/dL (0.2 mg/dL) Urine Leukocyte Esterase Large (NEG) Urine RBC 11-20 /HPF (0-2) Urine WBC >40 /HPF (0-4) Urine Squamous Epithelial Cells Occ /LPF Urine Bacteria Many /HPF (0-FEW) Lactic Acid Level 5.7 mmol/L (0.4-2.0) Glucose (Fingerstick) 281 mg/dL (70-99) Test 11/21/18 17:34 11/21/18 20:49 11/22/18 06:30 11/22/18 13:15 Glucose (Fingerstick) 300 mg/dL (70-99) 362 mg/dL (70-99) White Blood Count 20.4 x10^3/uL (4.0-11.0) Red Blood Count 2.78 x10^6/uL (4.30-5.70) Hemoglobin 8.7 g/dL (13.0-17.5) Hematocrit 25.9 % (39.0-53.0) Mean Corpuscular Volume 93 fL (79-100) Mean Corpuscular Hemoglobin 31 pg (25-35) Mean Corpuscular Hemoglobin Concent 34 g/dL (31-37) Red Cell Distribution Width 14.6 % (11.5-14.5) Platelet Count 106 x10^3/uL (140-400) Neutrophils (%) (Auto) 94 % (31-73) Lymphocytes (%) (Auto) 2 % (24-48) Monocytes (%) (Auto) 3 % (0-9) Eosinophils (%) (Auto) 0 % (0-3) Basophils (%) (Auto) 0 % (0-3) Neutrophils # (Auto) 19.3 x10^3uL (1.8-7.7) Lymphocytes # (Auto) 0.5 x10^3/uL (1.0-4.8) Monocytes # (Auto) 0.6 x10^3/uL (0.0-1.1) Eosinophils # (Auto) 0.1 x10^3/uL (0.0-0.7) Basophils # (Auto) 0.0 x10^3/uL (0.0-0.2) Sodium Level 134 mmol/L (136-145) Potassium Level 4.8 mmol/L (3.5-5.1) Chloride Level 100 mmol/L (98-107) Carbon Dioxide Level 21 mmol/L (21-32) Anion Gap 13 (6-14) Blood Urea Nitrogen 68 mg/dL (8-26) Creatinine 5.2 mg/dL (0.7-1.3) Estimated GFR (Cockcroft-Gault) 11.6 Glucose Level 350 mg/dL (70-99) Calcium Level 6.7 mg/dL (8.5-10.1) Lactic Acid Level 2.9 mmol/L (0.4-2.0) Magnesium Level 2.3 mg/dL (1.8-2.4) Albumin 1.8 g/dL (3.4-5.0) Test 11/22/18 14:32 Glucose (Fingerstick) 280 mg/dL (70-99) Laboratory Tests Test 11/21/18 17:34 11/21/18 20:49 11/22/18 06:30 11/22/18 13:15 Glucose (Fingerstick) 300 mg/dL (70-99) 362 mg/dL (70-99) White Blood Count 20.4 x10^3/uL (4.0-11.0) Red Blood Count 2.78 x10^6/uL (4.30-5.70) Hemoglobin 8.7 g/dL (13.0-17.5) Hematocrit 25.9 % (39.0-53.0) Mean Corpuscular Volume 93 fL (79-100) Mean Corpuscular Hemoglobin 31 pg (25-35) Mean Corpuscular Hemoglobin Concent 34 g/dL (31-37) Red Cell Distribution Width 14.6 % (11.5-14.5) Platelet Count 106 x10^3/uL (140-400) Neutrophils (%) (Auto) 94 % (31-73) Lymphocytes (%) (Auto) 2 % (24-48) Monocytes (%) (Auto) 3 % (0-9) Eosinophils (%) (Auto) 0 % (0-3) Basophils (%) (Auto) 0 % (0-3) Neutrophils # (Auto) 19.3 x10^3uL (1.8-7.7) Lymphocytes # (Auto) 0.5 x10^3/uL (1.0-4.8) Monocytes # (Auto) 0.6 x10^3/uL (0.0-1.1) Eosinophils # (Auto) 0.1 x10^3/uL (0.0-0.7) Basophils # (Auto) 0.0 x10^3/uL (0.0-0.2) Sodium Level 134 mmol/L (136-145) Potassium Level 4.8 mmol/L (3.5-5.1) Chloride Level 100 mmol/L (98-107) Carbon Dioxide Level 21 mmol/L (21-32) Anion Gap 13 (6-14) Blood Urea Nitrogen 68 mg/dL (8-26) Creatinine 5.2 mg/dL (0.7-1.3) Estimated GFR (Cockcroft-Gault) 11.6 Glucose Level 350 mg/dL (70-99) Calcium Level 6.7 mg/dL (8.5-10.1) Lactic Acid Level 2.9 mmol/L (0.4-2.0) Magnesium Level 2.3 mg/dL (1.8-2.4) Albumin 1.8 g/dL (3.4-5.0) Test 11/22/18 14:32 Glucose (Fingerstick) 280 mg/dL (70-99) Microbiology 11/20/18 Blood Culture - Final, Complete Medications Current Medications Sodium Chloride 1,000 ml @ 1,000 mls/hr 1X ONCE IV Last administered on at 20:10; Start 11/20/18 at 20:00; Stop 11/20/18 at 20:59; Status DC Sodium Chloride 1,000 ml @ 1,000 mls/hr 1X ONCE IV Last administered on at 20:10; Start 11/20/18 at 20:00; Stop 11/20/18 at 20:59; Status DC Piperacillin Sod/ Tazobactam Sod 4.5 gm/Sodium Chloride 100 ml @ 200 mls/hr 1X ONCE IV Last administered on 11/20/18at 20:13; Start 11/20/18 at 20:15; Stop 11/20/18 at 20:44; Status DC Fentanyl Citrate (Fentanyl 2ml Vial) 50 mcg 1X ONCE IV Last administered on at 20:13; Start 11/20/18 at 20:15; Stop 11/20/18 at 20:16; Status DC Ondansetron HCl (Zofran) 4 mg 1X ONCE IV Last administered on 11/20/18at 20:13 ; Start 11/20/18 at 20:15; Stop 11/20/18 at 20:16; Status DC Sodium Chloride 1,000 ml @ 1,000 mls/hr 1X ONCE IV Last administered on at 20:47; Start 11/20/18 at 20:45; Stop 11/20/18 at 21:44; Status DC Ondansetron HCl (Zofran) 4 mg PRN Q8HRS PRN IV NAUSEA/VOMITING Last administered on 11/20/18at 21:35; Start 11/20/18 at 21:15; Stop 11/21/18 at 21:14 ; Status DC Fentanyl Citrate (Fentanyl 2ml Vial) 50 mcg PRN Q2HR PRN IV PAIN Last administered on 11/21/18at 03:06; Start 11/20/18 at 21:15 Acetaminophen (Tylenol) 650 mg PRN Q4HRS PRN PO FEVER; Start 11/20/18 at 21:15 ; Stop 11/21/18 at 21:14; Status DC Insulin Human Lispro (HumaLOG) 0-5 UNITS TIDWMEALS SQ ; Start 11/21/18 at 08:00 ; Stop 11/21/18 at 08:00; Status DC Dextrose (Dextrose 50%-Water Syringe) 12.5 gm PRN Q15MIN PRN IV SEE COMMENTS; Start 11/20/18 at 21:15; Stop 11/21/18 at 07:45; Status DC Vancomycin HCl 2 gm/Sodium Chloride 500 ml @ 250 mls/hr 1X ONCE IV Last administered on 11/20/18at 22:22; Start 11/20/18 at 22:00; Stop 11/20/18 at 23:59 ; Status DC Fentanyl Citrate (Fentanyl 2ml Vial) 75 mcg 1X ONCE IV Last administered on at 21:35; Start 11/20/18 at 21:45; Stop 11/20/18 at 21:46; Status DC Lidocaine/ Epinephrine (LIDOCAINE 2%-EPI 1:100,000 multi-dose) 20 ml 1X ONCE IJ Last administered on 11/20/18at 22:31; Start 11/20/18 at 22:15; Stop at 22:16; Status DC Fentanyl Citrate (Fentanyl 2ml Vial) 75 mcg 1X ONCE IV ; Start 11/20/18 at 22: 30; Stop 11/20/18 at 22:31; Status DC Magnesium Sulfate 50 ml @ 25 mls/hr 1X ONCE IV Last administered on 11/21/18at 01:05; Start 11/20/18 at 23:15; Stop 11/21/18 at 01:14; Status DC Norepinephrine Bitartrate 250 ml @ 0 mls/hr 1X ONCE IV Last administered on at 23:35; Start 11/20/18 at 23:30; Stop 11/20/18 at 23:31; Status DC Sodium Chloride 1,000 ml @ 150 mls/hr Q6H40M IV Last administered on at 07:11; Start 11/21/18 at 04:45; Stop 11/21/18 at 11:25; Status DC Sodium Chloride 1,000 ml @ 1,000 mls/hr 1X ONCE IV Last administered on at 05:04; Start 11/21/18 at 04:45; Stop 11/21/18 at 05:44; Status DC Sodium Chloride 1,000 ml @ 1,000 mls/hr 1X ONCE IV Last administered on at 06:11; Start 11/21/18 at 05:30; Stop 11/21/18 at 06:29; Status DC Vasopressin 40 unit/Dextrose 102 ml @ 6 mls/hr CONT PRN IV SEE I/O RECORD Last administered on 11/22/18at 14:28; Start 11/21/18 at 05:00 Acetaminophen (Tylenol Supp) 650 mg PRN Q6HRS PRN AL MILD PAIN / TEMP Last administered on 11/21/18at 05:04; Start 11/21/18 at 04:45 Piperacillin Sod/ Tazobactam Sod (Zosyn Per Pharmacy) 1 each PRN DAILY PRN MC SEE COMMENTS; Start 11/21/18 at 04:45; Stop 11/21/18 at 07:10; Status DC Meropenem 500 mg/ Sodium Chloride 50 ml @ 100 mls/hr Q12H IV Last administered on 11/21/18 05:10; Start 11/21/18 at 05:00; Stop 11/21/18 at 07:10 ; Status DC Morphine Sulfate (Morphine Sulfate) 4 mg PRN Q4HRS PRN IV PAIN Last administered on 11/21/18at 20:47; Start 11/21/18 at 04:45 Piperacillin Sod/ Tazobactam Sod 2.25 gm/Sodium Chloride 50 ml @ 100 mls/hr Q6HRS IV Last administered on 11/21/18 05:42; Start 11/21/18 at 06:00; Stop at 07:10; Status DC Magnesium Sulfate/ Dextrose 100 ml @ 25 mls/hr 1X ONCE IV Last administered on 11/21/18at 05:42; Start 11/21/18 at 05:30; Stop 11/21/18 at 09:29; Status DC Throat Lozenges (Cepacol Sore Throat Lozenge) 1 corina PRN Q2HRS PRN PO SORE THROAT Last administered on 11/21/18at 20:10; Start 11/21/18 at 05:30 Saliva Substitute (Biotene Moisturizing Mouth) 2 spray PRN Q15MIN PRN PO DRY MOUTH; Start 11/21/18 at 05:30 Norepinephrine Bitartrate 250 ml @ 1.875 mls/ hr CONT PRN IV SEE I/O RECORD Last administered on 11/22/18at 04:21; Start 11/21/18 at 06:45 Meropenem 500 mg/ Sodium Chloride 50 ml @ 100 mls/hr Q24H IV Last administered on 11/22/18 04:21; Start 11/22/18 at 05:00 Acetaminophen/ Hydrocodone Bitart (Lortab 5/325) 2 tab Q4HRS PO ; Start at 08:00; Stop 11/21/18 at 08:00; Status DC Oxybutynin Chloride (Ditropan) 5 mg TID PO Last administered on 11/22/18 14:28 ; Start 11/21/18 at 09:00 Cetirizine HCl (ZyrTEC) 10 mg DAILY PO Last administered on 11/22/18 08:33; Start 11/21/18 at 09:00 Ondansetron HCl (Zofran Odt) 4 mg PRN Q6HRS PRN PO NAUSEA/VOMITING; Start 11/21 at 07:45 Sertraline HCl (Zoloft) 100 mg DAILY PO Last administered on 11/22/18 08:33; Start 11/21/18 at 09:00 Insulin Human Lispro (HumaLOG) 0-9 UNITS TIDWMEALS SQ Last administered on 11/22 14:33; Start 11/21/18 at 08:00 Dextrose (Dextrose 50%-Water Syringe) 12.5 gm PRN Q15MIN PRN IV SEE COMMENTS; Start 11/21/18 at 07:30 Insulin Glargine (Lantus) 12 units QHS SQ Last administered on 11/21/18 20:54 ; Start 11/21/18 at 21:00 Insulin Human Lispro (HumaLOG) 10 units TIDWMEALS SQ Last administered on 14:36; Start 11/21/18 at 08:00 Magnesium Sulfate/ Dextrose 100 ml @ 25 mls/hr 1X ONCE IV ; Start 11/21/18 at 09:00; Stop 11/21/18 at 12:59; Status Cancel Acetaminophen/ Hydrocodone Bitart (Lortab 5/325) 2 tab PRN Q4HRS PRN PO PAIN Last administered on 11/22/18 08:34; Start 11/21/18 at 08:00 Hydromorphone HCl (Dilaudid) 1 mg PRN Q3HRS PRN IV PAIN Last administered on 08:15; Start 11/21/18 at 08:00 Sodium Bicarbonate 150 meq/Dextrose 1,150 ml @ 125 mls/hr Q9H12M IV Last administered on 11/22/18 04:21; Start 11/21/18 at 11:00; Stop 11/22/18 at 13:03 ; Status DC Midazolam HCl (Versed) 2 mg STK-MED ONCE .ROUTE ; Start 11/21/18 at 10:50; Stop 11/21/18 at 10:51; Status DC Fentanyl Citrate (Fentanyl 2ml Vial) 100 mcg STK-MED ONCE .ROUTE ; Start at 10:50; Stop 11/21/18 at 10:51; Status DC Cefazolin Sodium 50 ml @ 100 mls/hr 1X ONCE IV Last administered on at 11:15; Start 11/21/18 at 11:15; Stop 11/21/18 at 11:44; Status DC Lidocaine/Sodium Bicarbonate (Buffered Lidocaine 1%) 3 ml STK-MED ONCE .ROUTE ; Start 11/21/18 at 11:56; Stop 11/21/18 at 11:57; Status DC Iohexol (Omnipaque 300 Mg/ml) 100 ml STK-MED ONCE .ROUTE ; Start 11/21/18 at 11: 56; Stop 11/21/18 at 11:57; Status DC Heparin Sodium/ Sodium Chloride 500 ml @ As Directed STK-MED ONCE .ROUTE ; Start 11/21/18 at 11:56; Stop 11/21/18 at 11:57; Status DC Lidocaine/Sodium Bicarbonate (Buffered Lidocaine 1%) 3 ml STK-MED ONCE .ROUTE ; Start 11/21/18 at 12:29; Stop 11/21/18 at 12:30; Status DC Lidocaine/Sodium Bicarbonate (Buffered Lidocaine 1%) 3 ml STK-MED ONCE .ROUTE ; Start 11/21/18 at 12:29; Stop 11/21/18 at 12:30; Status DC Heparin Sodium/ Sodium Chloride (HEPARIN for ARTERIAL LINE FLUSH) 1,000 unit 1X ONCE IART ; Start 11/21/18 at 12:45; Stop 11/21/18 at 12:51; Status DC Lidocaine/Sodium Bicarbonate (Buffered Lidocaine 1%) 13 ml 1X ONCE IJ Last administered on 11/21/18at 12:45; Start 11/21/18 at 12:45; Stop 11/21/18 at 12:51 ; Status DC Midazolam HCl (Versed) 2 mg 1X ONCE IV Last administered on 11/21/18at 12:45; Start 11/21/18 at 12:45; Stop 11/21/18 at 12:51; Status DC Fentanyl Citrate (Fentanyl 2ml Vial) 100 mcg 1X ONCE IV Last administered on at 12:45; Start 11/21/18 at 12:45; Stop 11/21/18 at 12:51; Status DC Iohexol (Omnipaque 300 Mg/ml) 40 ml 1X ONCE IART Last administered on at 12:45; Start 11/21/18 at 12:45; Stop 11/21/18 at 12:51; Status DC Throat Lozenges (Cepacol Sore Throat Lozenge) 1 corina PRN Q2HRS PRN PO SORE THROAT; Start 11/21/18 at 19:45; Stop 11/21/18 at 19:45; Status DC Alteplase, Recombinant (Cathflo For Central Catheter Clearance) 1 mg 1X ONCE INT CAT Last administered on 11/22/18at 06:25; Start 11/22/18 at 06:30; Stop at 06:31; Status DC Pantoprazole Sodium (Protonix) 40 mg DAILYAC PO Last administered on 11/22/18at 08:38; Start 11/22/18 at 07:45 Heparin Sodium (Porcine) (Heparin Sodium) 5,000 unit Q12HR SQ Last administered on 11/22/18at 08:37; Start 11/22/18 at 09:00 Magnesium Sulfate 50 ml @ 25 mls/hr PRN DAILY PRN IV for Mag < 1.7 on am labs; Start 11/22/18 at 13:00 Active Scripts Active Reported Novolin 70-30 100 Unit/Ml Vial (Hum Insulin Nph/Reg Insulin Hm) 100 Unit/1 Ml Vial 7 Unit SQ QHS Novolin 70-30 100 Unit/Ml Vial (Hum Insulin Nph/Reg Insulin Hm) 100 Unit/1 Ml Vial 15 Unit SQ DAILY Novolin R (Insulin Regular, Human) 100 Unit/1 Ml Vial 100 Unit IJ QIDACHS Oxybutynin Chloride 5 Mg Tablet 5 Mg PO TID Ondansetron Hcl 4 Mg Tablet 1 Tab PO PRN Q6HRS Tylenol (Acetaminophen) 325 Mg Tablet 2 Tab PO HS Nortriptyline Hcl 50 Mg Capsule 50 Mg PO HS Metformin Hcl 1,000 Mg Tablet 1,000 Mg PO BIDWMEALS Lactulose 10 Gm Packet 10 Gm PO DAILY Hyoscyamine Sulfate 0.125 Mg Tab.subl 0.125 Mg SL Q4HRS PRN Loratadine 10 Mg Tablet 1 Tab PO DAILY Pain Relieving 1%-15% Cream (Methyl Salicylate/Menthol) 85 Gm Cream..g. 85 Gm TP TID PRN PRN [place] 5-325 Tablet (Acetaminophen/Hydrocodone Bitart) 1 Each Tablet 2 Tab PO Q4HRS LAST DOSE GIVEN: DATE: TIME: Zoloft (Sertraline Hcl) 100 Mg Tablet 100 Mg PO DAILY Lisinopril 5 Mg Tablet 2.5 Mg PO DAILY Atorvastatin Calcium 20 Mg Tablet 40 Mg PO DAILY Vitals/I & O Vital Sign - Last 24 Hours 11/21/18 11/21/18 11/21/18 11/21/18 15:00 15:19 15:30 15:45 Pulse 94 93 94 Resp 18 B/P (MAP) 110/61 (77) 114/77 (89) 109/56 (73) Pulse Ox 97 O2 Delivery Nasal Cannula Nasal Cannula O2 Flow Rate 4.0 4.0 11/21/18 11/21/18 11/21/18 11/21/18 16:00 16:00 16:30 16:45 Temp 98.2 98.2 Pulse 92 95 97 Resp 18 B/P (MAP) 112/68 (83) 111/79 (90) 111/73 (86) Pulse Ox 98 O2 Delivery Nasal Cannula Nasal Cannula O2 Flow Rate 4.0 4.0 11/21/18 11/21/18 11/21/18 11/21/18 17:00 18:00 19:00 19:24 Pulse 103 100 104 Resp 24 20 20 B/P (MAP) 107/59 (75) 113/68 (83) 100/44 (62) Pulse Ox 96 96 98 99 O2 Delivery Nasal Cannula Nasal Cannula Nasal Cannula Nasal Cannula O2 Flow Rate 4.0 4.0 4.0 4.0 11/21/18 11/21/18 11/21/18 11/21/18 20:00 20:00 20:47 21:00 Temp 97.8 97.8 Pulse 100 98 Resp 20 23 B/P (MAP) 101/73 (82) 102/65 (77) Pulse Ox 98 100 98 O2 Delivery Nasal Cannula Nasal Cannula Nasal Cannula Nasal Cannula O2 Flow Rate 4.0 4.0 4.0 4.0 11/21/18 11/21/18 11/21/18 11/22/18 21:23 22:00 23:00 00:00 Temp 98.0 98.0 Pulse 90 96 90 Resp 23 20 B/P (MAP) 104/63 (77) 115/73 (87) 113/67 (82) Pulse Ox 98 96 98 96 O2 Delivery Nasal Cannula Nasal Cannula Nasal Cannula Nasal Cannula O2 Flow Rate 4.0 4.0 4.0 4.0 11/22/ 2/ 2/ 2 00:00 01:00 02:00 02:20 Pulse 100 100 Resp 24 B/P (MAP) 107/58 (74) 113/60 (77) Pulse Ox 98 98 100 O2 Delivery Nasal Cannula Nasal Cannula Nasal Cannula Nasal Cannula O2 Flow Rate 4.0 4.0 4.0 4.0 11/22/18 11/22/18 211/22/18 03:00 04:00 04:00 05:00 Temp 98.7 98.7 Pulse 100 100 97 Resp 29 B/P (MAP) 98/60 (73) 107/69 (82) 111/64 (80) Pulse Ox 97 94 95 O2 Delivery Nasal Cannula Nasal Cannula Nasal Cannula Nasal Cannula O2 Flow Rate 4.0 4.0 4.0 4.0 11/22/18 11/22/18 2//11/22/18 06:00 07:00 08:00 08:00 Temp 97.9 97.9 Pulse 97 95 98 Resp 24 B/P (MAP) 115/64 (81) 104/58 (73) 101/52 (68) Pulse Ox 94 95 95 O2 Delivery Nasal Cannula Nasal Cannula Nasal Cannula Nasal Cannula O2 Flow Rate 4.0 4.0 4.0 4.0 11/22/18 2/ 2/11/22/18 08:34 09:00 09:34 10:00 Pulse 100 99 Resp 24 21 B/P (MAP) 91/60 (70) 108/57 (74) Pulse Ox 95 95 96 96 O2 Delivery Nasal Cannula Nasal Cannula Nasal Cannula Nasal Cannula O2 Flow Rate 4.0 4.0 4.0 4.0 // 2// 2// 2/ 11:00 12:00 12:00 13:00 Pulse 97 96 94 Resp 24 24 22 B/P (MAP) 98/64 (75) 102/61 (75) 90/53 (65) Pulse Ox 93 92 93 O2 Delivery Nasal Cannula Nasal Cannula Nasal Cannula Nasal Cannula O2 Flow Rate 4.0 4.0 4.0 4.0 11/22/18 14:00 Pulse 95 Resp 26 B/P (MAP) 97/66 (76) Pulse Ox 94 O2 Delivery Nasal Cannula O2 Flow Rate 4.0 Intake and Output 11/21/18 11/21/18 11/22/18 15:00 23:00 07:00 Intake Total 2423 ml 1825.17 ml 2803.3 ml Output Total 472 ml 285 ml 200 ml Balance 1951 ml 1540.17 ml 2603.3 ml TARA RG MD Nov 22, 2018 15:03
--- NOTE | 2018-11-22 15:16 | NUR ---
PT/OT assisted RN with ambulating patient. Two person assist used to get patient to chair. Patient weak and anxious about getting out of bed, but tolerated well. Currently sitting in chair, remote in hand. Ice cream and H20 given. See assessments, VS.
[2018-11-22] MEDS: INSULIN GLARGINE 300 UNITS/3 ML INSULN.PEN. SQ SCH (21:10)
[2018-11-23] VITALS (22 sets, daily range): BP systolic 81–114; BP diastolic 52–75
[2018-11-23] MEDS: MEROPENEM 500 MG in IV NORMAL SALINE 50ML 50 ML IV SCH (04:57)
[2018-11-23 06:07] LABS: ALBUMIN 1.8 g/dL (3.4-5.0); CALCIUM 7.3 mg/dL (8.5-10.1); GFR 9.8; PHOSPHORUS 3.8 mg/dL (2.6-4.7); POTASSIUM 4.6 mmol/L (3.5-5.1)
[2018-11-23] MEDS: VASOPRESSIN 40 UNIT in IV DEXTROSE 5% 100ML 100 ML IV PRN (06:13)
--- NOTE | 2018-11-23 06:25 | PDOC ---
PULMONARY PROGRESS NOTES Subjective on levo and vaso, on 02 4 lpm, has sob better, has cough, has pain on l flank area Vitals Vital Signs Date Time Temp Pulse Resp B/P (MAP) Pulse Ox O2 Delivery O2 Flow Rate FiO2 11/23/18 05:00 96 107/67 (80) 94 Nasal Cannula 4.0 11/23/18 04:00 98.2 98.2 11/22/18 22:15 21 Comments ros as mentioned as above other sys otherwise neg ROS: No Nausea, No Chest Pain General: Alert HEENT: Other (nc at perrl nose throat clear neck no lad, no thyromegaly) Lungs: Crackles Cardiovascular: S1, S2 Abdomen: Soft, Non-tender Neuro Exam: Alert Extremities: Other (edema) Skin: Warm Labs Laboratory Tests Test 11/21/18 07:38 11/21/18 13:25 11/21/18 17:34 11/21/18 20:49 Lactic Acid Level 5.7 mmol/L (0.4-2.0) Glucose (Fingerstick) 281 mg/dL (70-99) 300 mg/dL (70-99) 362 mg/dL (70-99) Test 11/22/18 06:30 11/22/18 13:15 11/22/18 14:32 11/22/18 17:19 White Blood Count 20.4 x10^3/uL (4.0-11.0) Red Blood Count 2.78 x10^6/uL (4.30-5.70) Hemoglobin 8.7 g/dL (13.0-17.5) Hematocrit 25.9 % (39.0-53.0) Mean Corpuscular Volume 93 fL (79-100) Mean Corpuscular Hemoglobin 31 pg (25-35) Mean Corpuscular Hemoglobin Concent 34 g/dL (31-37) Red Cell Distribution Width 14.6 % (11.5-14.5) Platelet Count 106 x10^3/uL (140-400) Neutrophils (%) (Auto) 94 % (31-73) Lymphocytes (%) (Auto) 2 % (24-48) Monocytes (%) (Auto) 3 % (0-9) Eosinophils (%) (Auto) 0 % (0-3) Basophils (%) (Auto) 0 % (0-3) Neutrophils # (Auto) 19.3 x10^3uL (1.8-7.7) Lymphocytes # (Auto) 0.5 x10^3/uL (1.0-4.8) Monocytes # (Auto) 0.6 x10^3/uL (0.0-1.1) Eosinophils # (Auto) 0.1 x10^3/uL (0.0-0.7) Basophils # (Auto) 0.0 x10^3/uL (0.0-0.2) Sodium Level 134 mmol/L (136-145) Potassium Level 4.8 mmol/L (3.5-5.1) Chloride Level 100 mmol/L (98-107) Carbon Dioxide Level 21 mmol/L (21-32) Anion Gap 13 (6-14) Blood Urea Nitrogen 68 mg/dL (8-26) Creatinine 5.2 mg/dL (0.7-1.3) Estimated GFR (Cockcroft-Gault) 11.6 Glucose Level 350 mg/dL (70-99) Calcium Level 6.7 mg/dL (8.5-10.1) Lactic Acid Level 2.9 mmol/L (0.4-2.0) Magnesium Level 2.3 mg/dL (1.8-2.4) Albumin 1.8 g/dL (3.4-5.0) Glucose (Fingerstick) 280 mg/dL (70-99) 236 mg/dL (70-99) Test 11/22/18 21:06 11/23/18 05:00 Glucose (Fingerstick) 160 mg/dL (70-99) Hemoglobin 8.3 g/dL (13.0-17.5) Sodium Level 137 mmol/L (136-145) Potassium Level 4.6 mmol/L (3.5-5.1) Chloride Level 100 mmol/L (98-107) Carbon Dioxide Level 24 mmol/L (21-32) Anion Gap 13 (6-14) Blood Urea Nitrogen 80 mg/dL (8-26) Creatinine 6.0 mg/dL (0.7-1.3) Estimated GFR (Cockcroft-Gault) 9.8 Glucose Level 152 mg/dL (70-99) Calcium Level 7.3 mg/dL (8.5-10.1) Phosphorus Level 3.8 mg/dL (2.6-4.7) Magnesium Level 2.5 mg/dL (1.8-2.4) Creatine Kinase 159 U/L (39-308) Albumin 1.8 g/dL (3.4-5.0) Laboratory Tests Test 11/22/18 06:30 11/22/18 13:15 11/22/18 14:32 11/22/18 17:19 White Blood Count 20.4 x10^3/uL (4.0-11.0) Red Blood Count 2.78 x10^6/uL (4.30-5.70) Hemoglobin 8.7 g/dL (13.0-17.5) Hematocrit 25.9 % (39.0-53.0) Mean Corpuscular Volume 93 fL (79-100) Mean Corpuscular Hemoglobin 31 pg (25-35) Mean Corpuscular Hemoglobin Concent 34 g/dL (31-37) Red Cell Distribution Width 14.6 % (11.5-14.5) Platelet Count 106 x10^3/uL (140-400) Neutrophils (%) (Auto) 94 % (31-73) Lymphocytes (%) (Auto) 2 % (24-48) Monocytes (%) (Auto) 3 % (0-9) Eosinophils (%) (Auto) 0 % (0-3) Basophils (%) (Auto) 0 % (0-3) Neutrophils # (Auto) 19.3 x10^3uL (1.8-7.7) Lymphocytes # (Auto) 0.5 x10^3/uL (1.0-4.8) Monocytes # (Auto) 0.6 x10^3/uL (0.0-1.1) Eosinophils # (Auto) 0.1 x10^3/uL (0.0-0.7) Basophils # (Auto) 0.0 x10^3/uL (0.0-0.2) Sodium Level 134 mmol/L (136-145) Potassium Level 4.8 mmol/L (3.5-5.1) Chloride Level 100 mmol/L (98-107) Carbon Dioxide Level 21 mmol/L (21-32) Anion Gap 13 (6-14) Blood Urea Nitrogen 68 mg/dL (8-26) Creatinine 5.2 mg/dL (0.7-1.3) Estimated GFR (Cockcroft-Gault) 11.6 Glucose Level 350 mg/dL (70-99) Calcium Level 6.7 mg/dL (8.5-10.1) Lactic Acid Level 2.9 mmol/L (0.4-2.0) Magnesium Level 2.3 mg/dL (1.8-2.4) Albumin 1.8 g/dL (3.4-5.0) Glucose (Fingerstick) 280 mg/dL (70-99) 236 mg/dL (70-99) Test 11/22/18 21:06 11/23/18 05:00 Glucose (Fingerstick) 160 mg/dL (70-99) Hemoglobin 8.3 g/dL (13.0-17.5) Sodium Level 137 mmol/L (136-145) Potassium Level 4.6 mmol/L (3.5-5.1) Chloride Level 100 mmol/L (98-107) Carbon Dioxide Level 24 mmol/L (21-32) Anion Gap 13 (6-14) Blood Urea Nitrogen 80 mg/dL (8-26) Creatinine 6.0 mg/dL (0.7-1.3) Estimated GFR (Cockcroft-Gault) 9.8 Glucose Level 152 mg/dL (70-99) Calcium Level 7.3 mg/dL (8.5-10.1) Phosphorus Level 3.8 mg/dL (2.6-4.7) Magnesium Level 2.5 mg/dL (1.8-2.4) Creatine Kinase 159 U/L (39-308) Albumin 1.8 g/dL (3.4-5.0) Medications Active Scripts Medications Dose Route/Sig Max Daily Dose Days Date Category Dose Instructions Novolin 70-30 100 Unit/Ml Vial (Hum Insulin Nph/Reg Insulin Hm) 100 Unit/1 Ml Vial 7 Unit SQ QHS 11/21/18 Reported Novolin 70-30 100 Unit/Ml Vial (Hum Insulin Nph/Reg Insulin Hm) 100 Unit/1 Ml Vial 15 Unit SQ DAILY 11/21/18 Reported Novolin R (Insulin Regular, Human) 100 Unit/1 Ml Vial 100 Unit IJ QIDACHS 11/21/18 Reported Oxybutynin Chloride 5 Mg Tablet 5 Mg PO TID 11/21/18 Reported Ondansetron Hcl 4 Mg Tablet 1 Tab PO PRN Q6HRS 11/21/18 Reported Tylenol (Acetaminophen) 325 Mg Tablet 2 Tab PO HS 11/21/18 Reported Nortriptyline Hcl 50 Mg Capsule 50 Mg PO HS 11/21/18 Reported Metformin Hcl 1,000 Mg Tablet 1,000 Mg PO BIDWMEALS 11/21/18 Reported Lactulose 10 Gm Packet 10 Gm PO DAILY 11/21/18 Reported Hyoscyamine Sulfate 0.125 Mg Tab.subl 0.125 Mg SL Q4HRS PRN 11/21/18 Reported Loratadine 10 Mg Tablet 1 Tab PO DAILY 11/21/18 Reported Pain Relieving 1%-15% Cream (Methyl Salicylate/Menthol) 85 Gm Cream..g. 85 Gm TP TID PRN PRN 11/21/18 Reported [place] 5-325 Tablet (Acetaminophen/Hydrocodone Bitart) 1 Each Tablet 2 Tab PO Q4HRS 03/25/17 Reported LAST DOSE GIVEN: DATE: TIME: Zoloft (Sertraline Hcl) 100 Mg Tablet 100 Mg PO DAILY 02/18/17 Reported Lisinopril 5 Mg Tablet 2.5 Mg PO DAILY 02/18/17 Reported Atorvastatin Calcium 20 Mg Tablet 40 Mg PO DAILY 02/18/17 Reported Comments cxr, basilar atelectasis infilt Impression . IMPRESSION: 1. Acute hypoxic respiratory failure secondary to septic shock. 2. Septic shock related to urinary tract infection. b cx, GNR 11/20 3. Recent prostatectomy and now comes in with suspected perinephric abscess/ UTI He has left ureteral stone and has left hydronephrosis. 4. No significant history of tobacco use. 5. Lactic acidosis secondary to septic shock. 6. Moderate protein-calorie malnutrition. 7. Acute renal failure, worse, nephro planned on hd Plan . RECOMMENDATIONS: 1. pressors to keep map >65 2. Continue with broad-spectrum antibiotic, per id. 3. Follow id and s. bcx GNR 11/20 4. Follow Urology's recommendations to relieve the obstruction. s/p nephrostomy tube on the left side. 5. monitor urine out put, hd per nephro 6. bronchodilators. 7. DVT, GI prophylaxis with hep sq, and protonix 8. discussed with RN and RT, pt. LINWOOD LORENZO MD Nov 23, 2018 06:25
[2018-11-23] MEDS: INSULIN LISPRO 300 UNITS/3 ML INSULN.PEN. SQ SCH ×6 (08:00→18:00)
--- NOTE | 2018-11-23 08:47 | PDOC ---
SUBJECTIVE ROS Follow-up for acute renal failure Patient is feeling okay, not any worse than yesterday CVS: min Orthopnea, no CP RESP: min SOB, no OWUSU GI: no Nausea, no Vomiting, + anorexia : no Dysuria, no Urgency OBJECTIVE Vital Signs Vital Signs Date Time Temp Pulse Resp B/P (MAP) Pulse Ox O2 Delivery O2 Flow Rate FiO2 11/23/18 06:00 95 103/67 (79) 92 Nasal Cannula 4.0 11/23/18 04:00 98.2 98.2 11/22/18 22:15 21 I & 0 Intake and Output 11/23/18 07:00 Intake Total 1045.36 ml Output Total 650 ml Balance 395.36 ml Intake Oral 800 ml IV Total 245.36 ml Output Urine Total 485 ml Drainage Total 165 ml PHYSICAL EXAM Physical Exam GEN: Awake, Oriented x 2-3 , In no visible distress EYES: Vision Unchanged, Conjunctiva Normal EN: No EN Drainage, Mucous Membranes dryish NECK: no JVD, no JVP, Supple, no Thyromegaly CVS: S1S2, no Murmur, No Gallop, No Rub,no Edema RESP: no Rales, no Rhonchi,no Acc. Muscle Use GI: BS hypoactive, NO Bruit, Non Tender, Non Distended : Lt CVA tenderness, no Suprapubic Tenderness DIAGNOSIS/ASSESSMENT Assessment & Plan Acute kidney injury: Creatinine is worse this morning Suspect ATN. Urine output remains marginal despite significant positive fluid balance. Proceed with dialysis in the morning Mild subjective shortness of breath: Resolved after stopping IV fluids Metabolic acidosis: Now corrected Severe hypocalcemia: Corrects for current low levels of albumin. He may need replacement with IV calcium. Normal CPK Hypomagnesemia: Now corrected. Suspected pyelonephritis: Defer to ID specialists Sepsis: Septic shock: Patient remains on pressors currently COMMENT/RELEVANT DATA Meds Current Medications Medications (Trade) Dose Ordered Sig/Wili Start Time Stop Time Status Last Admin Dose Admin Acetaminophen (Tylenol Supp) 650 mg PRN Q6HRS PRN 11/21/18 04:45 11/21/18 05:04 650 MG Acetaminophen (Tylenol) 650 mg PRN Q4HRS PRN 11/20/18 21:15 11/21/18 21:14 DC Acetaminophen/ Hydrocodone Bitart (Lortab 5/325) 2 tab PRN Q4HRS PRN 11/21/18 08:00 11/22/18 21:15 2 TAB Alteplase, Recombinant (Cathflo For Central Catheter Clearance) 1 mg 1X ONCE 11/22/18 06:30 11/22/18 06:31 DC 11/22/18 06:25 1 MG Cefazolin Sodium 50 ml @ 100 mls/hr 1X ONCE 11/21/18 11:15 11/21/18 11:44 DC 11/21/18 11:15 100 MLS/HR Cetirizine HCl (ZyrTEC) 10 mg DAILY 11/21/18 09:00 11/22/18 08:33 10 MG Dextrose (Dextrose 50%-Water Syringe) 12.5 gm PRN Q15MIN PRN 11/21/18 07:30 Fentanyl Citrate (Fentanyl 2ml Vial) 100 mcg 1X ONCE 11/21/18 12:45 11/21/18 12:51 DC 11/21/18 12:45 100 MCG Heparin Sodium (Porcine) (Heparin Sodium) 5,000 unit Q12HR 11/22/18 09:00 11/22/18 21:10 5,000 UNIT Heparin Sodium/ Sodium Chloride (HEPARIN for ARTERIAL LINE FLUSH) 1,000 unit 1X ONCE 11/21/18 12:45 11/21/18 12:51 DC Hydromorphone HCl (Dilaudid) 1 mg PRN Q3HRS PRN 11/21/18 08:00 11/21/18 08:15 1 MG Insulin Glargine (Lantus) 12 units QHS 11/21/18 21:00 11/22/18 21:10 12 UNITS Insulin Human Lispro (HumaLOG) 10 units TIDWMEALS 11/21/18 08:00 11/22/18 17:00 10 UNITS Iohexol (Omnipaque 300 Mg/ml) 40 ml 1X ONCE 11/21/18 12:45 11/21/18 12:51 DC 11/21/18 12:45 40 ML Lidocaine/ Epinephrine (LIDOCAINE 2%-EPI 1:100,000 multi-dose) 20 ml 1X ONCE 11/20/18 22:15 11/20/18 22:16 DC 11/20/18 22:31 20 ML Lidocaine/Sodium Bicarbonate (Buffered Lidocaine 1%) 13 ml 1X ONCE 11/21/18 12:45 11/21/18 12:51 DC 11/21/18 12:45 13 ML Magnesium Sulfate 50 ml @ 25 mls/hr PRN DAILY PRN 11/22/18 13:00 Magnesium Sulfate/ Dextrose 100 ml @ 25 mls/hr 1X ONCE 11/21/18 09:00 11/21/18 12:59 Cancel Meropenem 500 mg/ Sodium Chloride 50 ml @ 100 mls/hr Q24H 11/22/18 05:00 11/23/18 04:57 100 MLS/HR Midazolam HCl (Versed) 2 mg 1X ONCE 11/21/18 12:45 11/21/18 12:51 DC 11/21/18 12:45 2 MG Morphine Sulfate (Morphine Sulfate) 4 mg PRN Q4HRS PRN 11/21/18 04:45 11/21/18 20:47 4 MG Norepinephrine Bitartrate 250 ml @ 1.875 mls/ hr CONT PRN 11/21/18 06:45 11/22/18 04:21 9.375 MLS/HR Ondansetron HCl (Zofran Odt) 4 mg PRN Q6HRS PRN 11/21/18 07:45 Ondansetron HCl (Zofran) 4 mg PRN Q8HRS PRN 11/20/18 21:15 11/21/18 21:14 DC 11/20/18 21:35 4 MG Oxybutynin Chloride (Ditropan) 5 mg TID 11/21/18 09:00 11/22/18 21:07 5 MG Pantoprazole Sodium (Protonix) 40 mg DAILYAC 11/22/18 07:45 11/22/18 08:38 40 MG Piperacillin Sod/ Tazobactam Sod (Zosyn Per Pharmacy) 1 each PRN DAILY PRN 11/21/18 04:45 11/21/18 07:10 DC Piperacillin Sod/ Tazobactam Sod 2.25 gm/Sodium Chloride 50 ml @ 100 mls/hr Q6HRS 11/21/18 06:00 11/21/18 07:10 DC 11/21/18 05:42 100 MLS/HR Piperacillin Sod/ Tazobactam Sod 4.5 gm/Sodium Chloride 100 ml @ 200 mls/hr 1X ONCE 11/20/18 20:15 11/20/18 20:44 DC 11/20/18 20:13 200 MLS/HR Saliva Substitute (Biotene Moisturizing Mouth) 2 spray PRN Q15MIN PRN 11/21/18 05:30 Sertraline HCl (Zoloft) 100 mg DAILY 11/21/18 09:00 11/22/18 08:33 100 MG Sodium Bicarbonate 150 meq/Dextrose 1,150 ml @ 125 mls/hr Q9H12M 11/21/18 11:00 11/22/18 13:03 DC 11/22/18 04:21 125 MLS/HR Sodium Chloride 1,000 ml @ 1,000 mls/hr 1X ONCE 11/21/18 05:30 11/21/18 06:29 DC 11/21/18 06:11 1,000 MLS/HR Throat Lozenges (Cepacol Sore Throat Lozenge) 1 corina PRN Q2HRS PRN 11/21/18 19:45 11/21/18 19:45 DC Vancomycin HCl 2 gm/Sodium Chloride 500 ml @ 250 mls/hr 1X ONCE 11/20/18 22:00 11/20/18 23:59 DC 11/20/18 22:22 250 MLS/HR Vasopressin 40 unit/Dextrose 102 ml @ 6 mls/hr CONT PRN 11/21/18 05:00 11/23/18 06:13 6 MLS/HR Lab Laboratory Tests Test 11/22/18 13:15 11/22/18 14:32 11/22/18 17:19 11/22/18 21:06 Lactic Acid Level 2.9 mmol/L (0.4-2.0) Magnesium Level 2.3 mg/dL (1.8-2.4) Albumin 1.8 g/dL (3.4-5.0) Glucose (Fingerstick) 280 mg/dL (70-99) 236 mg/dL (70-99) 160 mg/dL (70-99) Test 11/23/18 05:00 Hemoglobin 8.3 g/dL (13.0-17.5) Sodium Level 137 mmol/L (136-145) Potassium Level 4.6 mmol/L (3.5-5.1) Chloride Level 100 mmol/L (98-107) Carbon Dioxide Level 24 mmol/L (21-32) Anion Gap 13 (6-14) Blood Urea Nitrogen 80 mg/dL (8-26) Creatinine 6.0 mg/dL (0.7-1.3) Estimated GFR (Cockcroft-Gault) 9.8 Glucose Level 152 mg/dL (70-99) Calcium Level 7.3 mg/dL (8.5-10.1) Phosphorus Level 3.8 mg/dL (2.6-4.7) Magnesium Level 2.5 mg/dL (1.8-2.4) Creatine Kinase 159 U/L (39-308) Albumin 1.8 g/dL (3.4-5.0) Results All relevant outside records, renal labs, imaging studies, telemetry/EKG's were reviewed. CARMEL ROSE MD Nov 23, 2018 08:47
--- NOTE | 2018-11-23 08:49 | PDOC ---
Infectious Disease Note Subjective Subjective Says left back is sore and feet are feeling numb. No F/C/S/N/V/D Still on vasopressin and Levophed down to 1 mcg 4L O2 Low UO ROS ROS per HPI otherwise neg Vital Sign Vital Signs Vital Signs Date Time Temp Pulse Resp B/P (MAP) Pulse Ox O2 Delivery O2 Flow Rate FiO2 11/23/18 06:00 95 103/67 (79) 92 Nasal Cannula 4.0 11/23/18 04:00 98.2 98.2 11/22/18 22:15 21 Physical Exam PHYSICAL EXAM GENERAL: Up in the chair, resting quietly HENT: Oral cavity clear HEART: S1 and S2. regular ABDOMEN: Obese, soft, NT : Hair in place GENITOURINARY: Hair in place. Left nephrostomy tube intact EXTREMITIES: Trace edema lower extremities, no cyanosis SKIN: Without generalized signs of rash. NEUROLOGIC: Arouses to name, responds appropriately PIV ok RIJ clean Labs Lab Laboratory Tests Test 11/22/18 13:15 11/22/18 14:32 11/22/18 17:19 11/22/18 21:06 Lactic Acid Level 2.9 mmol/L (0.4-2.0) Magnesium Level 2.3 mg/dL (1.8-2.4) Albumin 1.8 g/dL (3.4-5.0) Glucose (Fingerstick) 280 mg/dL (70-99) 236 mg/dL (70-99) 160 mg/dL (70-99) Test 11/23/18 05:00 Hemoglobin 8.3 g/dL (13.0-17.5) Sodium Level 137 mmol/L (136-145) Potassium Level 4.6 mmol/L (3.5-5.1) Chloride Level 100 mmol/L (98-107) Carbon Dioxide Level 24 mmol/L (21-32) Anion Gap 13 (6-14) Blood Urea Nitrogen 80 mg/dL (8-26) Creatinine 6.0 mg/dL (0.7-1.3) Estimated GFR (Cockcroft-Gault) 9.8 Glucose Level 152 mg/dL (70-99) Calcium Level 7.3 mg/dL (8.5-10.1) Phosphorus Level 3.8 mg/dL (2.6-4.7) Magnesium Level 2.5 mg/dL (1.8-2.4) Creatine Kinase 159 U/L (39-308) Albumin 1.8 g/dL (3.4-5.0) Micro 11/20. BLOOD CULTURE Final GRAM NEGATIVE RODS, IN 3 OF 4 BOTTLES, 2 SETS DRAWN. CALLED TO ELISEO TRENT RN IN ICU AT 8:40 ON 11/21/18 DW MT SENT TO [facility] FOR FURTHER WORKUP. AMMENDED REPORT: GRAM NEGATIVE RODS, NOW IN 4 OF 4 BOTTLES, Objective Assessment Sepsis, present on admission, GNR 11/20- less pressor support now - Clinically - better Lactic acidosis Obstructive uropathy, s/p percutaneous nephrostomy tube placement on 11/21. Subcutaneous emphysema on CT, questionable, subcutaneous injections. Acute kidney injury.- mild increase, renal following, may need to start dialysis Cipro allergy, questionable reaction. S/p Recent Prostatectomy Plan Plan of Care Cont Meropenem, renal dosing Q 24hr Await GNR ID/susceptibilities Monitor labs - CBC in am/temp F/u ? sub Q emphysema Repeat BC To start HD 11/24 Critically ill D/w RN Attending Co-Sign Attending Co-Sign The patient was seen and interviewed as well as examined at the bedside. The chart was reviewed. The case was discussed. Agree with the plan of care. RASHAUN KIMBLE APRN Nov 23, 2018 08:49 DRAKE VILLEGAS MD Nov 23, 2018 10:38
[2018-11-23] MEDS: PANTOPRAZOLE 40 MG TABLET.DR. PO SCH (09:02)
[2018-11-23] MEDS: OXYBUTYNIN CHLORIDE 5 MG TABLET PO SCH ×3 (09:02→21:32)
[2018-11-23] MEDS: CETIRIZINE HCL 10 MG TABLET. PO SCH (09:02)
[2018-11-23] MEDS: SERTRALINE 50 MG TABLET. PO SCH (09:02)
[2018-11-23] MEDS: HEPARIN for SUB-Q USE 5,000 UNIT/ML VIAL. SQ SCH ×2 (09:03→21:28)
[2018-11-23] MEDS: HYDROmorphone 2 MG/ML VIAL IV PRN ×3 (09:06→21:35)
--- NOTE | 2018-11-23 12:22 | PDOC ---
PROGRESS NOTES Chief Complaint Chief Complaint septic shock secondary to obstructive uropathy Status post TURP in an outside facility obesity, BMI 33 7mm obstructive renal stone, renal colic, obstructive uropathy causing acute renal failure, in need Perc nephrostomy History ofDM2, depression, Patient is [facility] as per report Plan: Continue pressor support status post nephrostomy tube given worsening creatinine will be intiated tomorrow on crrt Supportive measures in the ICU continue antibiotics as per ID try to erick off pressors History of Present Illness History of Present Illness Patient critically stable at the present time. The patient denies any chest pain or palpitations no shortness of breatht. Patient continues to be on 2 pressors but minimal levophed support hope he will be weaned off today further recommendations based on the clinical course appreciate tax credit leasing consultant recommendation Vitals Vitals Vital Signs Date Time Temp Pulse Resp B/P (MAP) Pulse Ox O2 Delivery O2 Flow Rate FiO2 11/23/18 12:00 Nasal Cannula 4.0 11/23/18 12:00 98.2 100 94 98.2 11/23/18 09:36 19 Physical Exam Physical Exam GENERAL: Up in the chair, resting quietly HENT: Oral cavity clear HEART: S1 and S2. regular ABDOMEN: Obese, soft, NT : Hair in place GENITOURINARY: Hair in place. Left nephrostomy tube intact EXTREMITIES: Trace edema lower extremities, no cyanosis SKIN: Without generalized signs of rash. NEUROLOGIC: Arouses to name, responds appropriately PIV ok RIJ clean General: Alert, Oriented X3, No acute distress Lungs: Crackles Abdomen: Normal bowel sounds, Soft Extremities: No clubbing, No edema, Normal pulses Skin: No rashes, No significant lesion Labs LABS Laboratory Tests Test 11/22/18 13:15 11/22/18 14:32 11/22/18 17:19 11/22/18 21:06 Lactic Acid Level 2.9 mmol/L (0.4-2.0) Magnesium Level 2.3 mg/dL (1.8-2.4) Albumin 1.8 g/dL (3.4-5.0) Glucose (Fingerstick) 280 mg/dL (70-99) 236 mg/dL (70-99) 160 mg/dL (70-99) Test 11/23/18 05:00 11/23/18 09:09 Hemoglobin 8.3 g/dL (13.0-17.5) Sodium Level 137 mmol/L (136-145) Potassium Level 4.6 mmol/L (3.5-5.1) Chloride Level 100 mmol/L (98-107) Carbon Dioxide Level 24 mmol/L (21-32) Anion Gap 13 (6-14) Blood Urea Nitrogen 80 mg/dL (8-26) Creatinine 6.0 mg/dL (0.7-1.3) Estimated GFR (Cockcroft-Gault) 9.8 Glucose Level 152 mg/dL (70-99) Calcium Level 7.3 mg/dL (8.5-10.1) Phosphorus Level 3.8 mg/dL (2.6-4.7) Magnesium Level 2.5 mg/dL (1.8-2.4) Creatine Kinase 159 U/L (39-308) Albumin 1.8 g/dL (3.4-5.0) Glucose (Fingerstick) 141 mg/dL (70-99) Review of Systems Review of Systems -10 point review of system only pertinent as per history of present illness Assessment and Plan Assessmemt and Plan Problems Medical Problems: (1) Acute on chronic renal failure Status: Acute (2) Hydronephrosis with urinary obstruction due to ureteral calculus Status: Acute (3) Renal colic Status: Acute Comment Review of Relevant I have reviewed the following items patti (where applicable) has been applied. Labs Laboratory Tests Test 11/21/18 13:25 11/21/18 17:34 11/21/18 20:49 11/22/18 06:30 Glucose (Fingerstick) 281 mg/dL (70-99) 300 mg/dL (70-99) 362 mg/dL (70-99) White Blood Count 20.4 x10^3/uL (4.0-11.0) Red Blood Count 2.78 x10^6/uL (4.30-5.70) Hemoglobin 8.7 g/dL (13.0-17.5) Hematocrit 25.9 % (39.0-53.0) Mean Corpuscular Volume 93 fL (79-100) Mean Corpuscular Hemoglobin 31 pg (25-35) Mean Corpuscular Hemoglobin Concent 34 g/dL (31-37) Red Cell Distribution Width 14.6 % (11.5-14.5) Platelet Count 106 x10^3/uL (140-400) Neutrophils (%) (Auto) 94 % (31-73) Lymphocytes (%) (Auto) 2 % (24-48) Monocytes (%) (Auto) 3 % (0-9) Eosinophils (%) (Auto) 0 % (0-3) Basophils (%) (Auto) 0 % (0-3) Neutrophils # (Auto) 19.3 x10^3uL (1.8-7.7) Lymphocytes # (Auto) 0.5 x10^3/uL (1.0-4.8) Monocytes # (Auto) 0.6 x10^3/uL (0.0-1.1) Eosinophils # (Auto) 0.1 x10^3/uL (0.0-0.7) Basophils # (Auto) 0.0 x10^3/uL (0.0-0.2) Sodium Level 134 mmol/L (136-145) Potassium Level 4.8 mmol/L (3.5-5.1) Chloride Level 100 mmol/L (98-107) Carbon Dioxide Level 21 mmol/L (21-32) Anion Gap 13 (6-14) Blood Urea Nitrogen 68 mg/dL (8-26) Creatinine 5.2 mg/dL (0.7-1.3) Estimated GFR (Cockcroft-Gault) 11.6 Glucose Level 350 mg/dL (70-99) Calcium Level 6.7 mg/dL (8.5-10.1) Test 11/22/18 13:15 11/22/18 14:32 11/22/18 17:19 11/22/18 21:06 Lactic Acid Level 2.9 mmol/L (0.4-2.0) Magnesium Level 2.3 mg/dL (1.8-2.4) Albumin 1.8 g/dL (3.4-5.0) Glucose (Fingerstick) 280 mg/dL (70-99) 236 mg/dL (70-99) 160 mg/dL (70-99) Test 11/23/18 05:00 11/23/18 09:09 Hemoglobin 8.3 g/dL (13.0-17.5) Sodium Level 137 mmol/L (136-145) Potassium Level 4.6 mmol/L (3.5-5.1) Chloride Level 100 mmol/L (98-107) Carbon Dioxide Level 24 mmol/L (21-32) Anion Gap 13 (6-14) Blood Urea Nitrogen 80 mg/dL (8-26) Creatinine 6.0 mg/dL (0.7-1.3) Estimated GFR (Cockcroft-Gault) 9.8 Glucose Level 152 mg/dL (70-99) Calcium Level 7.3 mg/dL (8.5-10.1) Phosphorus Level 3.8 mg/dL (2.6-4.7) Magnesium Level 2.5 mg/dL (1.8-2.4) Creatine Kinase 159 U/L (39-308) Albumin 1.8 g/dL (3.4-5.0) Glucose (Fingerstick) 141 mg/dL (70-99) Laboratory Tests Test 11/22/18 13:15 11/22/18 14:32 11/22/18 17:19 11/22/18 21:06 Lactic Acid Level 2.9 mmol/L (0.4-2.0) Magnesium Level 2.3 mg/dL (1.8-2.4) Albumin 1.8 g/dL (3.4-5.0) Glucose (Fingerstick) 280 mg/dL (70-99) 236 mg/dL (70-99) 160 mg/dL (70-99) Test 11/23/18 05:00 11/23/18 09:09 Hemoglobin 8.3 g/dL (13.0-17.5) Sodium Level 137 mmol/L (136-145) Potassium Level 4.6 mmol/L (3.5-5.1) Chloride Level 100 mmol/L (98-107) Carbon Dioxide Level 24 mmol/L (21-32) Anion Gap 13 (6-14) Blood Urea Nitrogen 80 mg/dL (8-26) Creatinine 6.0 mg/dL (0.7-1.3) Estimated GFR (Cockcroft-Gault) 9.8 Glucose Level 152 mg/dL (70-99) Calcium Level 7.3 mg/dL (8.5-10.1) Phosphorus Level 3.8 mg/dL (2.6-4.7) Magnesium Level 2.5 mg/dL (1.8-2.4) Creatine Kinase 159 U/L (39-308) Albumin 1.8 g/dL (3.4-5.0) Glucose (Fingerstick) 141 mg/dL (70-99) Microbiology 11/20/18 Blood Culture - Final, Complete Medications Current Medications Sodium Chloride 1,000 ml @ 1,000 mls/hr 1X ONCE IV Last administered on at 20:10; Start 11/20/18 at 20:00; Stop 11/20/18 at 20:59; Status DC Sodium Chloride 1,000 ml @ 1,000 mls/hr 1X ONCE IV Last administered on at 20:10; Start 11/20/18 at 20:00; Stop 11/20/18 at 20:59; Status DC Piperacillin Sod/ Tazobactam Sod 4.5 gm/Sodium Chloride 100 ml @ 200 mls/hr 1X ONCE IV Last administered on 11/20/18at 20:13; Start 11/20/18 at 20:15; Stop 11/20/18 at 20:44; Status DC Fentanyl Citrate (Fentanyl 2ml Vial) 50 mcg 1X ONCE IV Last administered on at 20:13; Start 11/20/18 at 20:15; Stop 11/20/18 at 20:16; Status DC Ondansetron HCl (Zofran) 4 mg 1X ONCE IV Last administered on 11/20/18at 20:13 ; Start 11/20/18 at 20:15; Stop 11/20/18 at 20:16; Status DC Sodium Chloride 1,000 ml @ 1,000 mls/hr 1X ONCE IV Last administered on at 20:47; Start 11/20/18 at 20:45; Stop 11/20/18 at 21:44; Status DC Ondansetron HCl (Zofran) 4 mg PRN Q8HRS PRN IV NAUSEA/VOMITING Last administered on 11/20/18at 21:35; Start 11/20/18 at 21:15; Stop 11/21/18 at 21:14 ; Status DC Fentanyl Citrate (Fentanyl 2ml Vial) 50 mcg PRN Q2HR PRN IV PAIN Last administered on 11/21/18at 03:06; Start 11/20/18 at 21:15 Acetaminophen (Tylenol) 650 mg PRN Q4HRS PRN PO FEVER; Start 11/20/18 at 21:15 ; Stop 11/21/18 at 21:14; Status DC Insulin Human Lispro (HumaLOG) 0-5 UNITS TIDWMEALS SQ ; Start 11/21/18 at 08:00 ; Stop 11/21/18 at 08:00; Status DC Dextrose (Dextrose 50%-Water Syringe) 12.5 gm PRN Q15MIN PRN IV SEE COMMENTS; Start 11/20/18 at 21:15; Stop 11/21/18 at 07:45; Status DC Vancomycin HCl 2 gm/Sodium Chloride 500 ml @ 250 mls/hr 1X ONCE IV Last administered on 11/20/18at 22:22; Start 11/20/18 at 22:00; Stop 11/20/18 at 23:59 ; Status DC Fentanyl Citrate (Fentanyl 2ml Vial) 75 mcg 1X ONCE IV Last administered on at 21:35; Start 11/20/18 at 21:45; Stop 11/20/18 at 21:46; Status DC Lidocaine/ Epinephrine (LIDOCAINE 2%-EPI 1:100,000 multi-dose) 20 ml 1X ONCE IJ Last administered on 11/20/18at 22:31; Start 11/20/18 at 22:15; Stop at 22:16; Status DC Fentanyl Citrate (Fentanyl 2ml Vial) 75 mcg 1X ONCE IV ; Start 11/20/18 at 22: 30; Stop 11/20/18 at 22:31; Status DC Magnesium Sulfate 50 ml @ 25 mls/hr 1X ONCE IV Last administered on 11/21/18at 01:05; Start 11/20/18 at 23:15; Stop 11/21/18 at 01:14; Status DC Norepinephrine Bitartrate 250 ml @ 0 mls/hr 1X ONCE IV Last administered on at 23:35; Start 11/20/18 at 23:30; Stop 11/20/18 at 23:31; Status DC Sodium Chloride 1,000 ml @ 150 mls/hr Q6H40M IV Last administered on at 07:11; Start 11/21/18 at 04:45; Stop 11/21/18 at 11:25; Status DC Sodium Chloride 1,000 ml @ 1,000 mls/hr 1X ONCE IV Last administered on at 05:04; Start 11/21/18 at 04:45; Stop 11/21/18 at 05:44; Status DC Sodium Chloride 1,000 ml @ 1,000 mls/hr 1X ONCE IV Last administered on at 06:11; Start 11/21/18 at 05:30; Stop 11/21/18 at 06:29; Status DC Vasopressin 40 unit/Dextrose 102 ml @ 6 mls/hr CONT PRN IV SEE I/O RECORD Last administered on 11/23/18at 06:13; Start 11/21/18 at 05:00 Acetaminophen (Tylenol Supp) 650 mg PRN Q6HRS PRN MS MILD PAIN / TEMP Last administered on 11/21/18at 05:04; Start 11/21/18 at 04:45 Piperacillin Sod/ Tazobactam Sod (Zosyn Per Pharmacy) 1 each PRN DAILY PRN MC SEE COMMENTS; Start 11/21/18 at 04:45; Stop 11/21/18 at 07:10; Status DC Meropenem 500 mg/ Sodium Chloride 50 ml @ 100 mls/hr Q12H IV Last administered on 11/21/18at 05:10; Start 11/21/18 at 05:00; Stop 11/21/18 at 07:10 ; Status DC Morphine Sulfate (Morphine Sulfate) 4 mg PRN Q4HRS PRN IV PAIN Last administered on 11/21/18at 20:47; Start 11/21/18 at 04:45 Piperacillin Sod/ Tazobactam Sod 2.25 gm/Sodium Chloride 50 ml @ 100 mls/hr Q6HRS IV Last administered on 11/21/18at 05:42; Start 11/21/18 at 06:00; Stop at 07:10; Status DC Magnesium Sulfate/ Dextrose 100 ml @ 25 mls/hr 1X ONCE IV Last administered on 11/21/18at 05:42; Start 11/21/18 at 05:30; Stop 11/21/18 at 09:29; Status DC Throat Lozenges (Cepacol Sore Throat Lozenge) 1 corina PRN Q2HRS PRN PO SORE THROAT Last administered on 11/21/18at 20:10; Start 11/21/18 at 05:30 Saliva Substitute (Biotene Moisturizing Mouth) 2 spray PRN Q15MIN PRN PO DRY MOUTH; Start 11/21/18 at 05:30 Norepinephrine Bitartrate 250 ml @ 1.875 mls/ hr CONT PRN IV SEE I/O RECORD Last administered on 11/22/18 04:21; Start 11/21/18 at 06:45 Meropenem 500 mg/ Sodium Chloride 50 ml @ 100 mls/hr Q24H IV Last administered on 11/23/18 04:57; Start 11/22/18 at 05:00 Acetaminophen/ Hydrocodone Bitart (Lortab 5/325) 2 tab Q4HRS PO ; Start at 08:00; Stop 11/21/18 at 08:00; Status DC Oxybutynin Chloride (Ditropan) 5 mg TID PO Last administered on 11/23/18 09:02 ; Start 11/21/18 at 09:00 Cetirizine HCl (ZyrTEC) 10 mg DAILY PO Last administered on 11/23/18 09:02; Start 11/21/18 at 09:00 Ondansetron HCl (Zofran Odt) 4 mg PRN Q6HRS PRN PO NAUSEA/VOMITING; Start 11/21 at 07:45 Sertraline HCl (Zoloft) 100 mg DAILY PO Last administered on 11/23/18 09:02; Start 11/21/18 at 09:00 Insulin Human Lispro (HumaLOG) 0-9 UNITS TIDWMEALS SQ Last administered on 11/22at 17:00; Start 11/21/18 at 08:00 Dextrose (Dextrose 50%-Water Syringe) 12.5 gm PRN Q15MIN PRN IV SEE COMMENTS; Start 11/21/18 at 07:30 Insulin Glargine (Lantus) 12 units QHS SQ Last administered on 11/22/18at 21:10 ; Start 11/21/18 at 21:00 Insulin Human Lispro (HumaLOG) 10 units TIDWMEALS SQ Last administered on 17:00; Start 11/21/18 at 08:00 Magnesium Sulfate/ Dextrose 100 ml @ 25 mls/hr 1X ONCE IV ; Start 11/21/18 at 09:00; Stop 11/21/18 at 12:59; Status Cancel Acetaminophen/ Hydrocodone Bitart (Lortab 5/325) 2 tab PRN Q4HRS PRN PO PAIN Last administered on 11/22/18at 21:15; Start 11/21/18 at 08:00 Hydromorphone HCl (Dilaudid) 1 mg PRN Q3HRS PRN IV PAIN Last administered on at 09:06; Start 11/21/18 at 08:00 Sodium Bicarbonate 150 meq/Dextrose 1,150 ml @ 125 mls/hr Q9H12M IV Last administered on 11/22/18at 04:21; Start 11/21/18 at 11:00; Stop 11/22/18 at 13:03 ; Status DC Midazolam HCl (Versed) 2 mg STK-MED ONCE .ROUTE ; Start 11/21/18 at 10:50; Stop 11/21/18 at 10:51; Status DC Fentanyl Citrate (Fentanyl 2ml Vial) 100 mcg STK-MED ONCE .ROUTE ; Start at 10:50; Stop 11/21/18 at 10:51; Status DC Cefazolin Sodium 50 ml @ 100 mls/hr 1X ONCE IV Last administered on at 11:15; Start 11/21/18 at 11:15; Stop 11/21/18 at 11:44; Status DC Lidocaine/Sodium Bicarbonate (Buffered Lidocaine 1%) 3 ml STK-MED ONCE .ROUTE ; Start 11/21/18 at 11:56; Stop 11/21/18 at 11:57; Status DC Iohexol (Omnipaque 300 Mg/ml) 100 ml STK-MED ONCE .ROUTE ; Start 11/21/18 at 11: 56; Stop 11/21/18 at 11:57; Status DC Heparin Sodium/ Sodium Chloride 500 ml @ As Directed STK-MED ONCE .ROUTE ; Start 11/21/18 at 11:56; Stop 11/21/18 at 11:57; Status DC Lidocaine/Sodium Bicarbonate (Buffered Lidocaine 1%) 3 ml STK-MED ONCE .ROUTE ; Start 11/21/18 at 12:29; Stop 11/21/18 at 12:30; Status DC Lidocaine/Sodium Bicarbonate (Buffered Lidocaine 1%) 3 ml STK-MED ONCE .ROUTE ; Start 11/21/18 at 12:29; Stop 11/21/18 at 12:30; Status DC Heparin Sodium/ Sodium Chloride (HEPARIN for ARTERIAL LINE FLUSH) 1,000 unit 1X ONCE IART ; Start 11/21/18 at 12:45; Stop 11/21/18 at 12:51; Status DC Lidocaine/Sodium Bicarbonate (Buffered Lidocaine 1%) 13 ml 1X ONCE IJ Last administered on 11/21/18at 12:45; Start 11/21/18 at 12:45; Stop 11/21/18 at 12:51 ; Status DC Midazolam HCl (Versed) 2 mg 1X ONCE IV Last administered on 11/21/18at 12:45; Start 11/21/18 at 12:45; Stop 11/21/18 at 12:51; Status DC Fentanyl Citrate (Fentanyl 2ml Vial) 100 mcg 1X ONCE IV Last administered on at 12:45; Start 11/21/18 at 12:45; Stop 11/21/18 at 12:51; Status DC Iohexol (Omnipaque 300 Mg/ml) 40 ml 1X ONCE IART Last administered on at 12:45; Start 11/21/18 at 12:45; Stop 11/21/18 at 12:51; Status DC Throat Lozenges (Cepacol Sore Throat Lozenge) 1 corina PRN Q2HRS PRN PO SORE THROAT; Start 11/21/18 at 19:45; Stop 11/21/18 at 19:45; Status DC Alteplase, Recombinant (Cathflo For Central Catheter Clearance) 1 mg 1X ONCE INT CAT Last administered on 11/22/18 06:25; Start 11/22/18 at 06:30; Stop at 06:31; Status DC Pantoprazole Sodium (Protonix) 40 mg DAILYAC PO Last administered on 11/23/18 09:02; Start 11/22/18 at 07:45 Heparin Sodium (Porcine) (Heparin Sodium) 5,000 unit Q12HR SQ Last administered on 11/23/18at 09:03; Start 11/22/18 at 09:00 Magnesium Sulfate 50 ml @ 25 mls/hr PRN DAILY PRN IV for Mag < 1.7 on am labs; Start 11/22/18 at 13:00 Active Scripts Active Reported Novolin 70-30 100 Unit/Ml Vial (Hum Insulin Nph/Reg Insulin Hm) 100 Unit/1 Ml Vial 7 Unit SQ QHS Novolin 70-30 100 Unit/Ml Vial (Hum Insulin Nph/Reg Insulin Hm) 100 Unit/1 Ml Vial 15 Unit SQ DAILY Novolin R (Insulin Regular, Human) 100 Unit/1 Ml Vial 100 Unit IJ QIDACHS Oxybutynin Chloride 5 Mg Tablet 5 Mg PO TID Ondansetron Hcl 4 Mg Tablet 1 Tab PO PRN Q6HRS Tylenol (Acetaminophen) 325 Mg Tablet 2 Tab PO HS Nortriptyline Hcl 50 Mg Capsule 50 Mg PO HS Metformin Hcl 1,000 Mg Tablet 1,000 Mg PO BIDWMEALS Lactulose 10 Gm Packet 10 Gm PO DAILY Hyoscyamine Sulfate 0.125 Mg Tab.subl 0.125 Mg SL Q4HRS PRN Loratadine 10 Mg Tablet 1 Tab PO DAILY Pain Relieving 1%-15% Cream (Methyl Salicylate/Menthol) 85 Gm Cream..g. 85 Gm TP TID PRN PRN Dola 5-325 Tablet (Acetaminophen/Hydrocodone Bitart) 1 Each Tablet 2 Tab PO Q4HRS LAST DOSE GIVEN: DATE: TIME: Zoloft (Sertraline Hcl) 100 Mg Tablet 100 Mg PO DAILY Lisinopril 5 Mg Tablet 2.5 Mg PO DAILY Atorvastatin Calcium 20 Mg Tablet 40 Mg PO DAILY Vitals/I & O Vital Sign - Last 24 Hours 11/22/18 11/22/18 11/22/18 11/22/18 13:00 14:00 15:00 16:00 Temp 98.1 98.1 Pulse 94 95 98 91 Resp 22 26 26 19 B/P (MAP) 90/53 (65) 97/66 (76) 98/53 (68) 92/51 (65) Pulse Ox 93 94 93 95 O2 Delivery Nasal Cannula Nasal Cannula Nasal Cannula Nasal Cannula O2 Flow Rate 4.0 4.0 4.0 4.0 11/22/18 11/22/18 11/22/18 11/22/18 16:00 17:00 18:00 19:00 Temp 98.6 98.6 Pulse 90 87 86 Resp 18 B/P (MAP) 90/58 (69) 89/51 (64) 88/60 (69) Pulse Ox 94 95 93 O2 Delivery Nasal Cannula Nasal Cannula Nasal Cannula Nasal Cannula O2 Flow Rate 4.0 4.0 4.0 4.0 11/22/18 11/22/18 11/22/18 11/22/18 19:48 20:00 21:00 21:15 Pulse 88 92 Resp 23 B/P (MAP) 89/64 (72) 96/64 (75) Pulse Ox 96 97 97 O2 Delivery Nasal Cannula Nasal Cannula Nasal Cannula Nasal Cannula O2 Flow Rate 4.0 4.0 4.0 4.0 11/22/18 11/22/18 11/22/18 11/22/18 22:01 22:15 23:00 23:59 Pulse 87 88 Resp 21 B/P (MAP) 90/64 (73) 88/65 (73) Pulse Ox 96 96 96 O2 Delivery Nasal Cannula Nasal Cannula Nasal Cannula Nasal Cannula O2 Flow Rate 4.0 4.0 4.0 4.0 11/23/18 11/23/18 11/23/18 11/23/18 00:00 01:00 02:00 03:00 Temp 97.8 97.8 Pulse 88 89 90 92 B/P (MAP) 91/65 (74) 96/64 (75) 102/64 (77) 97/66 (76) Pulse Ox 95 96 94 94 O2 Delivery Nasal Cannula Nasal Cannula Nasal Cannula Nasal Cannula O2 Flow Rate 4.0 4.0 4.0 4.0 11/23/18 11/23/18 11/23/18 11/23/18 04:00 04:00 05:00 06:00 Temp 98.2 98.2 Pulse 96 96 95 B/P (MAP) 102/66 (78) 107/67 (80) 103/67 (79) Pulse Ox 94 94 92 O2 Delivery Nasal Cannula Nasal Cannula Nasal Cannula Nasal Cannula O2 Flow Rate 4.0 4.0 4.0 4.0 11/23/18 11/23/18 11/23/18 11/23/18 07:00 08:00 08:00 09:00 Temp 98.4 98.4 Pulse 99 98 101 B/P (MAP) 104/69 (81) 103/65 (78) 110/71 (84) Pulse Ox 93 92 93 O2 Delivery Nasal Cannula Nasal Cannula Nasal Cannula Nasal Cannula O2 Flow Rate 4.0 4.0 4.0 4.0 11/23/18 11/23/18 11/23/18 11/23/18 09:06 09:36 10:00 11:00 Pulse 100 100 Resp B/P (MAP) 105/72 (83) Pulse Ox 94 93 93 94 O2 Delivery Nasal Cannula Nasal Cannula Nasal Cannula O2 Flow Rate 4.0 4.0 11/23/18 11/23/18 12:00 12:00 Temp 98.2 98.2 Pulse 100 B/P (MAP) Pulse Ox 94 O2 Delivery Nasal Cannula Nasal Cannula O2 Flow Rate 4.0 4.0 Intake and Output 11/22/18 11/22/18 11/23/18 15:00 23:00 07:00 Intake Total 800 ml 77.36 ml 168 ml Output Total 195 ml 155 ml 330 ml Balance 605 ml -77.64 ml -162 ml TARA RG MD Nov 23, 2018 12:22
--- NOTE | 2018-11-23 13:09 | PDOC ---
Progress Note Subjective Subjective urethra adrian clear. nt still bloody 160/45ml per shift cr 6 (4.7) ROS ROS No nausea No vomiting No pain No rash Vital Sign Vital Signs Vital Signs Date Time Temp Pulse Resp B/P (MAP) Pulse Ox O2 Delivery O2 Flow Rate FiO2 11/23/18 12:00 Nasal Cannula 4.0 11/23/18 12:00 98.2 100 94 98.2 11/23/18 09:36 19 Physical Exam PHYSICAL EXAM GENERAL: Up in the chair, resting quietly HENT: Oral cavity clear HEART: S1 and S2. regular ABDOMEN: Obese, soft, NT : Adrian in place GENITOURINARY: Adrian in place. Left nephrostomy tube intact EXTREMITIES: Trace edema lower extremities, no cyanosis SKIN: Without generalized signs of rash. NEUROLOGIC: Arouses to name, responds appropriately PIV ok RIJ clean Labs Lab Laboratory Tests Test 11/22/18 13:15 11/22/18 14:32 11/22/18 17:19 11/22/18 21:06 Lactic Acid Level 2.9 mmol/L (0.4-2.0) Magnesium Level 2.3 mg/dL (1.8-2.4) Albumin 1.8 g/dL (3.4-5.0) Glucose (Fingerstick) 280 mg/dL (70-99) 236 mg/dL (70-99) 160 mg/dL (70-99) Test 11/23/18 05:00 11/23/18 09:09 Hemoglobin 8.3 g/dL (13.0-17.5) Sodium Level 137 mmol/L (136-145) Potassium Level 4.6 mmol/L (3.5-5.1) Chloride Level 100 mmol/L (98-107) Carbon Dioxide Level 24 mmol/L (21-32) Anion Gap 13 (6-14) Blood Urea Nitrogen 80 mg/dL (8-26) Creatinine 6.0 mg/dL (0.7-1.3) Estimated GFR (Cockcroft-Gault) 9.8 Glucose Level 152 mg/dL (70-99) Calcium Level 7.3 mg/dL (8.5-10.1) Phosphorus Level 3.8 mg/dL (2.6-4.7) Magnesium Level 2.5 mg/dL (1.8-2.4) Creatine Kinase 159 U/L (39-308) Albumin 1.8 g/dL (3.4-5.0) Glucose (Fingerstick) 141 mg/dL (70-99) Objective Assessment gnr bacteremia. left 7mm ureter stone Plan Plan of Care fu final [id number]. keep adrian for now. will follow. LISA ARAUZ MD Nov 23, 2018 13:09
[2018-11-23] MEDS ORDERED: AMLO10TA8 PO (20:49)
[2018-11-23] MEDS ORDERED: GABA600T7 PO (20:49)
[2018-11-23] MEDS ORDERED: LOPE1TAB4 PO (20:49)
[2018-11-23] MEDS ORDERED: FURO80TA3 PO (20:49)
[2018-11-23] MEDS ORDERED: LOPE2TAB56 PO (20:49)
[2018-11-23] MEDS ORDERED: WARF10TA40 PO (20:49)
[2018-11-23] MEDS: INSULIN GLARGINE 300 UNITS/3 ML INSULN.PEN. SQ SCH (21:28)
[2018-11-24] VITALS (26 sets, daily range): BP systolic 94–123; BP diastolic 52–77
[2018-11-24] MEDS: MEROPENEM 500 MG in IV NORMAL SALINE 50ML 50 ML IV SCH (05:27)
[2018-11-24 06:44] LABS: ALBUMIN 1.6 g/dL (3.4-5.0); CALCIUM 7.6 mg/dL (8.5-10.1); CREATININE 6.9 mg/dL (0.7-1.3); GFR 8.4; MAGNESIUM 2.6 mg/dL (1.8-2.4); PHOSPHORUS 4.4 mg/dL (2.6-4.7); POTASSIUM 4.5 mmol/L (3.5-5.1)
[2018-11-24 06:58] LABS: BASO % 0 % (0-3); EOS # 0.7 x10^3/uL (0.0-0.7); EOS % 5 % (0-3); HEMATOCRIT 26.6 % (39.0-53.0); HEMOGLOBIN 8.8 g/dL (13.0-17.5); LYMPH # 0.9 x10^3/uL (1.0-4.8); LYMPH % 6 % (24-48); MEAN CORPUSCULAR HEMOGLOBIN 31 pg (25-35); MEAN CORPUSCULAR HGB CONC 33 g/dL (31-37); MEAN CORPUSCULAR VOLUME 93 fL (79-100); MONO # 0.9 x10^3/uL (0.0-1.1); MONO % 6 % (0-9); NEUT % 83 % (31-73); PLATELET COUNT 136 x10^3/uL (140-400); RED BLOOD COUNT 2.86 x10^6/uL (4.30-5.70); RED CELL DISTRIBUTION WIDTH 15.4 % (11.5-14.5); WHITE BLOOD COUNT 14.5 x10^3/uL (4.0-11.0)
--- NOTE | 2018-11-24 07:27 | PDOC ---
Infectious Disease Note Subjective Subjective pt is feeling ok ROS ROS no n/v/d/sob/fever Vital Sign Vital Signs Vital Signs Date Time Temp Pulse Resp B/P (MAP) Pulse Ox O2 Delivery O2 Flow Rate FiO2 11/24/18 06:00 104 25 105/60 (75) 98 Nasal Cannula 4.0 11/24/18 04:00 97.9 97.9 Physical Exam PHYSICAL EXAM GENERAL: comfortable in bed, resting quietly HENT: Oral cavity clear HEART: S1 and S2. regular ABDOMEN: Obese, soft, NT : Adrian in place GENITOURINARY: Adrian in place. Left nephrostomy tube intact EXTREMITIES: Trace edema lower extremities, no cyanosis SKIN: Without generalized signs of rash. NEUROLOGIC: Arouses to name, responds appropriately PIV ok RIJ clean Labs Lab Laboratory Tests Test 11/23/18 09:09 11/23/18 17:57 11/23/18 21:23 11/24/18 06:15 Glucose (Fingerstick) 141 mg/dL (70-99) 165 mg/dL (70-99) 165 mg/dL (70-99) White Blood Count 14.5 x10^3/uL (4.0-11.0) Red Blood Count 2.86 x10^6/uL (4.30-5.70) Hemoglobin 8.8 g/dL (13.0-17.5) Hematocrit 26.6 % (39.0-53.0) Mean Corpuscular Volume 93 fL (79-100) Mean Corpuscular Hemoglobin 31 pg (25-35) Mean Corpuscular Hemoglobin Concent 33 g/dL (31-37) Red Cell Distribution Width 15.4 % (11.5-14.5) Platelet Count 136 x10^3/uL (140-400) Neutrophils (%) (Auto) 83 % (31-73) Lymphocytes (%) (Auto) 6 % (24-48) Monocytes (%) (Auto) 6 % (0-9) Eosinophils (%) (Auto) 5 % (0-3) Basophils (%) (Auto) 0 % (0-3) Neutrophils # (Auto) 12.0 x10^3uL (1.8-7.7) Lymphocytes # (Auto) 0.9 x10^3/uL (1.0-4.8) Monocytes # (Auto) 0.9 x10^3/uL (0.0-1.1) Eosinophils # (Auto) 0.7 x10^3/uL (0.0-0.7) Basophils # (Auto) 0.0 x10^3/uL (0.0-0.2) Sodium Level 136 mmol/L (136-145) Potassium Level 4.5 mmol/L (3.5-5.1) Chloride Level 101 mmol/L (98-107) Carbon Dioxide Level 25 mmol/L (21-32) Anion Gap 10 (6-14) Blood Urea Nitrogen 88 mg/dL (8-26) Creatinine 6.9 mg/dL (0.7-1.3) Estimated GFR (Cockcroft-Gault) 8.4 Glucose Level 125 mg/dL (70-99) Calcium Level 7.6 mg/dL (8.5-10.1) Phosphorus Level 4.4 mg/dL (2.6-4.7) Magnesium Level 2.6 mg/dL (1.8-2.4) Creatine Kinase 36 U/L (39-308) Albumin 1.6 g/dL (3.4-5.0) Micro BC + G neg antonino urine with e coli Objective Assessment Sepsis, present on admission, GNR 11/20- less pressor support now - Clinically - better Lactic acidosis Obstructive uropathy, s/p percutaneous nephrostomy tube placement on 11/21. Subcutaneous emphysema on CT, questionable, subcutaneous injections. Acute kidney injury.- mild increase, renal following, may need to start dialysis Cipro allergy, questionable reaction. S/p Recent Prostatectomy Plan Plan of Care fu final [email or web address]. keep adrian for now. will follow. supportive care cont meropenem SAEED ROSE MD Nov 24, 2018 07:27
[2018-11-24] MEDS: INSULIN LISPRO 300 UNITS/3 ML INSULN.PEN. SQ SCH ×6 (07:51→17:00)
[2018-11-24] MEDS: OXYBUTYNIN CHLORIDE 5 MG TABLET PO SCH ×3 (08:00→20:30)
[2018-11-24] MEDS: PANTOPRAZOLE 40 MG TABLET.DR. PO SCH (08:00)
[2018-11-24] MEDS: CETIRIZINE HCL 10 MG TABLET. PO SCH (08:00)
[2018-11-24] MEDS: SERTRALINE 50 MG TABLET. PO SCH (08:00)
[2018-11-24] MEDS ORDERED: LIDOCAINE 1%/EPI 1:100,000 20 ML VIAL. ONE (08:53)
--- NOTE | 2018-11-24 08:53 | NUR ---
Patient to vascular lab to have dialysis catheter inserted.
[2018-11-24] MEDS: HEPARIN for SUB-Q USE 5,000 UNIT/ML VIAL. SQ SCH ×2 (09:00→20:31)
[2018-11-24] MEDS: LACTOBACILLUS RHAMNOSUS GG 1 CAPSULE. PO SCH ×2 (09:00→20:30)
--- NOTE | 2018-11-24 09:04 | PDOC ---
SUBJECTIVE Subjective Pt going to research laboratory specialist today to get a dialysis catheter placed. Is complaining of generalized pain all over his abdomen. OBJECTIVE Objective Physical Exam: General appearance: Alert and Oriented Head: Normocephalic, without obvious abnormality Eyes: conjunctivae/corneas clear. PERRL, EOM's intact. Fundi benign Back: negative, + nephrostomy tube on the left. Flushed by nursing staff. Started to return clear yellow urine return after flush complete. Lungs: Regular respirations, non labored breathing. Abdomen: soft, obese, generalized tenderness throughout. Pelvic: + Hair catheter in place draining clear yellow urine. Device in good working order. Vital Signs Vital Signs Date Time Temp Pulse Resp B/P (MAP) Pulse Ox O2 Delivery O2 Flow Rate FiO2 11/24/18 06:00 104 25 105/60 (75) 98 Nasal Cannula 4.0 11/24/18 05:00 104 21 111/57 (75) 96 Nasal Cannula 4.0 11/24/18 04:00 Nasal Cannula 4.0 11/24/18 04:00 97.9 102 16 106/58 (74) 100 Nasal Cannula 4.0 97.9 11/24/18 03:00 100 23 106/56 (73) 96 Nasal Cannula 4.0 11/24/18 02:00 98 18 102/60 (74) 96 Nasal Cannula 4.0 11/24/18 01:00 97 20 100/53 (69) 96 Nasal Cannula 4.0 11/23/18 23:59 98.1 103 24 81/56 (64) 100 Nasal Cannula 4.0 98.1 11/23/18 23:59 Nasal Cannula 4.0 11/23/18 23:00 20 84/59 (67) Nasal Cannula 4.0 11/23/18 22:05 26 98 Nasal Cannula 4.0 11/23/18 22:00 104 24 93/52 (66) 95 Nasal Cannula 4.0 11/23/18 21:35 26 98 Nasal Cannula 4.0 11/23/18 21:00 108 24 95/55 (68) 93 Nasal Cannula 4.0 11/23/18 20:00 Nasal Cannula 4.0 11/23/18 20:00 98.1 108 25 89/55 (66) 95 Nasal Cannula 4.0 98.1 11/23/18 19:00 98.1 92 26 104/67 (79) 98 Nasal Cannula 4.0 98.1 11/23/18 18:00 110 114/67 (83) 92 Nasal Cannula 4.0 11/23/18 17:00 105 95/56 (69) 94 Nasal Cannula 4.0 11/23/18 16:00 Nasal Cannula 4.0 11/23/18 16:00 103 99/52 (68) 93 Nasal Cannula 4.0 11/23/18 15:00 102 101/62 (75) 90 Nasal Cannula 4.0 11/23/18 14:24 22 93 Nasal Cannula 4.0 11/23/18 14:00 98 114/75 (88) 94 Nasal Cannula 4.0 11/23/18 13:00 100 93 Nasal Cannula 4.0 11/23/18 12:00 Nasal Cannula 4.0 11/23/18 12:00 98.2 100 94 Nasal Cannula 4.0 98.2 11/23/18 11:00 100 94 Nasal Cannula 4.0 11/23/18 10:00 100 105/72 (83) 93 Nasal Cannula 4.0 11/23/18 09:06 24 94 I & O Intake and Output 11/24/18 06:59 Intake Total 640 ml Output Total 1285 ml Balance -645 ml Intake Oral 590 ml IV Total 50 ml Output Urine Total 1225 ml Drainage Total 60 ml PHYSICAL EXAM Physical Exam General appearance: Alert and Oriented Head: Normocephalic, without obvious abnormality Eyes: conjunctivae/corneas clear. PERRL, EOM's intact. Fundi benign Back: negative, + nephrostomy tube on the left. Flushed by nursing staff. Started to return clear yellow urine return after flush complete. Lungs: Regular respirations, non labored breathing. Abdomen: soft, obese, generalized tenderness throughout. Pelvic: + Hair catheter in place draining clear yellow urine. Device in good working order. ASSESSMENT/PLAN Assessment/Plan Proceed for Dialysis catheter to be placed today. Continue to maintain nephrostomy tube. Will require flushes with 10 cc NS q 8 hours due to intermittent bloody residue/return in tubing. Continue to maintain Hair catheter for now. Will follow. Problems: (1) Hydronephrosis with urinary obstruction due to ureteral calculus COMMENT Lab Laboratory Tests Test 11/23/18 09:09 2/24/19 17:57 11/23/18 21:23 11/24/18 06:15 Glucose (Fingerstick) 141 mg/dL (70-99) 165 mg/dL (70-99) 165 mg/dL (70-99) White Blood Count 14.5 x10^3/uL (4.0-11.0) Red Blood Count 2.86 x10^6/uL (4.30-5.70) Hemoglobin 8.8 g/dL (13.0-17.5) Hematocrit 26.6 % (39.0-53.0) Mean Corpuscular Volume 93 fL (79-100) Mean Corpuscular Hemoglobin 31 pg (25-35) Mean Corpuscular Hemoglobin Concent 33 g/dL (31-37) Red Cell Distribution Width 15.4 % (11.5-14.5) Platelet Count 136 x10^3/uL (140-400) Neutrophils (%) (Auto) 83 % (31-73) Lymphocytes (%) (Auto) 6 % (24-48) Monocytes (%) (Auto) 6 % (0-9) Eosinophils (%) (Auto) 5 % (0-3) Basophils (%) (Auto) 0 % (0-3) Neutrophils # (Auto) 12.0 x10^3uL (1.8-7.7) Lymphocytes # (Auto) 0.9 x10^3/uL (1.0-4.8) Monocytes # (Auto) 0.9 x10^3/uL (0.0-1.1) Eosinophils # (Auto) 0.7 x10^3/uL (0.0-0.7) Basophils # (Auto) 0.0 x10^3/uL (0.0-0.2) Sodium Level 136 mmol/L (136-145) Potassium Level 4.5 mmol/L (3.5-5.1) Chloride Level 101 mmol/L (98-107) Carbon Dioxide Level 25 mmol/L (21-32) Anion Gap 10 (6-14) Blood Urea Nitrogen 88 mg/dL (8-26) Creatinine 6.9 mg/dL (0.7-1.3) Estimated GFR (Cockcroft-Gault) 8.4 Glucose Level 125 mg/dL (70-99) Calcium Level 7.6 mg/dL (8.5-10.1) Phosphorus Level 4.4 mg/dL (2.6-4.7) Magnesium Level 2.6 mg/dL (1.8-2.4) Creatine Kinase 36 U/L (39-308) Albumin 1.6 g/dL (3.4-5.0) KIANA GA APRN Nov 24, 2018 09:04
[2018-11-24] MEDS ORDERED: fentaNYL PF VIAL 100 MCG/2 ML VIAL ONE (09:13)
[2018-11-24] MEDS ORDERED: MIDAZOLAM HCL/PF 5 MG/5 ML VIAL. ONE (09:13)
[2018-11-24] MEDS ORDERED: fentaNYL PF VIAL 100 MCG/2 ML VIAL IV ONE (09:30)
[2018-11-24] MEDS ORDERED: MIDAZOLAM HCL/PF 5 MG/5 ML VIAL. IV ONE (09:30)
[2018-11-24] MEDS ORDERED: LIDOCAINE 1%/EPI 1:100,000 20 ML VIAL. IJ ONE (09:30)
--- NOTE | 2018-11-24 10:00 | NUR ---
Patient back in room.
--- NOTE | 2018-11-24 10:17 | RAD ---
KUB Clinical indications: Subcutaneous air prior to left nephrostomy. FINDINGS: There is mildly dilated loops of large and small bowel. There is moderate fecal retention within the right side of the colon. Left nephrostomy catheter is present. Cholecystectomy clips are present. IMPRESSION: Findings may reflect a mild functional ileus. Electronically signed by: Tanner Quiroz MD (11/24/2018 10:14 AM) [facility]
--- NOTE | 2018-11-24 11:23 | PDOC ---
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, has pain on l flank area Vitals Vital Signs Date Time Temp Pulse Resp B/P (MAP) Pulse Ox O2 Delivery O2 Flow Rate FiO2 11/24/18 10:30 102 24 108/60 (76) 96 Nasal Cannula 4.0 11/24/18 07:00 98.6 98.6 Comments ros as mentioned as above other sys otherwise neg ROS: No Nausea, No Chest Pain General: Alert, No acute distress HEENT: Other (nc at perrl nose throat clear neck no lad, no thyromegaly) Lungs: Clear Cardiovascular: S1, S2 Abdomen: Soft, Non-tender Neuro Exam: Alert Extremities: Other (edema) Skin: Warm Labs Laboratory Tests Test 11/22/18 13:15 11/22/18 14:32 11/22/18 17:19 11/22/18 21:06 Lactic Acid Level 2.9 mmol/L (0.4-2.0) Magnesium Level 2.3 mg/dL (1.8-2.4) Albumin 1.8 g/dL (3.4-5.0) Glucose (Fingerstick) 280 mg/dL (70-99) 236 mg/dL (70-99) 160 mg/dL (70-99) Test 11/23/18 05:00 11/23/18 09:09 11/23/18 17:57 11/23/18 21:23 Hemoglobin 8.3 g/dL (13.0-17.5) Sodium Level 137 mmol/L (136-145) Potassium Level 4.6 mmol/L (3.5-5.1) Chloride Level 100 mmol/L (98-107) Carbon Dioxide Level 24 mmol/L (21-32) Anion Gap 13 (6-14) Blood Urea Nitrogen 80 mg/dL (8-26) Creatinine 6.0 mg/dL (0.7-1.3) Estimated GFR (Cockcroft-Gault) 9.8 Glucose Level 152 mg/dL (70-99) Calcium Level 7.3 mg/dL (8.5-10.1) Phosphorus Level 3.8 mg/dL (2.6-4.7) Magnesium Level 2.5 mg/dL (1.8-2.4) Creatine Kinase 159 U/L (39-308) Albumin 1.8 g/dL (3.4-5.0) Glucose (Fingerstick) 141 mg/dL (70-99) 165 mg/dL (70-99) 165 mg/dL (70-99) Test 11/24/18 06:15 White Blood Count 14.5 x10^3/uL (4.0-11.0) Red Blood Count 2.86 x10^6/uL (4.30-5.70) Hemoglobin 8.8 g/dL (13.0-17.5) Hematocrit 26.6 % (39.0-53.0) Mean Corpuscular Volume 93 fL (79-100) Mean Corpuscular Hemoglobin 31 pg (25-35) Mean Corpuscular Hemoglobin Concent 33 g/dL (31-37) Red Cell Distribution Width 15.4 % (11.5-14.5) Platelet Count 136 x10^3/uL (140-400) Neutrophils (%) (Auto) 83 % (31-73) Lymphocytes (%) (Auto) 6 % (24-48) Monocytes (%) (Auto) 6 % (0-9) Eosinophils (%) (Auto) 5 % (0-3) Basophils (%) (Auto) 0 % (0-3) Neutrophils # (Auto) 12.0 x10^3uL (1.8-7.7) Lymphocytes # (Auto) 0.9 x10^3/uL (1.0-4.8) Monocytes # (Auto) 0.9 x10^3/uL (0.0-1.1) Eosinophils # (Auto) 0.7 x10^3/uL (0.0-0.7) Basophils # (Auto) 0.0 x10^3/uL (0.0-0.2) Sodium Level 136 mmol/L (136-145) Potassium Level 4.5 mmol/L (3.5-5.1) Chloride Level 101 mmol/L (98-107) Carbon Dioxide Level 25 mmol/L (21-32) Anion Gap 10 (6-14) Blood Urea Nitrogen 88 mg/dL (8-26) Creatinine 6.9 mg/dL (0.7-1.3) Estimated GFR (Cockcroft-Gault) 8.4 Glucose Level 125 mg/dL (70-99) Calcium Level 7.6 mg/dL (8.5-10.1) Phosphorus Level 4.4 mg/dL (2.6-4.7) Magnesium Level 2.6 mg/dL (1.8-2.4) Creatine Kinase 36 U/L (39-308) Albumin 1.6 g/dL (3.4-5.0) Laboratory Tests Test 11/23/18 17:57 11/23/18 21:23 11/24/18 06:15 Glucose (Fingerstick) 165 mg/dL (70-99) 165 mg/dL (70-99) White Blood Count 14.5 x10^3/uL (4.0-11.0) Red Blood Count 2.86 x10^6/uL (4.30-5.70) Hemoglobin 8.8 g/dL (13.0-17.5) Hematocrit 26.6 % (39.0-53.0) Mean Corpuscular Volume 93 fL (79-100) Mean Corpuscular Hemoglobin 31 pg (25-35) Mean Corpuscular Hemoglobin Concent 33 g/dL (31-37) Red Cell Distribution Width 15.4 % (11.5-14.5) Platelet Count 136 x10^3/uL (140-400) Neutrophils (%) (Auto) 83 % (31-73) Lymphocytes (%) (Auto) 6 % (24-48) Monocytes (%) (Auto) 6 % (0-9) Eosinophils (%) (Auto) 5 % (0-3) Basophils (%) (Auto) 0 % (0-3) Neutrophils # (Auto) 12.0 x10^3uL (1.8-7.7) Lymphocytes # (Auto) 0.9 x10^3/uL (1.0-4.8) Monocytes # (Auto) 0.9 x10^3/uL (0.0-1.1) Eosinophils # (Auto) 0.7 x10^3/uL (0.0-0.7) Basophils # (Auto) 0.0 x10^3/uL (0.0-0.2) Sodium Level 136 mmol/L (136-145) Potassium Level 4.5 mmol/L (3.5-5.1) Chloride Level 101 mmol/L (98-107) Carbon Dioxide Level 25 mmol/L (21-32) Anion Gap 10 (6-14) Blood Urea Nitrogen 88 mg/dL (8-26) Creatinine 6.9 mg/dL (0.7-1.3) Estimated GFR (Cockcroft-Gault) 8.4 Glucose Level 125 mg/dL (70-99) Calcium Level 7.6 mg/dL (8.5-10.1) Phosphorus Level 4.4 mg/dL (2.6-4.7) Magnesium Level 2.6 mg/dL (1.8-2.4) Creatine Kinase 36 U/L (39-308) Albumin 1.6 g/dL (3.4-5.0) Medications Active Scripts Medications Dose Route/Sig Max Daily Dose Days Date Category Dose Instructions Novolin 70-30 100 Unit/Ml Vial (Hum Insulin Nph/Reg Insulin Hm) 100 Unit/1 Ml Vial 7 Unit SQ QHS 11/21/18 Reported Novolin 70-30 100 Unit/Ml Vial (Hum Insulin Nph/Reg Insulin Hm) 100 Unit/1 Ml Vial 15 Unit SQ DAILY 11/21/18 Reported Novolin R (Insulin Regular, Human) 100 Unit/1 Ml Vial 100 Unit IJ QIDACHS 11/21/18 Reported Oxybutynin Chloride 5 Mg Tablet 5 Mg PO TID 11/21/18 Reported Ondansetron Hcl 4 Mg Tablet 1 Tab PO PRN Q6HRS 11/21/18 Reported Tylenol (Acetaminophen) 325 Mg Tablet 2 Tab PO HS 11/21/18 Reported Nortriptyline Hcl 50 Mg Capsule 50 Mg PO HS 11/21/18 Reported Metformin Hcl 1,000 Mg Tablet 1,000 Mg PO BIDWMEALS 11/21/18 Reported Lactulose 10 Gm Packet 10 Gm PO DAILY 11/21/18 Reported Hyoscyamine Sulfate 0.125 Mg Tab.subl 0.125 Mg SL Q4HRS PRN 11/21/18 Reported Loratadine 10 Mg Tablet 1 Tab PO DAILY 11/21/18 Reported Pain Relieving 1%-15% Cream (Methyl Salicylate/Menthol) 85 Gm Cream..g. 85 Gm TP TID PRN PRN 11/21/18 Reported Prosser 5-325 Tablet (Acetaminophen/Hydrocodone Bitart) 1 Each Tablet 2 Tab PO Q4HRS 03/25/17 Reported LAST DOSE GIVEN: DATE: TIME: Zoloft (Sertraline Hcl) 100 Mg Tablet 100 Mg PO DAILY 02/18/17 Reported Lisinopril 5 Mg Tablet 2.5 Mg PO DAILY 02/18/17 Reported Atorvastatin Calcium 20 Mg Tablet 40 Mg PO DAILY 02/18/17 Reported Comments cxr, basilar atelectasis infilt Impression . IMPRESSION: 1. Acute hypoxic respiratory failure secondary to septic shock. 2. Septic shock related to urinary tract infection. b cx, GNR 11/20 3. Recent prostatectomy and now comes in with SEPSIS/ UTI .He has left ureteral stone and has left hydronephrosis. 4. No significant history of tobacco use. 5. Lactic acidosis secondary to septic shock. 6. Moderate protein-calorie malnutrition. 7. Acute renal failure, worse, nephro planned on HD Plan . RECOMMENDATIONS: 1. OFF pressors . keep map >65 2. Continue with broad-spectrum antibiotic, per id. 3. Follow id and s. bcx GNR 11/20 4. Follow Urology's recommendations. s/p nephrostomy tube on the left side. 5. monitor urine out put, HD per nephro 6. bronchodilators. 7. DVT, GI prophylaxis with hep sq, and protonix 8. discussed with AYAH SHARMA MD Nov 24, 2018 11:23
--- NOTE | 2018-11-24 11:58 | PDOC ---
Renal-Progress Notes Subjective Notes Notes TIRED, DOESNT FEEL WELL History of Present Illness Hx of present illness STABLE Vitals Vitals Vital Signs Date Time Temp Pulse Resp B/P (MAP) Pulse Ox O2 Delivery O2 Flow Rate FiO2 11/24/18 11:30 106 26 95/52 (66) 96 Nasal Cannula 4.0 11/24/18 07:00 98.6 98.6 Weight Weight [ ] I.O. Intake and Output Intake and Output 11/24/18 07:00 Intake Total 640 ml Output Total 1380 ml Balance -740 ml Intake Oral 590 ml IV Total 50 ml Output Urine Total 1320 ml Drainage Total 60 ml Labs Labs Laboratory Tests Test 11/23/18 17:57 11/23/18 21:23 11/24/18 06:15 11/24/18 11:40 Glucose (Fingerstick) 165 mg/dL (70-99) 165 mg/dL (70-99) 140 mg/dL (70-99) White Blood Count 14.5 x10^3/uL (4.0-11.0) Red Blood Count 2.86 x10^6/uL (4.30-5.70) Hemoglobin 8.8 g/dL (13.0-17.5) Hematocrit 26.6 % (39.0-53.0) Mean Corpuscular Volume 93 fL (79-100) Mean Corpuscular Hemoglobin 31 pg (25-35) Mean Corpuscular Hemoglobin Concent 33 g/dL (31-37) Red Cell Distribution Width 15.4 % (11.5-14.5) Platelet Count 136 x10^3/uL (140-400) Neutrophils (%) (Auto) 83 % (31-73) Lymphocytes (%) (Auto) 6 % (24-48) Monocytes (%) (Auto) 6 % (0-9) Eosinophils (%) (Auto) 5 % (0-3) Basophils (%) (Auto) 0 % (0-3) Neutrophils # (Auto) 12.0 x10^3uL (1.8-7.7) Lymphocytes # (Auto) 0.9 x10^3/uL (1.0-4.8) Monocytes # (Auto) 0.9 x10^3/uL (0.0-1.1) Eosinophils # (Auto) 0.7 x10^3/uL (0.0-0.7) Basophils # (Auto) 0.0 x10^3/uL (0.0-0.2) Sodium Level 136 mmol/L (136-145) Potassium Level 4.5 mmol/L (3.5-5.1) Chloride Level 101 mmol/L (98-107) Carbon Dioxide Level 25 mmol/L (21-32) Anion Gap 10 (6-14) Blood Urea Nitrogen 88 mg/dL (8-26) Creatinine 6.9 mg/dL (0.7-1.3) Estimated GFR (Cockcroft-Gault) 8.4 Glucose Level 125 mg/dL (70-99) Calcium Level 7.6 mg/dL (8.5-10.1) Phosphorus Level 4.4 mg/dL (2.6-4.7) Magnesium Level 2.6 mg/dL (1.8-2.4) Creatine Kinase 36 U/L (39-308) Albumin 1.6 g/dL (3.4-5.0) Micro Micro Microbiology 11/22/18 Blood Culture - Preliminary, Resulted NO GROWTH AFTER 1 DAY 11/21/18 Urine Culture - Preliminary, Resulted 11/21/18 Urine Culture Result 1 (KORY) - Preliminary, Resulted Review of Systems Constitutional: yes: weakness, alert, oriented Ears/Nose/Throat: Yes: no symptom reported Eyes: Yes: no symptom reported Pulmonary: Yes no symptom reported Cardiovascular: Yes no symptom reported Gastrointestional: Yes: constipation Genitourinary: Yes: urgency Musculoskeletal: Yes: no symptom reported Skin: Yes no symptom reported Psychiatric/Neurological: Yes: no symptom reported Endocrine: Yes: no symptom reported Hematologic/Lymphatic: Yes: no symptom reported Physical Exam General Appearance: no apparent distress Skin: warm Respiratory: bilateral CTA Heart: S1S2, RRR Abdomen: soft, bowel sounds present Genitourinary: bladder flat Extremities: pulses present Neurology: alert, follow commands, confused Musculoskeletal: low back pain Assessment Assessment IMP GAGAN-CR UP AGAIN CKD STAGE 3-CR OF ABOUT 2.0-3.0 AT BASELINE SEPSIS WITH UTI ACUTE HYPOXIC RESP FAILURE RECENT PROSTATECTOMY LEFT URETERAL STONE-S/PCN PLAN PT REMAINS IN THE ICU ANTIBIOTICS HD CATHETER TODAY HD TODAY UF TO DW UROLOGY FOLLOWING MAINTAIN LAU WILL FOLLOW CISCO MARS MD Nov 24, 2018 11:58
--- NOTE | 2018-11-24 13:53 | PDOC ---
PROGRESS NOTES Chief Complaint Chief Complaint septic shock secondary to obstructive uropathy Status post TURP in an outside facility obesity, BMI 33 7mm obstructive renal stone, renal colic, obstructive uropathy causing acute renal failure, in need Perc nephrostomy History ofDM2, depression, Patient is incarcerated [facility] as per report Plan: Continue present treatment plan, hemodialysis catheter will be placed later in the day and ultrafiltration will be done as well status post nephrostomy tube Supportive measures in the ICU continue antibiotics as per ID off presors History of Present Illness History of Present Illness Patient critically stable at the present time. The patient denies any chest pain or palpitations no shortness of breatht. Patient continues to be on 2 pressors but minimal levophed support hope he will be weaned off today further recommendations based on the clinical course appreciate jewelry consultant recommendation Vitals Vitals Vital Signs Date Time Temp Pulse Resp B/P (MAP) Pulse Ox O2 Delivery O2 Flow Rate FiO2 11/24/18 13:00 106 24 110/77 (88) 98 Nasal Cannula 4.0 11/24/18 12:00 98.5 98.5 Physical Exam Physical Exam GENERAL: comfortable in bed, resting quietly HENT: Oral cavity clear HEART: S1 and S2. regular ABDOMEN: Obese, soft, NT : Hair in place GENITOURINARY: Hair in place. Left nephrostomy tube intact EXTREMITIES: Trace edema lower extremities, no cyanosis SKIN: Without generalized signs of rash. NEUROLOGIC: Arouses to name, responds appropriately PIV ok RIJ clean General: Alert, Oriented X3, No acute distress Lungs: Clear Abdomen: Normal bowel sounds, Soft Extremities: No clubbing, No edema, Normal pulses Skin: No rashes, No significant lesion Labs LABS Laboratory Tests Test 11/23/18 17:57 11/23/18 21:23 11/24/18 06:15 11/24/18 11:40 Glucose (Fingerstick) 165 mg/dL (70-99) 165 mg/dL (70-99) 140 mg/dL (70-99) White Blood Count 14.5 x10^3/uL (4.0-11.0) Red Blood Count 2.86 x10^6/uL (4.30-5.70) Hemoglobin 8.8 g/dL (13.0-17.5) Hematocrit 26.6 % (39.0-53.0) Mean Corpuscular Volume 93 fL (79-100) Mean Corpuscular Hemoglobin 31 pg (25-35) Mean Corpuscular Hemoglobin Concent 33 g/dL (31-37) Red Cell Distribution Width 15.4 % (11.5-14.5) Platelet Count 136 x10^3/uL (140-400) Neutrophils (%) (Auto) 83 % (31-73) Lymphocytes (%) (Auto) 6 % (24-48) Monocytes (%) (Auto) 6 % (0-9) Eosinophils (%) (Auto) 5 % (0-3) Basophils (%) (Auto) 0 % (0-3) Neutrophils # (Auto) 12.0 x10^3uL (1.8-7.7) Lymphocytes # (Auto) 0.9 x10^3/uL (1.0-4.8) Monocytes # (Auto) 0.9 x10^3/uL (0.0-1.1) Eosinophils # (Auto) 0.7 x10^3/uL (0.0-0.7) Basophils # (Auto) 0.0 x10^3/uL (0.0-0.2) Sodium Level 136 mmol/L (136-145) Potassium Level 4.5 mmol/L (3.5-5.1) Chloride Level 101 mmol/L (98-107) Carbon Dioxide Level 25 mmol/L (21-32) Anion Gap 10 (6-14) Blood Urea Nitrogen 88 mg/dL (8-26) Creatinine 6.9 mg/dL (0.7-1.3) Estimated GFR (Cockcroft-Gault) 8.4 Glucose Level 125 mg/dL (70-99) Calcium Level 7.6 mg/dL (8.5-10.1) Phosphorus Level 4.4 mg/dL (2.6-4.7) Magnesium Level 2.6 mg/dL (1.8-2.4) Creatine Kinase 36 U/L (39-308) Albumin 1.6 g/dL (3.4-5.0) Review of Systems Review of Systems -10 point review of systems only pertinent as per history of present illness with weakness Assessment and Plan Assessmemt and Plan Problems Medical Problems: (1) Acute on chronic renal failure Status: Acute (2) Hydronephrosis with urinary obstruction due to ureteral calculus Status: Acute (3) Renal colic Status: Acute Comment Review of Relevant I have reviewed the following items patti (where applicable) has been applied. Labs Laboratory Tests Test 11/22/18 14:32 11/22/18 17:19 11/22/18 21:06 11/23/18 05:00 Glucose (Fingerstick) 280 mg/dL (70-99) 236 mg/dL (70-99) 160 mg/dL (70-99) Hemoglobin 8.3 g/dL (13.0-17.5) Sodium Level 137 mmol/L (136-145) Potassium Level 4.6 mmol/L (3.5-5.1) Chloride Level 100 mmol/L (98-107) Carbon Dioxide Level 24 mmol/L (21-32) Anion Gap 13 (6-14) Blood Urea Nitrogen 80 mg/dL (8-26) Creatinine 6.0 mg/dL (0.7-1.3) Estimated GFR (Cockcroft-Gault) 9.8 Glucose Level 152 mg/dL (70-99) Calcium Level 7.3 mg/dL (8.5-10.1) Phosphorus Level 3.8 mg/dL (2.6-4.7) Magnesium Level 2.5 mg/dL (1.8-2.4) Creatine Kinase 159 U/L (39-308) Albumin 1.8 g/dL (3.4-5.0) Test 11/23/18 09:09 11/23/18 17:57 11/23/18 21:23 11/24/18 06:15 Glucose (Fingerstick) 141 mg/dL (70-99) 165 mg/dL (70-99) 165 mg/dL (70-99) White Blood Count 14.5 x10^3/uL (4.0-11.0) Red Blood Count 2.86 x10^6/uL (4.30-5.70) Hemoglobin 8.8 g/dL (13.0-17.5) Hematocrit 26.6 % (39.0-53.0) Mean Corpuscular Volume 93 fL (79-100) Mean Corpuscular Hemoglobin 31 pg (25-35) Mean Corpuscular Hemoglobin Concent 33 g/dL (31-37) Red Cell Distribution Width 15.4 % (11.5-14.5) Platelet Count 136 x10^3/uL (140-400) Neutrophils (%) (Auto) 83 % (31-73) Lymphocytes (%) (Auto) 6 % (24-48) Monocytes (%) (Auto) 6 % (0-9) Eosinophils (%) (Auto) 5 % (0-3) Basophils (%) (Auto) 0 % (0-3) Neutrophils # (Auto) 12.0 x10^3uL (1.8-7.7) Lymphocytes # (Auto) 0.9 x10^3/uL (1.0-4.8) Monocytes # (Auto) 0.9 x10^3/uL (0.0-1.1) Eosinophils # (Auto) 0.7 x10^3/uL (0.0-0.7) Basophils # (Auto) 0.0 x10^3/uL (0.0-0.2) Sodium Level 136 mmol/L (136-145) Potassium Level 4.5 mmol/L (3.5-5.1) Chloride Level 101 mmol/L (98-107) Carbon Dioxide Level 25 mmol/L (21-32) Anion Gap 10 (6-14) Blood Urea Nitrogen 88 mg/dL (8-26) Creatinine 6.9 mg/dL (0.7-1.3) Estimated GFR (Cockcroft-Gault) 8.4 Glucose Level 125 mg/dL (70-99) Calcium Level 7.6 mg/dL (8.5-10.1) Phosphorus Level 4.4 mg/dL (2.6-4.7) Magnesium Level 2.6 mg/dL (1.8-2.4) Creatine Kinase 36 U/L (39-308) Albumin 1.6 g/dL (3.4-5.0) Test 11/24/18 11:40 Glucose (Fingerstick) 140 mg/dL (70-99) Laboratory Tests Test 11/23/18 17:57 11/23/18 21:23 11/24/18 06:15 11/24/18 11:40 Glucose (Fingerstick) 165 mg/dL (70-99) 165 mg/dL (70-99) 140 mg/dL (70-99) White Blood Count 14.5 x10^3/uL (4.0-11.0) Red Blood Count 2.86 x10^6/uL (4.30-5.70) Hemoglobin 8.8 g/dL (13.0-17.5) Hematocrit 26.6 % (39.0-53.0) Mean Corpuscular Volume 93 fL (79-100) Mean Corpuscular Hemoglobin 31 pg (25-35) Mean Corpuscular Hemoglobin Concent 33 g/dL (31-37) Red Cell Distribution Width 15.4 % (11.5-14.5) Platelet Count 136 x10^3/uL (140-400) Neutrophils (%) (Auto) 83 % (31-73) Lymphocytes (%) (Auto) 6 % (24-48) Monocytes (%) (Auto) 6 % (0-9) Eosinophils (%) (Auto) 5 % (0-3) Basophils (%) (Auto) 0 % (0-3) Neutrophils # (Auto) 12.0 x10^3uL (1.8-7.7) Lymphocytes # (Auto) 0.9 x10^3/uL (1.0-4.8) Monocytes # (Auto) 0.9 x10^3/uL (0.0-1.1) Eosinophils # (Auto) 0.7 x10^3/uL (0.0-0.7) Basophils # (Auto) 0.0 x10^3/uL (0.0-0.2) Sodium Level 136 mmol/L (136-145) Potassium Level 4.5 mmol/L (3.5-5.1) Chloride Level 101 mmol/L (98-107) Carbon Dioxide Level 25 mmol/L (21-32) Anion Gap 10 (6-14) Blood Urea Nitrogen 88 mg/dL (8-26) Creatinine 6.9 mg/dL (0.7-1.3) Estimated GFR (Cockcroft-Gault) 8.4 Glucose Level 125 mg/dL (70-99) Calcium Level 7.6 mg/dL (8.5-10.1) Phosphorus Level 4.4 mg/dL (2.6-4.7) Magnesium Level 2.6 mg/dL (1.8-2.4) Creatine Kinase 36 U/L (39-308) Albumin 1.6 g/dL (3.4-5.0) Microbiology 11/22/18 Blood Culture - Preliminary, Resulted NO GROWTH AFTER 2 DAYS 11/21/18 Urine Culture - Preliminary, Resulted 11/21/18 Urine Culture Result 1 ([facility]) - Preliminary, Resulted Medications Current Medications Sodium Chloride 1,000 ml @ 1,000 mls/hr 1X ONCE IV Last administered on at 20:10; Start 11/20/18 at 20:00; Stop 11/20/18 at 20:59; Status DC Sodium Chloride 1,000 ml @ 1,000 mls/hr 1X ONCE IV Last administered on at 20:10; Start 11/20/18 at 20:00; Stop 11/20/18 at 20:59; Status DC Piperacillin Sod/ Tazobactam Sod 4.5 gm/Sodium Chloride 100 ml @ 200 mls/hr 1X ONCE IV Last administered on 11/20/18at 20:13; Start 11/20/18 at 20:15; Stop 11/20/18 at 20:44; Status DC Fentanyl Citrate (Fentanyl 2ml Vial) 50 mcg 1X ONCE IV Last administered on at 20:13; Start 11/20/18 at 20:15; Stop 11/20/18 at 20:16; Status DC Ondansetron HCl (Zofran) 4 mg 1X ONCE IV Last administered on 11/20/18at 20:13 ; Start 11/20/18 at 20:15; Stop 11/20/18 at 20:16; Status DC Sodium Chloride 1,000 ml @ 1,000 mls/hr 1X ONCE IV Last administered on at 20:47; Start 11/20/18 at 20:45; Stop 11/20/18 at 21:44; Status DC Ondansetron HCl (Zofran) 4 mg PRN Q8HRS PRN IV NAUSEA/VOMITING Last administered on 11/20/18at 21:35; Start 11/20/18 at 21:15; Stop 11/21/18 at 21:14 ; Status DC Fentanyl Citrate (Fentanyl 2ml Vial) 50 mcg PRN Q2HR PRN IV PAIN Last administered on 11/21/18at 03:06; Start 11/20/18 at 21:15 Acetaminophen (Tylenol) 650 mg PRN Q4HRS PRN PO FEVER; Start 11/20/18 at 21:15 ; Stop 11/21/18 at 21:14; Status DC Insulin Human Lispro (HumaLOG) 0-5 UNITS TIDWMEALS SQ ; Start 11/21/18 at 08:00 ; Stop 11/21/18 at 08:00; Status DC Dextrose (Dextrose 50%-Water Syringe) 12.5 gm PRN Q15MIN PRN IV SEE COMMENTS; Start 11/20/18 at 21:15; Stop 11/21/18 at 07:45; Status DC Vancomycin HCl 2 gm/Sodium Chloride 500 ml @ 250 mls/hr 1X ONCE IV Last administered on 11/20/18at 22:22; Start 11/20/18 at 22:00; Stop 11/20/18 at 23:59 ; Status DC Fentanyl Citrate (Fentanyl 2ml Vial) 75 mcg 1X ONCE IV Last administered on at 21:35; Start 11/20/18 at 21:45; Stop 11/20/18 at 21:46; Status DC Lidocaine/ Epinephrine (LIDOCAINE 2%-EPI 1:100,000 multi-dose) 20 ml 1X ONCE IJ Last administered on 11/20/18at 22:31; Start 11/20/18 at 22:15; Stop at 22:16; Status DC Fentanyl Citrate (Fentanyl 2ml Vial) 75 mcg 1X ONCE IV ; Start 11/20/18 at 22: 30; Stop 11/20/18 at 22:31; Status DC Magnesium Sulfate 50 ml @ 25 mls/hr 1X ONCE IV Last administered on 11/21/18at 01:05; Start 11/20/18 at 23:15; Stop 11/21/18 at 01:14; Status DC Norepinephrine Bitartrate 250 ml @ 0 mls/hr 1X ONCE IV Last administered on at 23:35; Start 11/20/18 at 23:30; Stop 11/20/18 at 23:31; Status DC Sodium Chloride 1,000 ml @ 150 mls/hr Q6H40M IV Last administered on at 07:11; Start 11/21/18 at 04:45; Stop 11/21/18 at 11:25; Status DC Sodium Chloride 1,000 ml @ 1,000 mls/hr 1X ONCE IV Last administered on at 05:04; Start 11/21/18 at 04:45; Stop 11/21/18 at 05:44; Status DC Sodium Chloride 1,000 ml @ 1,000 mls/hr 1X ONCE IV Last administered on at 06:11; Start 11/21/18 at 05:30; Stop 11/21/18 at 06:29; Status DC Vasopressin 40 unit/Dextrose 102 ml @ 6 mls/hr CONT PRN IV SEE I/O RECORD Last administered on 11/23/18at 06:13; Start 11/21/18 at 05:00 Acetaminophen (Tylenol Supp) 650 mg PRN Q6HRS PRN [place] MILD PAIN / TEMP Last administered on 11/21/18at 05:04; Start 11/21/18 at 04:45 Piperacillin Sod/ Tazobactam Sod (Zosyn Per Pharmacy) 1 each PRN DAILY PRN MC SEE COMMENTS; Start 11/21/18 at 04:45; Stop 11/21/18 at 07:10; Status DC Meropenem 500 mg/ Sodium Chloride 50 ml @ 100 mls/hr Q12H IV Last administered on 11/21/18at 05:10; Start 11/21/18 at 05:00; Stop 11/21/18 at 07:10 ; Status DC Morphine Sulfate (Morphine Sulfate) 4 mg PRN Q4HRS PRN IV PAIN Last administered on 11/21/18at 20:47; Start 11/21/18 at 04:45 Piperacillin Sod/ Tazobactam Sod 2.25 gm/Sodium Chloride 50 ml @ 100 mls/hr Q6HRS IV Last administered on 11/21/18at 05:42; Start 11/21/18 at 06:00; Stop at 07:10; Status DC Magnesium Sulfate/ Dextrose 100 ml @ 25 mls/hr 1X ONCE IV Last administered on 11/21/18at 05:42; Start 11/21/18 at 05:30; Stop 11/21/18 at 09:29; Status DC Throat Lozenges (Cepacol Sore Throat Lozenge) 1 corina PRN Q2HRS PRN PO SORE THROAT Last administered on 11/21/18at 20:10; Start 11/21/18 at 05:30 Saliva Substitute (Biotene Moisturizing Mouth) 2 spray PRN Q15MIN PRN PO DRY MOUTH; Start 11/21/18 at 05:30 Norepinephrine Bitartrate 250 ml @ 1.875 mls/ hr CONT PRN IV SEE I/O RECORD Last administered on 11/22/18 04:21; Start 11/21/18 at 06:45 Meropenem 500 mg/ Sodium Chloride 50 ml @ 100 mls/hr Q24H IV Last administered on 11/24/18 05:27; Start 11/22/18 at 05:00 Acetaminophen/ Hydrocodone Bitart (Lortab 5/325) 2 tab Q4HRS PO ; Start at 08:00; Stop 11/21/18 at 08:00; Status DC Oxybutynin Chloride (Ditropan) 5 mg TID PO Last administered on 11/24/18 08:00 ; Start 11/21/18 at 09:00 Cetirizine HCl (ZyrTEC) 10 mg DAILY PO Last administered on 11/24/18 08:00; Start 11/21/18 at 09:00 Ondansetron HCl (Zofran Odt) 4 mg PRN Q6HRS PRN PO NAUSEA/VOMITING; Start 11/21 at 07:45 Sertraline HCl (Zoloft) 100 mg DAILY PO Last administered on 11/24/18 08:00; Start 11/21/18 at 09:00 Insulin Human Lispro (HumaLOG) 0-9 UNITS TIDWMEALS SQ Last administered on 11/23 18:00; Start 11/21/18 at 08:00 Dextrose (Dextrose 50%-Water Syringe) 12.5 gm PRN Q15MIN PRN IV SEE COMMENTS; Start 11/21/18 at 07:30 Insulin Glargine (Lantus) 12 units QHS SQ Last administered on 11/23/18 21:28 ; Start 11/21/18 at 21:00 Insulin Human Lispro (HumaLOG) 10 units TIDWMEALS SQ Last administered on 12:39; Start 11/21/18 at 08:00 Magnesium Sulfate/ Dextrose 100 ml @ 25 mls/hr 1X ONCE IV ; Start 11/21/18 at 09:00; Stop 11/21/18 at 12:59; Status Cancel Acetaminophen/ Hydrocodone Bitart (Lortab 5/325) 2 tab PRN Q4HRS PRN PO PAIN Last administered on 11/22/18at 21:15; Start 11/21/18 at 08:00 Hydromorphone HCl (Dilaudid) 1 mg PRN Q3HRS PRN IV PAIN Last administered on at 21:35; Start 11/21/18 at 08:00 Sodium Bicarbonate 150 meq/Dextrose 1,150 ml @ 125 mls/hr Q9H12M IV Last administered on 11/22/18at 04:21; Start 11/21/18 at 11:00; Stop 11/22/18 at 13:03 ; Status DC Midazolam HCl (Versed) 2 mg STK-MED ONCE .ROUTE ; Start 11/21/18 at 10:50; Stop 11/21/18 at 10:51; Status DC Fentanyl Citrate (Fentanyl 2ml Vial) 100 mcg STK-MED ONCE .ROUTE ; Start at 10:50; Stop 11/21/18 at 10:51; Status DC Cefazolin Sodium 50 ml @ 100 mls/hr 1X ONCE IV Last administered on at 11:15; Start 11/21/18 at 11:15; Stop 11/21/18 at 11:44; Status DC Lidocaine/Sodium Bicarbonate (Buffered Lidocaine 1%) 3 ml STK-MED ONCE .ROUTE ; Start 11/21/18 at 11:56; Stop 11/21/18 at 11:57; Status DC Iohexol (Omnipaque 300 Mg/ml) 100 ml STK-MED ONCE .ROUTE ; Start 11/21/18 at 11: 56; Stop 11/21/18 at 11:57; Status DC Heparin Sodium/ Sodium Chloride 500 ml @ As Directed STK-MED ONCE .ROUTE ; Start 11/21/18 at 11:56; Stop 11/21/18 at 11:57; Status DC Lidocaine/Sodium Bicarbonate (Buffered Lidocaine 1%) 3 ml STK-MED ONCE .ROUTE ; Start 11/21/18 at 12:29; Stop 11/21/18 at 12:30; Status DC Lidocaine/Sodium Bicarbonate (Buffered Lidocaine 1%) 3 ml STK-MED ONCE .ROUTE ; Start 11/21/18 at 12:29; Stop 11/21/18 at 12:30; Status DC Heparin Sodium/ Sodium Chloride (HEPARIN for ARTERIAL LINE FLUSH) 1,000 unit 1X ONCE IART ; Start 11/21/18 at 12:45; Stop 11/21/18 at 12:51; Status DC Lidocaine/Sodium Bicarbonate (Buffered Lidocaine 1%) 13 ml 1X ONCE IJ Last administered on 11/21/18at 12:45; Start 11/21/18 at 12:45; Stop 11/21/18 at 12:51 ; Status DC Midazolam HCl (Versed) 2 mg 1X ONCE IV Last administered on 11/21/18at 12:45; Start 11/21/18 at 12:45; Stop 11/21/18 at 12:51; Status DC Fentanyl Citrate (Fentanyl 2ml Vial) 100 mcg 1X ONCE IV Last administered on at 12:45; Start 11/21/18 at 12:45; Stop 11/21/18 at 12:51; Status DC Iohexol (Omnipaque 300 Mg/ml) 40 ml 1X ONCE IART Last administered on at 12:45; Start 11/21/18 at 12:45; Stop 11/21/18 at 12:51; Status DC Throat Lozenges (Cepacol Sore Throat Lozenge) 1 corina PRN Q2HRS PRN PO SORE THROAT; Start 11/21/18 at 19:45; Stop 11/21/18 at 19:45; Status DC Alteplase, Recombinant (Cathflo For Central Catheter Clearance) 1 mg 1X ONCE INT CAT Last administered on 11/22/18at 06:25; Start 11/22/18 at 06:30; Stop at 06:31; Status DC Pantoprazole Sodium (Protonix) 40 mg DAILYAC PO Last administered on 11/24/18at 08:00; Start 11/22/18 at 07:45 Heparin Sodium (Porcine) (Heparin Sodium) 5,000 unit Q12HR SQ Last administered on 11/23/18at 21:28; Start 11/22/18 at 09:00 Magnesium Sulfate 50 ml @ 25 mls/hr PRN DAILY PRN IV for Mag < 1.7 on am labs; Start 11/22/18 at 13:00 Lidocaine/ Epinephrine (LIDOCAINE 1%-EPI 1:100,000 Multi-Dose) 20 ml STK-MED ONCE .ROUTE ; Start 11/24/18 at 08:53; Stop 11/24/18 at 08:54; Status DC Lactobacillus Rhamnosus (Culturelle) 1 cap BID PO ; Start 11/24/18 at 09:00 Midazolam HCl (Versed) 5 mg STK-MED ONCE .ROUTE ; Start 11/24/18 at 09:13; Stop 11/24/18 at 09:14; Status DC Fentanyl Citrate (Fentanyl 2ml Vial) 100 mcg STK-MED ONCE .ROUTE ; Start at 09:13; Stop 11/24/18 at 09:14; Status DC Midazolam HCl (Versed) 5 mg 1X ONCE IV Last administered on 11/24/18at 09:45; Start 11/24/18 at 09:30; Stop 11/24/18 at 09:31; Status DC Fentanyl Citrate (Fentanyl 2ml Vial) 100 mcg 1X ONCE IV Last administered on at 09:45; Start 11/24/18 at 09:30; Stop 11/24/18 at 09:31; Status DC Lidocaine/ Epinephrine (LIDOCAINE 1%-EPI 1:100,000 Multi-Dose) 20 ml 1X ONCE IJ Last administered on 11/24/18at 09:46; Start 11/24/18 at 09:30; Stop at 09:31; Status DC Active Scripts Active Reported Imodium Multi-Symptom Rel Cplt (Loperamide Hcl/Simethicone) 1 Each Tablet 1 Each PO PRN PRN Anti-Diarrhea (Loperamide Hcl) 2 Mg Tablet 2 Mg PO PRN PRN Gabapentin 600 Mg Tablet 600 Mg PO PRN TID PRN Warfarin Sodium 10 Mg Tablet 10 Mg PO DAILY Amlodipine Besylate 10 Mg Tablet 10 Mg PO DAILY Furosemide 80 Mg Tablet 80 Mg PO DAILY Novolin 70-30 100 Unit/Ml Vial (Hum Insulin Nph/Reg Insulin Hm) 100 Unit/1 Ml Vial 7 Unit SQ QHS Novolin 70-30 100 Unit/Ml Vial (Hum Insulin Nph/Reg Insulin Hm) 100 Unit/1 Ml Vial 15 Unit SQ DAILY Vitals/I & O Vital Sign - Last 24 Hours 11/23/18 11/23/18 11/23/18 11/23/18 14:00 14:24 15:00 16:00 Pulse 98 102 103 Resp 22 B/P (MAP) 114/75 (88) 101/62 (75) 99/52 (68) Pulse Ox 94 93 90 93 O2 Delivery Nasal Cannula Nasal Cannula Nasal Cannula Nasal Cannula O2 Flow Rate 4.0 4.0 4.0 4.0 11/23/18 11/23/18 11/23/18 11/23/18 16:00 17:00 18:00 19:00 Temp 98.1 98.1 Pulse 105 110 92 Resp B/P (MAP) 95/56 (69) 114/67 (83) 104/67 (79) Pulse Ox 94 92 98 O2 Delivery Nasal Cannula Nasal Cannula Nasal Cannula Nasal Cannula O2 Flow Rate 4.0 4.0 4.0 4.0 11/23/18 11/23/18 11/23/18 11/23/18 20:00 20:00 21:00 21:35 Temp 98.1 98.1 Pulse 108 108 Resp B/P (MAP) 89/55 (66) 95/55 (68) Pulse Ox 95 93 98 O2 Delivery Nasal Cannula Nasal Cannula Nasal Cannula Nasal Cannula O2 Flow Rate 4.0 4.0 4.0 4.0 11/23/18 11/23/18 11/23/18 11/23/18 22:00 22:05 23:00 23:59 Pulse 104 Resp 20 B/P (MAP) 93/52 (66) 84/59 (67) Pulse Ox 95 98 O2 Delivery Nasal Cannula Nasal Cannula Nasal Cannula Nasal Cannula O2 Flow Rate 4.0 4.0 4.0 4.0 11/23/18 11/24/18 11/24/18 11/24/18 23:59 01:00 02:00 03:00 Temp 98.1 98.1 Pulse 103 97 98 100 Resp 24 20 18 23 B/P (MAP) 81/56 (64) 100/53 (69) 102/60 (74) 106/56 (73) Pulse Ox 100 96 96 96 O2 Delivery Nasal Cannula Nasal Cannula Nasal Cannula Nasal Cannula O2 Flow Rate 4.0 4.0 4.0 4.0 11/24/18 11/24/18 11/24/18 11/24/18 04:00 04:00 05:00 06:00 Temp 97.9 97.9 Pulse 102 104 104 Resp 16 21 25 B/P (MAP) 106/58 (74) 111/57 (75) 105/60 (75) Pulse Ox 100 96 98 O2 Delivery Nasal Cannula Nasal Cannula Nasal Cannula Nasal Cannula O2 Flow Rate 4.0 4.0 4.0 4.0 11/24/18 11/24/18 11/24/18 11/24/18 07:00 08:00 08:00 09:00 Temp 98.6 98.6 Pulse 102 104 104 Resp B/P (MAP) 108/60 (76) 112/64 (80) 111/62 (78) Pulse Ox 97 98 95 O2 Delivery Nasal Cannula Nasal Cannula Nasal Cannula Nasal Cannula O2 Flow Rate 4.0 4.0 4.0 4.0 11/24/18 11/24/18 11/24/18 11/24/18 09:45 09:47 10:00 10:15 Pulse 106 105 102 Resp B/P (MAP) 99/54 (69) 107/59 (75) Pulse Ox 94 95 96 95 O2 Delivery Nasal Cannula Nasal Cannula Nasal Cannula Nasal Cannula O2 Flow Rate 3.0 3.0 4.0 4.0 11/24/18 11/24/18 11/24/18 11/24/18 10:30 10:45 11:00 11:15 Pulse 102 102 104 106 Resp B/P (MAP) 108/60 (76) 97/61 (73) 113/61 (78) 109/63 (78) Pulse Ox 96 96 97 98 O2 Delivery Nasal Cannula Nasal Cannula Nasal Cannula Nasal Cannula O2 Flow Rate 4.0 4.0 4.0 4.0 11/24/18 11/24/18 11/24/18 11/24/18 11:30 11:45 12:00 12:00 Temp 98.5 98.5 Pulse 106 102 102 Resp B/P (MAP) 95/52 (66) 97/62 (74) 123/70 (87) Pulse Ox 96 96 99 O2 Delivery Nasal Cannula Nasal Cannula Nasal Cannula Nasal Cannula O2 Flow Rate 4.0 4.0 4.0 4.0 11/24/18 13:00 Pulse 106 Resp 24 B/P (MAP) 110/77 (88) Pulse Ox 98 O2 Delivery Nasal Cannula O2 Flow Rate 4.0 Intake and Output 11/23/18 11/23/18 11/24/18 15:00 23:00 07:00 Intake Total 590 ml 50 ml Output Total 115 ml 495 ml 770 ml Balance -115 ml 95 ml -720 ml TARA RG MD Nov 24, 2018 13:53
[2018-11-24] MEDS ORDERED: IV NORMAL SALINE 1000ML BAG 1,000 ML IV PRN ×2 (15:10)
[2018-11-24] MEDS ORDERED: DIALYSIS PATIENT. MC PRN ×2 (15:15)
--- NOTE | 2018-11-24 15:50 | RAD ---
Procedure: Tunneled hemodialysis catheter placement 11/24/2018 3:46 PM Clinical Indication: Permacath for HD Sterility: All elements of maximal sterile barrier technique including the use of a cap, mask, sterile gown, sterile gloves, large sterile sheet, appropriate hand hygiene, and 2% chlorhexidine for cutaneous antisepsis (or acceptable alternative antiseptic per current guidelines) were followed for this procedure. Consent: The procedure was explained in its entirety to the patient or the patients designated senior patient account representative by a member of the treatment team, including a discussion of the risks, benefits and commonly accepted alternatives to the procedure, as well as the expected consequences of no therapy whatsoever. Discussion of the risks included, but was not limited to, those that are most frequent and those that are rare but possibly severe or life-threatening, as well as the possibility of unforeseen complications. Technique and Findings: Following informed consent, a timeout procedure was performed. The patient was prepped and draped in the usual sterile fashion. Ultrasound interrogation of the right neck revealed patency and compressibility of the right internal jugular vein. A 21-gauge micropuncture was then used to gain access to this vein under ultrasound guidance. A hard copy ultrasound image was recorded. The needle was exchanged over a wire for a 4 Sudanese sheath which was used to guide an guidewire into the IVC. The skin over the right anterior chest wall was copiously anesthetized with 1% Lidocaine and a small dermatotomy was made. A 23 cm tipped cuff palindrome tunneled hemodialysis catheter was then tunneled subcutaneously towards the neck dermatotomy and deployed through a large caliber peel-away sheath under fluoroscopic guidance such that the distal tip resided in the mid right atrium. Manual flow rates were assessed and found to be within normal limits. The catheter was then flushed, packed with Heparin, capped, and sutured to the skin. The neck dermatotomy was closed with Dermabond. No immediate complications were identified. Sedation: [id number] sedation time: 25 minutes. The patient was monitored by a qualified independent observer throughout the time of sedation. Please refer to the medical record for exact doses of medications utilized to achieve moderate sedation. Fluoroscopy time: 0.7 minutes Dose area product:: 3.73 Gycm2 Impression: Right internal jugular tunneled hemodialysis catheter placement as described
--- NOTE | 2018-11-24 18:22 | NUR ---
Patient's pm insulin not given because patient not eating his dinner
[2018-11-24] MEDS: INSULIN GLARGINE 300 UNITS/3 ML INSULN.PEN. SQ SCH (20:31)
[2018-11-25] VITALS (7 sets, daily range): BP systolic 95–116; BP diastolic 58–75
[2018-11-25] MEDS: MEROPENEM 500 MG in IV NORMAL SALINE 50ML 50 ML IV SCH (04:56)
[2018-11-25 05:26] LABS: ALBUMIN 1.5 g/dL (3.4-5.0); GFR 12.1; MAGNESIUM 2.4 mg/dL (1.8-2.4); PHOSPHORUS 3.9 mg/dL (2.6-4.7); POTASSIUM 4.3 mmol/L (3.5-5.1)
--- NOTE | 2018-11-25 07:35 | PDOC ---
Infectious Disease Note Subjective Subjective pt is feeling ok no complaints ROS ROS no n/v/d/sob Vital Sign Vital Signs Vital Signs Date Time Temp Pulse Resp B/P (MAP) Pulse Ox O2 Delivery O2 Flow Rate FiO2 11/25/18 04:00 99.5 93 20 98/58 (71) 97 Nasal Cannula 2.0 99.5 Physical Exam PHYSICAL EXAM GENERAL: comfortable in bed, resting quietly HENT: Oral cavity clear HEART: S1 and S2. regular ABDOMEN: Obese, soft, NT : Hair in place GENITOURINARY: Hair in place. Left nephrostomy tube intact EXTREMITIES: Trace edema lower extremities, no cyanosis SKIN: Without generalized signs of rash. NEUROLOGIC: Arouses to name, responds appropriately PIV ok RIJ clean Labs Lab Laboratory Tests Test 11/24/18 11:40 11/24/18 18:03 11/24/18 20:29 11/25/18 05:00 Glucose (Fingerstick) 140 mg/dL (70-99) 115 mg/dL (70-99) 209 mg/dL (70-99) Sodium Level 139 mmol/L (136-145) Potassium Level 4.3 mmol/L (3.5-5.1) Chloride Level 102 mmol/L (98-107) Carbon Dioxide Level 28 mmol/L (21-32) Anion Gap 9 (6-14) Blood Urea Nitrogen 56 mg/dL (8-26) Creatinine 5.0 mg/dL (0.7-1.3) Estimated GFR (Cockcroft-Gault) 12.1 Glucose Level 178 mg/dL (70-99) Calcium Level 8.0 mg/dL (8.5-10.1) Phosphorus Level 3.9 mg/dL (2.6-4.7) Magnesium Level 2.4 mg/dL (1.8-2.4) Creatine Kinase 18 U/L (39-308) Albumin 1.5 g/dL (3.4-5.0) Micro BLOOD CULTURE LC Final Final report BLD CULT RESULT 1 Final Escherichia coli Recovered from aerobic and anaerobic bottles. ANTIMICROBIAL SUSCEPTIBILITY Final Comment S = Susceptible; I = Intermediate; R = Resistant P = Positive; N = Negative MICS are expressed in micrograms per mL Antibiotic RSLT#1 RSLT#2 RSLT#3 RSLT#4 Amoxicillin/Clavulanic Acid S =8 Ampicillin R>=32 Cefepime S<=0.12 Ceftriaxone S<=0.25 Cefuroxime S =4 Ciprofloxacin R>=4 Ertapenem S<=0.12 Gentamicin R>=16 Imipenem S<=0.25 Levofloxacin R>=8 Meropenem S<=0.25 Nitrofurantoin S<=16 Piperacillin/Tazobactam S<=4 Tetracycline R>=16 Tobramycin R>=16 Trimethoprim/Sulfa R>=320 Performed at: - [facility] [address], [place], [place] [id number] Pastry Baker: KINGSLEY Norman MD, Phone: [phone] URINE CULTURE Final Final report URINE CULTURE RES 1 Final Escherichia coli 25,000-50,000 colony forming units per mL Cefazolin <=4 ug/mL Cefazolin with an KORY <=16 predicts susceptibility to the oral agents cefaclor, cefdinir, cefpodoxime, cefprozil, cefuroxime, cephalexin, and loracarbef when used for therapy of uncomplicated urinary tract infections due to E. coli, Klebsiella pneumoniae, and Proteus mirabilis. ANTIMICROBIAL SUSCEPTIBILITY Final Comment S = Susceptible; I = Intermediate; R = Resistant P = Positive; N = Negative MICS are expressed in micrograms per mL Antibiotic RSLT#1 RSLT#2 RSLT#3 RSLT#4 Amoxicillin/Clavulanic Acid S =4 Ampicillin R>=32 Cefepime S<=0.12 Ceftriaxone S<=0.25 Cefuroxime S =4 Ciprofloxacin R>=4 Ertapenem S<=0.12 Gentamicin I =8 Imipenem S<=0.25 Levofloxacin R>=8 Meropenem S<=0.25 Nitrofurantoin S<=16 Piperacillin/Tazobactam S<=4 Tetracycline R>=16 Tobramycin R>=16 Objective Assessment Sepsis, present on admission, E coli 11/20- less pressor support now - Clinically - better Lactic acidosis Obstructive uropathy, s/p percutaneous nephrostomy tube placement on 11/21. Subcutaneous emphysema on CT, questionable, subcutaneous injections. Pylonephritis Acute kidney injury.- mild increase, renal following, may need to start dialysis Cipro allergy, questionable reaction. S/p Recent Prostatectomy Plan Plan of Care pt/ot will follow. supportive care cont meropenem SAEED ROSE MD Nov 25, 2018 07:35
[2018-11-25] MEDS: INSULIN LISPRO 300 UNITS/3 ML INSULN.PEN. SQ SCH ×6 (08:18→17:30)
[2018-11-25] MEDS: CETIRIZINE HCL 10 MG TABLET. PO SCH (08:26)
[2018-11-25] MEDS: SERTRALINE 50 MG TABLET. PO SCH (08:26)
[2018-11-25] MEDS: PANTOPRAZOLE 40 MG TABLET.DR. PO SCH (08:26)
[2018-11-25] MEDS: OXYBUTYNIN CHLORIDE 5 MG TABLET PO SCH ×3 (08:26→21:17)
[2018-11-25] MEDS: LACTOBACILLUS RHAMNOSUS GG 1 CAPSULE. PO SCH ×2 (08:26→21:17)
[2018-11-25] MEDS: HEPARIN for SUB-Q USE 5,000 UNIT/ML VIAL. SQ SCH ×2 (08:27→21:24)
--- NOTE | 2018-11-25 08:55 | PDOC ---
KIANA GA GRINDER LAP 11/25/18 0855: SUBJECTIVE Subjective Pt doing ok. Hair catheter not bothering him, nephrostomy tube not bothering him either. Hasn't been walking very much. OBJECTIVE Objective Physical Exam: General appearance: Alert and Oriented Head: Normocephalic, without obvious abnormality Eyes: conjunctivae/corneas clear. PERRL, EOM's intact. Fundi benign Lungs: Regular respirations, non labored breathing Abdomen: soft, non-tender.=. No masses, no organomegaly Pelvic: + Hair catheter in place draining clear yellow urine. Vital Signs Vital Signs Date Time Temp Pulse Resp B/P (MAP) Pulse Ox O2 Delivery O2 Flow Rate FiO2 11/25/18 04:00 99.5 93 20 98/58 (71) 97 Nasal Cannula 2.0 99.5 11/25/18 00:00 97.7 93 18 102/65 (77) 98 Nasal Cannula 4.0 97.7 11/24/18 20:00 98.1 97 25 107/65 (79) 98 Nasal Cannula 4.0 98.1 11/24/18 19:35 Nasal Cannula 4.0 11/24/18 18:00 92 20 106/66 (79) 100 Nasal Cannula 4.0 11/24/18 17:00 95 20 106/67 (80) 99 Nasal Cannula 4.0 11/24/18 16:00 98.9 96 20 94/62 (73) 98 Nasal Cannula 4.0 98.9 11/24/18 16:00 Nasal Cannula 4.0 11/24/18 15:00 94 28 105/66 (79) 98 Nasal Cannula 4.0 11/24/18 14:00 104 26 112/68 (83) 97 Nasal Cannula 4.0 11/24/18 13:00 106 24 110/77 (88) 98 Nasal Cannula 4.0 11/24/18 12:00 98.5 102 28 123/70 (87) 99 Nasal Cannula 4.0 98.5 11/24/18 12:00 Nasal Cannula 4.0 11/24/18 11:45 102 24 97/62 (74) 96 Nasal Cannula 4.0 11/24/18 11:30 106 26 95/52 (66) 96 Nasal Cannula 4.0 11/24/18 11:15 106 22 109/63 (78) 98 Nasal Cannula 4.0 11/24/18 11:00 104 20 113/61 (78) 97 Nasal Cannula 4.0 11/24/18 10:45 102 26 97/61 (73) 96 Nasal Cannula 4.0 11/24/18 10:30 102 24 108/60 (76) 96 Nasal Cannula 4.0 11/24/18 10:15 102 22 107/59 (75) 95 Nasal Cannula 4.0 11/24/18 10:00 105 28 99/54 (69) 96 Nasal Cannula 4.0 11/24/18 09:47 106 24 95 Nasal Cannula 3.0 11/24/18 09:45 24 94 Nasal Cannula 3.0 11/24/18 09:00 104 28 111/62 (78) 95 Nasal Cannula 4.0 I & O Intake and Output 11/25/18 06:59 Intake Total 560 ml Output Total 1635 ml Balance -1075 ml Intake Oral 500 ml IV Total 50 ml Other 10 ml Output Urine Total 1325 ml Drainage Total 310 ml PHYSICAL EXAM Physical Exam Physical Exam: General appearance: Alert and Oriented Head: Normocephalic, without obvious abnormality Eyes: conjunctivae/corneas clear. PERRL, EOM's intact. Fundi benign Lungs: Regular respirations, non labored breathing Abdomen: soft, non-tender.=. No masses, no organomegaly Pelvic: + Hair catheter in place draining clear yellow urine. ASSESSMENT/PLAN Assessment/Plan Nursing to continue to maintain Hair catheter for now. Could try a voiding trial on if he is moving around at that time and having good bowel movements. Will recheck on him then. Pt now getting dialysis. Encouraged patient to ambulate, move around more. Continue nephrostomy tube flushes with 10 cc NS. Maintain nephrostomy tube. Most likely will discharge with this in place. COMMENT Lab Laboratory Tests Test 11/24/18 11:40 11/24/18 18:03 11/24/18 20:29 11/25/18 05:00 Glucose (Fingerstick) 140 mg/dL (70-99) 115 mg/dL (70-99) 209 mg/dL (70-99) Sodium Level 139 mmol/L (136-145) Potassium Level 4.3 mmol/L (3.5-5.1) Chloride Level 102 mmol/L (98-107) Carbon Dioxide Level 28 mmol/L (21-32) Anion Gap 9 (6-14) Blood Urea Nitrogen 56 mg/dL (8-26) Creatinine 5.0 mg/dL (0.7-1.3) Estimated GFR (Cockcroft-Gault) 12.1 Glucose Level 178 mg/dL (70-99) Calcium Level 8.0 mg/dL (8.5-10.1) Phosphorus Level 3.9 mg/dL (2.6-4.7) Magnesium Level 2.4 mg/dL (1.8-2.4) Creatine Kinase 18 U/L (39-308) Albumin 1.5 g/dL (3.4-5.0) LISA ARAUZ MD 11/26/18 2137: ASSESSMENT/PLAN Assessment/Plan CT a/p before discharge. If stone present needs fu with [facility] for continuity of care. VT as outlined. KIANA GA APRN Nov 25, 2018 08:55 LISA ARAUZ MD Nov 26, 2018 21:37
--- NOTE | 2018-11-25 09:02 | PDOC ---
PULMONARY PROGRESS NOTES Subjective PT NOT MORE SOA TRANSFER OUT OF ICU THIS AM Vitals Vital Signs Date Time Temp Pulse Resp B/P (MAP) Pulse Ox O2 Delivery O2 Flow Rate FiO2 11/25/18 08:00 Nasal Cannula 2.0 11/25/18 04:00 99.5 93 20 98/58 (71) 97 99.5 ROS: No Nausea, No Chest Pain General: Alert, No acute distress HEENT: Other (nc at perrl nose throat clear neck no lad, no thyromegaly) Lungs: Clear Cardiovascular: S1, S2 Abdomen: Soft, Non-tender Neuro Exam: Alert Extremities: Other (edema) Skin: Warm Labs Laboratory Tests Test 11/23/18 09:09 11/23/18 17:57 11/23/18 21:23 11/24/18 06:15 Glucose (Fingerstick) 141 mg/dL (70-99) 165 mg/dL (70-99) 165 mg/dL (70-99) White Blood Count 14.5 x10^3/uL (4.0-11.0) Red Blood Count 2.86 x10^6/uL (4.30-5.70) Hemoglobin 8.8 g/dL (13.0-17.5) Hematocrit 26.6 % (39.0-53.0) Mean Corpuscular Volume 93 fL (79-100) Mean Corpuscular Hemoglobin 31 pg (25-35) Mean Corpuscular Hemoglobin Concent 33 g/dL (31-37) Red Cell Distribution Width 15.4 % (11.5-14.5) Platelet Count 136 x10^3/uL (140-400) Neutrophils (%) (Auto) 83 % (31-73) Lymphocytes (%) (Auto) 6 % (24-48) Monocytes (%) (Auto) 6 % (0-9) Eosinophils (%) (Auto) 5 % (0-3) Basophils (%) (Auto) 0 % (0-3) Neutrophils # (Auto) 12.0 x10^3uL (1.8-7.7) Lymphocytes # (Auto) 0.9 x10^3/uL (1.0-4.8) Monocytes # (Auto) 0.9 x10^3/uL (0.0-1.1) Eosinophils # (Auto) 0.7 x10^3/uL (0.0-0.7) Basophils # (Auto) 0.0 x10^3/uL (0.0-0.2) Sodium Level 136 mmol/L (136-145) Potassium Level 4.5 mmol/L (3.5-5.1) Chloride Level 101 mmol/L (98-107) Carbon Dioxide Level 25 mmol/L (21-32) Anion Gap 10 (6-14) Blood Urea Nitrogen 88 mg/dL (8-26) Creatinine 6.9 mg/dL (0.7-1.3) Estimated GFR (Cockcroft-Gault) 8.4 Glucose Level 125 mg/dL (70-99) Calcium Level 7.6 mg/dL (8.5-10.1) Phosphorus Level 4.4 mg/dL (2.6-4.7) Magnesium Level 2.6 mg/dL (1.8-2.4) Creatine Kinase 36 U/L (39-308) Albumin 1.6 g/dL (3.4-5.0) Hepatitis B Surface Antigen Nonreactive (Nonreactive) Hepatitis B Surface Antibody Nonreactive Test 11/24/18 11:40 11/24/18 18:03 11/24/18 20:29 11/25/18 05:00 Glucose (Fingerstick) 140 mg/dL (70-99) 115 mg/dL (70-99) 209 mg/dL (70-99) Sodium Level 139 mmol/L (136-145) Potassium Level 4.3 mmol/L (3.5-5.1) Chloride Level 102 mmol/L (98-107) Carbon Dioxide Level 28 mmol/L (21-32) Anion Gap 9 (6-14) Blood Urea Nitrogen 56 mg/dL (8-26) Creatinine 5.0 mg/dL (0.7-1.3) Estimated GFR (Cockcroft-Gault) 12.1 Glucose Level 178 mg/dL (70-99) Calcium Level 8.0 mg/dL (8.5-10.1) Phosphorus Level 3.9 mg/dL (2.6-4.7) Magnesium Level 2.4 mg/dL (1.8-2.4) Creatine Kinase 18 U/L (39-308) Albumin 1.5 g/dL (3.4-5.0) Laboratory Tests Test 11/24/18 11:40 11/24/18 18:03 11/24/18 20:29 11/25/18 05:00 Glucose (Fingerstick) 140 mg/dL (70-99) 115 mg/dL (70-99) 209 mg/dL (70-99) Sodium Level 139 mmol/L (136-145) Potassium Level 4.3 mmol/L (3.5-5.1) Chloride Level 102 mmol/L (98-107) Carbon Dioxide Level 28 mmol/L (21-32) Anion Gap 9 (6-14) Blood Urea Nitrogen 56 mg/dL (8-26) Creatinine 5.0 mg/dL (0.7-1.3) Estimated GFR (Cockcroft-Gault) 12.1 Glucose Level 178 mg/dL (70-99) Calcium Level 8.0 mg/dL (8.5-10.1) Phosphorus Level 3.9 mg/dL (2.6-4.7) Magnesium Level 2.4 mg/dL (1.8-2.4) Creatine Kinase 18 U/L (39-308) Albumin 1.5 g/dL (3.4-5.0) Medications Active Scripts Medications Dose Route/Sig Max Daily Dose Days Date Category Dose Instructions Novolin 70-30 100 Unit/Ml Vial (Hum Insulin Nph/Reg Insulin Hm) 100 Unit/1 Ml Vial 7 Unit SQ QHS 11/21/18 Reported Novolin 70-30 100 Unit/Ml Vial (Hum Insulin Nph/Reg Insulin Hm) 100 Unit/1 Ml Vial 15 Unit SQ DAILY 11/21/18 Reported Novolin R (Insulin Regular, Human) 100 Unit/1 Ml Vial 100 Unit IJ QIDACHS 11/21/18 Reported Oxybutynin Chloride 5 Mg Tablet 5 Mg PO TID 11/21/18 Reported Ondansetron Hcl 4 Mg Tablet 1 Tab PO PRN Q6HRS 11/21/18 Reported Tylenol (Acetaminophen) 325 Mg Tablet 2 Tab PO HS 11/21/18 Reported Nortriptyline Hcl 50 Mg Capsule 50 Mg PO HS 11/21/18 Reported Metformin Hcl 1,000 Mg Tablet 1,000 Mg PO BIDWMEALS 11/21/18 Reported Lactulose 10 Gm Packet 10 Gm PO DAILY 11/21/18 Reported Hyoscyamine Sulfate 0.125 Mg Tab.subl 0.125 Mg SL Q4HRS PRN 11/21/18 Reported Loratadine 10 Mg Tablet 1 Tab PO DAILY 11/21/18 Reported Pain Relieving 1%-15% Cream (Methyl Salicylate/Menthol) 85 Gm Cream..g. 85 Gm TP TID PRN PRN 11/21/18 Reported [place] 5-325 Tablet (Acetaminophen/Hydrocodone Bitart) 1 Each Tablet 2 Tab PO Q4HRS 03/25/17 Reported LAST DOSE GIVEN: DATE: TIME: Zoloft (Sertraline Hcl) 100 Mg Tablet 100 Mg PO DAILY 02/18/17 Reported Lisinopril 5 Mg Tablet 2.5 Mg PO DAILY 02/18/17 Reported Atorvastatin Calcium 20 Mg Tablet 40 Mg PO DAILY 02/18/17 Reported Comments cxr, basilar atelectasis infilt Impression . IMPRESSION: 1. Acute hypoxic respiratory failure secondary to septic shock. 2. Septic shock related to urinary tract infection. b cx, GNR 11/20 3. Recent prostatectomy and now comes in with SEPSIS/ UTI .He has left ureteral stone and has left hydronephrosis. 4. No significant history of tobacco use. 5. Lactic acidosis secondary to septic shock. 6. Moderate protein-calorie malnutrition. 7. Acute renal failure, worse, nephro planned on HD Plan . ANTIBX PER ID OFF PRESSORS CONTINUE SUPPORT RESP STATUS IS COMPENSATED MAGGIE ZARAGOZA MD Nov 25, 2018 09:02
--- NOTE | 2018-11-25 14:57 | PDOC ---
Renal-Progress Notes Subjective Notes Notes NONE History of Present Illness Hx of present illness STABLE Vitals Vitals Vital Signs Date Time Temp Pulse Resp B/P (MAP) Pulse Ox O2 Delivery O2 Flow Rate FiO2 11/25/18 11:08 Nasal Cannula 2.0 11/25/18 11:00 98.2 97 22 104/68 (80) 99 98.2 Weight Weight [ ] I.O. Intake and Output Intake and Output 11/25/18 07:00 Intake Total 560 ml Output Total 1575 ml Balance -1015 ml Intake Oral 500 ml IV Total 50 ml Other 10 ml Output Urine Total 1265 ml Drainage Total 310 ml Labs Labs Laboratory Tests Test 11/24/18 18:03 11/24/18 20:29 11/25/18 05:00 11/25/18 11:09 Glucose (Fingerstick) 115 mg/dL (70-99) 209 mg/dL (70-99) 185 mg/dL (70-99) Sodium Level 139 mmol/L (136-145) Potassium Level 4.3 mmol/L (3.5-5.1) Chloride Level 102 mmol/L (98-107) Carbon Dioxide Level 28 mmol/L (21-32) Anion Gap 9 (6-14) Blood Urea Nitrogen 56 mg/dL (8-26) Creatinine 5.0 mg/dL (0.7-1.3) Estimated GFR (Cockcroft-Gault) 12.1 Glucose Level 178 mg/dL (70-99) Calcium Level 8.0 mg/dL (8.5-10.1) Phosphorus Level 3.9 mg/dL (2.6-4.7) Magnesium Level 2.4 mg/dL (1.8-2.4) Creatine Kinase 18 U/L (39-308) Albumin 1.5 g/dL (3.4-5.0) Micro Micro Microbiology 11/22/18 Blood Culture - Preliminary, Resulted NO GROWTH AFTER 3 DAYS 11/21/18 Urine Culture - Final, Complete 11/21/18 Urine Culture Result 1 (KORY) - Final, Complete 11/21/18 Antimicrobic Susceptibility - Final, Complete Review of Systems Constitutional: yes: weakness, alert, oriented Ears/Nose/Throat: Yes: no symptom reported Eyes: Yes: no symptom reported Pulmonary: Yes no symptom reported Cardiovascular: Yes no symptom reported Gastrointestional: Yes: constipation Genitourinary: Yes: urgency Musculoskeletal: Yes: no symptom reported Skin: Yes no symptom reported Psychiatric/Neurological: Yes: no symptom reported Endocrine: Yes: no symptom reported Hematologic/Lymphatic: Yes: no symptom reported Physical Exam General Appearance: no apparent distress Skin: warm Respiratory: bilateral CTA Heart: S1S2, RRR Abdomen: soft, bowel sounds present Genitourinary: bladder flat Extremities: pulses present Neurology: alert, follow commands, confused Musculoskeletal: low back pain Assessment Assessment IMP GAGAN-CR UP AGAIN CKD STAGE 3-CR OF ABOUT 2.0-3.0 AT BASELINE SEPSIS WITH UTI ACUTE HYPOXIC RESP FAILURE RECENT PROSTATECTOMY LEFT URETERAL STONE-S/PCN ANEMIA PLAN START ARANESP ANTIBIOTICS HD [facility] FOLLOWING MAINTAIN LAU WILL FOLLOW CISCO MARS MD Nov 25, 2018 14:57
--- NOTE | 2018-11-25 21:02 | PDOC ---
PROGRESS NOTES Chief Complaint Chief Complaint septic shock secondary to obstructive uropathy Status post TURP in an outside facility obesity, BMI 33 7mm obstructive renal stone, renal colic, obstructive uropathy causing acute renal failure, in need Perc nephrostomy History ofDM2, depression, Patient is incarcerated at [facility] as per report Plan: Continue HD status post nephrostomy tube may be transferred out of the unit continue antibiotics as per ID follow recommendations from consultants History of Present Illness History of Present Illness no complaints during my visit, still feeling very weak, no fever ofr chills reported, no acute events reported overnight, plans for diaysis later in the day Vitals Vitals Vital Signs Date Time Temp Pulse Resp B/P (MAP) Pulse Ox O2 Delivery O2 Flow Rate FiO2 11/25/18 19:00 98.4 91 22 108/70 (83) 97 Nasal Cannula 2.0 98.4 Physical Exam Physical Exam GENERAL: comfortable in bed, resting quietly HENT: Oral cavity clear HEART: S1 and S2. regular ABDOMEN: Obese, soft, NT : Hair in place GENITOURINARY: Hair in place. Left nephrostomy tube intact EXTREMITIES: Trace edema lower extremities, no cyanosis SKIN: Without generalized signs of rash. NEUROLOGIC: Arouses to name, responds appropriately PIV ok RIJ clean General: Alert, Oriented X3, No acute distress Lungs: Clear Abdomen: Normal bowel sounds, Soft Extremities: No clubbing, No edema, Normal pulses Skin: No rashes, No significant lesion Labs LABS Laboratory Tests Test 11/25/18 05:00 11/25/18 11:09 11/25/18 16:50 11/25/18 20:55 Sodium Level 139 mmol/L (136-145) Potassium Level 4.3 mmol/L (3.5-5.1) Chloride Level 102 mmol/L (98-107) Carbon Dioxide Level 28 mmol/L (21-32) Anion Gap 9 (6-14) Blood Urea Nitrogen 56 mg/dL (8-26) Creatinine 5.0 mg/dL (0.7-1.3) Estimated GFR (Cockcroft-Gault) 12.1 Glucose Level 178 mg/dL (70-99) Calcium Level 8.0 mg/dL (8.5-10.1) Phosphorus Level 3.9 mg/dL (2.6-4.7) Magnesium Level 2.4 mg/dL (1.8-2.4) Creatine Kinase 18 U/L (39-308) Albumin 1.5 g/dL (3.4-5.0) Glucose (Fingerstick) 185 mg/dL (70-99) 160 mg/dL (70-99) 202 mg/dL (70-99) Assessment and Plan Assessmemt and Plan Problems Medical Problems: (1) Acute on chronic renal failure Status: Acute (2) Hydronephrosis with urinary obstruction due to ureteral calculus Status: Acute (3) Renal colic Status: Acute Comment Review of Relevant I have reviewed the following items patti (where applicable) has been applied. Labs Laboratory Tests Test 11/23/18 21:23 11/24/18 06:15 11/24/18 11:40 11/24/18 18:03 Glucose (Fingerstick) 165 mg/dL (70-99) 140 mg/dL (70-99) 115 mg/dL (70-99) White Blood Count 14.5 x10^3/uL (4.0-11.0) Red Blood Count 2.86 x10^6/uL (4.30-5.70) Hemoglobin 8.8 g/dL (13.0-17.5) Hematocrit 26.6 % (39.0-53.0) Mean Corpuscular Volume 93 fL (79-100) Mean Corpuscular Hemoglobin 31 pg (25-35) Mean Corpuscular Hemoglobin Concent 33 g/dL (31-37) Red Cell Distribution Width 15.4 % (11.5-14.5) Platelet Count 136 x10^3/uL (140-400) Neutrophils (%) (Auto) 83 % (31-73) Lymphocytes (%) (Auto) 6 % (24-48) Monocytes (%) (Auto) 6 % (0-9) Eosinophils (%) (Auto) 5 % (0-3) Basophils (%) (Auto) 0 % (0-3) Neutrophils # (Auto) 12.0 x10^3uL (1.8-7.7) Lymphocytes # (Auto) 0.9 x10^3/uL (1.0-4.8) Monocytes # (Auto) 0.9 x10^3/uL (0.0-1.1) Eosinophils # (Auto) 0.7 x10^3/uL (0.0-0.7) Basophils # (Auto) 0.0 x10^3/uL (0.0-0.2) Sodium Level 136 mmol/L (136-145) Potassium Level 4.5 mmol/L (3.5-5.1) Chloride Level 101 mmol/L (98-107) Carbon Dioxide Level 25 mmol/L (21-32) Anion Gap 10 (6-14) Blood Urea Nitrogen 88 mg/dL (8-26) Creatinine 6.9 mg/dL (0.7-1.3) Estimated GFR (Cockcroft-Gault) 8.4 Glucose Level 125 mg/dL (70-99) Calcium Level 7.6 mg/dL (8.5-10.1) Phosphorus Level 4.4 mg/dL (2.6-4.7) Magnesium Level 2.6 mg/dL (1.8-2.4) Creatine Kinase 36 U/L (39-308) Albumin 1.6 g/dL (3.4-5.0) Hepatitis B Surface Antigen Nonreactive (Nonreactive) Hepatitis B Surface Antibody Nonreactive Test 11/24/18 20:29 11/25/18 05:00 11/25/18 11:09 11/25/18 16:50 Glucose (Fingerstick) 209 mg/dL (70-99) 185 mg/dL (70-99) 160 mg/dL (70-99) Sodium Level 139 mmol/L (136-145) Potassium Level 4.3 mmol/L (3.5-5.1) Chloride Level 102 mmol/L (98-107) Carbon Dioxide Level 28 mmol/L (21-32) Anion Gap 9 (6-14) Blood Urea Nitrogen 56 mg/dL (8-26) Creatinine 5.0 mg/dL (0.7-1.3) Estimated GFR (Cockcroft-Gault) 12.1 Glucose Level 178 mg/dL (70-99) Calcium Level 8.0 mg/dL (8.5-10.1) Phosphorus Level 3.9 mg/dL (2.6-4.7) Magnesium Level 2.4 mg/dL (1.8-2.4) Creatine Kinase 18 U/L (39-308) Albumin 1.5 g/dL (3.4-5.0) Test 11/25/18 20:55 Glucose (Fingerstick) 202 mg/dL (70-99) Laboratory Tests Test 11/25/18 05:00 11/25/18 11:09 11/25/18 16:50 11/25/18 20:55 Sodium Level 139 mmol/L (136-145) Potassium Level 4.3 mmol/L (3.5-5.1) Chloride Level 102 mmol/L (98-107) Carbon Dioxide Level 28 mmol/L (21-32) Anion Gap 9 (6-14) Blood Urea Nitrogen 56 mg/dL (8-26) Creatinine 5.0 mg/dL (0.7-1.3) Estimated GFR (Cockcroft-Gault) 12.1 Glucose Level 178 mg/dL (70-99) Calcium Level 8.0 mg/dL (8.5-10.1) Phosphorus Level 3.9 mg/dL (2.6-4.7) Magnesium Level 2.4 mg/dL (1.8-2.4) Creatine Kinase 18 U/L (39-308) Albumin 1.5 g/dL (3.4-5.0) Glucose (Fingerstick) 185 mg/dL (70-99) 160 mg/dL (70-99) 202 mg/dL (70-99) Microbiology 11/22/18 Blood Culture - Preliminary, Resulted NO GROWTH AFTER 3 DAYS 11/21/18 Urine Culture - Final, Complete 11/21/18 Urine Culture Result 1 (KORY) - Final, Complete 11/21/18 Antimicrobic Susceptibility - Final, Complete Medications Current Medications Sodium Chloride 1,000 ml @ 1,000 mls/hr 1X ONCE IV Last administered on at 20:10; Start 11/20/18 at 20:00; Stop 11/20/18 at 20:59; Status DC Sodium Chloride 1,000 ml @ 1,000 mls/hr 1X ONCE IV Last administered on at 20:10; Start 11/20/18 at 20:00; Stop 11/20/18 at 20:59; Status DC Piperacillin Sod/ Tazobactam Sod 4.5 gm/Sodium Chloride 100 ml @ 200 mls/hr 1X ONCE IV Last administered on 11/20/18at 20:13; Start 11/20/18 at 20:15; Stop 11/20/18 at 20:44; Status DC Fentanyl Citrate (Fentanyl 2ml Vial) 50 mcg 1X ONCE IV Last administered on at 20:13; Start 11/20/18 at 20:15; Stop 11/20/18 at 20:16; Status DC Ondansetron HCl (Zofran) 4 mg 1X ONCE IV Last administered on 11/20/18at 20:13 ; Start 11/20/18 at 20:15; Stop 11/20/18 at 20:16; Status DC Sodium Chloride 1,000 ml @ 1,000 mls/hr 1X ONCE IV Last administered on at 20:47; Start 11/20/18 at 20:45; Stop 11/20/18 at 21:44; Status DC Ondansetron HCl (Zofran) 4 mg PRN Q8HRS PRN IV NAUSEA/VOMITING Last administered on 11/20/18at 21:35; Start 11/20/18 at 21:15; Stop 11/21/18 at 21:14 ; Status DC Fentanyl Citrate (Fentanyl 2ml Vial) 50 mcg PRN Q2HR PRN IV SEVERE PAIN Last administered on 11/21/18at 03:06; Start 11/20/18 at 21:15 Acetaminophen (Tylenol) 650 mg PRN Q4HRS PRN PO FEVER; Start 11/20/18 at 21:15 ; Stop 11/21/18 at 21:14; Status DC Insulin Human Lispro (HumaLOG) 0-5 UNITS TIDWMEALS SQ ; Start 11/21/18 at 08:00 ; Stop 11/21/18 at 08:00; Status DC Dextrose (Dextrose 50%-Water Syringe) 12.5 gm PRN Q15MIN PRN IV SEE COMMENTS; Start 11/20/18 at 21:15; Stop 11/21/18 at 07:45; Status DC Vancomycin HCl 2 gm/Sodium Chloride 500 ml @ 250 mls/hr 1X ONCE IV Last administered on 11/20/18at 22:22; Start 11/20/18 at 22:00; Stop 11/20/18 at 23:59 ; Status DC Fentanyl Citrate (Fentanyl 2ml Vial) 75 mcg 1X ONCE IV Last administered on at 21:35; Start 11/20/18 at 21:45; Stop 11/20/18 at 21:46; Status DC Lidocaine/ Epinephrine (LIDOCAINE 2%-EPI 1:100,000 multi-dose) 20 ml 1X ONCE IJ Last administered on 11/20/18at 22:31; Start 11/20/18 at 22:15; Stop at 22:16; Status DC Fentanyl Citrate (Fentanyl 2ml Vial) 75 mcg 1X ONCE IV ; Start 11/20/18 at 22: 30; Stop 11/20/18 at 22:31; Status DC Magnesium Sulfate 50 ml @ 25 mls/hr 1X ONCE IV Last administered on 11/21/18at 01:05; Start 11/20/18 at 23:15; Stop 11/21/18 at 01:14; Status DC Norepinephrine Bitartrate 250 ml @ 0 mls/hr 1X ONCE IV Last administered on at 23:35; Start 11/20/18 at 23:30; Stop 11/20/18 at 23:31; Status DC Sodium Chloride 1,000 ml @ 150 mls/hr Q6H40M IV Last administered on at 07:11; Start 11/21/18 at 04:45; Stop 11/21/18 at 11:25; Status DC Sodium Chloride 1,000 ml @ 1,000 mls/hr 1X ONCE IV Last administered on at 05:04; Start 11/21/18 at 04:45; Stop 11/21/18 at 05:44; Status DC Sodium Chloride 1,000 ml @ 1,000 mls/hr 1X ONCE IV Last administered on at 06:11; Start 11/21/18 at 05:30; Stop 11/21/18 at 06:29; Status DC Vasopressin 40 unit/Dextrose 102 ml @ 6 mls/hr CONT PRN IV SEE I/O RECORD Last administered on 11/23/18at 06:13; Start 11/21/18 at 05:00; Stop 11/25/18 at 10:00 ; Status DC Acetaminophen (Tylenol Supp) 650 mg PRN Q6HRS PRN DC MILD PAIN / TEMP Last administered on 11/21/18at 05:04; Start 11/21/18 at 04:45 Piperacillin Sod/ Tazobactam Sod (Zosyn Per Pharmacy) 1 each PRN DAILY PRN MC SEE COMMENTS; Start 11/21/18 at 04:45; Stop 11/21/18 at 07:10; Status DC Meropenem 500 mg/ Sodium Chloride 50 ml @ 100 mls/hr Q12H IV Last administered on 11/21/18at 05:10; Start 11/21/18 at 05:00; Stop 11/21/18 at 07:10 ; Status DC Morphine Sulfate (Morphine Sulfate) 4 mg PRN Q4HRS PRN IV MODERATE PAIN Last administered on 11/21/18at 20:47; Start 11/21/18 at 04:45 Piperacillin Sod/ Tazobactam Sod 2.25 gm/Sodium Chloride 50 ml @ 100 mls/hr Q6HRS IV Last administered on 11/21/18at 05:42; Start 11/21/18 at 06:00; Stop at 07:10; Status DC Magnesium Sulfate/ Dextrose 100 ml @ 25 mls/hr 1X ONCE IV Last administered on 11/21/18at 05:42; Start 11/21/18 at 05:30; Stop 11/21/18 at 09:29; Status DC Throat Lozenges (Cepacol Sore Throat Lozenge) 1 corina PRN Q2HRS PRN PO SORE THROAT Last administered on 11/21/18at 20:10; Start 11/21/18 at 05:30 Saliva Substitute (Biotene Moisturizing Mouth) 2 spray PRN Q15MIN PRN PO DRY MOUTH; Start 11/21/18 at 05:30 Norepinephrine Bitartrate 250 ml @ 1.875 mls/ hr CONT PRN IV SEE I/O RECORD Last administered on 11/22/18at 04:21; Start 11/21/18 at 06:45; Stop 11/25/18 at 10:00; Status DC Meropenem 500 mg/ Sodium Chloride 50 ml @ 100 mls/hr Q24H IV Last administered on 11/25/18at 04:56; Start 11/22/18 at 05:00 Acetaminophen/ Hydrocodone Bitart (Lortab 5/325) 2 tab Q4HRS PO ; Start at 08:00; Stop 11/21/18 at 08:00; Status DC Oxybutynin Chloride (Ditropan) 5 mg TID PO Last administered on 11/25/18 14:07 ; Start 11/21/18 at 09:00 Cetirizine HCl (ZyrTEC) 10 mg DAILY PO Last administered on 11/25/18 08:26; Start 11/21/18 at 09:00 Ondansetron HCl (Zofran Odt) 4 mg PRN Q6HRS PRN PO NAUSEA/VOMITING; Start 11/21 at 07:45 Sertraline HCl (Zoloft) 100 mg DAILY PO Last administered on 11/25/18 08:26; Start 11/21/18 at 09:00 Insulin Human Lispro (HumaLOG) 0-9 UNITS TIDWMEALS SQ Last administered on 11/25 17:30; Start 11/21/18 at 08:00 Dextrose (Dextrose 50%-Water Syringe) 12.5 gm PRN Q15MIN PRN IV SEE COMMENTS; Start 11/21/18 at 07:30 Insulin Glargine (Lantus) 12 units QHS SQ Last administered on 11/24/18 20:31 ; Start 11/21/18 at 21:00 Insulin Human Lispro (HumaLOG) 10 units TIDWMEALS SQ Last administered on 08:19; Start 11/21/18 at 08:00 Magnesium Sulfate/ Dextrose 100 ml @ 25 mls/hr 1X ONCE IV ; Start 11/21/18 at 09:00; Stop 11/21/18 at 12:59; Status Cancel Acetaminophen/ Hydrocodone Bitart (Lortab 5/325) 2 tab PRN Q4HRS PRN PO PAIN MODERATE TO SEVERE Last administered on 11/22/18 21:15; Start 11/21/18 at 08:00 Hydromorphone HCl (Dilaudid) 1 mg PRN Q3HRS PRN IV SEVERE PAIN 2ND CHOICE Last administered on 11/23/18 21:35; Start 11/21/18 at 08:00 Sodium Bicarbonate 150 meq/Dextrose 1,150 ml @ 125 mls/hr Q9H12M IV Last administered on 11/22/18 04:21; Start 11/21/18 at 11:00; Stop 11/22/18 at 13:03 ; Status DC Midazolam HCl (Versed) 2 mg STK-MED ONCE .ROUTE ; Start 11/21/18 at 10:50; Stop 11/21/18 at 10:51; Status DC Fentanyl Citrate (Fentanyl 2ml Vial) 100 mcg STK-MED ONCE .ROUTE ; Start at 10:50; Stop 11/21/18 at 10:51; Status DC Cefazolin Sodium 50 ml @ 100 mls/hr 1X ONCE IV Last administered on at 11:15; Start 11/21/18 at 11:15; Stop 11/21/18 at 11:44; Status DC Lidocaine/Sodium Bicarbonate (Buffered Lidocaine 1%) 3 ml STK-MED ONCE .ROUTE ; Start 11/21/18 at 11:56; Stop 11/21/18 at 11:57; Status DC Iohexol (Omnipaque 300 Mg/ml) 100 ml STK-MED ONCE .ROUTE ; Start 11/21/18 at 11: 56; Stop 11/21/18 at 11:57; Status DC Heparin Sodium/ Sodium Chloride 500 ml @ As Directed STK-MED ONCE .ROUTE ; Start 11/21/18 at 11:56; Stop 11/21/18 at 11:57; Status DC Lidocaine/Sodium Bicarbonate (Buffered Lidocaine 1%) 3 ml STK-MED ONCE .ROUTE ; Start 11/21/18 at 12:29; Stop 11/21/18 at 12:30; Status DC Lidocaine/Sodium Bicarbonate (Buffered Lidocaine 1%) 3 ml STK-MED ONCE .ROUTE ; Start 11/21/18 at 12:29; Stop 11/21/18 at 12:30; Status DC Heparin Sodium/ Sodium Chloride (HEPARIN for ARTERIAL LINE FLUSH) 1,000 unit 1X ONCE IART ; Start 11/21/18 at 12:45; Stop 11/21/18 at 12:51; Status DC Lidocaine/Sodium Bicarbonate (Buffered Lidocaine 1%) 13 ml 1X ONCE IJ Last administered on 11/21/18at 12:45; Start 11/21/18 at 12:45; Stop 11/21/18 at 12:51 ; Status DC Midazolam HCl (Versed) 2 mg 1X ONCE IV Last administered on 11/21/18at 12:45; Start 11/21/18 at 12:45; Stop 11/21/18 at 12:51; Status DC Fentanyl Citrate (Fentanyl 2ml Vial) 100 mcg 1X ONCE IV Last administered on at 12:45; Start 11/21/18 at 12:45; Stop 11/21/18 at 12:51; Status DC Iohexol (Omnipaque 300 Mg/ml) 40 ml 1X ONCE IART Last administered on at 12:45; Start 11/21/18 at 12:45; Stop 11/21/18 at 12:51; Status DC Throat Lozenges (Cepacol Sore Throat Lozenge) 1 corina PRN Q2HRS PRN PO SORE THROAT; Start 11/21/18 at 19:45; Stop 11/21/18 at 19:45; Status DC Alteplase, Recombinant (Cathflo For Central Catheter Clearance) 1 mg 1X ONCE INT CAT Last administered on 11/22/18at 06:25; Start 11/22/18 at 06:30; Stop at 06:31; Status DC Pantoprazole Sodium (Protonix) 40 mg DAILYAC PO Last administered on 11/25/18at 08:26; Start 11/22/18 at 07:45 Heparin Sodium (Porcine) (Heparin Sodium) 5,000 unit Q12HR SQ Last administered on 11/25/18at 08:27; Start 11/22/18 at 09:00 Magnesium Sulfate 50 ml @ 25 mls/hr PRN DAILY PRN IV for Mag < 1.7 on am labs; Start 11/22/18 at 13:00 Lidocaine/ Epinephrine (LIDOCAINE 1%-EPI 1:100,000 Multi-Dose) 20 ml STK-MED ONCE .ROUTE ; Start 11/24/18 at 08:53; Stop 11/24/18 at 08:54; Status DC Lactobacillus Rhamnosus (Culturelle) 1 cap BID PO Last administered on at 08:26; Start 11/24/18 at 09:00 Midazolam HCl (Versed) 5 mg STK-MED ONCE .ROUTE ; Start 11/24/18 at 09:13; Stop 11/24/18 at 09:14; Status DC Fentanyl Citrate (Fentanyl 2ml Vial) 100 mcg STK-MED ONCE .ROUTE ; Start at 09:13; Stop 11/24/18 at 09:14; Status DC Midazolam HCl (Versed) 5 mg 1X ONCE IV Last administered on 11/24/18at 09:45; Start 11/24/18 at 09:30; Stop 11/24/18 at 09:31; Status DC Fentanyl Citrate (Fentanyl 2ml Vial) 100 mcg 1X ONCE IV Last administered on at 09:45; Start 11/24/18 at 09:30; Stop 11/24/18 at 09:31; Status DC Lidocaine/ Epinephrine (LIDOCAINE 1%-EPI 1:100,000 Multi-Dose) 20 ml 1X ONCE IJ Last administered on 11/24/18at 09:46; Start 11/24/18 at 09:30; Stop at 09:31; Status DC Sodium Chloride 1,000 ml @ 1,000 mls/hr Q1H PRN IV hypotension; Start 11/24/18 at 15:10; Stop 11/24/18 at 21:09; Status DC Sodium Chloride 1,000 ml @ 400 mls/hr Q2H30M PRN IV PATENCY; Start 11/24/18 at 15:10; Stop 11/25/18 at 03:09; Status DC Info (PHARMACY MONITORING -- do not chart) 1 each PRN DAILY PRN MC SEE COMMENTS ; Start 11/24/18 at 15:15; Stop 11/24/18 at 15:15; Status DC Info (PHARMACY MONITORING -- do not chart) 1 each PRN DAILY PRN MC SEE COMMENTS ; Start 11/24/18 at 15:15 Active Scripts Active Reported Imodium Multi-Symptom Rel Cplt (Loperamide Hcl/Simethicone) 1 Each Tablet 1 Each PO PRN PRN Anti-Diarrhea (Loperamide Hcl) 2 Mg Tablet 2 Mg PO PRN PRN Gabapentin 600 Mg Tablet 600 Mg PO PRN TID PRN Warfarin Sodium 10 Mg Tablet 10 Mg PO DAILY Amlodipine Besylate 10 Mg Tablet 10 Mg PO DAILY Furosemide 80 Mg Tablet 80 Mg PO DAILY Novolin 70-30 100 Unit/Ml Vial (Hum Insulin Nph/Reg Insulin Hm) 100 Unit/1 Ml Vial 7 Unit SQ QHS Novolin 70-30 100 Unit/Ml Vial (Hum Insulin Nph/Reg Insulin Hm) 100 Unit/1 Ml Vial 15 Unit SQ DAILY Vitals/I & O Vital Sign - Last 24 Hours 11/25/18 11/25/18 11/25/18 11/25/18 00:00 04:00 08:00 08:00 Temp 97.7 99.5 99.4 97.7 99.5 99.4 Pulse 93 93 101 Resp 18 20 28 B/P (MAP) 102/65 (77) 98/58 (71) 95/58 (70) Pulse Ox 98 97 97 O2 Delivery Nasal Cannula Nasal Cannula Nasal Cannula Nasal Cannula O2 Flow Rate 4.0 2.0 2.0 2.0 11/25/18 11/25/18 11/25/18 11/25/18 11:00 11:08 15:00 19:00 Temp 98.2 98.2 98.4 98.2 98.2 98.4 Pulse 97 97 91 Resp 22 22 22 B/P (MAP) 104/68 (80) 104/68 (80) 108/70 (83) Pulse Ox 99 99 97 O2 Delivery Nasal Cannula Nasal Cannula Nasal Cannula Nasal Cannula O2 Flow Rate 2.0 2.0 2.0 2.0 Intake and Output 11/24/18 11/24/18 11/25/18 15:00 23:00 07:00 Intake Total 500 ml 60 ml Output Total 400 ml 560 ml 615 ml Balance -400 ml -60 ml -555 ml TARA RG MD Nov 25, 2018 21:02
[2018-11-25] MEDS: INSULIN GLARGINE 300 UNITS/3 ML INSULN.PEN. SQ SCH (21:33)
[2018-11-26 03:00] VITALS: BP 110/69
[2018-11-26] MEDS: MEROPENEM 500 MG in IV NORMAL SALINE 50ML 50 ML IV SCH (05:16)
[2018-11-26 06:42] LABS: ALBUMIN 1.6 g/dL (3.4-5.0); CALCIUM 7.9 mg/dL (8.5-10.1); CREATININE 5.5 mg/dL (0.7-1.3); GFR 10.8; MAGNESIUM 2.2 mg/dL (1.8-2.4); PHOSPHORUS 4.3 mg/dL (2.6-4.7); POTASSIUM 4.4 mmol/L (3.5-5.1)
[2018-11-26 07:00] VITALS: BP 126/70
[2018-11-26] MEDS: PANTOPRAZOLE 40 MG TABLET.DR. PO SCH (07:52)
[2018-11-26] MEDS: OXYBUTYNIN CHLORIDE 5 MG TABLET PO SCH ×3 (08:18→21:44)
[2018-11-26] MEDS: CETIRIZINE HCL 10 MG TABLET. PO SCH (08:18)
[2018-11-26] MEDS: SERTRALINE 50 MG TABLET. PO SCH (08:18)
[2018-11-26] MEDS: LACTOBACILLUS RHAMNOSUS GG 1 CAPSULE. PO SCH ×2 (08:19→21:44)
[2018-11-26] MEDS: HYDROcodone/APAP 5/325MG 1 TAB TABLET PO PRN (08:19)
[2018-11-26] MEDS: INSULIN LISPRO 300 UNITS/3 ML INSULN.PEN. SQ SCH ×6 (08:32→17:25)
[2018-11-26] MEDS: HEPARIN for SUB-Q USE 5,000 UNIT/ML VIAL. SQ SCH ×2 (08:34→21:48)
[2018-11-26] MEDS ORDERED: MAGNESIUM HYDROXIDE 2,400 MG/30 ML ORAL.SUSP. PO PRN (09:15)
[2018-11-26] MEDS ORDERED: oxyCODONE/APAP 5/325 1 TAB TABLET PO PRN (09:15)
[2018-11-26] MEDS ORDERED: POLYETHYLENE GLYCOL 3350 17 GM PACKET. PO PRN (09:15)
--- NOTE | 2018-11-26 09:43 | PDOC ---
Infectious Disease Note Subjective Subjective pt is feeling ok very weak ROS ROS no n/v/d/sob/fever Vital Sign Vital Signs Vital Signs Date Time Temp Pulse Resp B/P (MAP) Pulse Ox O2 Delivery O2 Flow Rate FiO2 11/26/18 08:19 16 Nasal Cannula 3.0 11/26/18 07:00 98.9 85 126/70 (88) 97 98.9 Physical Exam PHYSICAL EXAM GENERAL: comfortable in bed, resting quietly HENT: Oral cavity clear HEART: S1 and S2. regular ABDOMEN: Obese, soft, NT : Hair in place GENITOURINARY: Hair in place. Left nephrostomy tube intact EXTREMITIES: Trace edema lower extremities, no cyanosis SKIN: Without generalized signs of rash. NEUROLOGIC: Arouses to name, responds appropriately PIV ok RIJ clean Labs Lab Laboratory Tests Test 11/25/18 11:09 11/25/18 16:50 11/25/18 20:55 11/26/18 05:45 Glucose (Fingerstick) 185 mg/dL (70-99) 160 mg/dL (70-99) 202 mg/dL (70-99) Sodium Level 141 mmol/L (136-145) Potassium Level 4.4 mmol/L (3.5-5.1) Chloride Level 103 mmol/L (98-107) Carbon Dioxide Level 27 mmol/L (21-32) Anion Gap 11 (6-14) Blood Urea Nitrogen 64 mg/dL (8-26) Creatinine 5.5 mg/dL (0.7-1.3) Estimated GFR (Cockcroft-Gault) 10.8 Glucose Level 159 mg/dL (70-99) Calcium Level 7.9 mg/dL (8.5-10.1) Phosphorus Level 4.3 mg/dL (2.6-4.7) Magnesium Level 2.2 mg/dL (1.8-2.4) Creatine Kinase 19 U/L (39-308) Albumin 1.6 g/dL (3.4-5.0) Test 11/26/18 07:43 Glucose (Fingerstick) 173 mg/dL (70-99) Micro BLOOD CULTURE LC Final Final report BLD CULT RESULT 1 Final Escherichia coli Recovered from aerobic and anaerobic bottles. ANTIMICROBIAL SUSCEPTIBILITY Final Comment S = Susceptible; I = Intermediate; R = Resistant P = Positive; N = Negative MICS are expressed in micrograms per mL Antibiotic RSLT#1 RSLT#2 RSLT#3 RSLT#4 Amoxicillin/Clavulanic Acid S =8 Ampicillin R>=32 Cefepime S<=0.12 Ceftriaxone S<=0.25 Cefuroxime S =4 Ciprofloxacin R>=4 Ertapenem S<=0.12 Gentamicin R>=16 Imipenem S<=0.25 Levofloxacin R>=8 Meropenem S<=0.25 Nitrofurantoin S<=16 Piperacillin/Tazobactam S<=4 Tetracycline R>=16 Tobramycin R>=16 Trimethoprim/Sulfa R>=320 Performed at: DA - [facility] [address] [facility] [address], [place], [place] [id number] [employer] Machine Operator: KINGSLEY Norman MD, Phone: [phone] URINE CULTURE Final Final report URINE CULTURE RES 1 Final Escherichia coli 25,000-50,000 colony forming units per mL Cefazolin <=4 ug/mL Cefazolin with an KORY <=16 predicts susceptibility to the oral agents cefaclor, cefdinir, cefpodoxime, cefprozil, cefuroxime, cephalexin, and loracarbef when used for therapy of uncomplicated urinary tract infections due to E. coli, Klebsiella pneumoniae, and Proteus mirabilis. ANTIMICROBIAL SUSCEPTIBILITY Final Comment S = Susceptible; I = Intermediate; R = Resistant P = Positive; N = Negative MICS are expressed in micrograms per mL Antibiotic RSLT#1 RSLT#2 RSLT#3 RSLT#4 Amoxicillin/Clavulanic Acid S =4 Ampicillin R>=32 Cefepime S<=0.12 Ceftriaxone S<=0.25 Cefuroxime S =4 Ciprofloxacin R>=4 Ertapenem S<=0.12 Gentamicin I =8 Imipenem S<=0.25 Levofloxacin R>=8 Meropenem S<=0.25 Nitrofurantoin S<=16 Piperacillin/Tazobactam S<=4 Tetracycline R>=16 Tobramycin R>=16 Objective Assessment Sepsis, present on admission, E coli 11/20- less pressor support now - Clinically - better Lactic acidosis Obstructive uropathy, s/p percutaneous nephrostomy tube placement on 11/21. Subcutaneous emphysema on CT, questionable, subcutaneous injections. Pylonephritis Acute kidney injury.- mild increase, renal following, may need to start dialysis Cipro allergy, questionable reaction. S/p Recent Prostatectomy Plan Plan of Care pt/ot will follow. supportive care cont meropenem soon to be able to change to po SAEED ROSE MD Nov 26, 2018 09:43
--- NOTE | 2018-11-26 09:47 | PDOC ---
PULMONARY PROGRESS NOTES Subjective PT NOT MORE SOA TRANSFER OUT OF ICU THIS AM Vitals Vital Signs Date Time Temp Pulse Resp B/P (MAP) Pulse Ox O2 Delivery O2 Flow Rate FiO2 11/26/18 08:19 16 Nasal Cannula 3.0 11/26/18 07:00 98.9 85 126/70 (88) 97 98.9 ROS: No Nausea, No Chest Pain General: Alert, No acute distress HEENT: Other (nc at perrl nose throat clear neck no lad, no thyromegaly) Lungs: Clear Cardiovascular: S1, S2 Abdomen: Soft, Non-tender Neuro Exam: Alert Extremities: Other (edema) Skin: Warm Labs Laboratory Tests Test 11/24/18 11:40 11/24/18 18:03 11/24/18 20:29 11/25/18 05:00 Glucose (Fingerstick) 140 mg/dL (70-99) 115 mg/dL (70-99) 209 mg/dL (70-99) Sodium Level 139 mmol/L (136-145) Potassium Level 4.3 mmol/L (3.5-5.1) Chloride Level 102 mmol/L (98-107) Carbon Dioxide Level 28 mmol/L (21-32) Anion Gap 9 (6-14) Blood Urea Nitrogen 56 mg/dL (8-26) Creatinine 5.0 mg/dL (0.7-1.3) Estimated GFR (Cockcroft-Gault) 12.1 Glucose Level 178 mg/dL (70-99) Calcium Level 8.0 mg/dL (8.5-10.1) Phosphorus Level 3.9 mg/dL (2.6-4.7) Magnesium Level 2.4 mg/dL (1.8-2.4) Creatine Kinase 18 U/L (39-308) Albumin 1.5 g/dL (3.4-5.0) Test 11/25/18 11:09 11/25/18 16:50 11/25/18 20:55 11/26/18 05:45 Glucose (Fingerstick) 185 mg/dL (70-99) 160 mg/dL (70-99) 202 mg/dL (70-99) Sodium Level 141 mmol/L (136-145) Potassium Level 4.4 mmol/L (3.5-5.1) Chloride Level 103 mmol/L (98-107) Carbon Dioxide Level 27 mmol/L (21-32) Anion Gap 11 (6-14) Blood Urea Nitrogen 64 mg/dL (8-26) Creatinine 5.5 mg/dL (0.7-1.3) Estimated GFR (Cockcroft-Gault) 10.8 Glucose Level 159 mg/dL (70-99) Calcium Level 7.9 mg/dL (8.5-10.1) Phosphorus Level 4.3 mg/dL (2.6-4.7) Magnesium Level 2.2 mg/dL (1.8-2.4) Creatine Kinase 19 U/L (39-308) Albumin 1.6 g/dL (3.4-5.0) Test 11/26/18 07:43 Glucose (Fingerstick) 173 mg/dL (70-99) Laboratory Tests Test 11/25/18 11:09 11/25/18 16:50 11/25/18 20:55 11/26/18 05:45 Glucose (Fingerstick) 185 mg/dL (70-99) 160 mg/dL (70-99) 202 mg/dL (70-99) Sodium Level 141 mmol/L (136-145) Potassium Level 4.4 mmol/L (3.5-5.1) Chloride Level 103 mmol/L (98-107) Carbon Dioxide Level 27 mmol/L (21-32) Anion Gap 11 (6-14) Blood Urea Nitrogen 64 mg/dL (8-26) Creatinine 5.5 mg/dL (0.7-1.3) Estimated GFR (Cockcroft-Gault) 10.8 Glucose Level 159 mg/dL (70-99) Calcium Level 7.9 mg/dL (8.5-10.1) Phosphorus Level 4.3 mg/dL (2.6-4.7) Magnesium Level 2.2 mg/dL (1.8-2.4) Creatine Kinase 19 U/L (39-308) Albumin 1.6 g/dL (3.4-5.0) Test 11/26/18 07:43 Glucose (Fingerstick) 173 mg/dL (70-99) Medications Active Scripts Medications Dose Route/Sig Max Daily Dose Days Date Category Dose Instructions Novolin 70-30 100 Unit/Ml Vial (Hum Insulin Nph/Reg Insulin Hm) 100 Unit/1 Ml Vial 7 Unit SQ QHS 11/21/18 Reported Novolin 70-30 100 Unit/Ml Vial (Hum Insulin Nph/Reg Insulin Hm) 100 Unit/1 Ml Vial 15 Unit SQ DAILY 11/21/18 Reported Novolin R (Insulin Regular, Human) 100 Unit/1 Ml Vial 100 Unit IJ QIDACHS 11/21/18 Reported Oxybutynin Chloride 5 Mg Tablet 5 Mg PO TID 11/21/18 Reported Ondansetron Hcl 4 Mg Tablet 1 Tab PO PRN Q6HRS 11/21/18 Reported Tylenol (Acetaminophen) 325 Mg Tablet 2 Tab PO HS 11/21/18 Reported Nortriptyline Hcl 50 Mg Capsule 50 Mg PO HS 11/21/18 Reported Metformin Hcl 1,000 Mg Tablet 1,000 Mg PO BIDWMEALS 11/21/18 Reported Lactulose 10 Gm Packet 10 Gm PO DAILY 11/21/18 Reported Hyoscyamine Sulfate 0.125 Mg Tab.subl 0.125 Mg SL Q4HRS PRN 11/21/18 Reported Loratadine 10 Mg Tablet 1 Tab PO DAILY 11/21/18 Reported Pain Relieving 1%-15% Cream (Methyl Salicylate/Menthol) 85 Gm Cream..g. 85 Gm TP TID PRN PRN 11/21/18 Reported Buckner 5-325 Tablet (Acetaminophen/Hydrocodone Bitart) 1 Each Tablet 2 Tab PO Q4HRS 03/25/17 Reported LAST DOSE GIVEN: DATE: TIME: Zoloft (Sertraline Hcl) 100 Mg Tablet 100 Mg PO DAILY 02/18/17 Reported Lisinopril 5 Mg Tablet 2.5 Mg PO DAILY 02/18/17 Reported Atorvastatin Calcium 20 Mg Tablet 40 Mg PO DAILY 02/18/17 Reported Comments cxr, basilar atelectasis infilt Impression . IMPRESSION: 1. Acute hypoxic respiratory failure secondary to septic shock. 2. Septic shock related to urinary tract infection. b cx, GNR 11/20 3. Recent prostatectomy and now comes in with SEPSIS/ UTI .He has left ureteral stone and has left hydronephrosis. 4. No significant history of tobacco use. 5. Lactic acidosis secondary to septic shock. 6. Moderate protein-calorie malnutrition. 7. Acute renal failure, worse, nephro planned on HD Plan . ANTIBX PER ID OFF PRESSORS CONTINUE SUPPORT RESP STATUS IS COMPENSATED MAGGIE ZARAGOZA MD Nov 26, 2018 09:47
[2018-11-26] MEDS: DOCUSATE SODIUM 100 MG CAPSULE. PO SCH (10:34)
[2018-11-26 11:00] VITALS: BP 124/70
[2018-11-26] MEDS ORDERED: diphenhydrAMINE 50 MG/ML VIAL IV PRN (14:00)
[2018-11-26] MEDS ORDERED: IV NORMAL SALINE 250ML 250 ML IV PRN (14:00)
[2018-11-26] MEDS ORDERED: LABETALOL 20 MG/4 ML DISP.SYRIN. IVP PRN (14:00)
[2018-11-26] MEDS ORDERED: ONDANSETRON PF 4 MG/2 ML VIAL. IV PRN (14:00)
[2018-11-26 19:49] VITALS: BP 106/70
[2018-11-26] MEDS: INSULIN GLARGINE 300 UNITS/3 ML INSULN.PEN. SQ SCH (21:53)
[2018-11-26 23:38] VITALS: BP 111/68
--- NOTE | 2018-11-27 01:56 | PN ---
DATE: 11/26/2018 SUBJECTIVE: The patient was transferred out of the ICU for obstructive uropathy. He has new bilateral nephrostomy tubes and they are functioning fine. He is also with a new dialysis, maybe last dialysis was 1 or 2 days ago. He has a dialysis catheter in his right subclavian. He has minimal knowledge of his medical history. I tried to update him as much as I can. Hemoglobin 8, platelets 131,000 and WBC 14. There is no BM and I have provided bowel regimen and he is working on that. He is unsure if he will need to be on dialysis as outpatient. They did check hepatitis panel and so far it is negative. So, I have my inclination that he might be pursuing dialysis as outpatient - he has new dialysis therefore. E. coli UTI on urine culture. Creatinine is 5. OBJECTIVE: GENERAL: Awake, alert, obese, not in acute respiratory distress. HEENT: Unremarkable. LUNGS: Clear to auscultation bilaterally. HEART: Normal rate and rhythm. No murmurs. SKIN: Bilateral nephrostomy tubes in place, intact. Good urine output. ABDOMEN: Obese, nontender. Normoactive bowel sounds. GENITALIA: Appropriate for age. EXTREMITIES: Negative edema. Pulses full and equal. No pallor or cyanosis of nailbeds. ASSESSMENT AND PLAN: 1. New dialysis. 2. Obstructive uropathy, bilateral nephrostomy tubes placed. 3. Anemia of chronic disease. 4. Thrombocytopenia. Platelets 131,000. 5. Leukocytosis/systemic inflammatory response syndrome. WBC 14. 6. Obesity. 7. Moderate protein-calorie malnutrition. 8. Escherichia coli urinary tract infection. PLAN: 1. Add PT, OT. 2. Continue IV antibiotics. 3. Follow urine culture and sensitivities. 4. Avoid nephrotoxins. 5. Social work in case SNU or home health and also outpatient dialysis if this is ordered or deemed so by Renal. 6. Monitor anemia. 7. So far, eating and sleeping alright. POLO LOPEZ MD DR: /nts JOB#: [id number] / [id number]
[2018-11-27 03:19] VITALS: BP 122/77
[2018-11-27] MEDS: HYDROcodone/APAP 5/325MG 1 TAB TABLET PO PRN (03:26)
[2018-11-27] MEDS: MEROPENEM 500 MG in IV NORMAL SALINE 50ML 50 ML IV SCH (05:02)
[2018-11-27 05:49] LABS: ALBUMIN 1.7 g/dL (3.4-5.0); CALCIUM 7.9 mg/dL (8.5-10.1); CREATININE 3.5 mg/dL (0.7-1.3); GFR 18.3; MAGNESIUM 1.9 mg/dL (1.8-2.4); PHOSPHORUS 3.7 mg/dL (2.6-4.7); POTASSIUM 4.2 mmol/L (3.5-5.1)
[2018-11-27 07:00] VITALS: BP 126/78
[2018-11-27] MEDS: INSULIN LISPRO 300 UNITS/3 ML INSULN.PEN. SQ SCH ×6 (07:58→17:21)
[2018-11-27] MEDS: DOCUSATE SODIUM 100 MG CAPSULE. PO SCH (08:20)
[2018-11-27] MEDS: SERTRALINE 50 MG TABLET. PO SCH (08:20)
[2018-11-27] MEDS: LACTOBACILLUS RHAMNOSUS GG 1 CAPSULE. PO SCH ×2 (08:20→20:57)
[2018-11-27] MEDS: PANTOPRAZOLE 40 MG TABLET.DR. PO SCH (08:20)
[2018-11-27] MEDS: CETIRIZINE HCL 10 MG TABLET. PO SCH (08:20)
[2018-11-27] MEDS: OXYBUTYNIN CHLORIDE 5 MG TABLET PO SCH ×3 (08:21→20:57)
[2018-11-27] MEDS: HEPARIN for SUB-Q USE 5,000 UNIT/ML VIAL. SQ SCH ×2 (08:28→21:04)
--- NOTE | 2018-11-27 08:59 | PDOC ---
PULMONARY PROGRESS NOTES Subjective PT NOT MORE SOA TRANSFER OUT OF ICU THIS AM Vitals Vital Signs Date Time Temp Pulse Resp B/P (MAP) Pulse Ox O2 Delivery O2 Flow Rate FiO2 11/27/18 07:00 98.3 73 20 126/78 (94) 99 Nasal Cannula 2.0 98.3 ROS: No Nausea, No Chest Pain General: Alert, No acute distress HEENT: Other (nc at perrl nose throat clear neck no lad, no thyromegaly) Lungs: Clear Cardiovascular: S1, S2 Abdomen: Soft, Non-tender Neuro Exam: Alert Extremities: Other (edema) Skin: Warm Labs Laboratory Tests Test 11/25/18 11:09 11/25/18 16:50 11/25/18 20:55 11/26/18 05:45 Glucose (Fingerstick) 185 mg/dL (70-99) 160 mg/dL (70-99) 202 mg/dL (70-99) Sodium Level 141 mmol/L (136-145) Potassium Level 4.4 mmol/L (3.5-5.1) Chloride Level 103 mmol/L (98-107) Carbon Dioxide Level 27 mmol/L (21-32) Anion Gap 11 (6-14) Blood Urea Nitrogen 64 mg/dL (8-26) Creatinine 5.5 mg/dL (0.7-1.3) Estimated GFR (Cockcroft-Gault) 10.8 Glucose Level 159 mg/dL (70-99) Calcium Level 7.9 mg/dL (8.5-10.1) Phosphorus Level 4.3 mg/dL (2.6-4.7) Magnesium Level 2.2 mg/dL (1.8-2.4) Creatine Kinase 19 U/L (39-308) Albumin 1.6 g/dL (3.4-5.0) Test 11/26/18 07:43 11/26/18 11:23 11/26/18 17:14 11/26/18 20:54 Glucose (Fingerstick) 173 mg/dL (70-99) 166 mg/dL (70-99) 125 mg/dL (70-99) 182 mg/dL (70-99) Test 11/27/18 05:20 11/27/18 07:45 Sodium Level 141 mmol/L (136-145) Potassium Level 4.2 mmol/L (3.5-5.1) Chloride Level 104 mmol/L (98-107) Carbon Dioxide Level 30 mmol/L (21-32) Anion Gap 7 (6-14) Blood Urea Nitrogen 38 mg/dL (8-26) Creatinine 3.5 mg/dL (0.7-1.3) Estimated GFR (Cockcroft-Gault) 18.3 Glucose Level 129 mg/dL (70-99) Calcium Level 7.9 mg/dL (8.5-10.1) Phosphorus Level 3.7 mg/dL (2.6-4.7) Magnesium Level 1.9 mg/dL (1.8-2.4) Creatine Kinase 15 U/L (39-308) Albumin 1.7 g/dL (3.4-5.0) Glucose (Fingerstick) 103 mg/dL (70-99) Laboratory Tests Test 11/26/18 11:23 11/26/18 17:14 11/26/18 20:54 11/27/18 05:20 Glucose (Fingerstick) 166 mg/dL (70-99) 125 mg/dL (70-99) 182 mg/dL (70-99) Sodium Level 141 mmol/L (136-145) Potassium Level 4.2 mmol/L (3.5-5.1) Chloride Level 104 mmol/L (98-107) Carbon Dioxide Level 30 mmol/L (21-32) Anion Gap 7 (6-14) Blood Urea Nitrogen 38 mg/dL (8-26) Creatinine 3.5 mg/dL (0.7-1.3) Estimated GFR (Cockcroft-Gault) 18.3 Glucose Level 129 mg/dL (70-99) Calcium Level 7.9 mg/dL (8.5-10.1) Phosphorus Level 3.7 mg/dL (2.6-4.7) Magnesium Level 1.9 mg/dL (1.8-2.4) Creatine Kinase 15 U/L (39-308) Albumin 1.7 g/dL (3.4-5.0) Test 11/27/18 07:45 Glucose (Fingerstick) 103 mg/dL (70-99) Medications Active Scripts Medications Dose Route/Sig Max Daily Dose Days Date Category Dose Instructions Novolin 70-30 100 Unit/Ml Vial (Hum Insulin Nph/Reg Insulin Hm) 100 Unit/1 Ml Vial 7 Unit SQ QHS 11/21/18 Reported Novolin 70-30 100 Unit/Ml Vial (Hum Insulin Nph/Reg Insulin Hm) 100 Unit/1 Ml Vial 15 Unit SQ DAILY 11/21/18 Reported Novolin R (Insulin Regular, Human) 100 Unit/1 Ml Vial 100 Unit IJ QIDACHS 11/21/18 Reported Oxybutynin Chloride 5 Mg Tablet 5 Mg PO TID 11/21/18 Reported Ondansetron Hcl 4 Mg Tablet 1 Tab PO PRN Q6HRS 11/21/18 Reported Tylenol (Acetaminophen) 325 Mg Tablet 2 Tab PO HS 11/21/18 Reported Nortriptyline Hcl 50 Mg Capsule 50 Mg PO HS 11/21/18 Reported Metformin Hcl 1,000 Mg Tablet 1,000 Mg PO BIDWMEALS 11/21/18 Reported Lactulose 10 Gm Packet 10 Gm PO DAILY 11/21/18 Reported Hyoscyamine Sulfate 0.125 Mg Tab.subl 0.125 Mg SL Q4HRS PRN 11/21/18 Reported Loratadine 10 Mg Tablet 1 Tab PO DAILY 11/21/18 Reported Pain Relieving 1%-15% Cream (Methyl Salicylate/Menthol) 85 Gm Cream..g. 85 Gm TP TID PRN PRN 11/21/18 Reported [place] 5-325 Tablet (Acetaminophen/Hydrocodone Bitart) 1 Each Tablet 2 Tab PO Q4HRS 03/25/17 Reported LAST DOSE GIVEN: DATE: TIME: Zoloft (Sertraline Hcl) 100 Mg Tablet 100 Mg PO DAILY 02/18/17 Reported Lisinopril 5 Mg Tablet 2.5 Mg PO DAILY 02/18/17 Reported Atorvastatin Calcium 20 Mg Tablet 40 Mg PO DAILY 02/18/17 Reported Comments cxr, basilar atelectasis infilt Impression . IMPRESSION: 1. Acute hypoxic respiratory failure secondary to septic shock. 2. Septic shock related to urinary tract infection. b cx, GNR 11/20 3. Recent prostatectomy and now comes in with SEPSIS/ UTI .He has left ureteral stone and has left hydronephrosis. 4. No significant history of tobacco use. 5. Lactic acidosis secondary to septic shock. 6. Moderate protein-calorie malnutrition. 7. Acute renal failure, worse, nephro planned on HD Plan . WILL SEE PRN ANTIBX PER ID OFF PRESSORS CONTINUE SUPPORT RESP STATUS IS COMPENSATED MAGGIE ZARAGOZA MD Nov 27, 2018 08:59
--- NOTE | 2018-11-27 09:29 | PDOC ---
KIANA GA [employer] 11/27/18 0929: SUBJECTIVE Subjective Pt reports moving around a lot more. Would like to try a voiding trial at this time if OK with Urology. OBJECTIVE Objective Physical Exam: General appearance: Alert and Oriented Head: Normocephalic, without obvious abnormality Eyes: conjunctivae/corneas clear. PERRL, EOM's intact. Fundi benign Back: + nephrostomy tube in place on the left draining yellow urine with scant white residue. Lungs: Regular respirations, non labored breathing. Abdomen: soft, non-tender. Bowel sounds normal. No masses, no organomegaly Pelvic: Circ phallus with Adrian catheter. Device removed easily, pt tolerated well. Vital Signs Vital Signs Date Time Temp Pulse Resp B/P (MAP) Pulse Ox O2 Delivery O2 Flow Rate FiO2 11/27/18 07:00 98.3 73 20 126/78 (94) 99 Nasal Cannula 2.0 98.3 11/27/18 04:26 98 Nasal Cannula 2.0 11/27/18 03:26 98 Nasal Cannula 2.0 11/27/18 03:19 98.7 85 20 122/77 (92) 98 Nasal Cannula 2.0 98.7 11/26/18 23:38 98.7 87 18 111/68 (82) 96 Room Air 98.7 11/26/18 19:49 98.6 89 18 106/70 (82) 97 Nasal Cannula 2.0 98.6 11/26/18 19:36 Nasal Cannula 2.0 11/26/18 11:00 97.9 90 17 124/70 (88) 96 Nasal Cannula 2.0 97.9 I & O Intake and Output 11/27/18 07:00 Intake Total 470 ml Output Total 3550 ml Balance -3080 ml Intake Oral 420 ml IV Total 50 ml Output Urine Total 3300 ml Drainage Total 250 ml PHYSICAL EXAM Physical Exam Physical Exam: General appearance: Alert and Oriented Head: Normocephalic, without obvious abnormality Eyes: conjunctivae/corneas clear. PERRL, EOM's intact. Fundi benign Back: + nephrostomy tube in place on the left draining yellow urine with scant white residue. Lungs: Regular respirations, non labored breathing. Abdomen: soft, non-tender. Bowel sounds normal. No masses, no organomegaly Pelvic: Circ phallus with Adrian catheter. Device removed easily, pt tolerated well. ASSESSMENT/PLAN Assessment/Plan Pt now on voiding trial. He has been encouraged to attempt voiding every hour to hour and a half starting at 1030 am. Nursing to bladder scan patient between 2 and 230 pm this afternoon. If PVR is greater than 350, please re-insert Adrian catheter. If PVR is less than 350, leave Adrian out and encourage voiding. Nursing to continue to maintain nephrostomy tube. Will need to discharge with this in place and follow up at for definitive stone management. CT ABD/Pelvis prior to discharge. Currently no plans for discharge at this time. Will have Dr. Marte check on patient later today to see how he is doing. UPDATE Patient has been voiding atively and also having incontinence as well. PVR has been zero. Keep Adrian catheter out. Patient may discharge home whenever medical team is ready. D/C with nephrostomy tube in place. Follow up at with Dr. Aguillon sometime within the next two weeks. Problems: (1) Hydronephrosis with urinary obstruction due to ureteral calculus COMMENT Lab Laboratory Tests Test 11/26/18 11:23 11/26/18 17:14 11/26/18 20:54 11/27/18 05:20 Glucose (Fingerstick) 166 mg/dL (70-99) 125 mg/dL (70-99) 182 mg/dL (70-99) Sodium Level 141 mmol/L (136-145) Potassium Level 4.2 mmol/L (3.5-5.1) Chloride Level 104 mmol/L (98-107) Carbon Dioxide Level 30 mmol/L (21-32) Anion Gap 7 (6-14) Blood Urea Nitrogen 38 mg/dL (8-26) Creatinine 3.5 mg/dL (0.7-1.3) Estimated GFR (Cockcroft-Gault) 18.3 Glucose Level 129 mg/dL (70-99) Calcium Level 7.9 mg/dL (8.5-10.1) Phosphorus Level 3.7 mg/dL (2.6-4.7) Magnesium Level 1.9 mg/dL (1.8-2.4) Creatine Kinase 15 U/L (39-308) Albumin 1.7 g/dL (3.4-5.0) Test 11/27/18 07:45 Glucose (Fingerstick) 103 mg/dL (70-99) STEPHON MARTE MD 11/27/18 1622: ASSESSMENT/PLAN Assessment/Plan Patient seen and examined. Minimal urine output upon my visit with patient at 1: 30 PM. Plan is to bladder scan later in the day. Replace adrian if still minimal urine output and bladder scan > 400 ml. KIANA GA APRN Nov 27, 2018 09:29 STEPHON MARTE MD Nov 27, 2018 16:22
--- NOTE | 2018-11-27 09:34 | PDOC ---
Infectious Disease Note Subjective Subjective pt is feeling ok very weak ROS ROS no n/v/d/sob Vital Sign Vital Signs Vital Signs Date Time Temp Pulse Resp B/P (MAP) Pulse Ox O2 Delivery O2 Flow Rate FiO2 11/27/18 07:00 98.3 73 20 126/78 (94) 99 Nasal Cannula 2.0 98.3 Physical Exam PHYSICAL EXAM GENERAL: comfortable in bed, resting quietly HENT: Oral cavity clear HEART: S1 and S2. regular ABDOMEN: Obese, soft, NT : Hair in place GENITOURINARY: Hair in place. Left nephrostomy tube intact EXTREMITIES: Trace edema lower extremities, no cyanosis SKIN: Without generalized signs of rash. NEUROLOGIC: Arouses to name, responds appropriately PIV ok RIJ clean Labs Lab Laboratory Tests Test 11/26/18 11:23 11/26/18 17:14 11/26/18 20:54 11/27/18 05:20 Glucose (Fingerstick) 166 mg/dL (70-99) 125 mg/dL (70-99) 182 mg/dL (70-99) Sodium Level 141 mmol/L (136-145) Potassium Level 4.2 mmol/L (3.5-5.1) Chloride Level 104 mmol/L (98-107) Carbon Dioxide Level 30 mmol/L (21-32) Anion Gap 7 (6-14) Blood Urea Nitrogen 38 mg/dL (8-26) Creatinine 3.5 mg/dL (0.7-1.3) Estimated GFR (Cockcroft-Gault) 18.3 Glucose Level 129 mg/dL (70-99) Calcium Level 7.9 mg/dL (8.5-10.1) Phosphorus Level 3.7 mg/dL (2.6-4.7) Magnesium Level 1.9 mg/dL (1.8-2.4) Creatine Kinase 15 U/L (39-308) Albumin 1.7 g/dL (3.4-5.0) Test 11/27/18 07:45 Glucose (Fingerstick) 103 mg/dL (70-99) Micro BLOOD CULTURE LC Final Final report BLD CULT RESULT 1 Final Escherichia coli Recovered from aerobic and anaerobic bottles. ANTIMICROBIAL SUSCEPTIBILITY Final Comment S = Susceptible; I = Intermediate; R = Resistant P = Positive; N = Negative MICS are expressed in micrograms per mL Antibiotic RSLT#1 RSLT#2 RSLT#3 RSLT#4 Amoxicillin/Clavulanic Acid S =8 Ampicillin R>=32 Cefepime S<=0.12 Ceftriaxone S<=0.25 Cefuroxime S =4 Ciprofloxacin R>=4 Ertapenem S<=0.12 Gentamicin R>=16 Imipenem S<=0.25 Levofloxacin R>=8 Meropenem S<=0.25 Nitrofurantoin S<=16 Piperacillin/Tazobactam S<=4 Tetracycline R>=16 Tobramycin R>=16 Trimethoprim/Sulfa R>=320 Performed at: - [facility] [address], [place], [place] [id number] [employer]: KINGSLEY Norman MD, Phone: [phone] URINE CULTURE Final Final report URINE CULTURE RES 1 Final Escherichia coli 25,000-50,000 colony forming units per mL Cefazolin <=4 ug/mL Cefazolin with an KORY <=16 predicts susceptibility to the oral agents cefaclor, cefdinir, cefpodoxime, cefprozil, cefuroxime, cephalexin, and loracarbef when used for therapy of uncomplicated urinary tract infections due to E. coli, Klebsiella pneumoniae, and Proteus mirabilis. ANTIMICROBIAL SUSCEPTIBILITY Final Comment S = Susceptible; I = Intermediate; R = Resistant P = Positive; N = Negative MICS are expressed in micrograms per mL Antibiotic RSLT#1 RSLT#2 RSLT#3 RSLT#4 Amoxicillin/Clavulanic Acid S =4 Ampicillin R>=32 Cefepime S<=0.12 Ceftriaxone S<=0.25 Cefuroxime S =4 Ciprofloxacin R>=4 Ertapenem S<=0.12 Gentamicin I =8 Imipenem S<=0.25 Levofloxacin R>=8 Meropenem S<=0.25 Nitrofurantoin S<=16 Piperacillin/Tazobactam S<=4 Tetracycline R>=16 Tobramycin R>=16 Objective Assessment Sepsis, present on admission, E coli 11/20- less pressor support now - Clinically - better Lactic acidosis Obstructive uropathy, s/p percutaneous nephrostomy tube placement on 11/21. Subcutaneous emphysema on CT, questionable, subcutaneous injections. Pylonephritis Acute kidney injury.- mild increase, renal following, may need to start dialysis Cipro allergy, questionable reaction. S/p Recent Prostatectomy Plan Plan of Care pt/ot will follow. supportive care cont meropenem soon to be able to change to po SAEED ROSE MD Nov 27, 2018 09:34
[2018-11-27 11:00] VITALS: BP 129/71
--- NOTE | 2018-11-27 11:25 | PDOC ---
Renal-Progress Notes Subjective Notes Notes NONE History of Present Illness Hx of present illness STABLE Vitals Vitals Vital Signs Date Time Temp Pulse Resp B/P (MAP) Pulse Ox O2 Delivery O2 Flow Rate FiO2 11/27/18 11:00 98.1 93 20 129/71 (90) 97 Nasal Cannula 2.0 98.1 Weight Weight [ ] I.O. Intake and Output Intake and Output 11/27/18 06:59 Intake Total 470 ml Output Total 3550 ml Balance -3080 ml Intake Oral 420 ml IV Total 50 ml Output Urine Total 3300 ml Drainage Total 250 ml Labs Labs Laboratory Tests Test 11/26/18 17:14 11/26/18 20:54 11/27/18 05:20 11/27/18 07:45 Glucose (Fingerstick) 125 mg/dL (70-99) 182 mg/dL (70-99) 103 mg/dL (70-99) Sodium Level 141 mmol/L (136-145) Potassium Level 4.2 mmol/L (3.5-5.1) Chloride Level 104 mmol/L (98-107) Carbon Dioxide Level 30 mmol/L (21-32) Anion Gap 7 (6-14) Blood Urea Nitrogen 38 mg/dL (8-26) Creatinine 3.5 mg/dL (0.7-1.3) Estimated GFR (Cockcroft-Gault) 18.3 Glucose Level 129 mg/dL (70-99) Calcium Level 7.9 mg/dL (8.5-10.1) Phosphorus Level 3.7 mg/dL (2.6-4.7) Magnesium Level 1.9 mg/dL (1.8-2.4) Creatine Kinase 15 U/L (39-308) Albumin 1.7 g/dL (3.4-5.0) Test 11/27/18 11:14 Glucose (Fingerstick) 177 mg/dL (70-99) Micro Micro Microbiology 11/22/18 Blood Culture - Preliminary, Resulted NO GROWTH AFTER 4 DAYS 11/21/18 Urine Culture - Final, Complete 11/21/18 Urine Culture Result 1 (KORY) - Final, Complete 11/21/18 Antimicrobic Susceptibility - Final, Complete Review of Systems Constitutional: yes: weakness, alert, oriented Ears/Nose/Throat: Yes: no symptom reported Eyes: Yes: no symptom reported Pulmonary: Yes no symptom reported Cardiovascular: Yes no symptom reported Gastrointestional: Yes: constipation Genitourinary: Yes: urgency Musculoskeletal: Yes: no symptom reported Skin: Yes no symptom reported Psychiatric/Neurological: Yes: no symptom reported Endocrine: Yes: no symptom reported Hematologic/Lymphatic: Yes: no symptom reported Physical Exam General Appearance: no apparent distress Skin: warm Respiratory: bilateral CTA Heart: S1S2, RRR Abdomen: soft, bowel sounds present Genitourinary: bladder flat Extremities: pulses present Neurology: alert, follow commands, confused Musculoskeletal: low back pain Assessment Assessment IMP GAGAN-ATN CKD STAGE 3-CR OF ABOUT 2.0-3.0 AT BASELINE SEPSIS WITH UTI ACUTE HYPOXIC RESP FAILURE RECENT PROSTATECTOMY LEFT URETERAL STONE-S/PCN ANEMIA PLAN CONT ARANESP ANTIBIOTICS HD [facility] UROLOGY FOLLOWING WILL ASK SW TO SET UP OP HD IN [place] FONTENOT MD Nov 27, 2018 11:25
--- NOTE | 2018-11-27 11:56 | PDOC ---
PROGRESS NOTES Chief Complaint Chief Complaint 1. ESRD New dialysis. 2. Obstructive uropathy, bilateral nephrostomy tubes placed., s/p septic shock 3. sp TURP outside facility 3. Anemia of chronic disease. 4. Thrombocytopenia. Platelets 131,000. 5. Leukocytosis/systemic inflammatory response syndrome. WBC 14. 6. Obesity. 7. Moderate protein-calorie malnutrition. 8. Escherichia coli urinary tract infection. 9. Minimal security retirement 10. Severe hypoalbuminemia/PCM albumin 1.8 History of Present Illness History of Present Illness He is up in chair Bilateral nephrostomy tubes intact with good urine output He is a new dialysis and social work is setting up chair time He lives in a minimal security retirement hence cannot go to snu rehabilitation But otherwise not too bad ambulation Good by mouth intake Creatinine down to 3 .5 from 5 today WBC 14, no fevers Hemoglobin 8 platelets 136 alb 1.8 PLAN: DC once chair time has been set up We'll DC with bilateral nephrostomy tubes and follow-up outpatient urology as instructed We'll DC to retirement minimum security on discharge I plan discussed with him and he knows Vitals Vitals Vital Signs Date Time Temp Pulse Resp B/P (MAP) Pulse Ox O2 Delivery O2 Flow Rate FiO2 11/27/18 11:00 98.1 93 20 129/71 (90) 97 Nasal Cannula 2.0 98.1 Physical Exam Physical Exam GENERAL: comfortable in bed, resting quietly HENT: Oral cavity clear HEART: S1 and S2. regular ABDOMEN: Obese, soft, NT : Hair in place GENITOURINARY: Hair in place. Left nephrostomy tube intact EXTREMITIES: Trace edema lower extremities, no cyanosis SKIN: Without generalized signs of rash. NEUROLOGIC: Arouses to name, responds appropriately PIV ok RIJ clean General: Alert, Oriented X3, No acute distress Lungs: Clear Abdomen: Normal bowel sounds, Soft Extremities: No clubbing, No edema, Normal pulses Skin: No rashes, No significant lesion Labs LABS Laboratory Tests Test 11/26/18 17:14 11/26/18 20:54 11/27/18 05:20 11/27/18 07:45 Glucose (Fingerstick) 125 mg/dL (70-99) 182 mg/dL (70-99) 103 mg/dL (70-99) Sodium Level 141 mmol/L (136-145) Potassium Level 4.2 mmol/L (3.5-5.1) Chloride Level 104 mmol/L (98-107) Carbon Dioxide Level 30 mmol/L (21-32) Anion Gap 7 (6-14) Blood Urea Nitrogen 38 mg/dL (8-26) Creatinine 3.5 mg/dL (0.7-1.3) Estimated GFR (Cockcroft-Gault) 18.3 Glucose Level 129 mg/dL (70-99) Calcium Level 7.9 mg/dL (8.5-10.1) Phosphorus Level 3.7 mg/dL (2.6-4.7) Magnesium Level 1.9 mg/dL (1.8-2.4) Creatine Kinase 15 U/L (39-308) Albumin 1.7 g/dL (3.4-5.0) Test 11/27/18 11:14 Glucose (Fingerstick) 177 mg/dL (70-99) Review of Systems Review of Systems A 14 point ROS was completed with the following noted as positive: Other systems reviewed and negative. \CONSTITUTIONAL: No fever or chills EYES: No recent changes SKIN: No rash or itching CARDIOVASCULAR: No chest pain, syncope, palpitations, or edema RESPIRATORY: No SOB or cough GASTROINTESTINAL: No nausea, vomiting or abdominal pain NEUROLOGICAL: No headaches or weakness ENDOCRINE: No cold or heat intolerance GENITOURINARY: No urgency or frequency of urination MUSCULOSKELETAL: No back pain or joint pain LYMPHATICS: No enlarged lymph nodes PSYCHIATRIC: No anxiety or depression Assessment and Plan Assessmemt and Plan Problems Medical Problems: (1) Acute on chronic renal failure Status: Acute (2) Hydronephrosis with urinary obstruction due to ureteral calculus Status: Acute (3) Renal colic Status: Acute Comment Review of Relevant I have reviewed the following items patti (where applicable) has been applied. Labs Laboratory Tests Test 11/25/18 16:50 11/25/18 20:55 11/26/18 05:45 11/26/18 07:43 Glucose (Fingerstick) 160 mg/dL (70-99) 202 mg/dL (70-99) 173 mg/dL (70-99) Sodium Level 141 mmol/L (136-145) Potassium Level 4.4 mmol/L (3.5-5.1) Chloride Level 103 mmol/L (98-107) Carbon Dioxide Level 27 mmol/L (21-32) Anion Gap 11 (6-14) Blood Urea Nitrogen 64 mg/dL (8-26) Creatinine 5.5 mg/dL (0.7-1.3) Estimated GFR (Cockcroft-Gault) 10.8 Glucose Level 159 mg/dL (70-99) Calcium Level 7.9 mg/dL (8.5-10.1) Phosphorus Level 4.3 mg/dL (2.6-4.7) Magnesium Level 2.2 mg/dL (1.8-2.4) Creatine Kinase 19 U/L (39-308) Albumin 1.6 g/dL (3.4-5.0) Test 11/26/18 11:23 11/26/18 17:14 11/26/18 20:54 11/27/18 05:20 Glucose (Fingerstick) 166 mg/dL (70-99) 125 mg/dL (70-99) 182 mg/dL (70-99) Sodium Level 141 mmol/L (136-145) Potassium Level 4.2 mmol/L (3.5-5.1) Chloride Level 104 mmol/L (98-107) Carbon Dioxide Level 30 mmol/L (21-32) Anion Gap 7 (6-14) Blood Urea Nitrogen 38 mg/dL (8-26) Creatinine 3.5 mg/dL (0.7-1.3) Estimated GFR (Cockcroft-Gault) 18.3 Glucose Level 129 mg/dL (70-99) Calcium Level 7.9 mg/dL (8.5-10.1) Phosphorus Level 3.7 mg/dL (2.6-4.7) Magnesium Level 1.9 mg/dL (1.8-2.4) Creatine Kinase 15 U/L (39-308) Albumin 1.7 g/dL (3.4-5.0) Test 11/27/18 07:45 11/27/18 11:14 Glucose (Fingerstick) 103 mg/dL (70-99) 177 mg/dL (70-99) Laboratory Tests Test 11/26/18 17:14 11/26/18 20:54 11/27/18 05:20 11/27/18 07:45 Glucose (Fingerstick) 125 mg/dL (70-99) 182 mg/dL (70-99) 103 mg/dL (70-99) Sodium Level 141 mmol/L (136-145) Potassium Level 4.2 mmol/L (3.5-5.1) Chloride Level 104 mmol/L (98-107) Carbon Dioxide Level 30 mmol/L (21-32) Anion Gap 7 (6-14) Blood Urea Nitrogen 38 mg/dL (8-26) Creatinine 3.5 mg/dL (0.7-1.3) Estimated GFR (Cockcroft-Gault) 18.3 Glucose Level 129 mg/dL (70-99) Calcium Level 7.9 mg/dL (8.5-10.1) Phosphorus Level 3.7 mg/dL (2.6-4.7) Magnesium Level 1.9 mg/dL (1.8-2.4) Creatine Kinase 15 U/L (39-308) Albumin 1.7 g/dL (3.4-5.0) Test 11/27/18 11:14 Glucose (Fingerstick) 177 mg/dL (70-99) Microbiology 11/22/18 Blood Culture - Preliminary, Resulted NO GROWTH AFTER 4 DAYS 11/21/18 Urine Culture - Final, Complete 11/21/18 Urine Culture Result 1 (KORY) - Final, Complete 11/21/18 Antimicrobic Susceptibility - Final, Complete Medications Current Medications Sodium Chloride 1,000 ml @ 1,000 mls/hr 1X ONCE IV Last administered on at 20:10; Start 11/20/18 at 20:00; Stop 11/20/18 at 20:59; Status DC Sodium Chloride 1,000 ml @ 1,000 mls/hr 1X ONCE IV Last administered on at 20:10; Start 11/20/18 at 20:00; Stop 11/20/18 at 20:59; Status DC Piperacillin Sod/ Tazobactam Sod 4.5 gm/Sodium Chloride 100 ml @ 200 mls/hr 1X ONCE IV Last administered on 11/20/18at 20:13; Start 11/20/18 at 20:15; Stop 11/20/18 at 20:44; Status DC Fentanyl Citrate (Fentanyl 2ml Vial) 50 mcg 1X ONCE IV Last administered on at 20:13; Start 11/20/18 at 20:15; Stop 11/20/18 at 20:16; Status DC Ondansetron HCl (Zofran) 4 mg 1X ONCE IV Last administered on 11/20/18at 20:13 ; Start 11/20/18 at 20:15; Stop 11/20/18 at 20:16; Status DC Sodium Chloride 1,000 ml @ 1,000 mls/hr 1X ONCE IV Last administered on at 20:47; Start 11/20/18 at 20:45; Stop 11/20/18 at 21:44; Status DC Ondansetron HCl (Zofran) 4 mg PRN Q8HRS PRN IV NAUSEA/VOMITING Last administered on 11/20/18at 21:35; Start 11/20/18 at 21:15; Stop 11/21/18 at 21:14 ; Status DC Fentanyl Citrate (Fentanyl 2ml Vial) 50 mcg PRN Q2HR PRN IV SEVERE PAIN Last administered on 11/21/18at 03:06; Start 11/20/18 at 21:15 Acetaminophen (Tylenol) 650 mg PRN Q4HRS PRN PO FEVER; Start 11/20/18 at 21:15 ; Stop 11/21/18 at 21:14; Status DC Insulin Human Lispro (HumaLOG) 0-5 UNITS TIDWMEALS SQ ; Start 11/21/18 at 08:00 ; Stop 11/21/18 at 08:00; Status DC Dextrose (Dextrose 50%-Water Syringe) 12.5 gm PRN Q15MIN PRN IV SEE COMMENTS; Start 11/20/18 at 21:15; Stop 11/21/18 at 07:45; Status DC Vancomycin HCl 2 gm/Sodium Chloride 500 ml @ 250 mls/hr 1X ONCE IV Last administered on 11/20/18at 22:22; Start 11/20/18 at 22:00; Stop 11/20/18 at 23:59 ; Status DC Fentanyl Citrate (Fentanyl 2ml Vial) 75 mcg 1X ONCE IV Last administered on at 21:35; Start 11/20/18 at 21:45; Stop 11/20/18 at 21:46; Status DC Lidocaine/ Epinephrine (LIDOCAINE 2%-EPI 1:100,000 multi-dose) 20 ml 1X ONCE IJ Last administered on 11/20/18at 22:31; Start 11/20/18 at 22:15; Stop at 22:16; Status DC Fentanyl Citrate (Fentanyl 2ml Vial) 75 mcg 1X ONCE IV ; Start 11/20/18 at 22: 30; Stop 11/20/18 at 22:31; Status DC Magnesium Sulfate 50 ml @ 25 mls/hr 1X ONCE IV Last administered on 11/21/18at 01:05; Start 11/20/18 at 23:15; Stop 11/21/18 at 01:14; Status DC Norepinephrine Bitartrate 250 ml @ 0 mls/hr 1X ONCE IV Last administered on at 23:35; Start 11/20/18 at 23:30; Stop 11/20/18 at 23:31; Status DC Sodium Chloride 1,000 ml @ 150 mls/hr Q6H40M IV Last administered on at 07:11; Start 11/21/18 at 04:45; Stop 11/21/18 at 11:25; Status DC Sodium Chloride 1,000 ml @ 1,000 mls/hr 1X ONCE IV Last administered on at 05:04; Start 11/21/18 at 04:45; Stop 11/21/18 at 05:44; Status DC Sodium Chloride 1,000 ml @ 1,000 mls/hr 1X ONCE IV Last administered on at 06:11; Start 11/21/18 at 05:30; Stop 11/21/18 at 06:29; Status DC Vasopressin 40 unit/Dextrose 102 ml @ 6 mls/hr CONT PRN IV SEE I/O RECORD Last administered on 11/23/18at 06:13; Start 11/21/18 at 05:00; Stop 11/25/18 at 10:00 ; Status DC Acetaminophen (Tylenol Supp) 650 mg PRN Q6HRS PRN NE MILD PAIN / TEMP Last administered on 11/21/18at 05:04; Start 11/21/18 at 04:45 Piperacillin Sod/ Tazobactam Sod (Zosyn Per Pharmacy) 1 each PRN DAILY PRN MC SEE COMMENTS; Start 11/21/18 at 04:45; Stop 11/21/18 at 07:10; Status DC Meropenem 500 mg/ Sodium Chloride 50 ml @ 100 mls/hr Q12H IV Last administered on 11/21/18 05:10; Start 11/21/18 at 05:00; Stop 11/21/18 at 07:10 ; Status DC Morphine Sulfate (Morphine Sulfate) 4 mg PRN Q4HRS PRN IV MODERATE PAIN Last administered on 11/21/18at 20:47; Start 11/21/18 at 04:45 Piperacillin Sod/ Tazobactam Sod 2.25 gm/Sodium Chloride 50 ml @ 100 mls/hr Q6HRS IV Last administered on 11/21/18 05:42; Start 11/21/18 at 06:00; Stop at 07:10; Status DC Magnesium Sulfate/ Dextrose 100 ml @ 25 mls/hr 1X ONCE IV Last administered on 11/21/18 05:42; Start 11/21/18 at 05:30; Stop 11/21/18 at 09:29; Status DC Throat Lozenges (Cepacol Sore Throat Lozenge) 1 corina PRN Q2HRS PRN PO SORE THROAT Last administered on 11/21/18 20:10; Start 11/21/18 at 05:30 Saliva Substitute (Biotene Moisturizing Mouth) 2 spray PRN Q15MIN PRN PO DRY MOUTH; Start 11/21/18 at 05:30 Norepinephrine Bitartrate 250 ml @ 1.875 mls/ hr CONT PRN IV SEE I/O RECORD Last administered on 11/22/18 04:21; Start 11/21/18 at 06:45; Stop 11/25/18 at 10:00; Status DC Meropenem 500 mg/ Sodium Chloride 50 ml @ 100 mls/hr Q24H IV Last administered on 11/27/18at 05:02; Start 11/22/18 at 05:00 Acetaminophen/ Hydrocodone Bitart (Lortab 5/325) 2 tab Q4HRS PO ; Start at 08:00; Stop 11/21/18 at 08:00; Status DC Oxybutynin Chloride (Ditropan) 5 mg TID PO Last administered on 11/27/18 08:21 ; Start 11/21/18 at 09:00 Cetirizine HCl (ZyrTEC) 10 mg DAILY PO Last administered on 11/27/18at 08:20; Start 11/21/18 at 09:00 Ondansetron HCl (Zofran Odt) 4 mg PRN Q6HRS PRN PO NAUSEA/VOMITING; Start 11/21 at 07:45 Sertraline HCl (Zoloft) 100 mg DAILY PO Last administered on 11/27/18 08:20; Start 11/21/18 at 09:00 Insulin Human Lispro (HumaLOG) 0-9 UNITS TIDWMEALS SQ Last administered on 11/26 08:34; Start 11/21/18 at 08:00 Dextrose (Dextrose 50%-Water Syringe) 12.5 gm PRN Q15MIN PRN IV SEE COMMENTS; Start 11/21/18 at 07:30 Insulin Glargine (Lantus) 12 units QHS SQ Last administered on 11/26/18 21:53 ; Start 11/21/18 at 21:00 Insulin Human Lispro (HumaLOG) 10 units TIDWMEALS SQ Last administered on 08:29; Start 11/21/18 at 08:00 Magnesium Sulfate/ Dextrose 100 ml @ 25 mls/hr 1X ONCE IV ; Start 11/21/18 at 09:00; Stop 11/21/18 at 12:59; Status Cancel Acetaminophen/ Hydrocodone Bitart (Lortab 5/325) 2 tab PRN Q4HRS PRN PO PAIN MODERATE TO SEVERE Last administered on 11/27/18 03:26; Start 11/21/18 at 08:00 Hydromorphone HCl (Dilaudid) 1 mg PRN Q3HRS PRN IV SEVERE PAIN 2ND CHOICE Last administered on 11/23/18 21:35; Start 11/21/18 at 08:00 Sodium Bicarbonate 150 meq/Dextrose 1,150 ml @ 125 mls/hr Q9H12M IV Last administered on 11/22/18 04:21; Start 11/21/18 at 11:00; Stop 11/22/18 at 13:03 ; Status DC Midazolam HCl (Versed) 2 mg STK-MED ONCE .ROUTE ; Start 11/21/18 at 10:50; Stop 11/21/18 at 10:51; Status DC Fentanyl Citrate (Fentanyl 2ml Vial) 100 mcg STK-MED ONCE .ROUTE ; Start at 10:50; Stop 11/21/18 at 10:51; Status DC Cefazolin Sodium 50 ml @ 100 mls/hr 1X ONCE IV Last administered on at 11:15; Start 11/21/18 at 11:15; Stop 11/21/18 at 11:44; Status DC Lidocaine/Sodium Bicarbonate (Buffered Lidocaine 1%) 3 ml STK-MED ONCE .ROUTE ; Start 11/21/18 at 11:56; Stop 11/21/18 at 11:57; Status DC Iohexol (Omnipaque 300 Mg/ml) 100 ml STK-MED ONCE .ROUTE ; Start 11/21/18 at 11: 56; Stop 11/21/18 at 11:57; Status DC Heparin Sodium/ Sodium Chloride 500 ml @ As Directed STK-MED ONCE .ROUTE ; Start 11/21/18 at 11:56; Stop 11/21/18 at 11:57; Status DC Lidocaine/Sodium Bicarbonate (Buffered Lidocaine 1%) 3 ml STK-MED ONCE .ROUTE ; Start 11/21/18 at 12:29; Stop 11/21/18 at 12:30; Status DC Lidocaine/Sodium Bicarbonate (Buffered Lidocaine 1%) 3 ml STK-MED ONCE .ROUTE ; Start 11/21/18 at 12:29; Stop 11/21/18 at 12:30; Status DC Heparin Sodium/ Sodium Chloride (HEPARIN for ARTERIAL LINE FLUSH) 1,000 unit 1X ONCE IART ; Start 11/21/18 at 12:45; Stop 11/21/18 at 12:51; Status DC Lidocaine/Sodium Bicarbonate (Buffered Lidocaine 1%) 13 ml 1X ONCE IJ Last administered on 11/21/18at 12:45; Start 11/21/18 at 12:45; Stop 11/21/18 at 12:51 ; Status DC Midazolam HCl (Versed) 2 mg 1X ONCE IV Last administered on 11/21/18at 12:45; Start 11/21/18 at 12:45; Stop 11/21/18 at 12:51; Status DC Fentanyl Citrate (Fentanyl 2ml Vial) 100 mcg 1X ONCE IV Last administered on at 12:45; Start 11/21/18 at 12:45; Stop 11/21/18 at 12:51; Status DC Iohexol (Omnipaque 300 Mg/ml) 40 ml 1X ONCE IART Last administered on at 12:45; Start 11/21/18 at 12:45; Stop 11/21/18 at 12:51; Status DC Throat Lozenges (Cepacol Sore Throat Lozenge) 1 corina PRN Q2HRS PRN PO SORE THROAT; Start 11/21/18 at 19:45; Stop 11/21/18 at 19:45; Status DC Alteplase, Recombinant (Cathflo For Central Catheter Clearance) 1 mg 1X ONCE INT CAT Last administered on 11/22/18at 06:25; Start 11/22/18 at 06:30; Stop at 06:31; Status DC Pantoprazole Sodium (Protonix) 40 mg DAILYAC PO Last administered on 11/27/18at 08:20; Start 11/22/18 at 07:45 Heparin Sodium (Porcine) (Heparin Sodium) 5,000 unit Q12HR SQ Last administered on 11/27/18at 08:28; Start 11/22/18 at 09:00 Magnesium Sulfate 50 ml @ 25 mls/hr PRN DAILY PRN IV for Mag < 1.7 on am labs; Start 11/22/18 at 13:00 Lidocaine/ Epinephrine (LIDOCAINE 1%-EPI 1:100,000 Multi-Dose) 20 ml STK-MED ONCE .ROUTE ; Start 11/24/18 at 08:53; Stop 11/24/18 at 08:54; Status DC Lactobacillus Rhamnosus (Culturelle) 1 cap BID PO Last administered on at 08:20; Start 11/24/18 at 09:00 Midazolam HCl (Versed) 5 mg STK-MED ONCE .ROUTE ; Start 11/24/18 at 09:13; Stop 11/24/18 at 09:14; Status DC Fentanyl Citrate (Fentanyl 2ml Vial) 100 mcg STK-MED ONCE .ROUTE ; Start at 09:13; Stop 11/24/18 at 09:14; Status DC Midazolam HCl (Versed) 5 mg 1X ONCE IV Last administered on 11/24/18at 09:45; Start 11/24/18 at 09:30; Stop 11/24/18 at 09:31; Status DC Fentanyl Citrate (Fentanyl 2ml Vial) 100 mcg 1X ONCE IV Last administered on at 09:45; Start 11/24/18 at 09:30; Stop 11/24/18 at 09:31; Status DC Lidocaine/ Epinephrine (LIDOCAINE 1%-EPI 1:100,000 Multi-Dose) 20 ml 1X ONCE IJ Last administered on 11/24/18at 09:46; Start 11/24/18 at 09:30; Stop at 09:31; Status DC Sodium Chloride 1,000 ml @ 1,000 mls/hr Q1H PRN IV hypotension; Start 11/24/18 at 15:10; Stop 11/24/18 at 21:09; Status DC Sodium Chloride 1,000 ml @ 400 mls/hr Q2H30M PRN IV PATENCY; Start 11/24/18 at 15:10; Stop 11/25/18 at 03:09; Status DC Info (PHARMACY MONITORING -- do not chart) 1 each PRN DAILY PRN MC SEE COMMENTS ; Start 11/24/18 at 15:15; Stop 11/24/18 at 15:15; Status DC Info (PHARMACY MONITORING -- do not chart) 1 each PRN DAILY PRN MC SEE COMMENTS ; Start 11/24/18 at 15:15 Oxycodone/ Acetaminophen (Percocet 5/325) 1 tab PRN Q4HRS PRN PO PAIN; Start at 09:15 Magnesium Hydroxide (Milk Of Magnesia) 2,400 mg PRN DAILY PRN PO CONSTIPATION; Start 11/26/18 at 09:15 Docusate Sodium (Colace) 100 mg DAILY PO Last administered on 11/27/18at 08:20; Start 11/26/18 at 10:00 Polyethylene Glycol (miraLAX PACKET) 17 gm PRN DAILY PRN PO CONSTIPATION Last administered on 11/26/18at 10:34; Start 11/26/18 at 09:15 Labetalol HCl (Normodyne Iv Push) 10 mg PRN Q1HR PRN IVP BP>170; Start at 14:00; Stop 11/26/18 at 21:00; Status DC Ondansetron HCl (Zofran) 4 mg 1X PRN IV NAUSEA/VOMITING; Start 11/26/18 at 14: 00 Diphenhydramine HCl (Benadryl) 25 mg PRN 1X PRN IV ITCHING; Start 11/26/18 at 14:00 Sodium Chloride 250 ml @ 500 mls/hr PRN 1X PRN IV MAY RP X3,; Start 11/26/18 at 14:00; Stop 11/26/18 at 21:00; Status DC Active Scripts Active Reported Imodium Multi-Symptom Rel Cplt (Loperamide Hcl/Simethicone) 1 Each Tablet 1 Each PO PRN PRN Anti-Diarrhea (Loperamide Hcl) 2 Mg Tablet 2 Mg PO PRN PRN Gabapentin 600 Mg Tablet 600 Mg PO PRN TID PRN Warfarin Sodium 10 Mg Tablet 10 Mg PO DAILY Amlodipine Besylate 10 Mg Tablet 10 Mg PO DAILY Furosemide 80 Mg Tablet 80 Mg PO DAILY Novolin 70-30 100 Unit/Ml Vial (Hum Insulin Nph/Reg Insulin Hm) 100 Unit/1 Ml Vial 7 Unit SQ QHS Novolin 70-30 100 Unit/Ml Vial (Hum Insulin Nph/Reg Insulin Hm) 100 Unit/1 Ml Vial 15 Unit SQ DAILY Vitals/I & O Vital Sign - Last 24 Hours 11/26/18 11/26/18 11/26/18 11/27/18 19:36 19:49 23:38 03:19 Temp 98.6 98.7 98.7 98.6 98.7 98.7 Pulse 89 87 85 Resp 18 18 20 B/P (MAP) 106/70 (82) 111/68 (82) 122/77 (92) Pulse Ox 97 96 98 O2 Delivery Nasal Cannula Nasal Cannula Room Air Nasal Cannula O2 Flow Rate 2.0 2.0 2.0 11/27/18 11/27/18 11/27/18 11/27/18 03:26 04:26 07:00 08:00 Temp 98.3 98.3 Pulse 73 Resp 20 B/P (MAP) 126/78 (94) Pulse Ox 98 98 99 O2 Delivery Nasal Cannula Nasal Cannula Nasal Cannula Nasal Cannula O2 Flow Rate 2.0 2.0 2.0 2.0 11/27/18 11:00 Temp 98.1 98.1 Pulse 93 Resp 20 B/P (MAP) 129/71 (90) Pulse Ox 97 O2 Delivery Nasal Cannula O2 Flow Rate 2.0 Intake and Output 11/26/18 11/26/18 11/27/18 15:00 23:00 07:00 Intake Total 200 ml 270 ml Output Total 1400 ml 2150 ml Balance 200 ml -1400 ml -1880 ml POLO LOPEZ MD Nov 27, 2018 11:56
--- NOTE | 2018-11-27 14:00 | NUR ---
PVR measured at 0mL.
[2018-11-27 15:00] VITALS: BP 119/75
[2018-11-27 19:00] VITALS: BP 125/78
[2018-11-27] MEDS: INSULIN GLARGINE 300 UNITS/3 ML INSULN.PEN. SQ SCH (21:03)
[2018-11-27 23:00] VITALS: BP 121/72
[2018-11-28 03:00] VITALS: BP 131/77
[2018-11-28] MEDS: MEROPENEM 500 MG in IV NORMAL SALINE 50ML 50 ML IV SCH (05:06)
[2018-11-28 05:23] LABS: HEMATOCRIT 26.2 % (39.0-53.0); HEMOGLOBIN 8.6 g/dL (13.0-17.5); RED BLOOD COUNT 2.83 x10^6/uL (4.30-5.70); RED CELL DISTRIBUTION WIDTH 14.9 % (11.5-14.5); WHITE BLOOD COUNT 13.6 x10^3/uL (4.0-11.0)
[2018-11-28 05:53] LABS: ALBUMIN 1.9 g/dL (3.4-5.0); CALCIUM 7.9 mg/dL (8.5-10.1); CREATININE 4.1 mg/dL (0.7-1.3); GFR 15.2; PHOSPHORUS 4.1 mg/dL (2.6-4.7); POTASSIUM 4.5 mmol/L (3.5-5.1)
[2018-11-28 07:00] VITALS: BP 131/76
[2018-11-28] MEDS: INSULIN LISPRO 300 UNITS/3 ML INSULN.PEN. SQ SCH ×6 (08:00→16:23)
--- NOTE | 2018-11-28 08:24 | PDOC ---
KIANA GA HEARING AID REPAIRER 11/28/18 0824: SUBJECTIVE Subjective Patient feeling a lot better. He has been voiding often and well. There has also been some incontinence intermittently. He feels like he is emptying his bladder well, no dysuria. Was able to shower yesterday. He was told by another physician here he will be having a chemo treatment but is not sure when. OBJECTIVE Objective Physical Exam: General appearance: Alert and Oriented Head: Normocephalic, without obvious abnormality Eyes: conjunctivae/corneas clear. PERRL, EOM's intact. Fundi benign Back: + nephrostomy tube in place on the left draining yellow urine with scant white residue. Lungs: Regular respirations, non labored breathing. Abdomen: soft, non-tender. No masses, no organomegaly Vital Signs Vital Signs Date Time Temp Pulse Resp B/P (MAP) Pulse Ox O2 Delivery O2 Flow Rate FiO2 11/28/18 07:00 98.3 90 18 131/76 (94) 98 Nasal Cannula 2.0 98.3 11/28/18 03:00 98.1 87 18 131/77 (95) 99 Nasal Cannula 2.0 98.1 11/27/18 23:00 98.1 87 18 121/72 (88) 97 Nasal Cannula 2.0 98.1 11/27/18 19:58 Nasal Cannula 2.0 11/27/18 19:00 98.1 100 18 125/78 (94) 96 Nasal Cannula 2.0 98.1 11/27/18 15:00 98.1 88 18 119/75 (90) 97 Nasal Cannula 2.0 98.1 11/27/18 11:00 98.1 93 20 129/71 (90) 97 Nasal Cannula 2.0 98.1 I & O Intake and Output 11/28/18 07:00 Intake Total 830 ml Output Total 1980 ml Balance -1150 ml Intake Oral 780 ml IV Total 50 ml Output Urine Total 1025 ml Drainage Total 955 ml # Voids 5 # Bowel Movements 3 PHYSICAL EXAM Physical Exam Physical Exam: General appearance: Alert and Oriented Head: Normocephalic, without obvious abnormality Eyes: conjunctivae/corneas clear. PERRL, EOM's intact. Fundi benign Back: + nephrostomy tube in place on the left draining yellow urine with scant white residue. Lungs: Regular respirations, non labored breathing. Abdomen: soft, non-tender. No masses, no organomegaly ASSESSMENT/PLAN Assessment/Plan Patient has been voiding atively and also having incontinence as well. PVR has been zero. Keep Hair catheter out. Pt understands that if he is feeling like he is having retention again, he needs to let nursing or medical staff know immediately, since kidneys need maximum drainage around stone. No need for serial bladder scans, but nursing may bladder scan PRN suspected retention. Patient may discharge home whenever medical team is ready. D/C with nephrostomy tube in place. Follow up at with Dr. Aguillon sometime within the next two weeks. Problems: (1) Acute on chronic renal failure (2) Hydronephrosis with urinary obstruction due to ureteral calculus COMMENT Lab Laboratory Tests Test 11/27/18 11:14 11/27/18 16:28 11/27/18 19:31 11/28/18 05:00 Glucose (Fingerstick) 177 mg/dL (70-99) 147 mg/dL (70-99) 157 mg/dL (70-99) White Blood Count 13.6 x10^3/uL (4.0-11.0) Red Blood Count 2.83 x10^6/uL (4.30-5.70) Hemoglobin 8.6 g/dL (13.0-17.5) Hematocrit 26.2 % (39.0-53.0) Mean Corpuscular Volume 93 fL (79-100) Mean Corpuscular Hemoglobin 30 pg (25-35) Mean Corpuscular Hemoglobin Concent 33 g/dL (31-37) Red Cell Distribution Width 14.9 % (11.5-14.5) Platelet Count 181 x10^3/uL (140-400) Sodium Level 145 mmol/L (136-145) Potassium Level 4.5 mmol/L (3.5-5.1) Chloride Level 105 mmol/L (98-107) Carbon Dioxide Level 27 mmol/L (21-32) Anion Gap 13 (6-14) Blood Urea Nitrogen 51 mg/dL (8-26) Creatinine 4.1 mg/dL (0.7-1.3) Estimated GFR (Cockcroft-Gault) 15.2 Glucose Level 135 mg/dL (70-99) Calcium Level 7.9 mg/dL (8.5-10.1) Phosphorus Level 4.1 mg/dL (2.6-4.7) Creatine Kinase 16 U/L (39-308) Albumin 1.9 g/dL (3.4-5.0) Test 11/28/18 07:20 Glucose (Fingerstick) 141 mg/dL (70-99) STEPHON MARTE MD 11/28/18 1754: ASSESSMENT/PLAN Assessment/Plan Agree with assessment and plan. Problem Qualifiers (1) Acute on chronic renal failure: Acute renal failure type: unspecified Chronic kidney disease stage: unspecified stage Qualified Codes: N17.9 - Acute kidney failure, unspecified; N18.9 - Chronic kidney disease, unspecified KIANA GA APRN Nov 28, 2018 08:24 STEPHON MARTE MD Nov 28, 2018 17:54
[2018-11-28] MEDS: PANTOPRAZOLE 40 MG TABLET.DR. PO SCH (08:41)
[2018-11-28] MEDS: LACTOBACILLUS RHAMNOSUS GG 1 CAPSULE. PO SCH (08:42)
[2018-11-28] MEDS: OXYBUTYNIN CHLORIDE 5 MG TABLET PO SCH ×2 (08:42→14:00)
[2018-11-28] MEDS: DOCUSATE SODIUM 100 MG CAPSULE. PO SCH (08:42)
[2018-11-28] MEDS: SERTRALINE 50 MG TABLET. PO SCH (08:42)
[2018-11-28] MEDS: CETIRIZINE HCL 10 MG TABLET. PO SCH (08:43)
[2018-11-28] MEDS: HEPARIN for SUB-Q USE 5,000 UNIT/ML VIAL. SQ SCH (08:58)
--- NOTE | 2018-11-28 09:23 | PDOC ---
PULMONARY PROGRESS NOTES Subjective PT NOT MORE SOA TRANSFER OUT OF ICU THIS AM Vitals Vital Signs Date Time Temp Pulse Resp B/P (MAP) Pulse Ox O2 Delivery O2 Flow Rate FiO2 11/28/18 07:00 98.3 90 18 131/76 (94) 98 Nasal Cannula 2.0 98.3 ROS: No Nausea, No Chest Pain General: Alert, No acute distress HEENT: Other (nc at perrl nose throat clear neck no lad, no thyromegaly) Lungs: Clear Cardiovascular: S1, S2 Abdomen: Soft, Non-tender Neuro Exam: Alert Extremities: Other (edema) Skin: Warm Labs Laboratory Tests Test 11/26/18 11:23 11/26/18 17:14 11/26/18 20:54 11/27/18 05:20 Glucose (Fingerstick) 166 mg/dL (70-99) 125 mg/dL (70-99) 182 mg/dL (70-99) Sodium Level 141 mmol/L (136-145) Potassium Level 4.2 mmol/L (3.5-5.1) Chloride Level 104 mmol/L (98-107) Carbon Dioxide Level 30 mmol/L (21-32) Anion Gap 7 (6-14) Blood Urea Nitrogen 38 mg/dL (8-26) Creatinine 3.5 mg/dL (0.7-1.3) Estimated GFR (Cockcroft-Gault) 18.3 Glucose Level 129 mg/dL (70-99) Calcium Level 7.9 mg/dL (8.5-10.1) Phosphorus Level 3.7 mg/dL (2.6-4.7) Magnesium Level 1.9 mg/dL (1.8-2.4) Creatine Kinase 15 U/L (39-308) Albumin 1.7 g/dL (3.4-5.0) Test 11/27/18 07:45 11/27/18 11:14 11/27/18 16:28 11/27/18 19:31 Glucose (Fingerstick) 103 mg/dL (70-99) 177 mg/dL (70-99) 147 mg/dL (70-99) 157 mg/dL (70-99) Test 11/28/18 05:00 11/28/18 07:20 White Blood Count 13.6 x10^3/uL (4.0-11.0) Red Blood Count 2.83 x10^6/uL (4.30-5.70) Hemoglobin 8.6 g/dL (13.0-17.5) Hematocrit 26.2 % (39.0-53.0) Mean Corpuscular Volume 93 fL (79-100) Mean Corpuscular Hemoglobin 30 pg (25-35) Mean Corpuscular Hemoglobin Concent 33 g/dL (31-37) Red Cell Distribution Width 14.9 % (11.5-14.5) Platelet Count 181 x10^3/uL (140-400) Sodium Level 145 mmol/L (136-145) Potassium Level 4.5 mmol/L (3.5-5.1) Chloride Level 105 mmol/L (98-107) Carbon Dioxide Level 27 mmol/L (21-32) Anion Gap 13 (6-14) Blood Urea Nitrogen 51 mg/dL (8-26) Creatinine 4.1 mg/dL (0.7-1.3) Estimated GFR (Cockcroft-Gault) 15.2 Glucose Level 135 mg/dL (70-99) Calcium Level 7.9 mg/dL (8.5-10.1) Phosphorus Level 4.1 mg/dL (2.6-4.7) Creatine Kinase 16 U/L (39-308) Albumin 1.9 g/dL (3.4-5.0) Glucose (Fingerstick) 141 mg/dL (70-99) Laboratory Tests Test 11/27/18 11:14 11/27/18 16:28 11/27/18 19:31 11/28/18 05:00 Glucose (Fingerstick) 177 mg/dL (70-99) 147 mg/dL (70-99) 157 mg/dL (70-99) White Blood Count 13.6 x10^3/uL (4.0-11.0) Red Blood Count 2.83 x10^6/uL (4.30-5.70) Hemoglobin 8.6 g/dL (13.0-17.5) Hematocrit 26.2 % (39.0-53.0) Mean Corpuscular Volume 93 fL (79-100) Mean Corpuscular Hemoglobin 30 pg (25-35) Mean Corpuscular Hemoglobin Concent 33 g/dL (31-37) Red Cell Distribution Width 14.9 % (11.5-14.5) Platelet Count 181 x10^3/uL (140-400) Sodium Level 145 mmol/L (136-145) Potassium Level 4.5 mmol/L (3.5-5.1) Chloride Level 105 mmol/L (98-107) Carbon Dioxide Level 27 mmol/L (21-32) Anion Gap 13 (6-14) Blood Urea Nitrogen 51 mg/dL (8-26) Creatinine 4.1 mg/dL (0.7-1.3) Estimated GFR (Cockcroft-Gault) 15.2 Glucose Level 135 mg/dL (70-99) Calcium Level 7.9 mg/dL (8.5-10.1) Phosphorus Level 4.1 mg/dL (2.6-4.7) Creatine Kinase 16 U/L (39-308) Albumin 1.9 g/dL (3.4-5.0) Test 11/28/18 07:20 Glucose (Fingerstick) 141 mg/dL (70-99) Medications Active Scripts Medications Dose Route/Sig Max Daily Dose Days Date Category Dose Instructions Novolin 70-30 100 Unit/Ml Vial (Hum Insulin Nph/Reg Insulin Hm) 100 Unit/1 Ml Vial 7 Unit SQ QHS 11/21/18 Reported Novolin 70-30 100 Unit/Ml Vial (Hum Insulin Nph/Reg Insulin Hm) 100 Unit/1 Ml Vial 15 Unit SQ DAILY 11/21/18 Reported Novolin R (Insulin Regular, Human) 100 Unit/1 Ml Vial 100 Unit IJ QIDACHS 11/21/18 Reported Oxybutynin Chloride 5 Mg Tablet 5 Mg PO TID 11/21/18 Reported Ondansetron Hcl 4 Mg Tablet 1 Tab PO PRN Q6HRS 11/21/18 Reported Tylenol (Acetaminophen) 325 Mg Tablet 2 Tab PO HS 11/21/18 Reported Nortriptyline Hcl 50 Mg Capsule 50 Mg PO HS 11/21/18 Reported Metformin Hcl 1,000 Mg Tablet 1,000 Mg PO BIDWMEALS 11/21/18 Reported Lactulose 10 Gm Packet 10 Gm PO DAILY 11/21/18 Reported Hyoscyamine Sulfate 0.125 Mg Tab.subl 0.125 Mg SL Q4HRS PRN 11/21/18 Reported Loratadine 10 Mg Tablet 1 Tab PO DAILY 11/21/18 Reported Pain Relieving 1%-15% Cream (Methyl Salicylate/Menthol) 85 Gm Cream..g. 85 Gm TP TID PRN PRN 11/21/18 Reported [place] 5-325 Tablet (Acetaminophen/Hydrocodone Bitart) 1 Each Tablet 2 Tab PO Q4HRS 03/25/17 Reported LAST DOSE GIVEN: DATE: TIME: Zoloft (Sertraline Hcl) 100 Mg Tablet 100 Mg PO DAILY 02/18/17 Reported Lisinopril 5 Mg Tablet 2.5 Mg PO DAILY 02/18/17 Reported Atorvastatin Calcium 20 Mg Tablet 40 Mg PO DAILY 02/18/17 Reported Comments cxr, basilar atelectasis infilt Impression . IMPRESSION: 1. Acute hypoxic respiratory failure secondary to septic shock. 2. Septic shock related to urinary tract infection. b cx, GNR 11/20 3. Recent prostatectomy and now comes in with SEPSIS/ UTI .He has left ureteral stone and has left hydronephrosis. 4. No significant history of tobacco use. 5. Lactic acidosis secondary to septic shock. 6. Moderate protein-calorie malnutrition. 7. Acute renal failure, worse, nephro planned on HD Plan . WILL SEE PRN ANTIBX PER ID OFF PRESSORS CONTINUE SUPPORT RESP STATUS IS COMPENSATED MAGGIE ZARAGOZA MD Nov 28, 2018 09:23
--- NOTE | 2018-11-28 10:36 | PDOC ---
Infectious Disease Note Subjective Subjective pt is feeling ok ROS ROS no n/v/d/ Vital Sign Vital Signs Vital Signs Date Time Temp Pulse Resp B/P (MAP) Pulse Ox O2 Delivery O2 Flow Rate FiO2 11/28/18 07:00 98.3 90 18 131/76 (94) 98 Nasal Cannula 2.0 98.3 Physical Exam PHYSICAL EXAM GENERAL: comfortable in bed, resting quietly HENT: Oral cavity clear HEART: S1 and S2. regular ABDOMEN: Obese, soft, NT : Hair in place GENITOURINARY: Hair in place. Left nephrostomy tube intact EXTREMITIES: Trace edema lower extremities, no cyanosis SKIN: Without generalized signs of rash. NEUROLOGIC: Arouses to name, responds appropriately PIV ok RIJ clean Labs Lab Laboratory Tests Test 11/27/18 11:14 11/27/18 16:28 11/27/18 19:31 11/28/18 05:00 Glucose (Fingerstick) 177 mg/dL (70-99) 147 mg/dL (70-99) 157 mg/dL (70-99) White Blood Count 13.6 x10^3/uL (4.0-11.0) Red Blood Count 2.83 x10^6/uL (4.30-5.70) Hemoglobin 8.6 g/dL (13.0-17.5) Hematocrit 26.2 % (39.0-53.0) Mean Corpuscular Volume 93 fL (79-100) Mean Corpuscular Hemoglobin 30 pg (25-35) Mean Corpuscular Hemoglobin Concent 33 g/dL (31-37) Red Cell Distribution Width 14.9 % (11.5-14.5) Platelet Count 181 x10^3/uL (140-400) Sodium Level 145 mmol/L (136-145) Potassium Level 4.5 mmol/L (3.5-5.1) Chloride Level 105 mmol/L (98-107) Carbon Dioxide Level 27 mmol/L (21-32) Anion Gap 13 (6-14) Blood Urea Nitrogen 51 mg/dL (8-26) Creatinine 4.1 mg/dL (0.7-1.3) Estimated GFR (Cockcroft-Gault) 15.2 Glucose Level 135 mg/dL (70-99) Calcium Level 7.9 mg/dL (8.5-10.1) Phosphorus Level 4.1 mg/dL (2.6-4.7) Creatine Kinase 16 U/L (39-308) Albumin 1.9 g/dL (3.4-5.0) Test 11/28/18 07:20 Glucose (Fingerstick) 141 mg/dL (70-99) Micro BLOOD CULTURE LC Final Final report BLD CULT RESULT 1 Final Escherichia coli Recovered from aerobic and anaerobic bottles. ANTIMICROBIAL SUSCEPTIBILITY Final Comment S = Susceptible; I = Intermediate; R = Resistant P = Positive; N = Negative MICS are expressed in micrograms per mL Antibiotic RSLT#1 RSLT#2 RSLT#3 RSLT#4 Amoxicillin/Clavulanic Acid S =8 Ampicillin R>=32 Cefepime S<=0.12 Ceftriaxone S<=0.25 Cefuroxime S =4 Ciprofloxacin R>=4 Ertapenem S<=0.12 Gentamicin R>=16 Imipenem S<=0.25 Levofloxacin R>=8 Meropenem S<=0.25 Nitrofurantoin S<=16 Piperacillin/Tazobactam S<=4 Tetracycline R>=16 Tobramycin R>=16 Trimethoprim/Sulfa R>=320 Performed at: DA - [facility] [address] [address], [place], [place] [id number] [employer] Tile Patternmaker: KINGSLEY Norman MD, Phone: [phone] URINE CULTURE Final Final report URINE CULTURE RES 1 Final Escherichia coli 25,000-50,000 colony forming units per mL Cefazolin <=4 ug/mL Cefazolin with an KORY <=16 predicts susceptibility to the oral agents cefaclor, cefdinir, cefpodoxime, cefprozil, cefuroxime, cephalexin, and loracarbef when used for therapy of uncomplicated urinary tract infections due to E. coli, Klebsiella pneumoniae, and Proteus mirabilis. ANTIMICROBIAL SUSCEPTIBILITY Final Comment S = Susceptible; I = Intermediate; R = Resistant P = Positive; N = Negative MICS are expressed in micrograms per mL Antibiotic RSLT#1 RSLT#2 RSLT#3 RSLT#4 Amoxicillin/Clavulanic Acid S =4 Ampicillin R>=32 Cefepime S<=0.12 Ceftriaxone S<=0.25 Cefuroxime S =4 Ciprofloxacin R>=4 Ertapenem S<=0.12 Gentamicin I =8 Imipenem S<=0.25 Levofloxacin R>=8 Meropenem S<=0.25 Nitrofurantoin S<=16 Piperacillin/Tazobactam S<=4 Tetracycline R>=16 Tobramycin R>=16 Objective Assessment Sepsis, present on admission, E coli 11/20- less pressor support now - Clinically - better Lactic acidosis Obstructive uropathy, s/p percutaneous nephrostomy tube placement on 11/21. Subcutaneous emphysema on CT, questionable, subcutaneous injections. Pylonephritis Acute kidney injury.- mild increase, renal following, may need to start dialysis Cipro allergy, questionable reaction. S/p Recent Prostatectomy Plan Plan of Care pt/ot will follow. supportive care meropenem,, d/c on po omnicef for 1 wk ok to d/c SAEED ROSE MD Nov 28, 2018 10:36
[2018-11-28] MEDS ORDERED: SERT50TA8 PO (10:43)
[2018-11-28] MEDS ORDERED: OXYB5TAB7 PO (10:43)
[2018-11-28] MEDS ORDERED: CEFD300C PO (10:43)
--- NOTE | 2018-11-28 10:43 | DISCH ---
DISCHARGE WITH HOME HEALTH DISCHARGE INFORMATION: Discharge Date: Nov 28, 2018 Final Diagnosis: Problems Medical Problems: (1) Acute on chronic renal failure Status: Acute (2) Hydronephrosis with urinary obstruction due to ureteral calculus Status: Acute (3) Renal colic Status: Acute Condition on Discharge: Stable CODE STATUS: Code Status: Full HOME HEALTH: Face to Face: I certify this patient is under my care and that I, or a nurse practitioner or physician's camp assistant working with me, had a face to face encounter that meets the physician face to face encounter requirements with this patient on 11/28 Medical Complications: Other (sepsis) POST DISCHARGE ORDERS: Activity Instructions for Disc: Activity as tolerated Weight Bearing Status after Di: As tolerated Wound/Incision Care: No wound care needed CHECKS AFTER DISCHARGE: Checks after discharge: Check blood press - daily, Check blood sugar, ac/hs, Check your Temp as needed Comment: IJ/chest FOLLOW-UP: Follow up with: Urology at [facility] TREATMENT/EQUIPMENT ORDERS: Adaptive Equipment Issued: None CERTIFICATION STATEMENT: Certification Statement: Certification Statement: Based on the above finding, I certify that this patient is confined to the home and needs intermittent retirement care, physical therapy and/or speech therapy, or continues to need occupational therapy.~ This patient is under my care, and I have initiated the establishment of the plan of care.~ This patient will be followed by myself or a community physician who will periodically review the plan of care. Home Meds Active Scripts Cefdinir (CEFDINIR) 300 Mg Capsule, 300 MG PO DAILY for recent infection, #7 CAP Prov:DURGA HARMON MD 11/28/18 Sertraline Hcl (SERTRALINE HCL) 50 Mg Tablet, 50 MG PO DAILY for depression, # 30 TAB Prov:DURGA HARMON MD 11/28/18 Oxybutynin Chloride (OXYBUTYNIN CHLORIDE) 5 Mg Tablet, 5 MG PO BID for urinary rentention, #60 TAB Prov:DURGA HARMON MD 11/28/18 Reported Medications Loperamide Hcl/Simethicone (IMODIUM MULTI-SYMPTOM REL CPLT) 1 Each Tablet, 1 EACH PO PRN PRN for DIARRHEA, TAB 11/23/18 Loperamide Hcl (ANTI-DIARRHEA) 2 Mg Tablet, 2 MG PO PRN PRN for anti diarrhea, TAB 11/23/18 Gabapentin (GABAPENTIN) 600 Mg Tablet, 600 MG PO PRN TID PRN for PAIN, TAB 11/23/18 Warfarin Sodium (WARFARIN SODIUM) 10 Mg Tablet, 10 MG PO DAILY for blood thinner , TAB 11/23/18 Amlodipine Besylate (AMLODIPINE BESYLATE) 10 Mg Tablet, 10 MG PO DAILY for htn, TAB 11/23/18 Furosemide (FUROSEMIDE) 80 Mg Tablet, 80 MG PO DAILY for diuretic, TAB 11/23/18 Hum Insulin Nph/Reg Insulin Hm (NOVOLIN 70-30 100 UNIT/ML VIAL) 100 Unit/1 Ml Vial, 7 UNIT SQ QHS for diabetes, VIAL 11/21/18 Hum Insulin Nph/Reg Insulin Hm (NOVOLIN 70-30 100 UNIT/ML VIAL) 100 Unit/1 Ml Vial, 15 UNIT SQ DAILY for Diabetes, VIAL 11/21/18 DURGA HARMON MD Nov 28, 2018 10:43
--- NOTE | 2018-11-28 10:47 | PDOC3 ---
Discharge Summary Visit Information Date of Admission: Nov 20, 2018 Date of Discharge: Nov 28, 2018 Admitting Diagnosis: sepsis Final Diagnosis severe sepsis and septic shock, 1. ESRD New dialysis. 2. Obstructive uropathy, bilateral nephrostomy tubes placed., s/p septic shock 3. sp TURP outside facility 3. Anemia of chronic disease. 4. Thrombocytopenia. due to spesis 5. Obesity. BMI 35 6. Moderate protein-calorie malnutrition on admit, worsened 7. Escherichia coli urinary tract infection. 8. Minimal security alf Problems Medical Problems: (1) Acute on chronic renal failure Status: Acute (2) Hydronephrosis with urinary obstruction due to ureteral calculus Status: Acute (3) Renal colic Status: Acute Brief Hospital Course Allergies Allergies Coded Allergies Type Severity Reaction Last Updated Verified ciprofloxacin Allergy Intermediate 11/27/18 Yes cranberry Allergy Intermediate 03/25/17 Yes Uncoded Allergies Type Severity Reaction Last Updated Verified hay Allergy Intermediate 11/27/18 Vital Signs Vital Signs Date Time Temp Pulse Resp B/P (MAP) Pulse Ox O2 Delivery O2 Flow Rate FiO2 11/28/18 07:00 98.3 90 18 131/76 (94) 98 Nasal Cannula 2.0 98.3 Lab Results Laboratory Tests Test 11/26/18 11:23 11/26/18 17:14 11/26/18 20:54 11/27/18 05:20 Glucose (Fingerstick) 166 mg/dL (70-99) 125 mg/dL (70-99) 182 mg/dL (70-99) Sodium Level 141 mmol/L (136-145) Potassium Level 4.2 mmol/L (3.5-5.1) Chloride Level 104 mmol/L (98-107) Carbon Dioxide Level 30 mmol/L (21-32) Anion Gap 7 (6-14) Blood Urea Nitrogen 38 mg/dL (8-26) Creatinine 3.5 mg/dL (0.7-1.3) Estimated GFR (Cockcroft-Gault) 18.3 Glucose Level 129 mg/dL (70-99) Calcium Level 7.9 mg/dL (8.5-10.1) Phosphorus Level 3.7 mg/dL (2.6-4.7) Magnesium Level 1.9 mg/dL (1.8-2.4) Creatine Kinase 15 U/L (39-308) Albumin 1.7 g/dL (3.4-5.0) Test 11/27/18 07:45 11/27/18 11:14 11/27/18 16:28 11/27/18 19:31 Glucose (Fingerstick) 103 mg/dL (70-99) 177 mg/dL (70-99) 147 mg/dL (70-99) 157 mg/dL (70-99) Test 11/28/18 05:00 11/28/18 07:20 White Blood Count 13.6 x10^3/uL (4.0-11.0) Red Blood Count 2.83 x10^6/uL (4.30-5.70) Hemoglobin 8.6 g/dL (13.0-17.5) Hematocrit 26.2 % (39.0-53.0) Mean Corpuscular Volume 93 fL (79-100) Mean Corpuscular Hemoglobin 30 pg (25-35) Mean Corpuscular Hemoglobin Concent 33 g/dL (31-37) Red Cell Distribution Width 14.9 % (11.5-14.5) Platelet Count 181 x10^3/uL (140-400) Sodium Level 145 mmol/L (136-145) Potassium Level 4.5 mmol/L (3.5-5.1) Chloride Level 105 mmol/L (98-107) Carbon Dioxide Level 27 mmol/L (21-32) Anion Gap 13 (6-14) Blood Urea Nitrogen 51 mg/dL (8-26) Creatinine 4.1 mg/dL (0.7-1.3) Estimated GFR (Cockcroft-Gault) 15.2 Glucose Level 135 mg/dL (70-99) Calcium Level 7.9 mg/dL (8.5-10.1) Phosphorus Level 4.1 mg/dL (2.6-4.7) Creatine Kinase 16 U/L (39-308) Albumin 1.9 g/dL (3.4-5.0) Glucose (Fingerstick) 141 mg/dL (70-99) Laboratory Tests Test 11/27/18 11:14 11/27/18 16:28 11/27/18 19:31 11/28/18 05:00 Glucose (Fingerstick) 177 mg/dL (70-99) 147 mg/dL (70-99) 157 mg/dL (70-99) White Blood Count 13.6 x10^3/uL (4.0-11.0) Red Blood Count 2.83 x10^6/uL (4.30-5.70) Hemoglobin 8.6 g/dL (13.0-17.5) Hematocrit 26.2 % (39.0-53.0) Mean Corpuscular Volume 93 fL (79-100) Mean Corpuscular Hemoglobin 30 pg (25-35) Mean Corpuscular Hemoglobin Concent 33 g/dL (31-37) Red Cell Distribution Width 14.9 % (11.5-14.5) Platelet Count 181 x10^3/uL (140-400) Sodium Level 145 mmol/L (136-145) Potassium Level 4.5 mmol/L (3.5-5.1) Chloride Level 105 mmol/L (98-107) Carbon Dioxide Level 27 mmol/L (21-32) Anion Gap 13 (6-14) Blood Urea Nitrogen 51 mg/dL (8-26) Creatinine 4.1 mg/dL (0.7-1.3) Estimated GFR (Cockcroft-Gault) 15.2 Glucose Level 135 mg/dL (70-99) Calcium Level 7.9 mg/dL (8.5-10.1) Phosphorus Level 4.1 mg/dL (2.6-4.7) Creatine Kinase 16 U/L (39-308) Albumin 1.9 g/dL (3.4-5.0) Test 11/28/18 07:20 Glucose (Fingerstick) 141 mg/dL (70-99) Brief Hospital Course Mr. Walker is a 53 old male, recent TURP at , admit from prision with hypotension, fever, admit to ICU, sepsis, shock req. pressors, large amt fluid. obstruction on right, perc nephrostomy placed to bilat, good UO He is a new dialysis He lives in a minimal security alf , str improved, labs better by DC Discharge Information Condition at Discharge: Improved Follow Up: Weeks Disposition/Orders: D/C to Another Facility (retirement w home health) Scheduled Amlodipine Besylate (Amlodipine Besylate) 10 Mg Tablet, 10 MG PO DAILY for htn, (Reported) Entered as Reported by: RAMON RICE on 11/23/182048 Last Taken: Unknown Dose on 11/22/18 Last Action: New Order on 11/23/182048 by RAMON RICE Cefdinir (Cefdinir) 300 Mg Capsule, 300 MG PO DAILY for recent infection, #7 Prescribed by: DURGA HARMON on 11/28/18 1043 Furosemide (Furosemide) 80 Mg Tablet, 80 MG PO DAILY for diuretic, (Reported) Entered as Reported by: RAMON RICE on 11/23/182048 Last Taken: Unknown Dose on 11/22/18 Last Action: New Order on 11/23/182048 by RAMON RICE Hum Insulin Nph/Reg Insulin Hm (Novolin 70-30 100 Unit/Ml Vial) 100 Unit/1 Ml Vial, 15 UNIT SQ DAILY for Diabetes, (Reported) Entered as Reported by: TONIE MAURICE on 11/21/18211 Last Taken: UNKNOWN on 11/22/18 Last Action: Last Taken Edited on 2048 by RAMON Pearl Insulin Nph/Reg Insulin Hm (Novolin 70-30 100 Unit/Ml Vial) 100 Unit/1 Ml Vial, 7 UNIT SQ QHS for diabetes, (Reported) Entered as Reported by: TONIE MAURICE on 11/21/18211 Last Taken: UNKNOWN on 11/22/18 Last Action: Last Taken Edited on 2048 by RAMON RICE Oxybutynin Chloride (Oxybutynin Chloride) 5 Mg Tablet, 5 MG PO BID for urinary rentention, #60 Prescribed by: DURGA HARMON on 11/28/18 1043 Sertraline Hcl (Sertraline Hcl) 50 Mg Tablet, 50 MG PO DAILY for depression, #30 Prescribed by: DURGA HARMON on 11/28/18 1043 Warfarin Sodium (Warfarin Sodium) 10 Mg Tablet, 10 MG PO DAILY for blood thinner , (Reported) Entered as Reported by: RAMON RICE on 11/23/182048 Last Taken: Unknown Dose on 11/22/18 Last Action: New Order on 11/23/182048 by RAMON RICE Scheduled PRN Gabapentin (Gabapentin) 600 Mg Tablet, 600 MG PO PRN TID PRN for PAIN, (Reported ) Entered as Reported by: RAMON RICE on 11/23/182048 Last Taken: Unknown Dose on 11/22/18 Last Action: New Order on 11/23/182048 by RAMON RICE Loperamide Hcl (Anti-Diarrhea) 2 Mg Tablet, 2 MG PO PRN PRN for anti diarrhea, ( Reported) Entered as Reported by: RAMON RICE on 11/23/182048 Last Taken: Unknown Dose on 11/23/18 Last Action: New Order on 11/23/182048 by RAMON RICE Loperamide Hcl/Simethicone (Imodium Multi-Symptom Rel Cplt) 1 Each Tablet, 1 EACH PO PRN PRN for DIARRHEA, (Reported) Entered as Reported by: RAMON RICE on 11/23/182048 Last Taken: Unknown Dose on 11/22/18 Last Action: New Order on 11/23/182048 by RAMON RICE Patient Instructions Patient Instructions > 30 min face to face DURGA HARMON MD Nov 28, 2018 10:46
[2018-11-28 11:00] VITALS: BP 124/77
--- NOTE | 2018-11-28 11:09 | PDOC ---
Renal-Progress Notes Subjective Notes Notes NONE History of Present Illness Hx of present illness BETTER Vitals Vitals Vital Signs Date Time Temp Pulse Resp B/P (MAP) Pulse Ox O2 Delivery O2 Flow Rate FiO2 11/28/18 07:00 98.3 90 18 131/76 (94) 98 Nasal Cannula 2.0 98.3 Weight Weight [ ] I.O. Intake and Output Intake and Output 11/28/18 07:00 Intake Total 830 ml Output Total 1980 ml Balance -1150 ml Intake Oral 780 ml IV Total 50 ml Output Urine Total 1025 ml Drainage Total 955 ml # Voids 5 # Bowel Movements 3 Labs Labs Laboratory Tests Test 11/27/18 11:14 11/27/18 16:28 11/27/18 19:31 11/28/18 05:00 Glucose (Fingerstick) 177 mg/dL (70-99) 147 mg/dL (70-99) 157 mg/dL (70-99) White Blood Count 13.6 x10^3/uL (4.0-11.0) Red Blood Count 2.83 x10^6/uL (4.30-5.70) Hemoglobin 8.6 g/dL (13.0-17.5) Hematocrit 26.2 % (39.0-53.0) Mean Corpuscular Volume 93 fL (79-100) Mean Corpuscular Hemoglobin 30 pg (25-35) Mean Corpuscular Hemoglobin Concent 33 g/dL (31-37) Red Cell Distribution Width 14.9 % (11.5-14.5) Platelet Count 181 x10^3/uL (140-400) Sodium Level 145 mmol/L (136-145) Potassium Level 4.5 mmol/L (3.5-5.1) Chloride Level 105 mmol/L (98-107) Carbon Dioxide Level 27 mmol/L (21-32) Anion Gap 13 (6-14) Blood Urea Nitrogen 51 mg/dL (8-26) Creatinine 4.1 mg/dL (0.7-1.3) Estimated GFR (Cockcroft-Gault) 15.2 Glucose Level 135 mg/dL (70-99) Calcium Level 7.9 mg/dL (8.5-10.1) Phosphorus Level 4.1 mg/dL (2.6-4.7) Creatine Kinase 16 U/L (39-308) Albumin 1.9 g/dL (3.4-5.0) Test 11/28/18 07:20 Glucose (Fingerstick) 141 mg/dL (70-99) Micro Micro Microbiology 11/22/18 Blood Culture - Final, Complete NO GROWTH AFTER 5 DAYS 11/21/18 Urine Culture - Final, Complete 11/21/18 Urine Culture Result 1 (KORY) - Final, Complete 11/21/18 Antimicrobic Susceptibility - Final, Complete Review of Systems Constitutional: yes: weakness, alert, oriented Ears/Nose/Throat: Yes: no symptom reported Eyes: Yes: no symptom reported Pulmonary: Yes no symptom reported Cardiovascular: Yes no symptom reported Gastrointestional: Yes: constipation Genitourinary: Yes: urgency Musculoskeletal: Yes: no symptom reported Skin: Yes no symptom reported Psychiatric/Neurological: Yes: no symptom reported Endocrine: Yes: no symptom reported Hematologic/Lymphatic: Yes: no symptom reported Physical Exam General Appearance: no apparent distress Skin: warm Respiratory: bilateral CTA Heart: S1S2, RRR Abdomen: soft, bowel sounds present Genitourinary: bladder flat Extremities: pulses present Neurology: alert, follow commands, confused Musculoskeletal: low back pain Assessment Assessment IMP GAGAN-ATN CKD STAGE 3-CR OF ABOUT 2.0-3.0 AT BASELINE SEPSIS WITH UTI ACUTE HYPOXIC RESP FAILURE RECENT PROSTATECTOMY LEFT URETERAL STONE-S/PCN ANEMIA PLAN CONT ARANESP ANTIBIOTICS HD TODAY UF TO [facility] UROLOGY FOLLOWING OK TO D/C ONCE OP HD SET UP AT [facility] FOLLOWING CISCO MARS MD Nov 28, 2018 11:09
[2018-11-28] MEDS ORDERED: IV NORMAL SALINE 1000ML BAG 1,000 ML IV PRN ×2 (12:16)
[2018-11-28] MEDS ORDERED: DIALYSIS PATIENT. MC PRN ×2 (12:30)
[2018-11-28] MEDS ORDERED: 0.9 % SODIUM CHLORIDE 10 ML DISP.SYRIN. IV PRN ×2 (12:30)
[2018-11-28 15:00] VITALS: BP 124/73
--- NOTE | 2018-11-28 18:04 | NUR ---
Report called to receiving nurse at [facility]. Pt to discharge when ride from [place] arrives. [facility] security supervisor notified pt su discharge when ride arrives.
--- NOTE | 2018-11-28 19:18 | NUR ---
Pt [facility] to [facility]. Transported to [facility] w/ at 1915 with all personal belongings.
[2018-11-29] MEDS ORDERED: CEFDINIR 300 MG CAPSULE PO SCH (09:00)
== END 2018-11-28 19:15 | disposition home or self-care (01) | DRG 871 ==
LOC: EEVIPCON 19:37 → ER 19:37 → 1 WEST ICU 21:05 → 5 NORTH 11-25 09:56
PROVIDERS: ADMIT Internal Medicine; ATTEND Internal Medicine
PROC: 05HY33Z Insertion of Infusion Device into Upper Vein, Percutaneous Approach (ICD-10-PCS; 2018-11-20)
PROC: B54MZZA Ultrasonography of Right Upper Extremity Veins, Guidance (ICD-10-PCS; 2018-11-20)
PROC: 0T9430Z Drainage of Left Kidney Pelvis with Drainage Device, Percutaneous Approach (ICD-10-PCS; principal; 2018-11-21)
PROC: 0JH63XZ Insertion of Tunneled Vascular Access Device into Chest Subcutaneous Tissue and Fascia, Percutaneous Approach (ICD-10-PCS; 2018-11-24)
PROC: 02H633Z Insertion of Infusion Device into Right Atrium, Percutaneous Approach (ICD-10-PCS; 2018-11-24)
PROC: B2141ZZ Fluoroscopy of Right Heart using Low Osmolar Contrast (ICD-10-PCS; 2018-11-24)
PROC: B244ZZZ Ultrasonography of Right Heart (ICD-10-PCS; 2018-11-24)
PROC: 5A1D70Z Performance of Urinary Filtration, Intermittent, Less than 6 Hours Per Day (ICD-10-PCS; 2018-11-24)
PROC: 5A1D70Z Performance of Urinary Filtration, Intermittent, Less than 6 Hours Per Day (ICD-10-PCS; 2018-11-28)
DX: A41.51 Sepsis due to Escherichia coli [E. coli] (principal); J96.01 Acute respiratory failure with hypoxia; N17.0 Acute kidney failure with tubular necrosis; R65.21 Severe sepsis with septic shock; N18.6 End stage renal disease; E44.0 Moderate protein-calorie malnutrition; N13.6 Pyonephrosis; T79.7XXA Traumatic subcutaneous emphysema, initial encounter; E11.22 Type 2 diabetes mellitus with diabetic chronic kidney disease; E66.01 Morbid (severe) obesity due to excess calories; D63.8 Anemia in other chronic diseases classified elsewhere; D69.59 Other secondary thrombocytopenia; N40.1 Benign prostatic hyperplasia with lower urinary tract symptoms; N39.498 Other specified urinary incontinence; E78.00 Pure hypercholesterolemia, unspecified; E78.5 Hyperlipidemia, unspecified; F32.9 Major depressive disorder, single episode, unspecified; X58.XXXA Exposure to other specified factors, initial encounter; Z90.49 Acquired absence of other specified parts of digestive tract; Z68.35 Body mass index [BMI] 35.0-35.9, adult; Z85.46 Personal history of malignant neoplasm of prostate; Z87.442 Personal history of urinary calculi; Z99.2 Dependence on renal dialysis; Z90.79 Acquired absence of other genital organ(s); Z88.1 Allergy status to other antibiotic agents; Z79.899 Other long term (current) drug therapy
CPT/HCPCS: 36415; 36556; 36558; 50432; 51702; 71045; 71250; 74018; 74176; 76937; 76942; 77001; 80048; 80053; 80069; 81001; 82040; 82550; 82553; 82962; 83605; 83735; 84484; 85007; 85018; 85025; 85027; 85610; 85730; 86706; 87040; 87077; 87086; 87186; 87205; 87340; 87641; 93005; 94618; 96361; 96365; 96367; 96376; 99152; 99153; 99291; C1729; C1769; C1892; J0690; J1170; J1644; J1815; J2185; J2250; J2270; J2405; J2543; J3010; J3370; J3475; J3490; J7030; J7040; Q9967; 97116; 97530; 97535

== ENCOUNTER 2021-06-10 00:02 | Emergency (ER) | payer MEDICAID ==
[~2021-06-10] VITALS: Ht 175.3 cm; Wt 95.0 kg
[~2021-06-10 00:02] MED LIST changes: +AMLO-187 PO; +ATOR40TA59 PO; +CEFD300C PO; +FURO80TA3 PO; +GABA600T7 PO; +HUM100VI5 SQ; +HYOS0.1278 SL; +INSU100V11 IJ; +LACT10PA3 PO; -LISI-338 PO; +LISI-517 PO; +LISI2.5T12 PO; +LOPE1TAB4 PO; +LOPE2TAB56 PO; +LORA10TA3 PO; +METF10007 PO; +METH85CR17 TP; +NORT25CA PO; +NORT50CA PO; +NPH,100V5 SQ; +ONDA-84 PO; +OXYB5TAB10 PO; +PANT40TA77 PO; +SERT-267 PO; +SERT-268 PO; +WARF10TA40 PO
--- NOTE | 2021-06-10 00:40 | PHYS DOC ---
Past Medical History Past Medical History: Depression, Diabetes-Type II, High Cholesterol, Kidney Stone, TIA Past Surgical History: Cholecystectomy, Other Additional Past Surgical Histo: lithotripsy, ureteral stent placement, Da Jacoby prostatectomy Smoking Status: Never Smoker Alcohol Use: None Drug Use: None General Adult EDM: Chief Complaint: ABDOMINAL PAIN HPI: HPI: 56-year-old male with a history of obesity, diabetes, previous cholecystectomy, GERD, kidney stones presents to the emergency department complaining of abdominal pain across his abdomen for 1 week that it was exacerbated tonight after he had a fatty meal that included mesh tails and gravy along with soda. He reports after ingesting this he began to have abdominal pain that was severe, no palliative factors at this point. He is being worked up currently for gastroparesis and reports that he is having some trouble with motility. He reports that his pain feels like it is radiating up from his abdomen towards his chest. He admits to poor medicine compliance with his diabetic regimen. He has been vaccinated for Covid. The patient denies fever, chills, chest pain, shortness of breath, urinary symptoms, cough, recent trauma, or any other complaints. Review of Systems: Review of Systems: ROS is otherwise negative except what was mentioned in the HPI. Heart Score: C/O Chest Pain: No Allergies: Allergies: Allergies Coded Allergies Type Severity Reaction Last Updated Verified ciprofloxacin Allergy Intermediate 11/27/18 Yes cranberry Allergy Intermediate 03/25/17 Yes Uncoded Allergies Type Severity Reaction Last Updated Verified hay Allergy Intermediate 11/27/18 Physical Exam: PE: Constitutional: Moderate distress, nontoxic appearance. Extremely anxious.. HENT: Atraumatic, bilateral external ears normal, nose normal. Eyes: PERRLA, EOMI, conjunctiva normal, no discharge. Neck: Normal range of motion, supple, no stridor. Cardiovascular: Heart rate regular rhythm. 2+ radial pulses Lungs & Thorax: No respiratory distress, symmetrical expansion. Abdomen: Soft, obese, mild diffuse tenderness throughout abdomen. Skin: Warm, dry. Extremities: No tenderness, no cyanosis, ROM intact, no edema. Neurologic: Alert and oriented X 3, normal motor function, normal sensory function, no focal deficits noted. GCS 15. Psychologic: Affect normal, judgment normal, mood normal. Current Patient Data: Labs: Laboratory Tests Test 06/10/21 00:52 06/10/21 01:31 06/10/21 02:55 White Blood Count 5.9 x10^3/uL (4.0-11.0) Red Blood Count 4.16 x10^6/uL (4.30-5.70) Hemoglobin 12.2 g/dL (13.0-17.5) Hematocrit 37.0 % (39.0-53.0) Mean Corpuscular Volume 89 fL (79-100) Mean Corpuscular Hemoglobin 29 pg (25-35) Mean Corpuscular Hemoglobin Concent 33 g/dL (31-37) Red Cell Distribution Width 15.3 % (11.5-14.5) Platelet Count 187 x10^3/uL (140-400) Neutrophils (%) (Auto) 60 % (31-73) Lymphocytes (%) (Auto) 23 % (24-48) Monocytes (%) (Auto) 10 % (0-9) Eosinophils (%) (Auto) 5 % (0-3) Basophils (%) (Auto) 2 % (0-3) Neutrophils # (Auto) 3.6 x10^3/uL (1.8-7.7) Lymphocytes # (Auto) 1.4 x10^3/uL (1.0-4.8) Monocytes # (Auto) 0.6 x10^3/uL (0.0-1.1) Eosinophils # (Auto) 0.3 x10^3/uL (0.0-0.7) Basophils # (Auto) 0.1 x10^3/uL (0.0-0.2) Sodium Level 139 mmol/L (136-145) Potassium Level 4.1 mmol/L (3.5-5.1) Chloride Level 102 mmol/L (98-107) Carbon Dioxide Level 28 mmol/L (21-32) Anion Gap 9 (6-14) Blood Urea Nitrogen 21 mg/dL (8-26) Creatinine 1.7 mg/dL (0.7-1.3) Estimated GFR (Cockcroft-Gault) 41.6 BUN/Creatinine Ratio 12 (6-20) Glucose Level 385 mg/dL (70-99) Calcium Level 9.5 mg/dL (8.5-10.1) Total Bilirubin 0.3 mg/dL (0.2-1.0) Aspartate Amino Transf (AST/SGOT) 11 U/L (15-37) Alanine Aminotransferase (ALT/SGPT) 24 U/L (16-63) Alkaline Phosphatase 88 U/L (46-116) Total Protein 6.4 g/dL (6.4-8.2) Albumin 3.2 g/dL (3.4-5.0) Albumin/Globulin Ratio 1.0 (1.0-1.7) Lipase 231 U/L (73-393) Urine Collection Type Unknown Urine Color Yellow Urine Clarity Clear Urine pH 7.0 (<5.0-8.0) Urine Specific [place] 1.025 (1.000-1.030) Urine Protein Negative mg/dL (NEG-TRACE) Urine Glucose (UA) >=1000 mg/dL (NEG) Urine Ketones (Stick) Negative mg/dL (NEG) Urine Blood Negative (NEG) Urine Nitrite Negative (NEG) Urine Bilirubin Negative (NEG) Urine Urobilinogen Dipstick 0.2 mg/dL (0.2 mg/dL) Urine Leukocyte Esterase Negative (NEG) Urine RBC 1-2 /HPF (0-2) Urine WBC 1-4 /HPF (0-4) Urine Squamous Epithelial Cells None /LPF Urine Bacteria 0 /HPF (0-FEW) Glucose (Fingerstick) 297 mg/dL (70-99) Vital Signs: Vital Signs Date Time Temp Pulse Resp B/P (MAP) Pulse Ox O2 Delivery O2 Flow Rate FiO2 06/10/21 00:05 99.4 101 22 172/94 (120) 97 99.4 Radiology/Procedures: Radiology/Procedures: CT abdomen and pelvis without contrast: Reason for examination: Abdominal pain with shortness of breath and cough. Helical images were obtained through the abdomen and pelvis with no intravenous contrast administered. Reconstruction was performed in sagittal and coronal planes Exposure: One or more of the following individualized dose reduction techniques were utilized for this examination: 1. Automated exposure control 2. Adjustment of the mA and/or kV according to patient size 3. Use of iterative reconstruction technique. The lung bases are clear. The heart size is normal with no pericardial effusion. No abnormality seen at the liver, spleen, adrenal glands or pancreas. The gallbladder surgically absent. The abdominal aorta and inferior vena cava show no acute abnormalities. The colon shows no evidence of diverticulosis, diverticulitis or colitis. No abnormality seen at the appendix. The small intestinal tract shows no abnormal dilatation, wall thickening or obstruction. There is a moderate size hiatal hernia. The stomach shows no wall thickening or obstruction and no abnormality seen at the duodenum. The kidneys show hypodense nodules consistent with cysts bilaterally with the largest at the upper pole posterior medially in the right kidney measuring 3.4 cm in greatest dimension. There is a tiny nonobstructing renal calculus in the upper pole left kidney. There is no evidence of hydronephrosis or obstructive uropathy. No abnormality seen at the bladder, prostate gland or seminal vesicles. No free fluid or free air seen in the abdomen or pelvis. There are no acute bony abnormality seen. IMPRESSION: Small nonobstructing calculus in the upper pole of the left kidney. No hydronephrosis or obstructive uropathy evident. Moderate sized hiatal hernia. Bilateral renal cysts with the largest in the right kidney posterior medially measuring 3.4 cm in size. Electronically signed by: Em Orozco MD (06/10/2021 3:25 AM) Course & Med Decision Making: Course & Med Decision Making My Orders - CHINA GALVEZ DO Procedure Category Date Status Time Cbc W Autodiff LAB 06/10/21 Complete 00:35 Lipase LAB 06/10/21 Complete 00:35 Comprehensive LAB 06/10/21 Complete Metabolic Panel 00:35 Pulse Oximetry: AXEL 06/10/21 In Process Standing Order 00:35 Iv Normal Saline PHA 06/10/21 Complete 1000ml Bag (Iv Sodium 01:00 Metoclopramide Vial PHA 06/10/21 Complete (Reglan Vial) 01:00 Famotidine Pf (Pepcid PHA 06/10/21 Complete Vial) 01:00 Ua W Microscopic LAB 06/10/21 Complete 00:40 Insulin Lispro PHA 06/10/21 Complete (Humalog) 02:30 Ct Abdomen Pelvis Wo CT 06/10/21 Resulted Contrast 00:35 CT and labs are as above, not concerning for an acute process at this time. His symptoms are likely from his heavy meal resulting in acid reflux tonight. He has been off of his Protonix for the last week as he prepares for an H. pylori test. This is likely contributing to his presentation today. I counseled him that he needs to follow-up with his primary care doctor regarding further medication adjustments or changes given that his H. pylori test is upcoming. He was advised to use a bland diet at home and avoid heavy foods that may cause GERD. Departure Departure Impression: Primary Impression: GERD (gastroesophageal reflux disease) Disposition: HOME / SELF CARE / HOMELESS Condition: STABLE Referrals: UNKNOWN PCP NAME (PCP) Patient Instructions: Diet for Gastroesophageal Reflux Disease, Adult, Eas y-to-Read Additional Instructions: You were seen in the emergency department for abdominal pain and reflux. We are putting you on a medication to reduce your stomach acid levels. You should follow up with the medicine clinic or your primary medical doctor for further evaluation and treatment. Return to the ED if you develop worsening pain, fever, black or bloody stools, or any other new or concerning symptoms. The medicine we started you on can take a few days to work fully. CHINA GALVEZ DO Jun 10, 2021 00:40
[2021-06-10] MEDS ORDERED: IV NORMAL SALINE 1000ML BAG 1,000 ML IV SCH (01:00)
[2021-06-10] MEDS ORDERED: METOCLOPRAMIDE HCL 10 MG/2 ML VIAL. IVP ONE (01:00)
[2021-06-10] MEDS ORDERED: FAMOTIDINE 20 MG/2 ML VIAL IVP ONE (01:00)
[2021-06-10 01:02] LABS: BASO # 0.1 x10^3/uL (0.0-0.2); BASO % 2 % (0-3); EOS # 0.3 x10^3/uL (0.0-0.7); EOS % 5 % (0-3); HEMOGLOBIN 12.2 g/dL (13.0-17.5); LYMPH # 1.4 x10^3/uL (1.0-4.8); LYMPH % 23 % (24-48); MEAN CORPUSCULAR HEMOGLOBIN 29 pg (25-35); MEAN CORPUSCULAR HGB CONC 33 g/dL (31-37); MEAN CORPUSCULAR VOLUME 89 fL (79-100); MONO # 0.6 x10^3/uL (0.0-1.1); MONO % 10 % (0-9); NEUT # 3.6 x10^3/uL (1.8-7.7); NEUT % 60 % (31-73); PLATELET COUNT 187 x10^3/uL (140-400); RED BLOOD COUNT 4.16 x10^6/uL (4.30-5.70); RED CELL DISTRIBUTION WIDTH 15.3 % (11.5-14.5); WHITE BLOOD COUNT 5.9 x10^3/uL (4.0-11.0)
[2021-06-10 01:13] LABS: CALCIUM 9.5 mg/dL (8.5-10.1); CREATININE 1.7 mg/dL (0.7-1.3); GFR 41.6; POTASSIUM 4.1 mmol/L (3.5-5.1)
[2021-06-10 01:18] LABS: ALBUMIN 3.2 g/dL (3.4-5.0); TOTAL BILIRUBIN 0.3 mg/dL (0.2-1.0); TOTAL PROTEIN 6.4 g/dL (6.4-8.2)
[2021-06-10 01:40] LABS: BILIRUBIN,URINE NEGATIVE (NEG); CLARITY,URINE CLEAR; COLOR,URINE YELLOW; NITRITE,URINE NEGATIVE (NEG); PROTEIN,URINE NEGATIVE (NEG-TRACE); UROBILINOGEN,URINE 0.2 mg/dL (0.2 mg/dL)
[2021-06-10 02:01] LABS: BACTERIA,URINE 0 /HPF (0-FEW)
[2021-06-10] MEDS ORDERED: INSULIN LISPRO 300 UNITS/3 ML VIAL. SQ ONE (02:30)
--- NOTE | 2021-06-10 03:28 | RAD ---
CT abdomen and pelvis without contrast: Reason for examination: Abdominal pain with shortness of breath and cough. Helical images were obtained through the abdomen and pelvis with no intravenous contrast administered . Reconstruction was performed in sagittal and coronal planes Exposure: One or more of the following individualized dose reduction techniques were utilized for thi s examination: 1. Automated exposure control 2. Adjustment of the mA and/or kV according to patient size 3. Use of iterative reconstruction technique. The lung bases are clear. The heart size is normal with no pericardial effusion. No abnormality seen at the liver, spleen, adrenal glands or pancreas. The gallbladder surgically abse nt. The abdominal aorta and inferior vena cava show no acute abnormalities. The colon shows no eviden ce of diverticulosis, diverticulitis or colitis. No abnormality seen at the appendix. The small intes tinal tract shows no abnormal dilatation, wall thickening or obstruction. There is a moderate size hi atal hernia. The stomach shows no wall thickening or obstruction and no abnormality seen at the duode num. The kidneys show hypodense nodules consistent with cysts bilaterally with the largest at the upp er pole posterior medially in the right kidney measuring 3.4 cm in greatest dimension. There is a tin y nonobstructing renal calculus in the upper pole left kidney. There is no evidence of hydronephrosis or obstructive uropathy. No abnormality seen at the bladder, prostate gland or seminal vesicles. No free fluid or free air see n in the abdomen or pelvis. There are no acute bony abnormality seen. IMPRESSION: Small nonobstructing calculus in the upper pole of the left kidney. No hydronephrosis or obstructive uropathy evident. Moderate sized hiatal hernia. Bilateral renal cysts with the largest in the right kidney posterior medially measuring 3.4 cm in siz e. Electronically signed by: Em Orozco MD (06/10/2021 3:25 AM) [facility]
[2021-06-10 04:00] VITALS: BP 146/76
== END 2021-06-10 04:00 | disposition home or self-care (01) ==
LOC: ER 00:02
DX: K21.9 Gastro-esophageal reflux disease without esophagitis (principal); E11.9 Type 2 diabetes mellitus without complications; E78.00 Pure hypercholesterolemia, unspecified; Z86.73 Personal history of transient ischemic attack (TIA), and cerebral infarction without residual deficits; Z90.49 Acquired absence of other specified parts of digestive tract; Z96.0 Presence of urogenital implants; Z88.1 Allergy status to other antibiotic agents; Z88.8 Allergy status to other drugs, medicaments and biological substances; Z91.018 Allergy to other foods
CPT/HCPCS: 36415; 74176; 80053; 81001; 82962; 83690; 85025; 96361; 96372; 96374; 96375; 99285; J1815; J2765; J3490; J7030

== ENCOUNTER 2022-01-04 17:52 | Emergency (ER) | payer OTHER, MEDICAID ==
[~2022-01-04] VITALS: Ht 175.3 cm; Wt 102.0 kg
[~2022-01-04 17:52] MED LIST changes: -LISI-517 PO; +LISI5TAB15 PO
[2022-01-04] MEDS ORDERED: ONDANSETRON PF 4 MG/2 ML VIAL. IVP ONE (18:45)
[2022-01-04] MEDS ORDERED: IV NORMAL SALINE 1000ML BAG 1,000 ML IV ONE (18:45)
[2022-01-04] MEDS ORDERED: fentaNYL PF VIAL 100 MCG/2 ML VIAL IVP ONE (18:45)
--- NOTE | 2022-01-04 18:55 | PHYS DOC ---
Past Medical History Past Medical History: Depression, Diabetes-Type II, High Cholesterol, Kidney Stone, TIA Additional Past Medical Histor: prostate cancer, kidney stones, Past Surgical History: Cholecystectomy, Other Additional Past Surgical Histo: lithotripsy, ureteral stent placement, Da Jacoby prostatectomy Smoking Status: Former Smoker Alcohol Use: None Drug Use: None General Adult EDM: Chief Complaint: ABDOMINAL PAIN HPI: HPI: Patient is a 56-year-old male that presents today with lower abdominal pain. Patient states pain has been ongoing for approximately 1 month but he said over the last couple of days its increased in intensity. Patient states that he has not had a very good bowel movement in quite some time, he said that he was seen a couple of weeks ago and was told he had some blood in the urine and they thought that this was related to a kidney stone his abdominal pain but he does not feel that is the case. Patient states that he also is a diabetic and that they changed to diabetes medicine and he is not sure if that is causing his abdominal pain as well. Patient denies chest pain, shortness of breath, fever chills. Patient does state that he has had nausea and vomiting, he does have a past medical history of prostate cancer for which she had his prostate surgically removed. Patient describes the pain as cramping in nature. Review of Systems: Review of Systems: Constitutional: Denies fever or chills. [] Eyes: Denies change in visual acuity. [] HENT: Denies nasal congestion or sore throat. [] Respiratory: Denies cough or shortness of breath. [] Cardiovascular: Denies chest pain or edema. [] GI: abdominal pain, nausea, vomiting, constipation denies bloody stools or diarrhea. [] : Denies dysuria. [] Musculoskeletal: Denies back pain or joint pain. [] Integument: Denies rash. [] Neurologic: Denies headache, focal weakness or sensory changes. [] Endocrine: Denies polyuria or polydipsia. [] Lymphatic: Denies swollen glands. [] Psychiatric: Denies depression or anxiety. [] Heart Score: C/O Chest Pain: No Risk Factors: Risk Factors: DM, Current or recent (<one month) smoker, HTN, HLP, family history of CAD, obesity. Risk Scores: Score 0 - 3: 2.5% MACE over next 6 weeks - Discharge Home Score 4 - 6: 20.3% MACE over next 6 weeks - Admit for Clinical Observation Score 7 - 10: 72.7% MACE over next 6 weeks - Early Invasive Strategies Current Medications: Current Medications Medications (Trade) Dose Ordered Sig/Wili Start Time Stop Time Status Last Admin Dose Admin Fentanyl Citrate (Fentanyl 2ml Vial) 50 mcg 1X ONCE 01/04/22 18:45 01/04/22 18:46 UNV Ondansetron HCl (Zofran) 4 mg 1X ONCE 01/04/22 18:45 01/04/22 18:46 UNV Sodium Chloride 1,000 ml @ 999 mls/hr 1X ONCE 01/04/22 18:45 01/04/22 19:45 Allergies: Allergies: Allergies Coded Allergies Type Severity Reaction Last Updated Verified ciprofloxacin Allergy Intermediate 11/27/18 Yes cranberry Allergy Intermediate 03/25/17 Yes Uncoded Allergies Type Severity Reaction Last Updated Verified hay Allergy Intermediate 11/27/18 Physical Exam: PE: Constitutional: Well developed, well nourished, mild distress, non-toxic appearance. [] HENT: Normocephalic, atraumatic, bilateral external ears normal, oropharynx moist, no oral exudates, nose normal. [] Eyes: PERRLA, EOMI, conjunctiva normal, no discharge. [] Neck: Normal range of motion, no tenderness, supple, no stridor. [] Cardiovascular:Heart rate regular rhythm, no murmur [] Lungs & Thorax: Bilateral breath sounds clear to auscultation [] Abdomen: Abdomen is round somewhat firm, bowel sounds are hypoactive with tenderness below the umbilicus, no pulsatile masses noted Skin: Warm, dry, no erythema, no rash. [] Back: No tenderness, no CVA tenderness. [] Extremities: No tenderness, no cyanosis, no clubbing, ROM intact, no edema. [] Neurologic: Alert and oriented X 3, normal motor function, normal sensory function, no focal deficits noted. [] Psychologic: Affect normal, judgement normal, mood normal. [] Current Patient Data: Labs: Laboratory Tests Test 01/04/22 19:35 01/04/22 20:05 White Blood Count 10.3 x10^3/uL Red Blood Count 4.64 x10^6/uL Hemoglobin 9.8 g/dL Hematocrit 32.4 % Mean Corpuscular Volume 70 fL Mean Corpuscular Hemoglobin 21 pg Mean Corpuscular Hemoglobin Concent 30 g/dL Red Cell Distribution Width 18.2 % Platelet Count 229 x10^3/uL Neutrophils (%) (Auto) 76 % Lymphocytes (%) (Auto) 12 % Monocytes (%) (Auto) 8 % Eosinophils (%) (Auto) 3 % Basophils (%) (Auto) 1 % Neutrophils # (Auto) 7.8 x10^3/uL Lymphocytes # (Auto) 1.2 x10^3/uL Monocytes # (Auto) 0.8 x10^3/uL Eosinophils # (Auto) 0.3 x10^3/uL Basophils # (Auto) 0.1 x10^3/uL Platelet Estimate Adequate Hypochromasia Mod Poikilocytosis Slight Anisocytosis Slight Microcytosis Mod Ovalocytes Present Sodium Level 138 mmol/L Potassium Level 4.1 mmol/L Chloride Level 102 mmol/L Carbon Dioxide Level 23 mmol/L Anion Gap 13 Blood Urea Nitrogen 15 mg/dL Creatinine 1.5 mg/dL Estimated GFR (Cockcroft-Gault) 48.1 BUN/Creatinine Ratio 10 Glucose Level 243 mg/dL Lactic Acid Level 1.7 mmol/L Calcium Level 8.7 mg/dL Total Bilirubin 0.4 mg/dL Aspartate Amino Transf (AST/SGOT) 14 U/L Alanine Aminotransferase (ALT/SGPT) 22 U/L Alkaline Phosphatase 91 U/L Total Protein 7.1 g/dL Albumin 3.5 g/dL Albumin/Globulin Ratio 1.0 Lipase 148 U/L Urine Collection Type Unknown Urine Color (Auto) Light yellow Urine Turbidity Clear Urine pH (Auto) 6.5 Urine Specific [place] 1.021 Urine Protein (Auto) Negative mg/dL Urine Glucose (Auto)(UA) >=1000 mg/dL Urine Ketones (Auto) Negative mg/dL Urine Blood (Auto) Negative Urine Nitrite Negative Urine Bilirubin (Auto) Negative Urine Urobilinogen (Auto) Normal mg/dL Urine Leukocyte Esterase (Auto) Negative Urine RBC 0 /HPF Urine WBC 0 /HPF Urine Bacteria 0 /HPF Current Medications Medications (Trade) Dose Ordered Sig/Wili Route PRN Reason Start Time Stop Time Status Last Admin Dose Admin Sodium Chloride 1,000 ml @ 999 mls/hr 1X ONCE IV 01/04/22 18:45 01/04/22 19:45 DC 01/04/22 19:37 Fentanyl Citrate (Fentanyl 2ml Vial) 50 mcg 1X ONCE IVP 01/04/22 18:45 01/04/22 18:51 DC 01/04/22 19:36 Ondansetron HCl (Zofran) 4 mg 1X ONCE IVP 01/04/22 18:45 01/04/22 18:51 DC 01/04/22 19:35 Vital Signs: Vital Signs Date Time Temp Pulse Resp B/P (MAP) Pulse Ox O2 Delivery O2 Flow Rate FiO2 01/04/22 19:36 18 99 01/04/22 17:55 99.0 105 18 146/83 (104) 98 Room Air 99.0 Vital Signs Date Time Temp Pulse Resp B/P (MAP) Pulse Ox O2 Delivery O2 Flow Rate FiO2 01/04/22 17:55 99.0 105 18 146/83 (104) 98 Room Air 99.0 EKG: EKG: [] Radiology/Procedures: Radiology/Procedures: [REASON: lower abdominal pain PROCEDURE: CT ABDOMEN PELVIS WO CONTRAST Exam: CT of abdomen and pelvis without contrast INDICATION: Lower abdominal pain TECHNIQUE: Sequential axial images through the abdomen and pelvis obtained without IV contrast. Sagittal and coronal reformatted images were reconstructed from the axial data and reviewed. Exposure: One or more of the following in the visualized dose reduction techniques were utilized for this examination: 1. Automated exposure control 2. Adjustment of the MA and/or KV according to patient size 3. Use of iterative of reconstructive technique Comparisons: 06/10/2021 FINDINGS: Heart size is normal. No pericardial effusion. Visualized lung bases are clear. No pleural effusion. Evaluation solid organs limited secondary to noncontrast technique. Diffuse hepatic steatosis. Spleen, pancreas and adrenals are unremarkable. Gallbladder surgically absent. No perinephric inflammation or hydronephrosis. Simple appearing cyst noted in the right kidney. Nonobstructing 2 mm calculus at the mid left kidney. No ureteral calculi are identified. Bladder is decompressed not well defined. Prostate is not enlarged. Large and small bowel are unremarkable. Appendix is normal. No free intra- abdominal air or fluid. No obstruction. Abdominal aorta has normal course and caliber. No enlarged intra-abdominal lymph nodes are identified. No suspicious osseous lesions or acute fractures. IMPRESSION: 1. No acute process identified in the abdomen or pelvis. 2. Diffuse hepatic steatosis. Electronically signed by: Haile Mccray MD (01/04/2022 8:35 PM) [facility] ] Course & Med Decision Making: Course & Med Decision Making Pertinent Labs and Imaging studies reviewed. (See chart for details) 1854 did review abdominal films that patient had on December 26, 2021 and it did show moderate stool in the colon. 2049 reviewed radiological laboratory results with patient and family member did inform him that his CT scan showed no acute findings, his laboratory results did show that his hemoglobin low and that he was spilling a lot of glucose into his urine. Did inform him that his CT did show a moderate amount of stool in his colon which can be causing the crampy feeling he is experiencing. Patient is advised to drink a bottle of magnesium citrate to clear the colon, and to start a bowel regimen of MiraLAX on a daily basis. Patient family member says that they have an appointment with Dr. Cardona on Saturday for further evaluation of his abdominal pain, patient also states that he has an appointment with urology in January 2022 for follow-up of his prostate issues. Patient is instructed to take Tylenol and/or ibuprofen as needed for pain and to return to the emergency department should he develop a fever, increasing abdominal pain, the inability to defecate, or inability to void. Dragon Disclaimer: Dragon Disclaimer: This electronic medical record was generated, in whole or in part, using a voice recognition dictation system. Departure Departure Impression: Primary Impression: Abdominal pain Qualified Codes: R10.30 - Lower abdominal pain, unspecified Disposition: HOME / SELF CARE / HOMELESS Condition: STABLE Referrals: BRIA CARDONA MD (PCP) Patient Instructions: Abdominal Pain Additional Instructions: Tylenol and/or ibuprofen as needed for pain Magnesium citrate take 1 bottle this evening or tomorrow to help relieve the stool that is in the large colon Start MiraLAX as label directed daily and if your stools become liquid cut back to every other day. Follow-up with Dr. Cardona on Saturday as previously scheduled and with your urologist in January 2022 Return to the emergency department if you develop a fever, your abdominal pain worsens, your inability to void or defecate. TARA HOOD APRN Jan 04, 2022 18:55
[2022-01-04 19:49] LABS: BASO # 0.1 x10^3/uL (0.0-0.2); BASO % 1 % (0-3); EOS # 0.3 x10^3/uL (0.0-0.7); EOS % 3 % (0-3); HEMATOCRIT 32.4 % (39.0-53.0); HEMOGLOBIN 9.8 g/dL (13.0-17.5); LYMPH # 1.2 x10^3/uL (1.0-4.8); LYMPH % 12 % (24-48); MEAN CORPUSCULAR HEMOGLOBIN 21 pg (25-35); MEAN CORPUSCULAR HGB CONC 30 g/dL (31-37); MEAN CORPUSCULAR VOLUME 70 fL (79-100); MONO # 0.8 x10^3/uL (0.0-1.1); MONO % 8 % (0-9); NEUT # 7.8 x10^3/uL (1.8-7.7); NEUT % 76 % (31-73); PLATELET COUNT 229 x10^3/uL (140-400); RED BLOOD COUNT 4.64 x10^6/uL (4.30-5.70); RED CELL DISTRIBUTION WIDTH 18.2 % (11.5-14.5); WHITE BLOOD COUNT 10.3 x10^3/uL (4.0-11.0)
[2022-01-04 20:01] LABS: CALCIUM 8.7 mg/dL (8.5-10.1); CREATININE 1.5 mg/dL (0.7-1.3); GFR 48.1; POTASSIUM 4.1 mmol/L (3.5-5.1)
[2022-01-04 20:07] LABS: ALBUMIN 3.5 g/dL (3.4-5.0); TOTAL BILIRUBIN 0.4 mg/dL (0.2-1.0); TOTAL PROTEIN 7.1 g/dL (6.4-8.2)
[2022-01-04 20:12] LABS: PLT ESTIMATE ADEQUATE (ADEQUATE)
[2022-01-04 20:14] LABS: ANISOCYTOSIS SLIGHT; HYPOCHROMIA MOD; MICROCYTOSIS MOD; OVALOCYTES PRESENT; POIKILOCYTOSIS SLIGHT
[2022-01-04 20:18] LABS: BACTERIA,URINE 0 /HPF (0-FEW); RBC,URINE 0 /HPF (0-2); WBC,URINE 0 /HPF (0-4)
--- NOTE | 2022-01-04 20:38 | RAD ---
Exam: CT of abdomen and pelvis without contrast INDICATION: Lower abdominal pain TECHNIQUE: Sequential axial images through the abdomen and pelvis obtained without IV contrast. Sagit jackie and coronal reformatted images were reconstructed from the axial data and reviewed. Exposure: One or more of the following in the visualized dose reduction techniques were utilized for this examination: 1. Automated exposure control 2. Adjustment of the MA and/or KV according to patient size 3. Use of iterative of reconstructive technique Comparisons: 06/10/2021 FINDINGS: Heart size is normal. No pericardial effusion. Visualized lung bases are clear. No pleural effusion. Evaluation solid organs limited secondary to noncontrast technique. Diffuse hepatic steatosis. Spleen, pancreas and adrenals are unremarkable. Gallbladder surgically abs ent. No perinephric inflammation or hydronephrosis. Simple appearing cyst noted in the right kidney. Nonob structing 2 mm calculus at the mid left kidney. No ureteral calculi are identified. Bladder is decompressed not well defined. Prostate is not enlarged. Large and small bowel are unremarkable. Appendix is normal. No free intra-abdominal air or fluid. No obstruction. Abdominal aorta has normal course and caliber. No enlarged intra-abdominal lymph nodes are identified. No suspicious osseous lesions or acute fractures. IMPRESSION: 1. No acute process identified in the abdomen or pelvis. 2. Diffuse hepatic steatosis. Electronically signed by: Haile Mccray MD (01/04/2022 8:35 PM) [facility]
[2022-01-04 21:49] VITALS: BP 131/68
[2022-01-04] MEDS ORDERED: MAGNESIUM CITRATE 296 ML SOLUTION. PO ONE (22:00)
[2022-01-13] MEDS ORDERED: OXYC1TAB15 PO (15:15)
== END 2022-01-04 21:58 | disposition home or self-care (01) ==
LOC: ER 17:52
DX: R10.31 Right lower quadrant pain (principal); R11.2 Nausea with vomiting, unspecified; R31.9 Hematuria, unspecified; E11.9 Type 2 diabetes mellitus without complications; E78.00 Pure hypercholesterolemia, unspecified; Z86.73 Personal history of transient ischemic attack (TIA), and cerebral infarction without residual deficits; Z87.891 Personal history of nicotine dependence; Z90.49 Acquired absence of other specified parts of digestive tract; Z96.0 Presence of urogenital implants; Z88.1 Allergy status to other antibiotic agents; Z91.018 Allergy to other foods
CPT/HCPCS: 36415; 74176; 80053; 81001; 83605; 83690; 85025; 96361; 96374; 96375; 99285; J2405; J3010; J7030

== ENCOUNTER 2022-01-11 21:46 | Inpatient (IN) | payer OTHER, MEDICAID ==
[~2022-01-11] VITALS: Ht 175.3 cm; Wt 122.1 kg
[2022-01-11] MEDS ORDERED: VANCOMYCIN PER PHARMACY MC ONE (22:15)
[2022-01-11] MEDS ORDERED: IV NORMAL SALINE 1000ML BAG 1,000 ML IV ONE (22:15)
[2022-01-11] MEDS ORDERED: PIPERACILLIN/TAZOBACTAM 4.5 GM in IV DEXTROSE 5% 100ML 100 ML IV ONE (22:30)
[2022-01-11] MEDS ORDERED: PIPERACILLIN/TAZOBACTAM 4.5 GM in IV NORMAL SALINE 100ML 100 ML IV ONE (22:30)
[2022-01-11 22:39] LABS: BASO % 0 % (0-3); EOS # 0.3 x10^3/uL (0.0-0.7); EOS % 4 % (0-3); HEMATOCRIT 31.8 % (39.0-53.0); HEMOGLOBIN 9.7 g/dL (13.0-17.5); LYMPH # 1.4 x10^3/uL (1.0-4.8); LYMPH % 21 % (24-48); MEAN CORPUSCULAR HEMOGLOBIN 22 pg (25-35); MEAN CORPUSCULAR HGB CONC 31 g/dL (31-37); MEAN CORPUSCULAR VOLUME 71 fL (79-100); MONO # 0.6 x10^3/uL (0.0-1.1); MONO % 10 % (0-9); NEUT # 4.2 x10^3/uL (1.8-7.7); NEUT % 65 % (31-73); PLATELET COUNT 310 x10^3/uL (140-400); RED CELL DISTRIBUTION WIDTH 19.3 % (11.5-14.5); WHITE BLOOD COUNT 6.5 x10^3/uL (4.0-11.0)
[2022-01-11 22:51] LABS: CALCIUM 8.6 mg/dL (8.5-10.1); CREATININE 1.6 mg/dL (0.7-1.3); GFR 44.6; POTASSIUM 4.5 mmol/L (3.5-5.1)
[2022-01-11 22:57] LABS: ALBUMIN 3.3 g/dL (3.4-5.0); ALBUMIN/GLOBULIN RATIO 0.9 (1.0-1.7); TOTAL BILIRUBIN 0.3 mg/dL (0.2-1.0); TOTAL PROTEIN 6.8 g/dL (6.4-8.2)
[2022-01-11] MEDS ORDERED: MORPHINE SULFATE 4 MG/ML INJ. IVP PRN (23:00)
[2022-01-11] MEDS ORDERED: VANCOMYCIN 2 GM in IV NORMAL SALINE 500ML BAG 500 ML IV ONE (23:00)
[2022-01-11] MEDS ORDERED: DEXTROSE 50% 25 GM / 50ML DISP.SYRIN. IV PRN (23:00)
[2022-01-11] MEDS ORDERED: ONDANSETRON PF 4 MG/2 ML VIAL. IVP PRN (23:00)
[2022-01-11 23:18] LABS: % ATYL 1 % (0-0); % BASOS 1 % (0-3); % EOS 5 % (0-5); % LYMPHS 19 % (24-48); % MONOS 9 % (0-10); % SEGS 65 % (35-66); ANISOCYTOSIS SLIGHT; HYPOCHROMIA MOD; MICROCYTOSIS MOD; OVALOCYTES FEW; PLT ESTIMATE ADEQUATE (ADEQUATE); POLYCHROMASIA SLIGHT
[2022-01-12] VITALS (7 sets, daily range): BP systolic 131–157; BP diastolic 73–88
--- NOTE | 2022-01-12 00:38 | PHYS DOC ---
Past Medical History Past Medical History: Cancer, Diabetes-Type II Additional Past Medical Histor: CKD Past Surgical History: Cholecystectomy Additional Past Surgical Histo: lithotripsy, ureteral stent placement, Da Jacoby prostatectomy Smoking Status: Never Smoker Alcohol Use: None Drug Use: None General Adult EDM: Chief Complaint: ABSCESS HPI: HPI: Patient is a 56 year old male with a history of diabetes type 2 who presents to the ED today complaining of infection on the left testicles, patient states symptoms began a week ago, he states he was admitted at [facility] and discharged 2 days ago with Augmentin and doxycycline. He states symptoms have gotten worse. He states the area has opened up and it is draining. Denies any fever, nausea or vomiting. Review of Systems: Review of Systems: Constitutional: Denies fever or chills. [] Eyes: Denies change in visual acuity. [] HENT: Denies nasal congestion or sore throat. [] Respiratory: Denies cough or shortness of breath. [] Cardiovascular: Denies chest pain or edema. [] GI: Denies abdominal pain, nausea, vomiting, bloody stools or diarrhea. [] : Reports left testicular abscess, denies dysuria. [] Musculoskeletal: Denies back pain or joint pain. [] Integument: Denies rash. [] Neurologic: Denies headache, focal weakness or sensory changes. [] Psychiatric: Denies depression or anxiety. [] Heart Score: C/O Chest Pain: N/A Risk Factors: Risk Factors: DM, Current or recent (<one month) smoker, HTN, HLP, family history of CAD, obesity. Risk Scores: Score 0 - 3: 2.5% MACE over next 6 weeks - Discharge Home Score 4 - 6: 20.3% MACE over next 6 weeks - Admit for Clinical Observation Score 7 - 10: 72.7% MACE over next 6 weeks - Early Invasive Strategies Current Medications: Current Medications Medications (Trade) Dose Ordered Sig/[facility] Start Time Stop Time Status Last Admin Dose Admin Dextrose (Dextrose 50%-Water Syringe) 12.5 gm PRN Q15MIN PRN 01/11/22 23:00 Morphine Sulfate (Morphine Sulfate) 4 mg PRN Q2HR PRN 01/11/22 23:00 01/12/22 22:59 Ondansetron HCl (Zofran) 4 mg PRN Q8HRS PRN 01/11/22 23:00 01/12/22 22:59 Piperacillin Sod/ Tazobactam Sod 4.5 gm/Dextrose 100 ml @ 200 mls/hr 1X ONCE 01/11/22 22:30 01/11/22 22:59 DC 01/11/22 22:40 200 MLS/HR Piperacillin Sod/ Tazobactam Sod 4.5 gm/Sodium Chloride 100 ml @ 200 mls/hr 1X ONCE 01/11/22 22:30 01/11/22 22:59 Cancel Sodium Chloride 1,000 ml @ 1,000 mls/hr 1X ONCE 01/11/22 22:15 01/11/22 23:14 DC 01/11/22 22:40 1,000 MLS/HR Vancomycin HCl (Vanco Per Pharmacy) 1 each 1X ONCE 01/11/22 22:15 01/11/22 22:26 DC Vancomycin HCl 2 gm/Sodium Chloride 500 ml @ 250 mls/hr ONCE ONCE 01/11/22 23:00 01/12/22 00:59 01/11/22 22:41 250 MLS/HR Allergies: Allergies: Allergies Coded Allergies Type Severity Reaction Last Updated Verified ciprofloxacin Allergy Intermediate 11/27/18 Yes cranberry Allergy Intermediate 03/25/17 Yes Uncoded Allergies Type Severity Reaction Last Updated Verified hay Allergy Intermediate 11/27/18 Physical Exam: PE: Constitutional: Well developed, well nourished, no acute distress, non-toxic appearance. [] HENT: Normocephalic, atraumatic, bilateral external ears normal, oropharynx moist, no oral exudates, nose normal. [] Eyes: PERRLA, EOMI, conjunctiva normal, no discharge. [] Neck: Normal range of motion, no tenderness, supple, no stridor. [] Cardiovascular:Heart rate regular rhythm, no murmur [] Lungs & Thorax: Bilateral breath sounds clear to auscultation [] Abdomen: Bowel sounds normal, soft, no tenderness, no masses, no pulsatile masses. [] Male exam with December as core analysis operator Left groin above the testicles with a palpable mass consistent of an abscess with cellulitis. The area is warm tender to touch, the area has an open spot draining yellow bloody material. There is tenderness throughout that region. Penis is not affected. Palpable left inguinal lymph node noted Skin: Warm, dry, no erythema, no rash. [] Back: No tenderness, no CVA tenderness. [] Extremities: No tenderness, no cyanosis, no clubbing, ROM intact, no edema. [] Neurologic: Alert and oriented X 3, normal motor function, normal sensory function, no focal deficits noted. [] Psychologic: Affect normal, judgement normal, mood normal. [] Current Patient Data: Labs: Laboratory Tests Test 01/11/22 22:30 01/11/22 23:15 White Blood Count 6.5 x10^3/uL (4.0-11.0) Red Blood Count 4.50 x10^6/uL (4.30-5.70) Hemoglobin 9.7 g/dL (13.0-17.5) L Hematocrit 31.8 % (39.0-53.0) L Mean Corpuscular Volume 71 fL (79-100) L Mean Corpuscular Hemoglobin 22 pg (25-35) L Mean Corpuscular Hemoglobin Concent 31 g/dL (31-37) Red Cell Distribution Width 19.3 % (11.5-14.5) H Platelet Count 310 x10^3/uL (140-400) Neutrophils (%) (Auto) 65 % (31-73) Lymphocytes (%) (Auto) 21 % (24-48) L Monocytes (%) (Auto) 10 % (0-9) H Eosinophils (%) (Auto) 4 % (0-3) H Basophils (%) (Auto) 0 % (0-3) Neutrophils # (Auto) 4.2 x10^3/uL (1.8-7.7) Lymphocytes # (Auto) 1.4 x10^3/uL (1.0-4.8) Monocytes # (Auto) 0.6 x10^3/uL (0.0-1.1) Eosinophils # (Auto) 0.3 x10^3/uL (0.0-0.7) Basophils # (Auto) 0.0 x10^3/uL (0.0-0.2) Segmented Neutrophils % 65 % (35-66) Lymphocytes % 19 % (24-48) L Atypical Lymphocytes % (Manual) 1 % (0-0) H Monocytes % 9 % (0-10) Eosinophils % 5 % (0-5) Basophils % 1 % (0-3) Platelet Estimate Adequate (ADEQUATE) Polychromasia Slight Hypochromasia Mod Anisocytosis Slight Microcytosis Mod Ovalocytes Few Sodium Level 138 mmol/L (136-145) Potassium Level 4.5 mmol/L (3.5-5.1) Chloride Level 105 mmol/L (98-107) Carbon Dioxide Level 23 mmol/L (21-32) Anion Gap 10 (6-14) Blood Urea Nitrogen 17 mg/dL (8-26) Creatinine 1.6 mg/dL (0.7-1.3) H Estimated GFR (Cockcroft-Gault) 44.6 BUN/Creatinine Ratio 11 (6-20) Glucose Level 267 mg/dL (70-99) H Lactic Acid Level 2.0 mmol/L (0.4-2.0) Calcium Level 8.6 mg/dL (8.5-10.1) Total Bilirubin 0.3 mg/dL (0.2-1.0) Aspartate Amino Transferase (AST) 23 U/L (15-37) Alanine Aminotransferase (ALT) 30 U/L (16-63) Alkaline Phosphatase 83 U/L (46-116) Total Protein 6.8 g/dL (6.4-8.2) Albumin 3.3 g/dL (3.4-5.0) L Albumin/Globulin Ratio 0.9 (1.0-1.7) L Procalcitonin < 0.10 ng/mL (0.00-0.10) SARS-CoV-2 Antigen (Rapid) Negative (NEGATIVE) Laboratory Tests 01/11/22 22:30 Laboratory Tests 01/11/22 22:30 Vital Signs: Vital Signs Date Time Temp Pulse Resp B/P (MAP) Pulse Ox O2 Delivery O2 Flow Rate FiO2 01/11/22 22:05 97.6 94 16 140/85 (103) 97 97.6 EKG: EKG: [] Radiology/Procedures: Radiology/Procedures: [] Course & Med Decision Making: Course & Med Decision Making Pertinent Labs and Imaging studies reviewed. (See chart for details) This is a 56-year-old male patient presented to the ED today with abscess and cellulitis of the left groin region for 1 week. Was seen at and symptoms are getting worse. Currently on Augmentin and doxycycline. Patient is afebrile. CBC with a normal WBC, hemoglobin 9.7 with hematocrit of 31.8, CMP with creatinine of 1.6 and normal BUN, glucose 267, anion gap is normal. Lactic is normal Patient was started on IV antibiotics as well as IV fluids. Patient was admitted to the hospital, started on IV antibiotics, routine consult placed for urology and general surgeon Opal Disclaimer: Opal Disclaimer: This electronic medical record was generated, in whole or in part, using a voice recognition dictation system. Departure Departure Impression: Primary Impression: Hyperglycemia Additional Impressions: Abscess, scrotum Anemia Qualified Codes: D64.9 - Anemia, unspecified Acute kidney injury Disposition: ADMITTED INPATIENT Condition: STABLE Referrals: BRIA CARDONA MD (PCP) KECIA FIELD COLLAR TURNER Jan 12, 2022 00:38
[2022-01-12] MEDS: MORPHINE SULFATE 4 MG/ML INJ. IV/SQ PRN ×2 (00:42→07:52)
[2022-01-12] MEDS ORDERED: CONTRAST GIVEN. MC PRN (01:45)
[2022-01-12] MEDS ORDERED: IOHEXOL 300 MG/ML 100ML VIAL. IV ONE (01:45)
--- NOTE | 2022-01-12 02:12 | RAD ---
EXAM: CT Abdomen and Pelvis with IV contrast CLINICAL HISTORY: left scrotal/groin abscess COMPARISON: 01/04/2022 06/10/2021 TECHNIQUE: Helical CT of the abdomen and pelvis was performed following the administration of intrave nous contrast. Axial, coronal and sagittal reformatted images were generated. PQRS compliance statement - One or more of the following individualized dose reduction techniques wer e utilized for this study: 1. Automated exposure control 2. Adjustment of the mA and/or kV according to patient size 3. Use of iterative reconstruction technique FINDINGS: Lower Chest: Linear opacities right lung base likely scarring/atelectasis. Small hiatal hernia. Abdomen and Pelvis: Hepatic hypoattenuation, fatty liver. Accounting for postcholecystectomy change, no biliary ductal di latation. The pancreas, spleen and adrenal glands are unremarkable. Symmetric nephrograms. Left upper pole and right upper pole renal cysts are seen. No hydronephrosis. No hydroureter. Aorta is normal in caliber. Moderate to large volume colonic stool content is seen. Appendix is mike l. No small or large bowel dilatation. No bowel obstruction. No abdominal or pelvic lymphadenopathy. No abdominal or pelvic ascites. Soft tissue infiltration left scrotum, likely cellulitis. No loculated collection is seen. Bones: Hip joint degenerative changes are seen. No aggressive osseous lesion. IMPRESSION: 1. Soft tissue infiltration left scrotum without loculated collection, likely cellulitis/developing phlegmon. 2. Hepatic hypoattenuation, fatty liver. 3. Moderate to large volume colonic stool content. Electronically signed by: Mitchell Hyde MD (01/12/2022 2:09 AM) DESI
[2022-01-12] MEDS ORDERED: ONDA-84 PO (06:44)
[2022-01-12] MEDS ORDERED: FAMO20TA5 PO (06:44)
[2022-01-12] MEDS ORDERED: ALBU2.5V8 IH (06:44)
[2022-01-12] MEDS ORDERED: ACET500T68 PO (06:44)
[2022-01-12] MEDS ORDERED: OXYB15TA18 PO (06:44)
[2022-01-12] MEDS ORDERED: NYST1POW5 MC (06:44)
[2022-01-12] MEDS ORDERED: TRIA80OI TP (06:44)
[2022-01-12] MEDS ORDERED: LORA10TA3 PO (06:44)
[2022-01-12] MEDS ORDERED: AMOX1TAB11 PO (06:44)
[2022-01-12] MEDS ORDERED: INSU100C4 SQ (06:44)
[2022-01-12] MEDS ORDERED: DOXY100C3 PO (06:44)
[2022-01-12] MEDS ORDERED: VIBE75TA PO (06:44)
[2022-01-12] MEDS ORDERED: FLUT9.9S NS (06:44)
[2022-01-12] MEDS ORDERED: INSU100I13 SQ (06:44)
[2022-01-12] MEDS ORDERED: CALC500T31 PO (06:44)
[2022-01-12] MEDS ORDERED: DOCU100C28 PO (06:44)
[2022-01-12] MEDS ORDERED: FLUO20CA22 PO (06:44)
[2022-01-12] MEDS ORDERED: SEMA0.25 SQ (06:44)
[2022-01-12] MEDS ORDERED: LACT20SO PO (06:44)
[2022-01-12 10:33] LABS: BASO # 0.1 x10^3/uL (0.0-0.2); BASO % 1 % (0-3); EOS # 0.3 x10^3/uL (0.0-0.7); EOS % 4 % (0-3); HEMATOCRIT 30.8 % (39.0-53.0); HEMOGLOBIN 9.3 g/dL (13.0-17.5); LYMPH # 1.1 x10^3/uL (1.0-4.8); LYMPH % 15 % (24-48); MEAN CORPUSCULAR HEMOGLOBIN 21 pg (25-35); MEAN CORPUSCULAR HGB CONC 30 g/dL (31-37); MEAN CORPUSCULAR VOLUME 71 fL (79-100); MONO # 0.5 x10^3/uL (0.0-1.1); MONO % 7 % (0-9); NEUT # 5.1 x10^3/uL (1.8-7.7); NEUT % 72 % (31-73); PLATELET COUNT 250 x10^3/uL (140-400); RED BLOOD COUNT 4.34 x10^6/uL (4.30-5.70); RED CELL DISTRIBUTION WIDTH 19.5 % (11.5-14.5)
[2022-01-12 10:38] LABS: ALBUMIN 2.9 g/dL (3.4-5.0); ALBUMIN/GLOBULIN RATIO 0.8 (1.0-1.7); CALCIUM 8.3 mg/dL (8.5-10.1); CREATININE 1.3 mg/dL (0.7-1.3); GFR 56.7; POTASSIUM 4.2 mmol/L (3.5-5.1); TOTAL BILIRUBIN 0.3 mg/dL (0.2-1.0); TOTAL PROTEIN 6.6 g/dL (6.4-8.2)
--- NOTE | 2022-01-12 10:39 | PDOC ---
YARITZA ESPARZA TRACING LATHE SET UP OPERATOR 01/12/22 1039: SURGICAL PROGRESS NOTE DATE: 01/12/22 TIME: 10:38 Subjective noted consult will defer to urology Vital Signs Vital Signs Date Time Temp Pulse Resp B/P (MAP) Pulse Ox O2 Delivery O2 Flow Rate FiO2 01/12/22 08:08 98.1 73 12 141/88 (105) Room Air 98.1 01/12/22 07:52 98 I&O Intake and Output 01/12/22 07:00 Intake Total 0 ml Output Total 225 ml Balance -225 ml Intake Oral 0 ml Output Urine Total 225 ml Labs Laboratory Tests Test 01/11/22 22:30 01/11/22 23:15 01/12/22 02:43 01/12/22 07:50 White Blood Count 6.5 x10^3/uL (4.0-11.0) Red Blood Count 4.50 x10^6/uL (4.30-5.70) Hemoglobin 9.7 g/dL (13.0-17.5) Hematocrit 31.8 % (39.0-53.0) Mean Corpuscular Volume 71 fL (79-100) Mean Corpuscular Hemoglobin 22 pg (25-35) Mean Corpuscular Hemoglobin Concent 31 g/dL (31-37) Red Cell Distribution Width 19.3 % (11.5-14.5) Platelet Count 310 x10^3/uL (140-400) Neutrophils (%) (Auto) 65 % (31-73) Lymphocytes (%) (Auto) 21 % (24-48) Monocytes (%) (Auto) 10 % (0-9) Eosinophils (%) (Auto) 4 % (0-3) Basophils (%) (Auto) 0 % (0-3) Neutrophils # (Auto) 4.2 x10^3/uL (1.8-7.7) Lymphocytes # (Auto) 1.4 x10^3/uL (1.0-4.8) Monocytes # (Auto) 0.6 x10^3/uL (0.0-1.1) Eosinophils # (Auto) 0.3 x10^3/uL (0.0-0.7) Basophils # (Auto) 0.0 x10^3/uL (0.0-0.2) Segmented Neutrophils % 65 % (35-66) Lymphocytes % 19 % (24-48) Atypical Lymphocytes % (Manual) 1 % (0-0) Monocytes % 9 % (0-10) Eosinophils % 5 % (0-5) Basophils % 1 % (0-3) Platelet Estimate Adequate (ADEQUATE) Polychromasia Slight Hypochromasia Mod Anisocytosis Slight Microcytosis Mod Ovalocytes Few Sodium Level 138 mmol/L (136-145) Potassium Level 4.5 mmol/L (3.5-5.1) Chloride Level 105 mmol/L (98-107) Carbon Dioxide Level 23 mmol/L (21-32) Anion Gap 10 (6-14) Blood Urea Nitrogen 17 mg/dL (8-26) Creatinine 1.6 mg/dL (0.7-1.3) Estimated GFR (Cockcroft-Gault) 44.6 BUN/Creatinine Ratio 11 (6-20) Glucose Level 267 mg/dL (70-99) Lactic Acid Level 2.0 mmol/L (0.4-2.0) Calcium Level 8.6 mg/dL (8.5-10.1) Total Bilirubin 0.3 mg/dL (0.2-1.0) Aspartate Amino Transf (AST/SGOT) 23 U/L (15-37) Alanine Aminotransferase (ALT/SGPT) 30 U/L (16-63) Alkaline Phosphatase 83 U/L (46-116) Total Protein 6.8 g/dL (6.4-8.2) Albumin 3.3 g/dL (3.4-5.0) Albumin/Globulin Ratio 0.9 (1.0-1.7) Procalcitonin < 0.10 ng/mL (0.00-0.10) SARS-CoV-2 Antigen (Rapid) Negative (NEGATIVE) Glucose (Fingerstick) 187 mg/dL (70-99) 186 mg/dL (70-99) Test 01/12/22 10:15 White Blood Count 7.0 x10^3/uL (4.0-11.0) Red Blood Count 4.34 x10^6/uL (4.30-5.70) Hemoglobin 9.3 g/dL (13.0-17.5) Hematocrit 30.8 % (39.0-53.0) Mean Corpuscular Volume 71 fL (79-100) Mean Corpuscular Hemoglobin 21 pg (25-35) Mean Corpuscular Hemoglobin Concent 30 g/dL (31-37) Red Cell Distribution Width 19.5 % (11.5-14.5) Platelet Count 250 x10^3/uL (140-400) Neutrophils (%) (Auto) 72 % (31-73) Lymphocytes (%) (Auto) 15 % (24-48) Monocytes (%) (Auto) 7 % (0-9) Eosinophils (%) (Auto) 4 % (0-3) Basophils (%) (Auto) 1 % (0-3) Neutrophils # (Auto) 5.1 x10^3/uL (1.8-7.7) Lymphocytes # (Auto) 1.1 x10^3/uL (1.0-4.8) Monocytes # (Auto) 0.5 x10^3/uL (0.0-1.1) Eosinophils # (Auto) 0.3 x10^3/uL (0.0-0.7) Basophils # (Auto) 0.1 x10^3/uL (0.0-0.2) Laboratory Tests Test 01/11/22 22:30 01/11/22 23:15 01/12/22 02:43 01/12/22 07:50 White Blood Count 6.5 x10^3/uL (4.0-11.0) Red Blood Count 4.50 x10^6/uL (4.30-5.70) Hemoglobin 9.7 g/dL (13.0-17.5) Hematocrit 31.8 % (39.0-53.0) Mean Corpuscular Volume 71 fL (79-100) Mean Corpuscular Hemoglobin 22 pg (25-35) Mean Corpuscular Hemoglobin Concent 31 g/dL (31-37) Red Cell Distribution Width 19.3 % (11.5-14.5) Platelet Count 310 x10^3/uL (140-400) Neutrophils (%) (Auto) 65 % (31-73) Lymphocytes (%) (Auto) 21 % (24-48) Monocytes (%) (Auto) 10 % (0-9) Eosinophils (%) (Auto) 4 % (0-3) Basophils (%) (Auto) 0 % (0-3) Neutrophils # (Auto) 4.2 x10^3/uL (1.8-7.7) Lymphocytes # (Auto) 1.4 x10^3/uL (1.0-4.8) Monocytes # (Auto) 0.6 x10^3/uL (0.0-1.1) Eosinophils # (Auto) 0.3 x10^3/uL (0.0-0.7) Basophils # (Auto) 0.0 x10^3/uL (0.0-0.2) Segmented Neutrophils % 65 % (35-66) Lymphocytes % 19 % (24-48) Atypical Lymphocytes % (Manual) 1 % (0-0) Monocytes % 9 % (0-10) Eosinophils % 5 % (0-5) Basophils % 1 % (0-3) Platelet Estimate Adequate (ADEQUATE) Polychromasia Slight Hypochromasia Mod Anisocytosis Slight Microcytosis Mod Ovalocytes Few Sodium Level 138 mmol/L (136-145) Potassium Level 4.5 mmol/L (3.5-5.1) Chloride Level 105 mmol/L (98-107) Carbon Dioxide Level 23 mmol/L (21-32) Anion Gap 10 (6-14) Blood Urea Nitrogen 17 mg/dL (8-26) Creatinine 1.6 mg/dL (0.7-1.3) Estimated GFR (Cockcroft-Gault) 44.6 BUN/Creatinine Ratio 11 (6-20) Glucose Level 267 mg/dL (70-99) Lactic Acid Level 2.0 mmol/L (0.4-2.0) Calcium Level 8.6 mg/dL (8.5-10.1) Total Bilirubin 0.3 mg/dL (0.2-1.0) Aspartate Amino Transf (AST/SGOT) 23 U/L (15-37) Alanine Aminotransferase (ALT/SGPT) 30 U/L (16-63) Alkaline Phosphatase 83 U/L (46-116) Total Protein 6.8 g/dL (6.4-8.2) Albumin 3.3 g/dL (3.4-5.0) Albumin/Globulin Ratio 0.9 (1.0-1.7) Procalcitonin < 0.10 ng/mL (0.00-0.10) SARS-CoV-2 Antigen (Rapid) Negative (NEGATIVE) Glucose (Fingerstick) 187 mg/dL (70-99) 186 mg/dL (70-99) Test 01/12/22 10:15 White Blood Count 7.0 x10^3/uL (4.0-11.0) Red Blood Count 4.34 x10^6/uL (4.30-5.70) Hemoglobin 9.3 g/dL (13.0-17.5) Hematocrit 30.8 % (39.0-53.0) Mean Corpuscular Volume 71 fL (79-100) Mean Corpuscular Hemoglobin 21 pg (25-35) Mean Corpuscular Hemoglobin Concent 30 g/dL (31-37) Red Cell Distribution Width 19.5 % (11.5-14.5) Platelet Count 250 x10^3/uL (140-400) Neutrophils (%) (Auto) 72 % (31-73) Lymphocytes (%) (Auto) 15 % (24-48) Monocytes (%) (Auto) 7 % (0-9) Eosinophils (%) (Auto) 4 % (0-3) Basophils (%) (Auto) 1 % (0-3) Neutrophils # (Auto) 5.1 x10^3/uL (1.8-7.7) Lymphocytes # (Auto) 1.1 x10^3/uL (1.0-4.8) Monocytes # (Auto) 0.5 x10^3/uL (0.0-1.1) Eosinophils # (Auto) 0.3 x10^3/uL (0.0-0.7) Basophils # (Auto) 0.1 x10^3/uL (0.0-0.2) Problem List Problems Medical Problems: (1) Acute kidney injury Status: Acute (2) Anemia Status: Acute (3) Hyperglycemia Status: Acute Justicifation of Admission Dx: Justifications for Admission: Justification of Admission Dx: Yes BART LUQUE MD 01/12/22 1127: SURGICAL PROGRESS NOTE Assessment/Plan Agree with YARITZA Renee TRACING LATHE SET UP OPERATOR Jan 12, 2022 10:39 BART LUQUE MD Jan 12, 2022 11:27
[2022-01-12] MEDS ORDERED: ACETAMINOPHEN 325 MG TABLET. PO PRN ×2 (10:45→14:00)
--- NOTE | 2022-01-12 11:00 | NUR ---
Received a call from Dr. Mendoza regarding consult placed for testicle abcess. Dr. Mendoza verbalized that he will not be able to treat the patients condition and that urology would be appropriate for treatment. I called and spoke to urologist office for Dr. Swift, legal administrative secretary verbalized that she has spoken to the PROBATION WORKER and that they would be seeing the patient today.
[2022-01-12] MEDS ORDERED: MORPHINE SULFATE 2 MG/ML INJ. IVP PRN (14:00)
[2022-01-12] MEDS ORDERED: diphenhydrAMINE 50 MG/ML VIAL IVP PRN (14:00)
[2022-01-12] MEDS ORDERED: ONDANSETRON PF 4 MG/2 ML VIAL. IVP PRN (14:00)
[2022-01-12] MEDS ORDERED: PROCHLORPERAZINE 10 MG/2 ML VIAL. IV PRN (14:00)
[2022-01-12] MEDS ORDERED: DOCUSATE SODIUM 100 MG CAPSULE. PO PRN (14:00)
[2022-01-12] MEDS ORDERED: oxyCODONE/APAP 5/325 1 TAB TABLET PO PRN (14:00)
[2022-01-12] MEDS ORDERED: DEXTROSE 50% 25 GM / 50ML DISP.SYRIN. IV PRN (14:00)
[2022-01-12] MEDS ORDERED: SENNOSIDES 8.6 MG TABLET PO PRN (14:00)
[2022-01-12] MEDS ORDERED: LORazepam 0.5 MG TABLET PO PRN (14:00)
[2022-01-12] MEDS ORDERED: ZOLPIDEM 5 MG TABLET. PO PRN (14:00)
[2022-01-12] MEDS ORDERED: MORPHINE SULFATE 2 MG/ML INJ. IV PRN (14:00)
[2022-01-12] MEDS ORDERED: diphenhydrAMINE HCL 25 MG CAPSULE PO PRN ×2 (14:00)
--- NOTE | 2022-01-12 14:02 | PDOC1 ---
History and Physical Date of Service: DOS: DATE: 01/12/22 TIME: 13:54 Chief Complaint: Chief Complain: Scrotal lump History of Present Illness: HPI: 56-year-old male with past medical history of prostate cancer status post prostatectomy, diabetes mellitus type 2, CKD who comes in complaining of pain in his left testicle. He states that he felt a lump about a week ago and he went to where he was discharged with Augmentin and doxycycline about 2 days ago. Yesterday he started that his lump had opened up and began draining. Denies any fevers, nausea vomiting, dysuria, pyuria, chest pain, abdominal pain. No hematuria reported. Past Medical/Surgical History: PMH/PSH: Past Medical History: Cancer, Diabetes-Type II, CKD Past Surgical History: Cholecystectomy, lithotripsy, ureteral stent placement, Da Jacoby prostatectomy Allergies: Allergies: Coded Allergies: ciprofloxacin (Verified Allergy, Intermediate, 11/27/18) cranberry (Verified Allergy, Intermediate, 03/25/17) Uncoded Allergies: hay (Allergy, Intermediate, 11/27/18) Family History: Family History: Reviewed with no relative findings in the chart Social History: Social History: Smoking Status: Never Smoker Alcohol Use: None Drug Use: None Current Medications: Current Medications Current Medications Piperacillin Sod/ Tazobactam Sod 4.5 gm/Sodium Chloride 100 ml @ 200 mls/hr 1X ONCE IV ; Start 01/11/22 at 22:30; Stop 01/11/22 at 22:59; Status Cancel Vancomycin HCl (Vanco Per Pharmacy) 1 each 1X ONCE MC ; Start 01/11/22 at 22:15; Stop 01/11/22 at 22:26; Status DC Morphine Sulfate (Morphine Sulfate) 4 mg PRN Q15MIN PRN IV/SQ PAIN GREATER THAN 3/10 Last administered on 01/12/22at 07:52; Start 01/11/22 at 22:15; Stop 01/12/22 at 22:14 Sodium Chloride 1,000 ml @ 1,000 mls/hr 1X ONCE IV Last administered on 01/11/22at 22:40; Start 01/11/22 at 22:15; Stop 01/11/22 at 23:14; Status DC Piperacillin Sod/ Tazobactam Sod 4.5 gm/Dextrose 100 ml @ 200 mls/hr 1X ONCE IV Last administered on 01/11/22at 22:40; Start 01/11/22 at 22:30; Stop 01/11/22 at 22:59; Status DC Vancomycin HCl 2 gm/Sodium Chloride 500 ml @ 250 mls/hr ONCE ONCE IV Last administered on 01/11/22at 22:41; Start 01/11/22 at 23:00; Stop 01/12/22 at 00:59; Status DC Ondansetron HCl (Zofran) 4 mg PRN Q8HRS PRN IVP NAUSEA/VOMITING Last administered on 01/12/22at 07:46; Start 01/11/22 at 23:00; Stop 01/12/22 at 22:59 Morphine Sulfate (Morphine Sulfate) 4 mg PRN Q2HR PRN IVP PAIN; Start 01/11/22 at 23:00; Stop 01/12/22 at 22:59 Dextrose (Dextrose 50%-Water Syringe) 12.5 gm PRN Q15MIN PRN IV SEE COMMENTS; Start 01/11/22 at 23:00 Iohexol (Omnipaque 300 Mg/ml) 70 ml 1X ONCE IV Last administered on 01/12/22at 01:44; Start 01/12/22 at 01:45; Stop 01/12/22 at 01:46; Status DC Info (CONTRAST GIVEN -- Rx MONITORING) 1 each PRN DAILY PRN MC SEE COMMENTS; Start 01/12/22 at 01:45; Stop 01/14/22 at 01:44 Acetaminophen (Tylenol) 650 mg PRN Q8HRS PRN PO MILD PAIN / TEMP > 100.3'F Last administered on 01/12/22at 10:47; Start 01/12/22 at 10:45 Active Scripts Active Reported Triamcinolone Acetonide 80 Gm Oint...g. 1 Gm TP PRN PRN Ozempic (Semaglutide) 0.25 Mg/0.2 Ml Pen.injctr 0.25 Mg SQ WEEKLY Oxybutynin Chloride Er (Oxybutynin Chloride) 15 Mg Tab.er.24 1 Tab PO DAILY Ondansetron Hcl 4 Mg Tablet 1 Tab PO PRN Q8HRS PRN Nystatin 1 Each Powder.ea. 1 Each MC BID Loratadine 10 Mg Tablet 1 Tab PO DAILY Lantus Solostar (Insulin Glargine,Hum.rec.anlog) 100 Unit/1 Ml Insuln.pen 57 Unit SQ QHS Lactulose 20 Gm/30 Ml Solution 20 Gm PO TID Novolog (Insulin Aspart) 100 Unit/1 Ml Cartridge 45 Unit SQ BID Flonase Allergy Relief (Fluticasone Propionate) 9.9 Ml Dalton.susp 2 Sprays NS DAILY Fluoxetine Hcl 20 Mg Capsule 1 Cap PO HS Famotidine 20 Mg Tablet 20 Mg PO PRN PRN Doxycycline Hyclate 100 Mg Capsule 1 Cap PO BID 10 Days Docusate Sodium 100 Mg Capsule 1 Cap PO BID 7 Days Calcium Carbonate 500 Mg Tablet 2-3 Tab PO PRN DAILY PRN 30 Days Amox Tr-K Clv 875-125 Mg Tab (Amoxicillin/Potassium Clav) 1 Each Tablet 1 Tab PO BID Proair Hfa Inhaler (Albuterol Sulfate) 8.5 Gm Hfa.aer.ad 2 Puff IH PRN Q6HRS PRN 21 Days Acetaminophen 500 Mg Tablet 2 Tab PO PRN Q6HRS PRN 15 Days Gemtesa (Vibegron) 75 Mg Tablet 75 Mg PO DAILY Atorvastatin Calcium 40 Mg Tablet 40 Mg PO HS Lisinopril 2.5 Mg Tablet 2.5 Mg PO DAILY Pantoprazole Sodium (Pantoprazole Sodium) 40 Mg Tablet. 40 Mg PO BID ROS: Review of Systems Review of System REVIEW OF SYSTEMS: GENERAL: Denies weakness SKIN: No bruising, hair changes or rashes. EYES: No blurred, double or loss of vision. NOSE AND THROAT: No history of nosebleeds, hoarseness or sore throat. HEART: No history of palpitations, chest pain or shortness of breath on exertion. LUNGS: Denies cough, hemoptysis, wheezing or shortness of breath. GASTROINTESTINAL: Denies changes in appetite, nausea, vomiting, diarrhea or constipation. GENITOURINARY: Scrotal lump pain and redness and drainage. NEUROLOGIC: Denies history of numbness, tingling, or tremor. PSYCHIATRIC: No history of panic, anxiety or depression. ENDOCRINE: No history of heat or cold intolerance, polyuria or polydipsia. EXTREMITIES: Denies joint pain, pain on walking or stiffness. Physical Exam: Vital Signs: Vital Signs Date Time Temp Pulse Resp B/P (MAP) Pulse Ox O2 Delivery O2 Flow Rate FiO2 01/12/22 12:41 97.9 73 20 157/85 (109) 98 Nasal Cannula 2.0 97.9 Physcial Exam: General: Well developed, well nourished, no acute distress, well appearing HEENT: Pupils equally round and reactive to light, EOMI, no discharge, normal conjunctiva Neck: Supple, no nuchal rigidity, no JVD, trachea midline, no tenderness Cardiac: RRR, no murmurs, no gallops, no rubs Chest/Lungs: CTAB, no wheeze, no rhonchi, no crackles Abdomen: soft, non-distended, no guarding, no peritoneal signs, non-tender Back: No tenderness Extremities: no edema, pulses intact, non-tender,capillary refill <3 sec bilateral upper and lower extremities, Neuro: Alert and oriented x 4, no focal deficits, normal speech : Left-sided scrotal erythema with tender lesion. Small punctate opening from the lump with purulent drainage when expressed.. Labs: Labs: Laboratory Tests Test 01/11/22 22:30 01/11/22 23:15 01/12/22 02:43 01/12/22 07:50 White Blood Count 6.5 x10^3/uL (4.0-11.0) Red Blood Count 4.50 x10^6/uL (4.30-5.70) Hemoglobin 9.7 g/dL (13.0-17.5) Hematocrit 31.8 % (39.0-53.0) Mean Corpuscular Volume 71 fL (79-100) Mean Corpuscular Hemoglobin 22 pg (25-35) Mean Corpuscular Hemoglobin Concent 31 g/dL (31-37) Red Cell Distribution Width 19.3 % (11.5-14.5) Platelet Count 310 x10^3/uL (140-400) Neutrophils (%) (Auto) 65 % (31-73) Lymphocytes (%) (Auto) 21 % (24-48) Monocytes (%) (Auto) 10 % (0-9) Eosinophils (%) (Auto) 4 % (0-3) Basophils (%) (Auto) 0 % (0-3) Neutrophils # (Auto) 4.2 x10^3/uL (1.8-7.7) Lymphocytes # (Auto) 1.4 x10^3/uL (1.0-4.8) Monocytes # (Auto) 0.6 x10^3/uL (0.0-1.1) Eosinophils # (Auto) 0.3 x10^3/uL (0.0-0.7) Basophils # (Auto) 0.0 x10^3/uL (0.0-0.2) Segmented Neutrophils % 65 % (35-66) Lymphocytes % 19 % (24-48) Atypical Lymphocytes % (Manual) 1 % (0-0) Monocytes % 9 % (0-10) Eosinophils % 5 % (0-5) Basophils % 1 % (0-3) Platelet Estimate Adequate (ADEQUATE) Polychromasia Slight Hypochromasia Mod Anisocytosis Slight Microcytosis Mod Ovalocytes Few Sodium Level 138 mmol/L (136-145) Potassium Level 4.5 mmol/L (3.5-5.1) Chloride Level 105 mmol/L (98-107) Carbon Dioxide Level 23 mmol/L (21-32) Anion Gap 10 (6-14) Blood Urea Nitrogen 17 mg/dL (8-26) Creatinine 1.6 mg/dL (0.7-1.3) Estimated GFR (Cockcroft-Gault) 44.6 BUN/Creatinine Ratio 11 (6-20) Glucose Level 267 mg/dL (70-99) Lactic Acid Level 2.0 mmol/L (0.4-2.0) Calcium Level 8.6 mg/dL (8.5-10.1) Total Bilirubin 0.3 mg/dL (0.2-1.0) Aspartate Amino Transf (AST/SGOT) 23 U/L (15-37) Alanine Aminotransferase (ALT/SGPT) 30 U/L (16-63) Alkaline Phosphatase 83 U/L (46-116) Total Protein 6.8 g/dL (6.4-8.2) Albumin 3.3 g/dL (3.4-5.0) Albumin/Globulin Ratio 0.9 (1.0-1.7) Procalcitonin < 0.10 ng/mL (0.00-0.10) SARS-CoV-2 Antigen (Rapid) Negative (NEGATIVE) Glucose (Fingerstick) 187 mg/dL (70-99) 186 mg/dL (70-99) Test 01/12/22 10:15 01/12/22 11:17 White Blood Count 7.0 x10^3/uL (4.0-11.0) Red Blood Count 4.34 x10^6/uL (4.30-5.70) Hemoglobin 9.3 g/dL (13.0-17.5) Hematocrit 30.8 % (39.0-53.0) Mean Corpuscular Volume 71 fL (79-100) Mean Corpuscular Hemoglobin 21 pg (25-35) Mean Corpuscular Hemoglobin Concent 30 g/dL (31-37) Red Cell Distribution Width 19.5 % (11.5-14.5) Platelet Count 250 x10^3/uL (140-400) Neutrophils (%) (Auto) 72 % (31-73) Lymphocytes (%) (Auto) 15 % (24-48) Monocytes (%) (Auto) 7 % (0-9) Eosinophils (%) (Auto) 4 % (0-3) Basophils (%) (Auto) 1 % (0-3) Neutrophils # (Auto) 5.1 x10^3/uL (1.8-7.7) Lymphocytes # (Auto) 1.1 x10^3/uL (1.0-4.8) Monocytes # (Auto) 0.5 x10^3/uL (0.0-1.1) Eosinophils # (Auto) 0.3 x10^3/uL (0.0-0.7) Basophils # (Auto) 0.1 x10^3/uL (0.0-0.2) Sodium Level 139 mmol/L (136-145) Potassium Level 4.2 mmol/L (3.5-5.1) Chloride Level 107 mmol/L (98-107) Carbon Dioxide Level 23 mmol/L (21-32) Anion Gap 9 (6-14) Blood Urea Nitrogen 14 mg/dL (8-26) Creatinine 1.3 mg/dL (0.7-1.3) Estimated GFR (Cockcroft-Gault) 56.7 BUN/Creatinine Ratio 11 (6-20) Glucose Level 212 mg/dL (70-99) Calcium Level 8.3 mg/dL (8.5-10.1) Total Bilirubin 0.3 mg/dL (0.2-1.0) Aspartate Amino Transf (AST/SGOT) 14 U/L (15-37) Alanine Aminotransferase (ALT/SGPT) 23 U/L (16-63) Alkaline Phosphatase 76 U/L (46-116) Total Protein 6.6 g/dL (6.4-8.2) Albumin 2.9 g/dL (3.4-5.0) Albumin/Globulin Ratio 0.8 (1.0-1.7) Glucose (Fingerstick) 211 mg/dL (70-99) Laboratory Tests Test 01/11/22 22:30 01/11/22 23:15 01/12/22 02:43 01/12/22 07:50 White Blood Count 6.5 x10^3/uL (4.0-11.0) Red Blood Count 4.50 x10^6/uL (4.30-5.70) Hemoglobin 9.7 g/dL (13.0-17.5) Hematocrit 31.8 % (39.0-53.0) Mean Corpuscular Volume 71 fL (79-100) Mean Corpuscular Hemoglobin 22 pg (25-35) Mean Corpuscular Hemoglobin Concent 31 g/dL (31-37) Red Cell Distribution Width 19.3 % (11.5-14.5) Platelet Count 310 x10^3/uL (140-400) Neutrophils (%) (Auto) 65 % (31-73) Lymphocytes (%) (Auto) 21 % (24-48) Monocytes (%) (Auto) 10 % (0-9) Eosinophils (%) (Auto) 4 % (0-3) Basophils (%) (Auto) 0 % (0-3) Neutrophils # (Auto) 4.2 x10^3/uL (1.8-7.7) Lymphocytes # (Auto) 1.4 x10^3/uL (1.0-4.8) Monocytes # (Auto) 0.6 x10^3/uL (0.0-1.1) Eosinophils # (Auto) 0.3 x10^3/uL (0.0-0.7) Basophils # (Auto) 0.0 x10^3/uL (0.0-0.2) Segmented Neutrophils % 65 % (35-66) Lymphocytes % 19 % (24-48) Atypical Lymphocytes % (Manual) 1 % (0-0) Monocytes % 9 % (0-10) Eosinophils % 5 % (0-5) Basophils % 1 % (0-3) Platelet Estimate Adequate (ADEQUATE) Polychromasia Slight Hypochromasia Mod Anisocytosis Slight Microcytosis Mod Ovalocytes Few Sodium Level 138 mmol/L (136-145) Potassium Level 4.5 mmol/L (3.5-5.1) Chloride Level 105 mmol/L (98-107) Carbon Dioxide Level 23 mmol/L (21-32) Anion Gap 10 (6-14) Blood Urea Nitrogen 17 mg/dL (8-26) Creatinine 1.6 mg/dL (0.7-1.3) Estimated GFR (Cockcroft-Gault) 44.6 BUN/Creatinine Ratio 11 (6-20) Glucose Level 267 mg/dL (70-99) Lactic Acid Level 2.0 mmol/L (0.4-2.0) Calcium Level 8.6 mg/dL (8.5-10.1) Total Bilirubin 0.3 mg/dL (0.2-1.0) Aspartate Amino Transf (AST/SGOT) 23 U/L (15-37) Alanine Aminotransferase (ALT/SGPT) 30 U/L (16-63) Alkaline Phosphatase 83 U/L (46-116) Total Protein 6.8 g/dL (6.4-8.2) Albumin 3.3 g/dL (3.4-5.0) Albumin/Globulin Ratio 0.9 (1.0-1.7) Procalcitonin < 0.10 ng/mL (0.00-0.10) SARS-CoV-2 Antigen (Rapid) Negative (NEGATIVE) Glucose (Fingerstick) 187 mg/dL (70-99) 186 mg/dL (70-99) Test 01/12/22 10:15 01/12/22 11:17 White Blood Count 7.0 x10^3/uL (4.0-11.0) Red Blood Count 4.34 x10^6/uL (4.30-5.70) Hemoglobin 9.3 g/dL (13.0-17.5) Hematocrit 30.8 % (39.0-53.0) Mean Corpuscular Volume 71 fL (79-100) Mean Corpuscular Hemoglobin 21 pg (25-35) Mean Corpuscular Hemoglobin Concent 30 g/dL (31-37) Red Cell Distribution Width 19.5 % (11.5-14.5) Platelet Count 250 x10^3/uL (140-400) Neutrophils (%) (Auto) 72 % (31-73) Lymphocytes (%) (Auto) 15 % (24-48) Monocytes (%) (Auto) 7 % (0-9) Eosinophils (%) (Auto) 4 % (0-3) Basophils (%) (Auto) 1 % (0-3) Neutrophils # (Auto) 5.1 x10^3/uL (1.8-7.7) Lymphocytes # (Auto) 1.1 x10^3/uL (1.0-4.8) Monocytes # (Auto) 0.5 x10^3/uL (0.0-1.1) Eosinophils # (Auto) 0.3 x10^3/uL (0.0-0.7) Basophils # (Auto) 0.1 x10^3/uL (0.0-0.2) Sodium Level 139 mmol/L (136-145) Potassium Level 4.2 mmol/L (3.5-5.1) Chloride Level 107 mmol/L (98-107) Carbon Dioxide Level 23 mmol/L (21-32) Anion Gap 9 (6-14) Blood Urea Nitrogen 14 mg/dL (8-26) Creatinine 1.3 mg/dL (0.7-1.3) Estimated GFR (Cockcroft-Gault) 56.7 BUN/Creatinine Ratio 11 (6-20) Glucose Level 212 mg/dL (70-99) Calcium Level 8.3 mg/dL (8.5-10.1) Total Bilirubin 0.3 mg/dL (0.2-1.0) Aspartate Amino Transf (AST/SGOT) 14 U/L (15-37) Alanine Aminotransferase (ALT/SGPT) 23 U/L (16-63) Alkaline Phosphatase 76 U/L (46-116) Total Protein 6.6 g/dL (6.4-8.2) Albumin 2.9 g/dL (3.4-5.0) Albumin/Globulin Ratio 0.8 (1.0-1.7) Glucose (Fingerstick) 211 mg/dL (70-99) Images: Images PROCEDURE: CT ABD PELV W/ IV CONTRST ONLY EXAM: CT Abdomen and Pelvis with IV contrast CLINICAL HISTORY: left scrotal/groin abscess COMPARISON: 01/04/2022 06/10/2021 TECHNIQUE: Helical CT of the abdomen and pelvis was performed following the administration of intravenous contrast. Axial, coronal and sagittal reformatted images were generated. PQRS compliance statement - One or more of the following individualized dose reduction techniques were utilized for this study: 1. Automated exposure control 2. Adjustment of the mA and/or kV according to patient size 3. Use of iterative reconstruction technique FINDINGS: Lower Chest: Linear opacities right lung base likely scarring/atelectasis. Small hiatal hernia. Abdomen and Pelvis: Hepatic hypoattenuation, fatty liver. Accounting for postcholecystectomy change, no biliary ductal dilatation. The pancreas, spleen and adrenal glands are unremarkable. Symmetric nephrograms. Left upper pole and right upper pole renal cysts are seen. No hydronephrosis. No hydroureter. Aorta is normal in caliber. Moderate to large volume colonic stool content is seen. Appendix is normal. No small or large bowel dilatation. No bowel obstruction. No abdominal or pelvic lymphadenopathy. No abdominal or pelvic ascites. Soft tissue infiltration left scrotum, likely cellulitis. No loculated collection is seen. Bones: Hip joint degenerative changes are seen. No aggressive osseous lesion. IMPRESSION: 1. Soft tissue infiltration left scrotum without loculated collection, likely cellulitis/developing phlegmon. 2. Hepatic hypoattenuation, fatty liver. 3. Moderate to large volume colonic stool content. Assessment/Plan Assessment/Plan Left scrotal abscess Microcytic anemia, likely ADELINA History of diabetes mellitus type 2 History of CKD likely stage II History of prostate cancer Admit to hospitalist service for further management Urology consult R-ISS and Accu-Cheks Continue empiric IV antibiotics N.p.o. for now Lovenox for DVT prophylaxis ADA diet CODE STATUS full Discussed with RN and SW Disposition inpatient management as above DPOA: Justifications for Admission Other Justification ILDA LEBLANC MD Jan 12, 2022 14:02
[2022-01-12] MEDS: VANCOMYCIN PER PHARMACY MC PRN (14:45)
--- NOTE | 2022-01-12 15:00 | NUR ---
Pharmacy Vancomycin Dosing Note S:Consulted to monitor and dose vancomycin started 01/11/22. O:ROSANA GALVEZ is a 56 year old M with scrotal abscess Height: 5 feet, 9 inches Weight: 122.1 kg Flasher Body Weight: 70.70 Adjusted Body Weight: 91.26 Dosing Weight: Actual Other Antibiotics: Cefepime LABS: Last BUN: 14 Last Creatinine: 1.3 Creatinine Clearance: 80 mL/min Last WBC: 7 Last Procalcitonin: <0.1 Tmax (past 24 hours): 98.8 Microbiology: - Last dose given 01/12/22 at 2241 Vancomycin Dosing: Loading Dose: 2000 mg x1 Dosing Weight: Actual Target Trough: 10-20 A: Based on: weight and renal function P: 1. Begin Vancomycin 1500 mg IV q18h 2. Follow up Trough level on 01/14/22 at 0430 3. Pharmacy will continue to monitor, follow and adjust therapy as needed. Ekaterina Palmer RPH, 01/12/22 1500
[2022-01-12] MEDS: IV NORMAL SALINE 1000ML BAG 1,000 ML IV SCH (15:30)
[2022-01-12] MEDS: oxyCODONE/APAP 5/325 1 TAB TABLET PO PRN ×2 (15:31→21:33)
[2022-01-12] MEDS: ENOXAPARIN 40 MG/0.4 ML SYRINGE. SQ SCH (15:31)
[2022-01-12] MEDS: CEFEPIME HCL IV Push 2 GM VIAL. IVP SCH ×2 (15:31→21:29)
[2022-01-12] MEDS: VANCOMYCIN 1.5 GM in IV NORMAL SALINE 500ML BAG 500 ML IV SCH (18:08)
[2022-01-12] MEDS: INSULIN LISPRO 300 UNITS/3 ML VIAL. SQ SCH (18:14)
--- NOTE | 2022-01-12 20:20 | PDOC2 ---
YAJAIRA CORTES GUEST SERVICE HOST 01/12/22 2020: UROLOGY CONSULT DOS: DATE: 01/12/22 TIME: 20:08 Reason for Consult: left scrotal abscess Chief Complaint left scrotal pain 56 year old male presented to the ER 01/12 with complaint of left testicle pain. Patient states that he felt a lump in his left testicle one week ago and went to where he was discharge on antibiotics. Has taken the antibiotics for two days, and returned to this ER as he felt it had gotten larger and started draining. Patient denies fevers, chills, or any urinary symptoms. Patient with significant history of prostate cancer with prostatectomy. States he follows with urology. Patient complains of issues with incontinence since that surgery and frequently has yeast infections of the groin. ROS ROS: RESPIRATORY: Shortness of breath denies. Cough denies. UROLOGY: Denies blood in urine. Denies difficulty urinating Current Medications Current Medications Piperacillin Sod/ Tazobactam Sod 4.5 gm/Sodium Chloride 100 ml @ 200 mls/hr 1X ONCE IV ; Start 01/11/22 at 22:30; Stop 01/11/22 at 22:59; Status Cancel Vancomycin HCl (Vanco Per Pharmacy) 1 each 1X ONCE MC ; Start 01/11/22 at 22:15; Stop 01/11/22 at 22:26; Status DC Morphine Sulfate (Morphine Sulfate) 4 mg PRN Q15MIN PRN IV/SQ PAIN GREATER THAN 3/10 Last administered on 01/12/22at 07:52; Start 01/11/22 at 22:15; Stop 01/12/22 at 14:09; Status DC Sodium Chloride 1,000 ml @ 1,000 mls/hr 1X ONCE IV Last administered on 01/11/22at 22:40; Start 01/11/22 at 22:15; Stop 01/11/22 at 23:14; Status DC Piperacillin Sod/ Tazobactam Sod 4.5 gm/Dextrose 100 ml @ 200 mls/hr 1X ONCE IV Last administered on 01/11/22at 22:40; Start 01/11/22 at 22:30; Stop 01/11/22 at 22:59; Status DC Vancomycin HCl 2 gm/Sodium Chloride 500 ml @ 250 mls/hr ONCE ONCE IV Last administered on 01/11/22at 22:41; Start 01/11/22 at 23:00; Stop 01/12/22 at 00:59; Status DC Ondansetron HCl (Zofran) 4 mg PRN Q8HRS PRN IVP NAUSEA/VOMITING Last administered on 01/12/22at 07:46; Start 01/11/22 at 23:00; Stop 01/12/22 at 14:10; Status DC Morphine Sulfate (Morphine Sulfate) 4 mg PRN Q2HR PRN IVP PAIN; Start 01/11/22 at 23:00; Stop 01/12/22 at 14:10; Status DC Dextrose (Dextrose 50%-Water Syringe) 12.5 gm PRN Q15MIN PRN IV SEE COMMENTS; Start 01/11/22 at 23:00; Stop 01/12/22 at 14:10; Status DC Iohexol (Omnipaque 300 Mg/ml) 70 ml 1X ONCE IV Last administered on 01/12/22at 01:44; Start 01/12/22 at 01:45; Stop 01/12/22 at 01:46; Status DC Info (CONTRAST GIVEN -- Rx MONITORING) 1 each PRN DAILY PRN MC SEE COMMENTS; Start 01/12/22 at 01:45; Stop 01/14/22 at 01:44 Acetaminophen (Tylenol) 650 mg PRN Q8HRS PRN PO MILD PAIN / TEMP > 100.3'F Last administered on 01/12/22at 10:47; Start 01/12/22 at 10:45; Stop 01/12/22 at 14:09; Status DC Sennosides (Senna) 17.2 mg PRN BID PRN PO CONSTIPATION; Start 01/12/22 at 14:00 Docusate Sodium (Colace) 100 mg PRN DAILY PRN PO HARD STOOLS; Start 01/12/22 at 14:00 Ondansetron HCl (Zofran) 4 mg PRN Q6HRS PRN IVP NAUSEA/VOMITING, 1st CHOICE; Start 01/12/22 at 14:00 Insulin Human Lispro (HumaLOG) 0-5 UNITS TIDWMEALS SQ Last administered on 01/12/22at 18:14; Start 01/12/22 at 17:00 Dextrose (Dextrose 50%-Water Syringe) 12.5 gm PRN Q15MIN PRN IV SEE COMMENTS; Start 01/12/22 at 14:00 Sodium Chloride 1,000 ml @ 100 mls/hr Q10H IV Last administered on 01/12/22at 15:30; Start 01/12/22 at 14:00 Acetaminophen (Tylenol) 650 mg PRN Q4HRS PRN PO TEMP OVER 100.4F OR MILD PAIN; Start 01/12/22 at 14:00 Lorazepam (Ativan) 0.5 mg PRN Q6HRS PRN PO ANXIETY / AGITATION; Start 01/12/22 at 14:00 Lorazepam (Ativan Inj) 0.25 mg PRN Q4HRS PRN IV ANXIETY / AGITATION; Start 01/12/22 at 14:00 Enoxaparin Sodium (Lovenox 40mg Syringe) 40 mg Q24H SQ Last administered on 01/12/22at 15:31; Start 01/12/22 at 15:00 Oxycodone/ Acetaminophen (Percocet 5/325) 1 tab PRN Q4HRS PRN PO MILD PAIN, 1ST CHOICE Last administered on 01/12/22at 15:31; Start 01/12/22 at 14:00 Oxycodone/ Acetaminophen (Percocet 5/325) 2 tab PRN Q4HRS PRN PO MODERATE PAIN, SEVERE PAIN; Start 01/12/22 at 14:00 Morphine Sulfate (Morphine Sulfate) 1 mg PRN Q1HR PRN IV PAIN; Start 01/12/22 at 14:00 Morphine Sulfate (Morphine Sulfate) 2 mg PRN Q2HR PRN IVP SEVERE PAIN 7-10; Start 01/12/22 at 14:00; Stop 01/13/22 at 13:59 Prochlorperazine Edisylate (Compazine) 10 mg PRN Q6HRS PRN IV NAUSEA/VOMITING, 2nd CHOICE; Start 01/12/22 at 14:00 Diphenhydramine HCl (Benadryl) 25 mg PRN Q6HRS PRN IVP ITCHING; Start 01/12/22 at 14:00 Diphenhydramine HCl (Benadryl) 25 mg PRN Q6HRS PRN PO ITCHING; Start 01/12/22 at 14:00 Diphenhydramine HCl (Benadryl) 25 mg PRN QHS PRN PO INSOMNIA, 1st CHOICE; Start 01/12/22 at 14:00 Zolpidem Tartrate (Ambien) 2.5 mg PRN QHS PRN PO INSOMNIA, 2nd CHOICE; Start 01/12/22 at 14:00 Cefepime HCl (Maxipime) 2 gm Q12HR IVP Last administered on 01/12/22at 15:31; Start 01/12/22 at 14:30 Vancomycin HCl (Vanco Per Pharmacy) 1 each PRN DAILY PRN MC SEE COMMENTS Last administered on 01/12/22at 14:45; Start 01/12/22 at 14:00 Vancomycin HCl 1.5 gm/Sodium Chloride 500 ml @ 250 mls/hr Q18H IV Last administered on 01/12/22at 18:08; Start 01/12/22 at 17:00 Vancomycin HCl (Vancomycin Trough Level) 1 each 1X ONCE MC ; Start 01/14/22 at 04:30; Stop 01/14/22 at 04:31 Fentanyl Citrate (Fentanyl 2ml Vial) 25 mcg PRN Q5MIN PRN IVP MILD PAIN 1-3; Start 01/13/22 at 06:00; Stop 01/14/22 at 05:59 Fentanyl Citrate (Fentanyl 2ml Vial) 50 mcg PRN Q5MIN PRN IVP MODERATE PAIN 4- 6; Start 01/13/22 at 06:00; Stop 01/14/22 at 05:59 Morphine Sulfate (Morphine Sulfate) 1 mg PRN Q10MIN PRN IVP SEVERE PAIN 7-10; Start 01/13/22 at 06:00; Stop 01/14/22 at 05:59 Ringer's Solution 1,000 ml @ 30 mls/hr Q24H IV ; Start 01/13/22 at 06:00; Stop 01/13/22 at 17:59 Hydromorphone HCl (Dilaudid) 0.5 mg PRN Q10MIN PRN IVP SEVERE PAIN 7-10, 2nd CHOICE; Start 01/13/22 at 06:00; Stop 01/14/22 at 05:59 Prochlorperazine Edisylate (Compazine) 5 mg PACU PRN PRN IVP NAUSEA, MRX1; Start 01/13/22 at 06:00; Stop 01/14/22 at 05:59 Active Scripts Active Reported Triamcinolone Acetonide 80 Gm Oint...g. 1 Gm TP PRN PRN Ozempic (Semaglutide) 0.25 Mg/0.2 Ml Pen.injctr 0.25 Mg SQ WEEKLY Oxybutynin Chloride Er (Oxybutynin Chloride) 15 Mg Tab.er.24 1 Tab PO DAILY Ondansetron Hcl 4 Mg Tablet 1 Tab PO PRN Q8HRS PRN Nystatin 1 Each Powder.ea. 1 Each MC BID Loratadine 10 Mg Tablet 1 Tab PO DAILY Lantus Solostar (Insulin Glargine,Hum.rec.anlog) 100 Unit/1 Ml Insuln.pen 57 Unit SQ QHS Lactulose 20 Gm/30 Ml Solution 20 Gm PO TID Novolog (Insulin Aspart) 100 Unit/1 Ml Cartridge 45 Unit SQ BID Flonase Allergy Relief (Fluticasone Propionate) 9.9 Ml [place].susp 2 Sprays NS DAILY Fluoxetine Hcl 20 Mg Capsule 1 Cap PO HS Famotidine 20 Mg Tablet 20 Mg PO PRN PRN Doxycycline Hyclate 100 Mg Capsule 1 Cap PO BID 10 Days Docusate Sodium 100 Mg Capsule 1 Cap PO BID 7 Days Calcium Carbonate 500 Mg Tablet 2-3 Tab PO PRN DAILY PRN 30 Days Amox Tr-K Clv 875-125 Mg Tab (Amoxicillin/Potassium Clav) 1 Each Tablet 1 Tab PO BID Proair Hfa Inhaler (Albuterol Sulfate) 8.5 Gm Hfa.aer.ad 2 Puff IH PRN Q6HRS PRN 21 Days Acetaminophen 500 Mg Tablet 2 Tab PO PRN Q6HRS PRN 15 Days Gemtesa (Vibegron) 75 Mg Tablet 75 Mg PO DAILY Atorvastatin Calcium 40 Mg Tablet 40 Mg PO HS Lisinopril 2.5 Mg Tablet 2.5 Mg PO DAILY Pantoprazole Sodium (Pantoprazole Sodium) 40 Mg Tablet.dr 40 Mg PO BID Allergies: Coded Allergies: ciprofloxacin (Verified Allergy, Intermediate, 11/27/18) cranberry (Verified Allergy, Intermediate, 03/25/17) Uncoded Allergies: hay (Allergy, Intermediate, 11/27/18) Physical Examination PHYSICAL EXAMINATION: GENERAL: Gen. appearance: No acute distress. Mood/affect: Pleasant. HEENT: Head: Normocephalic, atraumatic. Airway Impairment: No. CHEST: Shape and expansion: Normal. Expansion: Normal. SKIN: General: Warm. Color: Good. GENITOURINARY:External genitalia - wnl. NEUROLOGICAL: Mental status: Alert and oriented 3. Language: Normal. : lateral left testicle with area of cellulitis. About 1in in diameter. Firm to touch. In the center, brown pus draining. Able to express. Does have small pustules. No erythema or signs of [place]. VITALS Vital Signs Date Time Temp Pulse Resp B/P (MAP) Pulse Ox O2 Delivery O2 Flow Rate FiO2 01/12/22 15:00 98.1 80 20 135/73 (93) 97 Nasal Cannula 2.0 98.1 Labs Laboratory Tests Test 01/11/22 22:30 01/11/22 23:15 01/12/22 02:43 01/12/22 07:50 White Blood Count 6.5 x10^3/uL (4.0-11.0) Red Blood Count 4.50 x10^6/uL (4.30-5.70) Hemoglobin 9.7 g/dL (13.0-17.5) Hematocrit 31.8 % (39.0-53.0) Mean Corpuscular Volume 71 fL (79-100) Mean Corpuscular Hemoglobin 22 pg (25-35) Mean Corpuscular Hemoglobin Concent 31 g/dL (31-37) Red Cell Distribution Width 19.3 % (11.5-14.5) Platelet Count 310 x10^3/uL (140-400) Neutrophils (%) (Auto) 65 % (31-73) Lymphocytes (%) (Auto) 21 % (24-48) Monocytes (%) (Auto) 10 % (0-9) Eosinophils (%) (Auto) 4 % (0-3) Basophils (%) (Auto) 0 % (0-3) Neutrophils # (Auto) 4.2 x10^3/uL (1.8-7.7) Lymphocytes # (Auto) 1.4 x10^3/uL (1.0-4.8) Monocytes # (Auto) 0.6 x10^3/uL (0.0-1.1) Eosinophils # (Auto) 0.3 x10^3/uL (0.0-0.7) Basophils # (Auto) 0.0 x10^3/uL (0.0-0.2) Segmented Neutrophils % 65 % (35-66) Lymphocytes % 19 % (24-48) Atypical Lymphocytes % (Manual) 1 % (0-0) Monocytes % 9 % (0-10) Eosinophils % 5 % (0-5) Basophils % 1 % (0-3) Platelet Estimate Adequate (ADEQUATE) Polychromasia Slight Hypochromasia Mod Anisocytosis Slight Microcytosis Mod Ovalocytes Few Sodium Level 138 mmol/L (136-145) Potassium Level 4.5 mmol/L (3.5-5.1) Chloride Level 105 mmol/L (98-107) Carbon Dioxide Level 23 mmol/L (21-32) Anion Gap 10 (6-14) Blood Urea Nitrogen 17 mg/dL (8-26) Creatinine 1.6 mg/dL (0.7-1.3) Estimated GFR (Cockcroft-Gault) 44.6 BUN/Creatinine Ratio 11 (6-20) Glucose Level 267 mg/dL (70-99) Lactic Acid Level 2.0 mmol/L (0.4-2.0) Calcium Level 8.6 mg/dL (8.5-10.1) Total Bilirubin 0.3 mg/dL (0.2-1.0) Aspartate Amino Transf (AST/SGOT) 23 U/L (15-37) Alanine Aminotransferase (ALT/SGPT) 30 U/L (16-63) Alkaline Phosphatase 83 U/L (46-116) Total Protein 6.8 g/dL (6.4-8.2) Albumin 3.3 g/dL (3.4-5.0) Albumin/Globulin Ratio 0.9 (1.0-1.7) Procalcitonin < 0.10 ng/mL (0.00-0.10) Coronavirus (COVID-19)(PCR) Not detected (NOT DETECTD) SARS-CoV-2 Antigen (Rapid) Negative (NEGATIVE) Glucose (Fingerstick) 187 mg/dL (70-99) 186 mg/dL (70-99) Test 01/12/22 10:15 01/12/22 11:17 01/12/22 17:32 White Blood Count 7.0 x10^3/uL (4.0-11.0) Red Blood Count 4.34 x10^6/uL (4.30-5.70) Hemoglobin 9.3 g/dL (13.0-17.5) Hematocrit 30.8 % (39.0-53.0) Mean Corpuscular Volume 71 fL (79-100) Mean Corpuscular Hemoglobin 21 pg (25-35) Mean Corpuscular Hemoglobin Concent 30 g/dL (31-37) Red Cell Distribution Width 19.5 % (11.5-14.5) Platelet Count 250 x10^3/uL (140-400) Neutrophils (%) (Auto) 72 % (31-73) Lymphocytes (%) (Auto) 15 % (24-48) Monocytes (%) (Auto) 7 % (0-9) Eosinophils (%) (Auto) 4 % (0-3) Basophils (%) (Auto) 1 % (0-3) Neutrophils # (Auto) 5.1 x10^3/uL (1.8-7.7) Lymphocytes # (Auto) 1.1 x10^3/uL (1.0-4.8) Monocytes # (Auto) 0.5 x10^3/uL (0.0-1.1) Eosinophils # (Auto) 0.3 x10^3/uL (0.0-0.7) Basophils # (Auto) 0.1 x10^3/uL (0.0-0.2) Sodium Level 139 mmol/L (136-145) Potassium Level 4.2 mmol/L (3.5-5.1) Chloride Level 107 mmol/L (98-107) Carbon Dioxide Level 23 mmol/L (21-32) Anion Gap 9 (6-14) Blood Urea Nitrogen 14 mg/dL (8-26) Creatinine 1.3 mg/dL (0.7-1.3) Estimated GFR (Cockcroft-Gault) 56.7 BUN/Creatinine Ratio 11 (6-20) Glucose Level 212 mg/dL (70-99) Calcium Level 8.3 mg/dL (8.5-10.1) Total Bilirubin 0.3 mg/dL (0.2-1.0) Aspartate Amino Transf (AST/SGOT) 14 U/L (15-37) Alanine Aminotransferase (ALT/SGPT) 23 U/L (16-63) Alkaline Phosphatase 76 U/L (46-116) Total Protein 6.6 g/dL (6.4-8.2) Albumin 2.9 g/dL (3.4-5.0) Albumin/Globulin Ratio 0.8 (1.0-1.7) Glucose (Fingerstick) 211 mg/dL (70-99) 233 mg/dL (70-99) Laboratory Tests Test 01/11/22 22:30 01/11/22 23:15 01/12/22 02:43 01/12/22 07:50 White Blood Count 6.5 x10^3/uL (4.0-11.0) Red Blood Count 4.50 x10^6/uL (4.30-5.70) Hemoglobin 9.7 g/dL (13.0-17.5) Hematocrit 31.8 % (39.0-53.0) Mean Corpuscular Volume 71 fL (79-100) Mean Corpuscular Hemoglobin 22 pg (25-35) Mean Corpuscular Hemoglobin Concent 31 g/dL (31-37) Red Cell Distribution Width 19.3 % (11.5-14.5) Platelet Count 310 x10^3/uL (140-400) Neutrophils (%) (Auto) 65 % (31-73) Lymphocytes (%) (Auto) 21 % (24-48) Monocytes (%) (Auto) 10 % (0-9) Eosinophils (%) (Auto) 4 % (0-3) Basophils (%) (Auto) 0 % (0-3) Neutrophils # (Auto) 4.2 x10^3/uL (1.8-7.7) Lymphocytes # (Auto) 1.4 x10^3/uL (1.0-4.8) Monocytes # (Auto) 0.6 x10^3/uL (0.0-1.1) Eosinophils # (Auto) 0.3 x10^3/uL (0.0-0.7) Basophils # (Auto) 0.0 x10^3/uL (0.0-0.2) Segmented Neutrophils % 65 % (35-66) Lymphocytes % 19 % (24-48) Atypical Lymphocytes % (Manual) 1 % (0-0) Monocytes % 9 % (0-10) Eosinophils % 5 % (0-5) Basophils % 1 % (0-3) Platelet Estimate Adequate (ADEQUATE) Polychromasia Slight Hypochromasia Mod Anisocytosis Slight Microcytosis Mod Ovalocytes Few Sodium Level 138 mmol/L (136-145) Potassium Level 4.5 mmol/L (3.5-5.1) Chloride Level 105 mmol/L (98-107) Carbon Dioxide Level 23 mmol/L (21-32) Anion Gap 10 (6-14) Blood Urea Nitrogen 17 mg/dL (8-26) Creatinine 1.6 mg/dL (0.7-1.3) Estimated GFR (Cockcroft-Gault) 44.6 BUN/Creatinine Ratio 11 (6-20) Glucose Level 267 mg/dL (70-99) Lactic Acid Level 2.0 mmol/L (0.4-2.0) Calcium Level 8.6 mg/dL (8.5-10.1) Total Bilirubin 0.3 mg/dL (0.2-1.0) Aspartate Amino Transf (AST/SGOT) 23 U/L (15-37) Alanine Aminotransferase (ALT/SGPT) 30 U/L (16-63) Alkaline Phosphatase 83 U/L (46-116) Total Protein 6.8 g/dL (6.4-8.2) Albumin 3.3 g/dL (3.4-5.0) Albumin/Globulin Ratio 0.9 (1.0-1.7) Procalcitonin < 0.10 ng/mL (0.00-0.10) Coronavirus (COVID-19)(PCR) Not detected (NOT DETECTD) SARS-CoV-2 Antigen (Rapid) Negative (NEGATIVE) Glucose (Fingerstick) 187 mg/dL (70-99) 186 mg/dL (70-99) Test 01/12/22 10:15 01/12/22 11:17 01/12/22 17:32 White Blood Count 7.0 x10^3/uL (4.0-11.0) Red Blood Count 4.34 x10^6/uL (4.30-5.70) Hemoglobin 9.3 g/dL (13.0-17.5) Hematocrit 30.8 % (39.0-53.0) Mean Corpuscular Volume 71 fL (79-100) Mean Corpuscular Hemoglobin 21 pg (25-35) Mean Corpuscular Hemoglobin Concent 30 g/dL (31-37) Red Cell Distribution Width 19.5 % (11.5-14.5) Platelet Count 250 x10^3/uL (140-400) Neutrophils (%) (Auto) 72 % (31-73) Lymphocytes (%) (Auto) 15 % (24-48) Monocytes (%) (Auto) 7 % (0-9) Eosinophils (%) (Auto) 4 % (0-3) Basophils (%) (Auto) 1 % (0-3) Neutrophils # (Auto) 5.1 x10^3/uL (1.8-7.7) Lymphocytes # (Auto) 1.1 x10^3/uL (1.0-4.8) Monocytes # (Auto) 0.5 x10^3/uL (0.0-1.1) Eosinophils # (Auto) 0.3 x10^3/uL (0.0-0.7) Basophils # (Auto) 0.1 x10^3/uL (0.0-0.2) Sodium Level 139 mmol/L (136-145) Potassium Level 4.2 mmol/L (3.5-5.1) Chloride Level 107 mmol/L (98-107) Carbon Dioxide Level 23 mmol/L (21-32) Anion Gap 9 (6-14) Blood Urea Nitrogen 14 mg/dL (8-26) Creatinine 1.3 mg/dL (0.7-1.3) Estimated GFR (Cockcroft-Gault) 56.7 BUN/Creatinine Ratio 11 (6-20) Glucose Level 212 mg/dL (70-99) Calcium Level 8.3 mg/dL (8.5-10.1) Total Bilirubin 0.3 mg/dL (0.2-1.0) Aspartate Amino Transf (AST/SGOT) 14 U/L (15-37) Alanine Aminotransferase (ALT/SGPT) 23 U/L (16-63) Alkaline Phosphatase 76 U/L (46-116) Total Protein 6.6 g/dL (6.4-8.2) Albumin 2.9 g/dL (3.4-5.0) Albumin/Globulin Ratio 0.8 (1.0-1.7) Glucose (Fingerstick) 211 mg/dL (70-99) 233 mg/dL (70-99) Assessment/Plan ---Scrotal cellulitis Vitals and labs stable. Started on Vanc and Cefepime in the ER. On exam, I was able to express small amount of brown/bloody pus from center of area. CT scan done in ER showing soft tissue infiltration left scrotum without loculated collection, likely cellulitis/developing phlegmon. Discussed case with Dr. Marte and will proceed with scrotal exploration with incision and drainage. Gave patient option of having this done at the bedside and adamant that he needs to be under anesthesia. Patient scheduled for 01/13 0800. Discussed risks of procedure including but not limited to bleeding, infection, injury to organs and risks of anesthesia. Patient agreeable to proceed. Will be able to send culture from OR for more specific antibiotic choice. NPO at midnight. Consent Ancef preop. STEPHON MARTE MD 01/13/22 0823: UROLOGY CONSULT Assessment/Plan Left scrotal abscess. We will plan for incision and drainage on 01/13 a.m. Discussed with patient and in detail including risks and benefits. He is in agreement. All questions answered. YAJAIRA CORTES APRN Jan 12, 2022 20:20 STEPHON MARTE MD Jan 13, 2022 08:23
[2022-01-13] VITALS (10 sets, daily range): BP systolic 132–176; BP diastolic 78–102
[2022-01-13] LABS: BACTERIA,URINE 0 /HPF (0-FEW); RBC,URINE 0 /HPF (0-2); WBC,URINE 0 /HPF (0-4)
[2022-01-13] MEDS: IV NORMAL SALINE 1000ML BAG 1,000 ML IV SCH ×2 (02:47→09:14)
[2022-01-13] MEDS ORDERED: HYDROmorphone 2 MG/ML INJ. IVP PRN (06:00)
[2022-01-13] MEDS ORDERED: fentaNYL PF VIAL 100 MCG/2 ML VIAL IVP PRN (06:00)
[2022-01-13] MEDS ORDERED: IV RINGERS,LACTATED 1000ML 1,000 ML IV SCH (06:00)
[2022-01-13] MEDS ORDERED: MORPHINE SULFATE 2 MG/ML INJ. IVP PRN (06:00)
[2022-01-13] MEDS ORDERED: PROCHLORPERAZINE 10 MG/2 ML VIAL. IVP PRN (06:00)
[2022-01-13] MEDS ORDERED: LIDOCAINE 2% PF 5 ML VIAL. ONE (07:39)
[2022-01-13] MEDS ORDERED: SEVOFLURANE 31 TO 60 MINUTES. IH ONE (07:39)
[2022-01-13] MEDS ORDERED: PROPOFOL 10 MG/ML (20ML) VIAL. IV ONE (07:39)
[2022-01-13] MEDS ORDERED: ONDANSETRON PF 4 MG/2 ML VIAL. ONE (07:39)
[2022-01-13] MEDS ORDERED: fentaNYL PF VIAL 100 MCG/2 ML VIAL ONE (07:40)
[2022-01-13] MEDS ORDERED: DEXAMETHASONE SOD PHOS 4 MG/ML VIAL ONE (07:40)
[2022-01-13] MEDS: VANCOMYCIN PER PHARMACY MC PRN (07:44)
[2022-01-13 07:59] LABS: BASO # 0.1 x10^3/uL (0.0-0.2); BASO % 1 % (0-3); EOS # 0.3 x10^3/uL (0.0-0.7); EOS % 7 % (0-3); HEMOGLOBIN 9.1 g/dL (13.0-17.5); LYMPH # 1.2 x10^3/uL (1.0-4.8); LYMPH % 24 % (24-48); MEAN CORPUSCULAR HEMOGLOBIN 21 pg (25-35); MEAN CORPUSCULAR HGB CONC 30 g/dL (31-37); MEAN CORPUSCULAR VOLUME 70 fL (79-100); MONO # 0.5 x10^3/uL (0.0-1.1); MONO % 10 % (0-9); NEUT # 2.8 x10^3/uL (1.8-7.7); NEUT % 58 % (31-73); PLATELET COUNT 259 x10^3/uL (140-400); RED BLOOD COUNT 4.27 x10^6/uL (4.30-5.70); RED CELL DISTRIBUTION WIDTH 18.9 % (11.5-14.5); WHITE BLOOD COUNT 4.8 x10^3/uL (4.0-11.0)
[2022-01-13] MEDS: INSULIN LISPRO 300 UNITS/3 ML VIAL. SQ SCH ×2 (08:00→11:45)
[2022-01-13 08:17] LABS: CALCIUM 8.2 mg/dL (8.5-10.1); CREATININE 1.3 mg/dL (0.7-1.3); GFR 56.7; MAGNESIUM 1.6 mg/dL (1.8-2.4); PHOSPHORUS 2.2 mg/dL (2.6-4.7)
--- NOTE | 2022-01-13 08:54 | PDOC4 ---
OPERATIVE NOTE Date: Date: Jan 13, 2022 Pre-Op Diagnosis: Scrotal abscess Post-Op Diagnosis: Scrotal abscess Procedure Performed: Incision and drainage of scrotal abscess Surgeon: Stephon Marte MD Anesthesia Type: General Blood Loss: Less than 5 mL Specimans Obtained: Abscess fluid for culture Findings: Loculated abscess left upper scrotum/groin Complications: None Operative Note: Informed consent was obtained. Patient was taken to the operating room where general anesthesia was induced. He was placed in the supine position and sterilely prepped and draped. A timeout was performed. An incision was made with a knife blade into the indurated skin in the upper left scrotum. There was return of purulent fluid, approximately 10 mL. The fluid was sent for aerobic and anaerobic culture. Hemostat was used to break loculations within the abscess cavity. The abscess cavity was irrigated and then packed with iodoform packing tape. A scrotal support was placed with overlying gauze. The patient was awakened and taken to the recovery room in stable condition. STEPHON MARTE MD Jan 13, 2022 08:54
--- NOTE | 2022-01-13 08:56 | PDOC ---
Provider Note Date of Service: DATE: 01/13/22 TIME: 08:55 Provider Note Okay for patient discharge today. Would give clindamycin 300 mg 3 times daily x10 days. Change gauze overlying wound daily. Follow-up on 01/19/2022 in urology clinic. Discussed with the patient's . Justifications for Admission Other Justification Scrotal abscess STEPHON MARTE MD Jan 13, 2022 08:56
[2022-01-13] MEDS ORDERED: INSULIN LISPRO 100 UNIT/ML 3ML VIAL for OP,RR ONLY. SQ PRN (09:00)
[2022-01-13] MEDS: fentaNYL PF VIAL 100 MCG/2 ML VIAL IVP PRN ×2 (09:11→09:20)
[2022-01-13] MEDS: CEFEPIME HCL IV Push 2 GM VIAL. IVP SCH (10:00)
[2022-01-13] MEDS: VANCOMYCIN 1.5 GM in IV NORMAL SALINE 500ML BAG 500 ML IV SCH (10:01)
[2022-01-13] MEDS: ENOXAPARIN 40 MG/0.4 ML SYRINGE. SQ SCH (11:13)
[2022-01-13] MEDS ORDERED: CLIN-94 PO (14:41)
--- NOTE | 2022-01-13 15:11 | PDOC ---
[employer] PROGRESS NOTE Date of Service DOS: DATE: 01/13/22 TIME: 15:09 Chief Complaint Chief Complaint Left scrotal abscess Microcytic anemia, likely ADELINA History of diabetes mellitus type 2 History of CKD likely stage II History of prostate cancer History of Present Illness History of Present Illness 01/13: Afebrile. Patient s/p I&D of scrotal abscess. He is stable to discharge home, per urology. He is requesting dressing changes prior to discharge. He will discharge on clindamycin with outpatient urology follow-up. Greater than 30 minutes spent managing the discharge of this patient. Vitals/I&O Vitals/I&O: Vital Signs Date Time Temp Pulse Resp B/P (MAP) Pulse Ox O2 Delivery O2 Flow Rate FiO2 01/13/22 12:19 Room Air 01/13/22 09:20 20 01/13/22 09:15 89 153/88 96 01/13/22 09:00 10.0 01/13/22 07:00 98.5 98.5 I & O 01/12/22 01/12/22 01/13/22 15:00 23:00 07:00 Intake Total 500 ml 0 ml Output Total 300 ml 1050 ml 700 ml Balance -300 ml -550 ml -700 ml Physical Exam General: Alert, Oriented X3, Cooperative, No acute distress Heart: Regular rate Lungs: Clear Abdomen: Soft Extremities: No clubbing, No cyanosis Skin: No rashes, No breakdown Labs Labs: Laboratory Tests Test 01/12/22 17:32 01/12/22 19:45 01/12/22 20:31 01/13/22 06:40 Glucose (Fingerstick) 233 mg/dL (70-99) 223 mg/dL (70-99) Urine Collection Type Unknown Urine Color (Auto) Colorless Urine Turbidity Clear Urine pH (Auto) 6.5 (<5.0-8.0) Urine Specific Globe 1.015 (1.000-1.030) Urine Protein (Auto) Negative mg/dL (Negative) Urine Glucose (Auto)(UA) >=1000 mg/dL (Negative) Urine Ketones (Auto) Negative mg/dL (Negative) Urine Blood (Auto) Negative (Negative) Urine Nitrite Negative (Negative) Urine Bilirubin (Auto) Negative (Negative) Urine Urobilinogen (Auto) Normal mg/dL (Normal) Urine Leukocyte Esterase (Auto) Negative (Negative) Urine RBC 0 /HPF (0-2) Urine WBC 0 /HPF (0-4) Urine Squamous Epithelial Cells Occ /LPF Urine Bacteria 0 /HPF (0-FEW) White Blood Count 4.8 x10^3/uL (4.0-11.0) Red Blood Count 4.27 x10^6/uL (4.30-5.70) Hemoglobin 9.1 g/dL (13.0-17.5) Hematocrit 30.0 % (39.0-53.0) Mean Corpuscular Volume 70 fL (79-100) Mean Corpuscular Hemoglobin 21 pg (25-35) Mean Corpuscular Hemoglobin Concent 30 g/dL (31-37) Red Cell Distribution Width 18.9 % (11.5-14.5) Platelet Count 259 x10^3/uL (140-400) Neutrophils (%) (Auto) 58 % (31-73) Lymphocytes (%) (Auto) 24 % (24-48) Monocytes (%) (Auto) 10 % (0-9) Eosinophils (%) (Auto) 7 % (0-3) Basophils (%) (Auto) 1 % (0-3) Neutrophils # (Auto) 2.8 x10^3/uL (1.8-7.7) Lymphocytes # (Auto) 1.2 x10^3/uL (1.0-4.8) Monocytes # (Auto) 0.5 x10^3/uL (0.0-1.1) Eosinophils # (Auto) 0.3 x10^3/uL (0.0-0.7) Basophils # (Auto) 0.1 x10^3/uL (0.0-0.2) Sodium Level 137 mmol/L (136-145) Potassium Level 4.0 mmol/L (3.5-5.1) Chloride Level 104 mmol/L (98-107) Carbon Dioxide Level 22 mmol/L (21-32) Anion Gap 11 (6-14) Blood Urea Nitrogen 15 mg/dL (8-26) Creatinine 1.3 mg/dL (0.7-1.3) Estimated GFR (Cockcroft-Gault) 56.7 Glucose Level 251 mg/dL (70-99) Calcium Level 8.2 mg/dL (8.5-10.1) Phosphorus Level 2.2 mg/dL (2.6-4.7) Magnesium Level 1.6 mg/dL (1.8-2.4) Test 01/13/22 08:52 01/13/22 09:34 01/13/22 11:32 Glucose (Fingerstick) 212 mg/dL (70-99) 200 mg/dL (70-99) 275 mg/dL (70-99) Assessment and Plan Assessmemt and Plan Problems Medical Problems: (1) Acute kidney injury Status: Acute (2) Anemia Status: Acute (3) Hyperglycemia Status: Acute Comment Review of Relevant I have reviewed the following items patti (where applicable) has been applied. Medications: Current Medications Medications (Trade) Dose Ordered Sig/Wili Route PRN Reason Start Time Stop Time Status Last Admin Dose Admin Insulin Human Lispro (HumaLOG) 0-5 UNITS TIDWMEALS SQ 01/12/22 17:00 01/13/22 11:45 Vancomycin HCl 1.5 gm/Sodium Chloride 500 ml @ 250 mls/hr Q18H IV 01/12/22 17:00 01/13/22 10:01 Fentanyl Citrate (Fentanyl 2ml Vial) 50 mcg PRN Q5MIN PRN IVP MODERATE PAIN 4-6 01/13/22 06:00 01/14/22 05:59 01/13/22 09:20 Insulin Human Lispro (HumaLOG VIAL for OP,RR ONLY) 0-10 units PRN Q1HR PRN SQ PER PROTOCOL 01/13/22 09:00 01/14/22 08:59 01/13/22 09:02 Justifications for Admission Other Justification Scrotal abscess SILVINA DAVEY MD Jan 13, 2022 15:11
--- NOTE | 2022-01-13 15:12 | PDOC3 ---
Discharge Summary Visit Information Date of Admission: Jan 12, 2022 Date of Discharge: Jan 13, 2022 Final Diagnosis Problems Medical Problems: (1) Acute kidney injury Status: Acute (2) Anemia Status: Acute (3) Hyperglycemia Status: Acute Brief Hospital Course Allergies Allergies Coded Allergies Type Severity Reaction Last Updated Verified ciprofloxacin Allergy Intermediate 11/27/18 Yes cranberry Allergy Intermediate 03/25/17 Yes Uncoded Allergies Type Severity Reaction Last Updated Verified hay Allergy Intermediate 11/27/18 Vital Signs Vital Signs Date Time Temp Pulse Resp B/P (MAP) Pulse Ox O2 Delivery O2 Flow Rate FiO2 01/13/22 12:19 Room Air 01/13/22 09:20 20 01/13/22 09:15 89 153/88 96 01/13/22 09:00 10.0 01/13/22 07:00 98.5 98.5 Lab Results Laboratory Tests Test 01/11/22 22:30 01/11/22 23:15 01/12/22 02:43 01/12/22 07:50 White Blood Count 6.5 x10^3/uL (4.0-11.0) Red Blood Count 4.50 x10^6/uL (4.30-5.70) Hemoglobin 9.7 g/dL (13.0-17.5) Hematocrit 31.8 % (39.0-53.0) Mean Corpuscular Volume 71 fL (79-100) Mean Corpuscular Hemoglobin 22 pg (25-35) Mean Corpuscular Hemoglobin Concent 31 g/dL (31-37) Red Cell Distribution Width 19.3 % (11.5-14.5) Platelet Count 310 x10^3/uL (140-400) Neutrophils (%) (Auto) 65 % (31-73) Lymphocytes (%) (Auto) 21 % (24-48) Monocytes (%) (Auto) 10 % (0-9) Eosinophils (%) (Auto) 4 % (0-3) Basophils (%) (Auto) 0 % (0-3) Neutrophils # (Auto) 4.2 x10^3/uL (1.8-7.7) Lymphocytes # (Auto) 1.4 x10^3/uL (1.0-4.8) Monocytes # (Auto) 0.6 x10^3/uL (0.0-1.1) Eosinophils # (Auto) 0.3 x10^3/uL (0.0-0.7) Basophils # (Auto) 0.0 x10^3/uL (0.0-0.2) Segmented Neutrophils % 65 % (35-66) Lymphocytes % 19 % (24-48) Atypical Lymphocytes % (Manual) 1 % (0-0) Monocytes % 9 % (0-10) Eosinophils % 5 % (0-5) Basophils % 1 % (0-3) Platelet Estimate Adequate (ADEQUATE) Polychromasia Slight Hypochromasia Mod Anisocytosis Slight Microcytosis Mod Ovalocytes Few Sodium Level 138 mmol/L (136-145) Potassium Level 4.5 mmol/L (3.5-5.1) Chloride Level 105 mmol/L (98-107) Carbon Dioxide Level 23 mmol/L (21-32) Anion Gap 10 (6-14) Blood Urea Nitrogen 17 mg/dL (8-26) Creatinine 1.6 mg/dL (0.7-1.3) Estimated GFR (Cockcroft-Gault) 44.6 BUN/Creatinine Ratio 11 (6-20) Glucose Level 267 mg/dL (70-99) Lactic Acid Level 2.0 mmol/L (0.4-2.0) Calcium Level 8.6 mg/dL (8.5-10.1) Total Bilirubin 0.3 mg/dL (0.2-1.0) Aspartate Amino Transf (AST/SGOT) 23 U/L (15-37) Alanine Aminotransferase (ALT/SGPT) 30 U/L (16-63) Alkaline Phosphatase 83 U/L (46-116) Total Protein 6.8 g/dL (6.4-8.2) Albumin 3.3 g/dL (3.4-5.0) Albumin/Globulin Ratio 0.9 (1.0-1.7) Procalcitonin < 0.10 ng/mL (0.00-0.10) Coronavirus (COVID-19)(PCR) Not detected (NOT DETECTD) SARS-CoV-2 Antigen (Rapid) Negative (NEGATIVE) Glucose (Fingerstick) 187 mg/dL (70-99) 186 mg/dL (70-99) Test 01/12/22 10:15 01/12/22 11:17 01/12/22 17:32 01/12/22 19:45 White Blood Count 7.0 x10^3/uL (4.0-11.0) Red Blood Count 4.34 x10^6/uL (4.30-5.70) Hemoglobin 9.3 g/dL (13.0-17.5) Hematocrit 30.8 % (39.0-53.0) Mean Corpuscular Volume 71 fL (79-100) Mean Corpuscular Hemoglobin 21 pg (25-35) Mean Corpuscular Hemoglobin Concent 30 g/dL (31-37) Red Cell Distribution Width 19.5 % (11.5-14.5) Platelet Count 250 x10^3/uL (140-400) Neutrophils (%) (Auto) 72 % (31-73) Lymphocytes (%) (Auto) 15 % (24-48) Monocytes (%) (Auto) 7 % (0-9) Eosinophils (%) (Auto) 4 % (0-3) Basophils (%) (Auto) 1 % (0-3) Neutrophils # (Auto) 5.1 x10^3/uL (1.8-7.7) Lymphocytes # (Auto) 1.1 x10^3/uL (1.0-4.8) Monocytes # (Auto) 0.5 x10^3/uL (0.0-1.1) Eosinophils # (Auto) 0.3 x10^3/uL (0.0-0.7) Basophils # (Auto) 0.1 x10^3/uL (0.0-0.2) Sodium Level 139 mmol/L (136-145) Potassium Level 4.2 mmol/L (3.5-5.1) Chloride Level 107 mmol/L (98-107) Carbon Dioxide Level 23 mmol/L (21-32) Anion Gap 9 (6-14) Blood Urea Nitrogen 14 mg/dL (8-26) Creatinine 1.3 mg/dL (0.7-1.3) Estimated GFR (Cockcroft-Gault) 56.7 BUN/Creatinine Ratio 11 (6-20) Glucose Level 212 mg/dL (70-99) Calcium Level 8.3 mg/dL (8.5-10.1) Total Bilirubin 0.3 mg/dL (0.2-1.0) Aspartate Amino Transf (AST/SGOT) 14 U/L (15-37) Alanine Aminotransferase (ALT/SGPT) 23 U/L (16-63) Alkaline Phosphatase 76 U/L (46-116) Total Protein 6.6 g/dL (6.4-8.2) Albumin 2.9 g/dL (3.4-5.0) Albumin/Globulin Ratio 0.8 (1.0-1.7) Glucose (Fingerstick) 211 mg/dL (70-99) 233 mg/dL (70-99) Urine Collection Type Unknown Urine Color (Auto) Colorless Urine Turbidity Clear Urine pH (Auto) 6.5 (<5.0-8.0) Urine Specific [place] 1.015 (1.000-1.030) Urine Protein (Auto) Negative mg/dL (Negative) Urine Glucose (Auto)(UA) >=1000 mg/dL (Negative) Urine Ketones (Auto) Negative mg/dL (Negative) Urine Blood (Auto) Negative (Negative) Urine Nitrite Negative (Negative) Urine Bilirubin (Auto) Negative (Negative) Urine Urobilinogen (Auto) Normal mg/dL (Normal) Urine Leukocyte Esterase (Auto) Negative (Negative) Urine RBC 0 /HPF (0-2) Urine WBC 0 /HPF (0-4) Urine Squamous Epithelial Cells Occ /LPF Urine Bacteria 0 /HPF (0-FEW) Test 01/12/22 20:31 01/13/22 06:40 01/13/22 08:52 01/13/22 09:34 Glucose (Fingerstick) 223 mg/dL (70-99) 212 mg/dL (70-99) 200 mg/dL (70-99) White Blood Count 4.8 x10^3/uL (4.0-11.0) Red Blood Count 4.27 x10^6/uL (4.30-5.70) Hemoglobin 9.1 g/dL (13.0-17.5) Hematocrit 30.0 % (39.0-53.0) Mean Corpuscular Volume 70 fL (79-100) Mean Corpuscular Hemoglobin 21 pg (25-35) Mean Corpuscular Hemoglobin Concent 30 g/dL (31-37) Red Cell Distribution Width 18.9 % (11.5-14.5) Platelet Count 259 x10^3/uL (140-400) Neutrophils (%) (Auto) 58 % (31-73) Lymphocytes (%) (Auto) 24 % (24-48) Monocytes (%) (Auto) 10 % (0-9) Eosinophils (%) (Auto) 7 % (0-3) Basophils (%) (Auto) 1 % (0-3) Neutrophils # (Auto) 2.8 x10^3/uL (1.8-7.7) Lymphocytes # (Auto) 1.2 x10^3/uL (1.0-4.8) Monocytes # (Auto) 0.5 x10^3/uL (0.0-1.1) Eosinophils # (Auto) 0.3 x10^3/uL (0.0-0.7) Basophils # (Auto) 0.1 x10^3/uL (0.0-0.2) Sodium Level 137 mmol/L (136-145) Potassium Level 4.0 mmol/L (3.5-5.1) Chloride Level 104 mmol/L (98-107) Carbon Dioxide Level 22 mmol/L (21-32) Anion Gap 11 (6-14) Blood Urea Nitrogen 15 mg/dL (8-26) Creatinine 1.3 mg/dL (0.7-1.3) Estimated GFR (Cockcroft-Gault) 56.7 Glucose Level 251 mg/dL (70-99) Calcium Level 8.2 mg/dL (8.5-10.1) Phosphorus Level 2.2 mg/dL (2.6-4.7) Magnesium Level 1.6 mg/dL (1.8-2.4) Test 01/13/22 11:32 Glucose (Fingerstick) 275 mg/dL (70-99) Laboratory Tests Test 01/12/22 17:32 01/12/22 19:45 01/12/22 20:31 01/13/22 06:40 Glucose (Fingerstick) 233 mg/dL (70-99) 223 mg/dL (70-99) Urine Collection Type Unknown Urine Color (Auto) Colorless Urine Turbidity Clear Urine pH (Auto) 6.5 (<5.0-8.0) Urine Specific [place] 1.015 (1.000-1.030) Urine Protein (Auto) Negative mg/dL (Negative) Urine Glucose (Auto)(UA) >=1000 mg/dL (Negative) Urine Ketones (Auto) Negative mg/dL (Negative) Urine Blood (Auto) Negative (Negative) Urine Nitrite Negative (Negative) Urine Bilirubin (Auto) Negative (Negative) Urine Urobilinogen (Auto) Normal mg/dL (Normal) Urine Leukocyte Esterase (Auto) Negative (Negative) Urine RBC 0 /HPF (0-2) Urine WBC 0 /HPF (0-4) Urine Squamous Epithelial Cells Occ /LPF Urine Bacteria 0 /HPF (0-FEW) White Blood Count 4.8 x10^3/uL (4.0-11.0) Red Blood Count 4.27 x10^6/uL (4.30-5.70) Hemoglobin 9.1 g/dL (13.0-17.5) Hematocrit 30.0 % (39.0-53.0) Mean Corpuscular Volume 70 fL (79-100) Mean Corpuscular Hemoglobin 21 pg (25-35) Mean Corpuscular Hemoglobin Concent 30 g/dL (31-37) Red Cell Distribution Width 18.9 % (11.5-14.5) Platelet Count 259 x10^3/uL (140-400) Neutrophils (%) (Auto) 58 % (31-73) Lymphocytes (%) (Auto) 24 % (24-48) Monocytes (%) (Auto) 10 % (0-9) Eosinophils (%) (Auto) 7 % (0-3) Basophils (%) (Auto) 1 % (0-3) Neutrophils # (Auto) 2.8 x10^3/uL (1.8-7.7) Lymphocytes # (Auto) 1.2 x10^3/uL (1.0-4.8) Monocytes # (Auto) 0.5 x10^3/uL (0.0-1.1) Eosinophils # (Auto) 0.3 x10^3/uL (0.0-0.7) Basophils # (Auto) 0.1 x10^3/uL (0.0-0.2) Sodium Level 137 mmol/L (136-145) Potassium Level 4.0 mmol/L (3.5-5.1) Chloride Level 104 mmol/L (98-107) Carbon Dioxide Level 22 mmol/L (21-32) Anion Gap 11 (6-14) Blood Urea Nitrogen 15 mg/dL (8-26) Creatinine 1.3 mg/dL (0.7-1.3) Estimated GFR (Cockcroft-Gault) 56.7 Glucose Level 251 mg/dL (70-99) Calcium Level 8.2 mg/dL (8.5-10.1) Phosphorus Level 2.2 mg/dL (2.6-4.7) Magnesium Level 1.6 mg/dL (1.8-2.4) Test 01/13/22 08:52 01/13/22 09:34 01/13/22 11:32 Glucose (Fingerstick) 212 mg/dL (70-99) 200 mg/dL (70-99) 275 mg/dL (70-99) Brief Hospital Course Mr. Walker is a 56 old male who presented with scrotal abscess. Consultation placed to urology. He had I&D of scrotal abscess, with improvement. He was discharged on clindamycin for 10 days and follow-up with urology on outpatient basis. Discharge Information Condition at Discharge: Improved Disposition/Orders: D/C to Home Scheduled Amoxicillin/Potassium Clav (Amox Tr-K Clv 875-125 Mg Tab) 1 Each Tablet, 1 TAB PO BID for infection, #20 (Reported) Entered as Reported by: TONIE MORRISON RN on 01/12/22643 Last Action: New Order on 01/12/22643 by TONIE MORRISON RN Atorvastatin Calcium (Atorvastatin Calcium) 40 Mg Tablet, 40 MG PO HS for FOR CHOLESTEROL, #30 Ref 0 (Reported) Entered as Reported by: Gaetano Johnson on 11/09/201740 Last Action: Reviewed on 01/12/22643 by TONIE MORRISON RN Docusate Sodium (Docusate Sodium) 100 Mg Capsule, 1 CAP PO BID for constipation for 7 Days, #14 Ref 0 (Reported) Entered as Reported by: TONIE MORRISON RN on 01/12/22643 Last Action: New Order on 01/12/22643 by TONIE MORRISON RN Doxycycline Hyclate (Doxycycline Hyclate) 100 Mg Capsule, 1 CAP PO BID for infection for 10 Days, #20 (Reported) Entered as Reported by: TONIE MORRISON RN on 01/12/22643 Last Action: New Order on 01/12/22643 by TONIE MORRISON RN Fluoxetine Hcl (Fluoxetine Hcl) 20 Mg Capsule, 1 CAP PO HS for depression, #90 Ref 1 (Reported) Entered as Reported by: TONIE MORRISON RN on 01/12/22643 Last Action: New Order on 01/12/22643 by TONIE MORRISON RN Fluticasone Propionate (Flonase Allergy Relief) 9.9 Ml Slaughters.susp, 2 SPRAYS NS DAILY for allergies, (Reported) Entered as Reported by: TONIE MORRISON RN on 01/12/22643 Last Action: New Order on 01/12/22643 by TONIE MORRISON RN Insulin Aspart (Novolog) 100 Unit/1 Ml Cartridge, 45 UNIT SQ BID for dm, (Reported) Entered as Reported by: TONIE MORRISON RN on 01/12/22643 Last Action: New Order on 01/12/22643 by TONIE MORRISON RN Insulin Glargine,Hum.rec.anlog (Lantus Solostar) 100 Unit/1 Ml Insuln.pen, 57 UNIT SQ QHS for dm, #15 Ref 3 (Reported) Entered as Reported by: TONIE MORRISON RN on 01/12/22643 Last Action: New Order on 01/12/22643 by TONIE MORRISON RN Lactulose (Lactulose) 20 Gm/30 Ml Solution, 20 GM PO TID for liver issue, (Reported) Entered as Reported by: TONIE MORRISON RN on 01/12/22643 Last Action: New Order on 01/12/22643 by TONIE MORRISON RN Lisinopril (Lisinopril) 2.5 Mg Tablet, 2.5 MG PO DAILY for FOR HYPERTENSION, #30 Ref 0 (Reported) Entered as Reported by: Gaetano Johnson on 11/09/201740 Last Action: Reviewed on 01/12/22643 by TONIE MORRISON RN Loratadine (Loratadine) 10 Mg Tablet, 1 TAB PO DAILY for allergies, #30 Ref 5 (Reported) Entered as Reported by: TONIE MORRISON RN on 01/12/22643 Last Action: New Order on 01/12/22643 by TONIE MORRISON RN Nystatin (Nystatin) 1 Each Powder.ea., 1 EACH MC BID for skin moisture, (Reported) Entered as Reported by: TONIE MORRISON RN on 01/12/22643 Last Action: New Order on 01/12/22643 by TONIE MORRISON RN Oxybutynin Chloride (Oxybutynin Chloride Er) 15 Mg Tab.er.24, 1 TAB PO DAILY for bladder issues, #90 Ref 1 (Reported) Entered as Reported by: TONIE MORRISON RN on 01/12/22643 Last Action: New Order on 01/12/22643 by TONIE MORRISON RN Pantoprazole Sodium (Pantoprazole Sodium ) 40 Mg Tablet.dr, 40 MG PO BID for GERD, (Reported) Entered as Reported by: Gaetano Johnson on 11/09/201740 Last Action: Edited on 01/12/22643 by TONIE MORRISON RN Semaglutide (Ozempic) 0.25 Mg/0.2 Ml Pen.injctr, 0.25 MG SQ WEEKLY for dm, (Reported) Entered as Reported by: TONIE MORRISON RN on 01/12/22643 Last Action: New Order on 01/12/22643 by TONIE MORRISON RN Vibegron (Gemtesa) 75 Mg Tablet, 75 MG PO DAILY for incontinence, (Reported) Entered as Reported by: TONIE MORRISON RN on 01/12/22643 Last Action: New Order on 01/12/22643 by TONIE MORRISON RN Scheduled PRN Acetaminophen (Acetaminophen) 500 Mg Tablet, 2 TAB PO PRN Q6HRS PRN for pain or fever for 15 Days, #60 Ref 0 (Reported) Entered as Reported by: TONIE MORRISON RN on 01/12/22643 Last Action: New Order on 01/12/22643 by TONIE MORRISON RN Albuterol Sulfate (Proair Hfa Inhaler) 8.5 Gm Hfa.aer.ad, 2 PUFF IH PRN Q6HRS PRN for SHORTNESS OF BREATH for 21 Days, #1 Ref 0 (Reported) Entered as Reported by: TONIE MORRISON RN on 01/12/22643 Last Action: New Order on 01/12/22643 by TONIE MORRISON RN Calcium Carbonate (Calcium Carbonate) 500 Mg Tablet, 2-3 TAB PO PRN DAILY PRN for GAS / BLOATING for 30 Days, Ref 0 (Reported) Entered as Reported by: TONIE MORRISON RN on 01/12/22643 Last Action: New Order on 01/12/22643 by TONIE MORRISON RN Famotidine (Famotidine) 20 Mg Tablet, 20 MG PO PRN PRN for gerd, (Reported) Entered as Reported by: TONIE MORRISON RN on 01/12/22643 Last Action: New Order on 01/12/22643 by TONIE MORRISON RN Ondansetron Hcl (Ondansetron Hcl) 4 Mg Tablet, 1 TAB PO PRN Q8HRS PRN for NAUSE A, #10 Ref 1 (Reported) Entered as Reported by: TONIE MORRSION RN on 01/12/22643 Last Action: New Order on 01/12/22643 by TONIE MORRISON RN Triamcinolone Acetonide (Triamcinolone Acetonide) 80 Gm Oint...g., 1 GM TP PRN PRN for skin issues, (Reported) Entered as Reported by: TONIE MORRISON RN on 01/12/22643 Last Action: New Order on 01/12/22643 by TONIE MORRISON RN Justicifation of Admission Dx: Justifications for Admission: Justification of Admission Dx: Yes SILVINA DAVEY MD Jan 13, 2022 15:12
[2022-01-13] MEDS ORDERED: OXYC1TAB15 PO (15:15)
--- NOTE | 2022-01-13 15:54 | NUR ---
patient verbalized understanding of discharge instructions and wound care.
== END 2022-01-13 16:20 | disposition home or self-care (01) | DRG 727 ==
LOC: ER 21:46 → ED HOLD 01-12 00:42 → 4 NORTH 01-12 12:29
PROVIDERS: ADMIT Family Medicine; ATTEND Family Medicine
PROC: 0V95XZZ Drainage of Scrotum, External Approach (ICD-10-PCS; principal; 2022-01-12)
DX: N49.2 Inflammatory disorders of scrotum (principal); N17.0 Acute kidney failure with tubular necrosis; E11.65 Type 2 diabetes mellitus with hyperglycemia; D50.9 Iron deficiency anemia, unspecified; E11.22 Type 2 diabetes mellitus with diabetic chronic kidney disease; F32.A Depression, unspecified; I12.9 Hypertensive chronic kidney disease with stage 1 through stage 4 chronic kidney disease, or unspecified chronic kidney disease; K21.9 Gastro-esophageal reflux disease without esophagitis; K59.00 Constipation, unspecified; K76.0 Fatty (change of) liver, not elsewhere classified; N18.2 Chronic kidney disease, stage 2 (mild); R32 Unspecified urinary incontinence; Z79.4 Long term (current) use of insulin; Z79.899 Other long term (current) drug therapy; Z85.46 Personal history of malignant neoplasm of prostate; Z90.79 Acquired absence of other genital organ(s); Z20.822 Contact with and (suspected) exposure to COVID-19; Z88.8 Allergy status to other drugs, medicaments and biological substances; Z90.49 Acquired absence of other specified parts of digestive tract
CPT/HCPCS: 36415; 74177; 80048; 80053; 81001; 82962; 83605; 83735; 84100; 84145; 85007; 85025; 87040; 87075; 87077; 87186; 87426; A4223; A4930; A6266; A6402; J0690; J0692; J1100; J1650; J1815; J2270; J2405; J2543; J2704; J3010; J3370; J7030; J7040; J7060; Q9967; U0003; 99285-25; G0378